=== PATIENT | male | born 1970 | race Caucasian/White ===

== ENCOUNTER 2018-12-07 13:50 | Inpatient (IN) | payer BC, OTHER ==
--- NOTE | 2018-12-07 14:24 | ED ---
General Adult HPI - General Chief complaint: Altered Mental Status Stated complaint: cirrhosis of liver Time Seen by Provider: 12/07/18 14:10 Source: patient, EMS Mode of arrival: EMS Limitations: altered mental status - History of Present Illness Initial comments: Dictation was produced using [employer] dictation software. please excuse any grammatical, word or spelling errors. Chief Complaint: 48-year-old male with past medical history of diabetes, liver cirrhosis presents via transfer from [facility] for hepatic encephalopathy. History of Present Illness: As a 48-year-old male past medical history of cirrhosis and hyperammonemia presents via EMS as a transfer from [facility] for hepatic encephalopathy. Patient is known history of liver cirrhosis. He does take lactulose at home. Patient was allegedly brought to [facility] by EMS for altered mental status. Patient was allegedly uncooperative and slightly combative at home. He does have established care with GI doctor Dr. Angulo. She was seen and evaluated there and found to have elevated ammonia level measuring 2-54. His also found to have elevated potassium measuring 6.7. Patient was treated with hyperkalemia medications. His potassium was rechecked and found to be 4.6. Patient has no complaints at this time. Patient states he's feeling a lot better since being transferred. Did have a computed tomography scan of the brain that was unremarkable. He also had CT abdomen and pelvis that showed no acute processes. According transferring doctor he was not sure why patient had hyperkalemia. The ROS documented in this emergency department record has been reviewed and confirmed by me. Those systems with pertinent positive or negative responses have been documented in the HPI. All other systems are other negative and/or noncontributory. PHYSICAL EXAM: General Impression: Alert and oriented x3, not in acute distress HEENT: Normocephalic atraumatic, extra-ocular movements intact, pupils equal and reactive to light bilaterally, mucous membranes moist. Cardiovascular: Heart regular rate and rhythm, S1&S2 audible, no murmurs, rubs or gallops Chest: Lungs clear to auscultation bilaterally, no rhonchi, no wheeze, no rales Abdomen: Bowel sounds present, abdomen soft, non-tender, non-distended, no organomegaly Musculoskeletal: Pulses present and equal in all extremities, no peripheral edema Motor: no focal deficits noted Neurological: CN II-XII grossly intact, no focal motor or sensory deficits noted Skin: Intact with no visualized rashes Psych: Normal affect and mood ED course: 48-year-old male transferred from [facility] for hepatic encephalopathy. Chart was reviewed. Vital signs upon arrival shows heart rate of 103, rest of vital signs within acceptable limits. Patient is alert and oriented 4. He is well-appearing at this time. Labs and imaging were reviewed. The reading repeat EKG, repeat basic metabolic panel and ammonia level. Discussed patient case with Dr. Contreras who is willing to accept patients care. Review of Systems ROS Statement: Those systems with pertinent positive or pertinent negative responses have been documented in the HPI. ROS Other: All systems not noted in ROS Statement are negative. General Exam Limitations: altered mental status Course Vital Signs 12/07/18 14:08 Temperature 97.7 F Pulse Rate 103 H Respiratory 20 Rate Blood Pressure 109/59 Disposition Clinical Impression: Encephalopathy Disposition: ADMITTED IP TO THIS HOSP Condition: Fair Referrals: Star Guzmán MD [Primary Care Provider] - 1-2 days Decision Time: 14:31
[2018-12-07] MEDS ORDERED: NALOXONE 0.4 MG/ML 1 ML VIAL IV PRN (14:28)
[2018-12-07] MEDS ORDERED: SODIUM CHLORIDE 0.9% 1,000 ML IV SCH (14:30)
[2018-12-07 15:54] LABS: African American GFR (CKD) >90 (>60 ml/min/1.73 sqM); Anion Gap 11 mmol/L; Blood Urea Nitrogen 27 mg/dL (9-20); Calcium 8.7 mg/dL (8.4-10.2); Carbon Dioxide 12 mmol/L (22-30); Chloride 113 mmol/L (98-107); Glucose 386 mg/dL (74-99); Potassium 5.5 mmol/L (3.5-5.1); Sodium 136 mmol/L (137-145)
[2018-12-07] MEDS: LACTULOSE 20 GM/30 ML CUP PO SCH ×3 (17:50→23:49)
[2018-12-07] MEDS ORDERED: INFLUENZA VACCINE (6 MOS+) 60 MCG/0.5 ML SYRINGE IM ONE (21:16)
[2018-12-07] MEDS ORDERED: IBUPROFEN 400 MG TAB PO PRN (21:16)
[2018-12-07] MEDS ORDERED: ALBUTEROL NEBULIZED 2.5 MG/3 ML INHALATION PRN (21:17)
[2018-12-07] MEDS ORDERED: NITROGLYCERIN SL TABS 0.4 MG TAB SUBLINGUAL PRN (21:17)
[2018-12-07] MEDS ORDERED: HYDROcodone/APAP 10-325MG 1 EACH TAB PO PRN (21:17)
[2018-12-07] MEDS ORDERED: MELATONIN 3 MG TABLET PO PRN (21:20)
[2018-12-07 21:28] LABS: Glucose,Whole Blood 496 mg/dL (75-99)
[2018-12-07] MEDS ORDERED: INSULIN DETEMIR (LEVEMIR) 100 UNIT/ML SYR SQ SCH (21:30)
[2018-12-07] MEDS ORDERED: ATORVASTATIN 20 MG TAB PO SCH (21:30)
[2018-12-07] MEDS: GABAPENTIN 300 MG CAP PO SCH (22:19)
[2018-12-07] MEDS: FUROSEMIDE 40 MG TAB PO SCH (22:19)
[2018-12-07] MEDS: METOPROLOL TARTRATE 25 MG TAB PO SCH (22:19)
[2018-12-07] MEDS: INSULIN ASPART (NovoLOG) 100 UNIT/ML VIAL SQ SCH (22:20)
[2018-12-08] MEDS ORDERED: INSULIN ASPART (NovoLOG) 100 UNIT/ML VIAL SQ ONE (02:14)
[2018-12-08 02:16] LABS: Glucose,Whole Blood 332 mg/dL (75-99)
[2018-12-08] MEDS: LACTULOSE 20 GM/30 ML CUP PO SCH ×4 (03:46→15:33)
[2018-12-08 05:10] VITALS: RESP 16
[2018-12-08 06:44] LABS: Glucose,Whole Blood 119 mg/dL (75-99)
[2018-12-08] MEDS: ALBUTEROL NEBULIZED 2.5 MG/3 ML INHALATION SCH ×3 (07:30→15:24)
[2018-12-08] MEDS ORDERED: metFORMIN 500 MG TAB PO SCH (07:30)
[2018-12-08] MEDS ORDERED: PANTOPRAZOLE 40 MG TABLET PO SCH (07:30)
[2018-12-08 07:32] LABS: ALT 57 U/L (21-72); AST 69 U/L (17-59); African American GFR (CKD) >90 (>60 ml/min/1.73 sqM); Albumin 2.9 g/dL (3.5-5.0); Alkaline Phosphatase 265 U/L (38-126); Anion Gap 8 mmol/L; Blood Urea Nitrogen 24 mg/dL (9-20); Calcium 9.2 mg/dL (8.4-10.2); Carbon Dioxide 18 mmol/L (22-30); Chloride 116 mmol/L (98-107); Glucose 124 mg/dL (74-99); Potassium 5.1 mmol/L (3.5-5.1); Sodium 142 mmol/L (137-145); Total Bilirubin 1.7 mg/dL (0.2-1.3); Total Protein 7.4 g/dL (6.3-8.2)
[2018-12-08] MEDS: INSULIN ASPART (NovoLOG) 100 UNIT/ML VIAL SQ SCH ×2 (07:36→12:58)
[2018-12-08 07:44] LABS: Basophils % (A) 0 %; Eosinophils # (A) 0.1 k/uL (0-0.7); Eosinophils % (A) 5 %; HCT 27.6 % (39.0-53.0); HGB 8.9 gm/dL (13.0-17.5); Hypochromasia Moderate; Lymphocytes # (A) 0.6 k/uL (1.0-4.8); Lymphocytes % (A) 31 %; MCH 30.8 pg (25.0-35.0); MCHC 32.3 g/dL (31.0-37.0); MCV 95.1 fL (80.0-100.0); Mean Platelet Volume 7.8; Monocytes # (A) 0.1 k/uL (0-1.0); Monocytes % (A) 6 %; Neutrophils # (A) 1.1 k/uL (1.3-7.7); Neutrophils % (A) 55 %; RBC 2.91 m/uL (4.30-5.90)
[2018-12-08 08:51] LABS: Platelet Count 54 k/uL (150-450); Poikilocytosis (M) Present
[2018-12-08] MEDS: FUROSEMIDE 40 MG TAB PO SCH (08:58)
[2018-12-08] MEDS: METOPROLOL TARTRATE 25 MG TAB PO SCH (08:58)
[2018-12-08] MEDS: GABAPENTIN 300 MG CAP PO SCH (08:59)
[2018-12-08] MEDS ORDERED: ASPIRIN 81 MG PO SCH (09:00)
[2018-12-08] MEDS ORDERED: LISINOPRIL 5 MG TAB PO SCH (09:00)
[2018-12-08] MEDS ORDERED: CITALOPRAM HYDROBROMIDE 20 MG TAB PO SCH (09:00)
[2018-12-08 10:51] LABS: Glucose,Whole Blood 186 mg/dL (75-99)
[2018-12-08 12:28] VITALS: BP 134/80; TEMP 98
[2018-12-08 13:20] VITALS: BMI 36.6
[2018-12-08 15:19] VITALS: PULSE 83
--- NOTE | 2018-12-10 22:59 | P.HPIM ---
History of Present Illness H&P Date: 12/08/18 Chief Complaint: Confused History of presenting complaint: This is a 48-year-old patient of Dr. Guzmán. Patient has a known history of cirrhosis that has progressed from fatty liver. Diagnosed 2 years ago. Follows with senior vice president Dr. Cuellar. Patient was transferred to the ER from [facility]. Patient normally takes his lactulose. But he became confused liver but combative at home. Was taken down to [facility] ER. Also found to have a potassium of 6.7. Lactulose given. Potassium was brought down to 4.6. Getting more lactulose. And transferred down here. Initial ammonia level was more than 250. He was orally feeling after he got admitted h ere. And was continued on lactulose. When I saw the patient he is already doing much better. Able to carry out a conversation. He is not sure what happened. Denies any focal symptoms. No headaches or double vision. No change in speech. Able to get up to the bathroom. Carry out a conversation. He has been taking his lactulose to titrate 2-3 bowel movements a day. No fever no chills. 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 Physical examination: VITAL SIGNS: 97.7, 103, 20, 109/59, 97% room air GENERAL: BMI 36.6, sitting at edge of bed, awake comfortable. EYES: Pupils equal. Conjunctiva normal. HEENT: External appearance of nose and ears normal, oral cavity grossly normal. NECK: JVD not raised; masses not palpable. HEART: First and second heart sounds are normal; no edema. LUNGS: Respiratory rate normal; clear to auscultation. ABDOMEN: Soft, slightly distended, nontender, liver spleen not palpable, no masses palpable. PSYCH: Alert and oriented x3; mood and affect normal. NEUROLOGICAL: Cranial nerves grossly intact; no facial asymmetry, power and sensation grossly intact. LYMPHATICS: No lymph nodes palpable in the axilla and neck INVESTIGATIONS, reviewed in the clinical context: White count 2 hemoglobin 8.9 platelets 54 potassium 5.1. 24 creatinine 0.87 Ammonia at [place] was 254 Here it is 14 Assessment: -Acute hepatic encephalopathy from hyperammonemia, and a cirrhotic patient -Hepatic cirrhosis that is progressed from fatty liver -Obesity BMI 36.6 -Pancytopenia from cirrhosis -Coronary artery disease with stent -Diabetes mellitus type 2 -GERD -Hyperlipidemia -Essential hypertension -Importance -Chronic insomnia Plan: Patient's home medications resumed. Lactulose was resumed. Patient is already responding rather well. Care was discussed with the patient. In remission well could be discharge home later today. Past Medical History Past Medical History: Coronary Artery Disease (CAD), Chest Pain / Angina, Heart Failure, Diabetes Mellitus, GERD/Reflux, GI Bleed, Hyperlipidemia, Hypertension, Liver Disease, Myocardial Infarction (CT), Pneumonia Additional Past Medical History / Comment(s): Last CT- 2012, Cirrhosis from fatty liver, impotence, allergic rhinitis, insomnia, chronic pain, edema, Last Myocardial Infarction Date:: 2012 History of Any Multi-Drug Resistant Organisms: None Reported Past Surgical History: Cholecystectomy, Heart Catheterization With Stent Additional Past Surgical History / Comment(s): EGD- 2013/2014, carpal tunnel on a hand that he does not remember, stress test in psring everything was okay. Past Anesthesia/Blood Transfusion Reactions: No Reported Reaction Additional Past Anesthesia/Blood Transfusion Reaction / Comment(s): No blood transfusions. Date of Last Stent Placement:: 2012 Past Psychological History: Depression Additional Psychological History / Comment(s): Lives in own home. Patient does have glucometer at home. Smoking Status: Former smoker Past Alcohol Use History: None Reported Additional Past Alcohol Use History / Comment(s): No alochol at all due to liver. Past Drug Use History: None Reported - Past Family History Mother History Unknown: Yes Family Medical History: Cancer Additional Family Medical History / Comment(s): Lung cancer, since passed. Medications and Allergies Home Medications Medication Instructions Recorded Confirmed Type Albuterol Nebulized [Ventolin 2.5 mg INHALATION RT-TID 12/07/18 12/07/18 History Nebulized] Albuterol Sulfate [Proair Hfa] 2 puff INHALATION RT-Q4H PRN 12/07/18 12/07/18 History Aspirin EC [Ecotrin Low Dose] 81 mg PO DAILY 12/07/18 12/07/18 History Citalopram Hydrobromide [CeleXA] 40 mg PO DAILY 12/07/18 12/07/18 History Furosemide [Lasix] 40 mg PO BID 12/07/18 12/07/18 History Gabapentin [Neurontin] 300 mg PO BID 12/07/18 12/07/18 History Hydrocodone/Acetaminophen [[place] 1 tab PO BID PRN 12/07/18 12/07/18 History 10-325] Insulin Aspart [NovoLOG Flexpen] See Protocol SQ TID PRN 12/07/18 12/07/18 History Insulin Glargine,Hum.rec.anlog See Protocol SQ HS 12/07/18 12/07/18 History [Lantus Solostar] Lisinopril [Zestril] 5 mg PO DAILY 12/07/18 12/07/18 History Metoprolol Tartrate 25 mg PO BID 12/07/18 12/07/18 History Nitroglycerin Sl Tabs [Nitrostat] 0.4 mg SUBLINGUAL Q5M PRN 12/07/18 12/07/18 History Omeprazole [PriLOSEC] 40 mg PO DAILY 12/07/18 12/07/18 History Simvastatin [Zocor] 40 mg PO HS 12/07/18 12/07/18 History metFORMIN HCL 1,000 mg PO BID-W/MEALS 12/07/18 12/07/18 History Lactulose 10 gm PO BID #600 ml 12/08/18 Rx Allergies Allergy/AdvReac Type Severity Reaction Status Date / Time cephalexin [From Keflex] AdvReac Rash/Hives Verified 12/07/18 20:30 Physical Exam Vitals: Vital Signs Temp Pulse Pulse Resp BP BP Pulse Ox 12/08/18 05:00 97.5 F L 75 16 117/71 100 12/07/18 19:39 98.6 F 103 H 18 133/72 97 12/07/18 18:29 93 16 120/68 12/07/18 14:08 97.7 F 103 H 20 109/59 Intake and Output 12/07/18 12/08/18 12/08/18 22:59 06:59 14:59 Intake Total 300 1200 Balance 300 1200 Intake: Oral 300 1200 Other: Voiding Method Toilet # Voids 3 # Bowel Movements 8 2 Results CBC & Chem 7: 12/08/18 07:08 12/08/18 07:08 Labs: Abnormal Lab Results - Last 24 Hours (Table) 12/07/18 12/07/18 12/07/18 Range/Units 15:24 15:24 21:26 WBC (3.8-10.6) k/uL RBC (4.30-5.90) m/uL Hgb (13.0-17.5) gm/dL Hct (39.0-53.0) % RDW (11.5-15.5) % Plt Count (150-450) k/uL Neutrophils # (1.3-7.7) k/uL Lymphocytes # (1.0-4.8) k/uL Sodium 136 L (137-145) mmol/L Potassium 5.5 H (3.5-5.1) mmol/L Chloride 113 H (98-107) mmol/L Carbon Dioxide 12 L (22-30) mmol/L BUN 27 H (9-20) mg/dL Glucose 386 H (74-99) mg/dL POC Glucose (mg/dL) 496 H (75-99) mg/dL Total Bilirubin (0.2-1.3) mg/dL AST (17-59) U/L Alkaline Phosphatase (38-126) U/L Ammonia 79 H (<30) umol/L Albumin (3.5-5.0) g/dL 12/07/18 12/08/18 12/08/18 Range/Units 21:35 01:42 06:43 WBC (3.8-10.6) k/uL RBC (4.30-5.90) m/uL Hgb (13.0-17.5) gm/dL Hct (39.0-53.0) % RDW (11.5-15.5) % Plt Count (150-450) k/uL Neutrophils # (1.3-7.7) k/uL Lymphocytes # (1.0-4.8) k/uL Sodium (137-145) mmol/L Potassium 5.3 H (3.5-5.1) mmol/L Chloride (98-107) mmol/L Carbon Dioxide (22-30) mmol/L BUN (9-20) mg/dL Glucose (74-99) mg/dL POC Glucose (mg/dL) 332 H 119 H (75-99) mg/dL Total Bilirubin (0.2-1.3) mg/dL AST (17-59) U/L Alkaline Phosphatase (38-126) U/L Ammonia (<30) umol/L Albumin (3.5-5.0) g/dL 12/08/18 12/08/18 Range/Units 07:08 07:08 WBC 2.0 L (3.8-10.6) k/uL RBC 2.91 L (4.30-5.90) m/uL Hgb 8.9 L (13.0-17.5) gm/dL Hct 27.6 L (39.0-53.0) % RDW 16.0 H (11.5-15.5) % Plt Count 54 L (150-450) k/uL Neutrophils # 1.1 L (1.3-7.7) k/uL Lymphocytes # 0.6 L (1.0-4.8) k/uL Sodium (137-145) mmol/L Potassium (3.5-5.1) mmol/L Chloride 116 H (98-107) mmol/L Carbon Dioxide 18 L (22-30) mmol/L BUN 24 H (9-20) mg/dL Glucose 124 H (74-99) mg/dL POC Glucose (mg/dL) (75-99) mg/dL Total Bilirubin 1.7 H (0.2-1.3) mg/dL AST 69 H (17-59) U/L Alkaline Phosphatase 265 H (38-126) U/L Ammonia (<30) umol/L Albumin 2.9 L (3.5-5.0) g/dL Thrombosis Risk Factor Assmnt - Choose All That Apply Each Factor Represents 1 point: Age 41-60 years, Obesity (BMI >25) Other Risk Factors: No Other congenital or acquired thrombophilia - If yes, enter type in comment: No Thrombosis Risk Factor Assessment Total Risk Factor Score: 2 Thrombosis Risk Factor Assessment Level: Low Risk
--- NOTE | 2018-12-10 23:01 | P.DS ---
Providers Date of admission: 12/07/18 14:28 Expected date of discharge: 12/08/18 Attending physician: Jamel Contreras Primary care physician: Star Ramirez [place] Hospital Course: Chief Complaint: Confused Hospital course: This is a 48-year-old patient of Dr. Guzmán. Patient has a known history of cirrhosis that has progressed from fatty liver. Diagnosed 2 years ago. Follows with lower school music teacher Dr. Cuellar. Patient was transferred to the ER from [facility]. Patient normally takes his lactulose. But he became confused liver but combative at home. Was taken down to [facility] ER. Also found to have a potassium of 6.7. Lactulose given. Potassium was brought down to 4.6. Getting more lactulose. And transferred down here. Initial ammonia level was more than 250. He was orally feeling after he got admitted here. And was continued on lactulose. When I saw the patient he is already doing much better. Able to carry out a conversation. He is not sure what happened. Denies any focal symptoms. No headaches or double vision. No change in speech. Able to get up to the bathroom. Carry out a conversation. He has been taking his lactulose to titrate 2-3 bowel movements a day. No fever no chills. Admitted with hepatic encephalopathy. Responded well to lactulose. Initial ammonia was 254. Did come down to 14. Care was discussed with the patient. He will follow-up with Dr. Cuellar. Physical examination: VITAL SIGNS: 97.5, 75, 16, 1170 71, 100% room air GENERAL: BMI 36.6, sitting at edge of bed, awake comfortable. EYES: Pupils equal. Conjunctiva normal. HEENT: External appearance of nose and ears normal, oral cavity grossly normal. NECK: JVD not raised; masses not palpable. HEART: First and second heart sounds are normal; no edema. LUNGS: Respiratory rate normal; clear to auscultation. ABDOMEN: Soft, slightly distended, nontender, liver spleen not palpable, no masses palpable. PSYCH: Alert and oriented x3; mood and affect normal. NEUROLOGICAL: Cranial nerves grossly intact; no facial asymmetry, power and sensation grossly intact. INVESTIGATIONS, reviewed in the clinical context: White count 2 hemoglobin 8.9 platelets 54 potassium 5.1. 24 creatinine 0.87 Ammonia at [place] was 254 Here it is 14 Discharge diagnosis: -Acute hepatic encephalopathy from hyperammonemia, in a cirrhotic patient -Hepatic cirrhosis that is progressed from fatty liver -Obesity BMI 36.6 -Pancytopenia from cirrhosis -Coronary artery disease with stent -Diabetes mellitus type 2 -GERD -Hyperlipidemia -Essential hypertension -Importance -Chronic insomnia Disposition: Home Patient Condition at Discharge: Stable Plan - Discharge Summary Discharge Rx Participant: No New Discharge Prescriptions: Continue Insulin Aspart [NovoLOG Flexpen] See Protocol SQ TID PRN PRN Reason: Blood Sugar - High metFORMIN HCL 1,000 mg PO BID-W/MEALS Hydrocodone/Acetaminophen [[place] 10-325] 1 tab PO BID PRN PRN Reason: Pain Simvastatin [Zocor] 40 mg PO HS Omeprazole [PriLOSEC] 40 mg PO DAILY Lisinopril [Zestril] 5 mg PO DAILY Furosemide [Lasix] 40 mg PO BID Citalopram Hydrobromide [CeleXA] 40 mg PO DAILY Nitroglycerin Sl Tabs [Nitrostat] 0.4 mg SUBLINGUAL Q5M PRN PRN Reason: Chest Pain Aspirin EC [Ecotrin Low Dose] 81 mg PO DAILY Albuterol Sulfate [Proair Hfa] 2 puff INHALATION RT-Q4H PRN PRN Reason: Shortness Of Breath Albuterol Nebulized [Ventolin Nebulized] 2.5 mg INHALATION RT-TID Metoprolol Tartrate 25 mg PO BID Gabapentin [Neurontin] 300 mg PO BID Changed Lactulose 10 gm PO BID #600 ml No Action Insulin Glargine,Hum.rec.anlog [Lantus Solostar] See Protocol SQ HS Discharge Medication List Albuterol Nebulized [Ventolin Nebulized] 2.5 mg INHALATION RT-TID 12/07/18 [History] Albuterol Sulfate [Proair Hfa] 2 puff INHALATION RT-Q4H PRN 12/07/18 [History] Aspirin EC [Ecotrin Low Dose] 81 mg PO DAILY 12/07/18 [History] Citalopram Hydrobromide [CeleXA] 40 mg PO DAILY 12/07/18 [History] Furosemide [Lasix] 40 mg PO BID 12/07/18 [History] Gabapentin [Neurontin] 300 mg PO BID 12/07/18 [History] Hydrocodone/Acetaminophen [[place] 10-325] 1 tab PO BID PRN 12/07/18 [History] Insulin Aspart [NovoLOG Flexpen] See Protocol SQ TID PRN 12/07/18 [History] Insulin Glargine,Hum.rec.anlog [Lantus Solostar] See Protocol SQ HS 12/07/18 [History] Lisinopril [Zestril] 5 mg PO DAILY 12/07/18 [History] Metoprolol Tartrate 25 mg PO BID 12/07/18 [History] Nitroglycerin Sl Tabs [Nitrostat] 0.4 mg SUBLINGUAL Q5M PRN 12/07/18 [History] Omeprazole [PriLOSEC] 40 mg PO DAILY 12/07/18 [History] Simvastatin [Zocor] 40 mg PO HS 12/07/18 [History] metFORMIN HCL 1,000 mg PO BID-W/MEALS 12/07/18 [History] Lactulose 10 gm PO BID #600 ml 12/08/18 [Rx] Follow up Appointment(s)/Referral(s): Star Guzmán MD [Primary Care Provider] - 12/13/18 9:45 am (In the [place] Office.) Tiffanie Angulo MD [STAFF PHYSICIAN] - 12/12/18 2:45 pm [facility], [NON-STAFF] - 1-2 Days (will call to set up schedual. If you have questions please call agency. ) Patient Instructions/Handouts: Lactulose (By mouth), Hepatic Encephalopathy (DC) Activity/Diet/Wound Care/Special Instructions: resume home dose of insulin titrate lactulose to 2-3 bowel movements per day Discharge Disposition: HOME WITH HOME HEALTH SERVICES
== END 2018-12-08 17:15 | disposition home health service (06) | DRG 442 ==
LOC: EC 13:50 → 3NMEDONC 14:28
PROVIDERS: ADMIT Hospitalist; ATTEND Hospitalist
DX: K72.00 Acute and subacute hepatic failure without coma (principal); D61.818 Other pancytopenia; K74.69 Other cirrhosis of liver; E11.9 Type 2 diabetes mellitus without complications; E66.9 Obesity, unspecified; E78.5 Hyperlipidemia, unspecified; E87.5 Hyperkalemia; F32.9 Major depressive disorder, single episode, unspecified; F51.04 Psychophysiologic insomnia; I11.0 Hypertensive heart disease with heart failure; I25.10 Atherosclerotic heart disease of native coronary artery without angina pectoris; I25.2 Old myocardial infarction; I50.9 Heart failure, unspecified; K21.9 Gastro-esophageal reflux disease without esophagitis; K76.0 Fatty (change of) liver, not elsewhere classified; Z68.36 Body mass index [BMI] 36.0-36.9, adult; Z79.82 Long term (current) use of aspirin; Z79.84 Long term (current) use of oral hypoglycemic drugs; Z79.899 Other long term (current) drug therapy; Z80.1 Family history of malignant neoplasm of trachea, bronchus and lung; Z87.891 Personal history of nicotine dependence; Z95.5 Presence of coronary angioplasty implant and graft
CPT/HCPCS: 80048; 80053; 82140; 84132; 85025; 90686; 93005; 99285

== ENCOUNTER 2018-12-20 14:10 | Inpatient (IN) | payer OTHER ==
[2018-12-20 15:10] LABS: ALT 67 U/L (21-72); AST 70 U/L (17-59); African American GFR (CKD) >90 (>60 ml/min/1.73 sqM); Albumin 3.3 g/dL (3.5-5.0); Alkaline Phosphatase 320 U/L (38-126); Anion Gap 7 mmol/L; Bilirubin, Delta 0.7 mg/dL (0.0-0.2); Bilirubin,Unconjugated 0.7 mg/dL (0.0-1.1); Blood Urea Nitrogen 26 mg/dL (9-20); Calcium 9.1 mg/dL (8.4-10.2); Carbon Dioxide 19 mmol/L (22-30); Chloride 115 mmol/L (98-107); Glucose 220 mg/dL (74-99); Potassium 4.9 mmol/L (3.5-5.1); Sodium 141 mmol/L (137-145); Total Bilirubin 1.4 mg/dL (0.2-1.3); Total Protein 7.8 g/dL (6.3-8.2)
[2018-12-20 15:11] LABS: Basophils % (A) 0 %; Eosinophils # (A) 0.1 k/uL (0-0.7); Eosinophils % (A) 4 %; HCT 29.3 % (39.0-53.0); HGB 9.5 gm/dL (13.0-17.5); Lymphocytes # (A) 0.7 k/uL (1.0-4.8); Lymphocytes % (A) 25 %; MCH 31.1 pg (25.0-35.0); MCHC 32.5 g/dL (31.0-37.0); MCV 95.7 fL (80.0-100.0); Mean Platelet Volume 7.2; Monocytes # (A) 0.2 k/uL (0-1.0); Monocytes % (A) 6 %; Neutrophils # (A) 1.7 k/uL (1.3-7.7); Neutrophils % (A) 62 %; RBC 3.06 m/uL (4.30-5.90); WBC 2.7 k/uL (3.8-10.6)
[2018-12-20 15:15] LABS: INR 1.2 (<1.2); Partial Thromboplastin Time 25.4 sec (22.0-30.0)
[2018-12-20 15:53] LABS: Platelet Count 61 k/uL (150-450)
--- NOTE | 2018-12-20 16:41 | CT ---
EXAMINATION TYPE: CT brain wo con DATE OF EXAM: 12/20/2018 COMPARISON: Head CT 12/07/2018 HISTORY: confusion CT DLP: 1100.4 mGycm Automated exposure control for dose reduction was used. Helical acquisition through the brain. FINDINGS: Cerebral vascular calcifications are present. There is no hemorrhage or hydrocephalus. Cortical atrop hy is mild. Calvarium is intact. Paranasal sinuses and mastoid air cells as visualized are normal. IMPRESSION: NO ACUTE ABNORMALITY.
--- NOTE | 2018-12-20 17:07 | ED ---
Altered Mental Status HPI - General Chief Complaint: Altered Mental Status Stated Complaint: high ammonia levels Time Seen by Provider: 12/20/18 14:15 Source: patient Mode of arrival: EMS Limitations: altered mental status - History of Present Illness Initial Comments: The patient is a 48-year-old male presents to the emergency room with reported confusion. He does have a history of end-stage liver disease and has recurrent episodes of hyperammonemia. took him into [facility] earlier today. Laboratory studies were performed which demonstrated that the patient had an ammonia level of 125. 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 He is on lactulose daily as well as Xifaxan. She reports that he has been taking as directed however he will still have episodes of increased ammonia. No report of any blunt head trauma. No unilateral symptoms. Denies any fevers or chills. No back or neck pain. Denies any chest pain or shortness breath. No abdominal pain. No other alleviating, precipitating or modifying factors - Related Data Home Medications Medication Instructions Recorded Confirmed Albuterol Nebulized [Ventolin 2.5 mg INHALATION RT-TID 12/07/18 12/20/18 Nebulized] Albuterol Sulfate [Proair Hfa] 2 puff INHALATION RT-Q4H PRN 12/07/18 12/20/18 Aspirin EC [Ecotrin Low Dose] 81 mg PO DAILY 12/07/18 12/20/18 Citalopram Hydrobromide [CeleXA] 40 mg PO DAILY 12/07/18 12/20/18 Furosemide [Lasix] 40 mg PO BID 12/07/18 12/20/18 Gabapentin [Neurontin] 300 mg PO BID 12/07/18 12/20/18 Insulin Aspart [NovoLOG Flexpen] See Protocol SQ BID 12/07/18 12/20/18 Insulin Glargine,Hum.rec.anlog See Protocol SQ HS 12/07/18 12/20/18 [Lantus Solostar] Lisinopril [Zestril] 5 mg PO DAILY 12/07/18 12/20/18 Metoprolol Tartrate 25 mg PO BID 12/07/18 12/20/18 Nitroglycerin Sl Tabs [Nitrostat] 0.4 mg SUBLINGUAL Q5M PRN 12/07/18 12/20/18 Omeprazole [PriLOSEC] 40 mg PO DAILY 12/07/18 12/20/18 Simvastatin [Zocor] 40 mg PO HS 12/07/18 12/20/18 Dicyclomine [Bentyl] 10 mg PO QID 12/20/18 12/20/18 Lactulose 10 gm PO TID 12/20/18 12/20/18 Rifaximin [Xifaxan] 550 mg PO BID 12/20/18 12/20/18 Allergies Allergy/AdvReac Type Severity Reaction Status Date / Time cephalexin [From Keflex] AdvReac Rash/Hives Verified 12/20/18 15:39 Review of Systems ROS Statement: Those systems with pertinent positive or pertinent negative responses have been documented in the HPI. ROS Other: All systems not noted in ROS Statement are negative. Past Medical History Past Medical History: Coronary Artery Disease (CAD), Chest Pain / Angina, Heart Failure, Diabetes Mellitus, GERD/Reflux, GI Bleed, Hyperlipidemia, Hypertension, Liver Disease, Myocardial Infarction ([place]), Pneumonia Additional Past Medical History / Comment(s): Last [place]- 2012, Cirrhosis from fatty liver, impotence, allergic rhinitis, insomnia, chronic pain, edema, high ammonia levels Last Myocardial Infarction Date:: 2012 History of Any Multi-Drug Resistant Organisms: None Reported Past Surgical History: Cholecystectomy, Heart Catheterization With Stent Additional Past Surgical History / Comment(s): EGD- 2013/2014, carpal tunnel on a hand that he does not remember, stress test in [place] everything was okay. Past Anesthesia/Blood Transfusion Reactions: No Reported Reaction Additional Past Anesthesia/Blood Transfusion Reaction / Comment(s): No blood transfusions. Date of Last Stent Placement:: 2012 Past Psychological History: Depression Smoking Status: Former smoker Past Alcohol Use History: None Reported Past Drug Use History: None Reported - Past Family History Mother History Unknown: Yes Family Medical History: Cancer Additional Family Medical History / Comment(s): Lung cancer, since passed. General Exam Limitations: altered mental status General appearance: alert, in no apparent distress Head exam: Present: atraumatic, normocephalic, normal inspection Eye exam: Present: normal appearance, PERRL, EOMI. Absent: scleral icterus, conjunctival injection, periorbital swelling ENT exam: Present: normal exam, mucous membranes moist Neck exam: Present: normal inspection. Absent: tenderness, meningismus, lymphadenopathy Respiratory exam: Present: normal lung sounds bilaterally. Absent: respiratory distress, wheezes, rales, rhonchi, stridor Cardiovascular Exam: Present: regular rate, normal rhythm, normal heart sounds. Absent: systolic murmur, diastolic murmur, rubs, gallop, clicks GI/Abdominal exam: Present: soft, normal bowel sounds. Absent: distended, tenderness, guarding, rebound, rigid Extremities exam: Present: normal inspection, full ROM, normal capillary refill. Absent: tenderness, pedal edema, joint swelling, calf tenderness Back exam: Present: normal inspection Neurological exam: Present: alert, oriented X3, CN II-XII intact Psychiatric exam: Present: normal affect, normal mood Skin exam: Present: warm, dry, intact, pallor. Absent: rash Course Vital Signs 12/20/18 12/20/18 12/20/18 14:12 16:33 18:04 Temperature 98.8 F Pulse Rate 78 80 80 Respiratory 18 18 18 Rate Blood Pressure 140/71 132/72 114/83 O2 Sat by Pulse 98 99 99 Oximetry 12/20/18 12/20/18 19:03 20:53 Temperature 97.7 F Pulse Rate 88 87 Respiratory 18 16 Rate Blood Pressure 100/49 125/69 O2 Sat by Pulse 99 99 Oximetry Medical Decision Making - Medical Decision Making Upon arrival the patient is placed in room 5. A thorough history and physical exam was obtained. The patient was given lactulose at [facility]. I did repeat laboratory studies. White blood cell count is stable at 2.7. Hemoglobin is 9.5. Platelets are stable at 61. Patient's ammonia at this time is 85. Alk phos is 320. I did discuss these results the patient. I did opt to CAT scan his head as I am concerned with low platelets and his reported confusion. Upon my physical exam, patient has confused regarding the events this morning however is aware of current surroundings and provides appropriate medical history. CT is negative. I did recommend hospital admission for continued lactulose and further recommendations regarding the patients home medications. I will increase his lactulose dose from 10 to 20 for now. I will consult Dr. Angulo. I called and discussed the case with Dr. Cason who accepted admission of the patient. The patient was then awaiting a bed on the floor - Lab Data Result diagrams: 10/16/19 07:29 12/21/18 07:29 Lab Results 12/20/18 12/20/18 12/20/18 Range/Units 15:01 15:01 15:01 WBC 2.7 L (3.8-10.6) k/uL RBC 3.06 L (4.30-5.90) m/uL Hgb 9.5 L (13.0-17.5) gm/dL Hct 29.3 L (39.0-53.0) % MCV 95.7 (80.0-100.0) fL MCH 31.1 (25.0-35.0) pg MCHC 32.5 (31.0-37.0) g/dL RDW 16.0 H (11.5-15.5) % Plt Count 61 L (150-450) k/uL Neutrophils % 62 % Lymphocytes % 25 % Monocytes % 6 % Eosinophils % 4 % Basophils % 0 % Neutrophils # 1.7 (1.3-7.7) k/uL Lymphocytes # 0.7 L (1.0-4.8) k/uL Monocytes # 0.2 (0-1.0) k/uL Eosinophils # 0.1 (0-0.7) k/uL Basophils # 0.0 (0-0.2) k/uL Manual Slide Review Performed Hypochromasia Anisocytosis Macrocytosis PT (9.0-12.0) sec INR (<1.2) APTT (22.0-30.0) sec Sodium 141 (137-145) mmol/L Potassium 4.9 (3.5-5.1) mmol/L Chloride 115 H (98-107) mmol/L Carbon Dioxide 19 L (22-30) mmol/L Anion Gap 7 mmol/L BUN 26 H (9-20) mg/dL Creatinine 0.75 (0.66-1.25) mg/dL Est GFR (CKD-EPI)AfAm >90 (>60 ml/min/1.73 sqM) Est GFR (CKD-EPI)NonAf >90 (>60 ml/min/1.73 sqM) Glucose 220 H (74-99) mg/dL POC Glucose (mg/dL) (75-99) mg/dL POC Glu Electroencephalographic Technician ID Estimated Ave Glu mg/dL Hemoglobin A1c (4.0-6.0) % Calcium 9.1 (8.4-10.2) mg/dL Total Bilirubin 1.4 H (0.2-1.3) mg/dL Conjugated Bilirubin 0.0 (0.0-0.3) mg/dL Unconjugated Bilirubin 0.7 (0.0-1.1) mg/dL Delta Bilirubin 0.7 H (0.0-0.2) mg/dL AST 70 H (17-59) U/L ALT 67 (21-72) U/L Alkaline Phosphatase 320 H (38-126) U/L Ammonia 85 H (<30) umol/L Total Protein 7.8 (6.3-8.2) g/dL Albumin 3.3 L (3.5-5.0) g/dL 12/20/18 12/20/18 12/21/18 Range/Units 15:01 21:23 07:03 WBC (3.8-10.6) k/uL RBC (4.30-5.90) m/uL Hgb (13.0-17.5) gm/dL Hct (39.0-53.0) % MCV (80.0-100.0) fL MCH (25.0-35.0) pg MCHC (31.0-37.0) g/dL RDW (11.5-15.5) % Plt Count (150-450) k/uL Neutrophils % % Lymphocytes % % Monocytes % % Eosinophils % % Basophils % % Neutrophils # (1.3-7.7) k/uL Lymphocytes # (1.0-4.8) k/uL Monocytes # (0-1.0) k/uL Eosinophils # (0-0.7) k/uL Basophils # (0-0.2) k/uL Manual Slide Review Hypochromasia Anisocytosis Macrocytosis PT 12.0 (9.0-12.0) sec INR 1.2 H (<1.2) APTT 25.4 (22.0-30.0) sec Sodium (137-145) mmol/L Potassium (3.5-5.1) mmol/L Chloride (98-107) mmol/L Carbon Dioxide (22-30) mmol/L Anion Gap mmol/L BUN (9-20) mg/dL Creatinine (0.66-1.25) mg/dL Est GFR (CKD-EPI)AfAm (>60 ml/min/1.73 sqM) Est GFR (CKD-EPI)NonAf (>60 ml/min/1.73 sqM) Glucose (74-99) mg/dL POC Glucose (mg/dL) 304 H 263 H (75-99) mg/dL POC Glu Electroencephalographic Technician ID Jyoti Ames, [place] [address] Glu mg/dL Hemoglobin A1c (4.0-6.0) % Calcium (8.4-10.2) mg/dL Total Bilirubin (0.2-1.3) mg/dL Conjugated Bilirubin (0.0-0.3) mg/dL Unconjugated Bilirubin (0.0-1.1) mg/dL Delta Bilirubin (0.0-0.2) mg/dL AST (17-59) U/L ALT (21-72) U/L Alkaline Phosphatase (38-126) U/L Ammonia (<30) umol/L Total Protein (6.3-8.2) g/dL Albumin (3.5-5.0) g/dL 12/21/18 12/21/18 12/21/18 Range/Units 07:29 07:29 07:29 WBC 2.6 L (3.8-10.6) k/uL RBC 3.01 L (4.30-5.90) m/uL Hgb 9.1 L (13.0-17.5) gm/dL Hct 30.1 L (39.0-53.0) % MCV 100.0 (80.0-100.0) fL MCH 30.4 (25.0-35.0) pg MCHC 30.4 L (31.0-37.0) g/dL RDW 16.2 H (11.5-15.5) % Plt Count 59 L (150-450) k/uL Neutrophils % 60 % Lymphocytes % 26 % Monocytes % 7 % Eosinophils % 4 % Basophils % 1 % Neutrophils # 1.5 (1.3-7.7) k/uL Lymphocytes # 0.7 L (1.0-4.8) k/uL Monocytes # 0.2 (0-1.0) k/uL Eosinophils # 0.1 (0-0.7) k/uL Basophils # 0.0 (0-0.2) k/uL Manual Slide Review Hypochromasia Moderate Anisocytosis Slight Macrocytosis Slight PT (9.0-12.0) sec INR (<1.2) APTT (22.0-30.0) sec Sodium 141 (137-145) mmol/L Potassium 5.0 (3.5-5.1) mmol/L Chloride 111 H (98-107) mmol/L Carbon Dioxide 22 (22-30) mmol/L Anion Gap 8 mmol/L BUN 24 H (9-20) mg/dL Creatinine 0.84 (0.66-1.25) mg/dL Est GFR (CKD-EPI)AfAm >90 (>60 ml/min/1.73 sqM) Est GFR (CKD-EPI)NonAf >90 (>60 ml/min/1.73 sqM) Glucose 253 H (74-99) mg/dL POC Glucose (mg/dL) (75-99) mg/dL POC Glu Electroencephalographic Technician ID Estimated Ave Glu mg/dL 203 Hemoglobin A1c 8.7 H (4.0-6.0) % Calcium 8.9 (8.4-10.2) mg/dL Total Bilirubin 1.5 H (0.2-1.3) mg/dL Conjugated Bilirubin (0.0-0.3) mg/dL Unconjugated Bilirubin (0.0-1.1) mg/dL Delta Bilirubin (0.0-0.2) mg/dL AST 91 H (17-59) U/L ALT 72 (21-72) U/L Alkaline Phosphatase 312 H (38-126) U/L Ammonia (<30) umol/L Total Protein 7.8 (6.3-8.2) g/dL Albumin 3.2 L (3.5-5.0) g/dL 12/21/18 12/21/18 Range/Units 11:29 11:34 WBC (3.8-10.6) k/uL RBC (4.30-5.90) m/uL Hgb (13.0-17.5) gm/dL Hct (39.0-53.0) % MCV (80.0-100.0) fL MCH (25.0-35.0) pg MCHC (31.0-37.0) g/dL RDW (11.5-15.5) % Plt Count (150-450) k/uL Neutrophils % % Lymphocytes % % Monocytes % % Eosinophils % % Basophils % % Neutrophils # (1.3-7.7) k/uL Lymphocytes # (1.0-4.8) k/uL Monocytes # (0-1.0) k/uL Eosinophils # (0-0.7) k/uL Basophils # (0-0.2) k/uL Manual Slide Review Hypochromasia Anisocytosis Macrocytosis PT (9.0-12.0) sec INR (<1.2) APTT (22.0-30.0) sec Sodium (137-145) mmol/L Potassium (3.5-5.1) mmol/L Chloride (98-107) mmol/L Carbon Dioxide (22-30) mmol/L Anion Gap mmol/L BUN (9-20) mg/dL Creatinine (0.66-1.25) mg/dL Est GFR (CKD-EPI)AfAm (>60 ml/min/1.73 sqM) Est GFR (CKD-EPI)NonAf (>60 ml/min/1.73 sqM) Glucose (74-99) mg/dL POC Glucose (mg/dL) 305 H (75-99) mg/dL POC Glu Electroencephalographic Technician Breana Johnson [address] Glu mg/dL Hemoglobin A1c (4.0-6.0) % Calcium (8.4-10.2) mg/dL Total Bilirubin (0.2-1.3) mg/dL Conjugated Bilirubin (0.0-0.3) mg/dL Unconjugated Bilirubin (0.0-1.1) mg/dL Delta Bilirubin (0.0-0.2) mg/dL AST (17-59) U/L ALT (21-72) U/L Alkaline Phosphatase (38-126) U/L Ammonia 24 (<30) umol/L Total Protein (6.3-8.2) g/dL Albumin (3.5-5.0) g/dL Disposition Clinical Impression: Encephalopathy, Hyperammonemia, Hepatic encephalopathy Disposition: ADMITTED IP TO THIS [facility] Condition: Stable Is patient prescribed a controlled substance at d/c from ED?: No Decision to Admit Reason: Admit from EC Decision Date: 12/20/18 Decision Time: 17:10
[2018-12-20] MEDS ORDERED: NALOXONE 0.4 MG/ML 1 ML VIAL IV PRN (17:10)
[2018-12-20] MEDS ORDERED: ATORVASTATIN 20 MG TAB PO SCH (21:00)
[2018-12-20 21:30] LABS: Glucose,Whole Blood 304 mg/dL (75-99)
[2018-12-20] MEDS: METOPROLOL TARTRATE 25 MG TAB PO SCH (22:17)
[2018-12-20] MEDS: FUROSEMIDE 40 MG TAB PO SCH (22:17)
[2018-12-20] MEDS: LACTULOSE 20 GM/30 ML CUP PO SCH (22:17)
[2018-12-20] MEDS: GABAPENTIN 300 MG CAP PO SCH (22:17)
[2018-12-20] MEDS: RIFAXIMIN 550 MG TABLET PO SCH (22:21)
[2018-12-20] MEDS: INSULIN ASPART (NovoLOG) 100 UNIT/ML VIAL SQ SCH (22:53)
[2018-12-20 23:01] VITALS: TEMP 97.8
[2018-12-21 07:19] LABS: Glucose,Whole Blood 263 mg/dL (75-99)
[2018-12-21] MEDS ORDERED: INSULIN ASPART (NovoLOG) 100 UNIT/ML VIAL SQ SCH (07:30)
[2018-12-21] MEDS: LACTULOSE 20 GM/30 ML CUP PO SCH (08:13)
[2018-12-21] MEDS: METOPROLOL TARTRATE 25 MG TAB PO SCH (08:14)
[2018-12-21] MEDS: GABAPENTIN 300 MG CAP PO SCH (08:14)
[2018-12-21] MEDS: FUROSEMIDE 40 MG TAB PO SCH (08:14)
[2018-12-21] MEDS: INSULIN ASPART (NovoLOG) 100 UNIT/ML VIAL SQ SCH ×2 (08:21→12:51)
[2018-12-21 08:25] LABS: Anisocytosis Slight; Basophils % (A) 1 %; Eosinophils # (A) 0.1 k/uL (0-0.7); Eosinophils % (A) 4 %; HCT 30.1 % (39.0-53.0); HGB 9.1 gm/dL (13.0-17.5); Hypochromasia Moderate; Lymphocytes # (A) 0.7 k/uL (1.0-4.8); Lymphocytes % (A) 26 %; MCH 30.4 pg (25.0-35.0); MCHC 30.4 g/dL (31.0-37.0); Macrocytosis Slight; Mean Platelet Volume 7.6; Monocytes # (A) 0.2 k/uL (0-1.0); Monocytes % (A) 7 %; Neutrophils # (A) 1.5 k/uL (1.3-7.7); Neutrophils % (A) 60 %; RBC 3.01 m/uL (4.30-5.90); RDW 16.2 % (11.5-15.5); WBC 2.6 k/uL (3.8-10.6)
[2018-12-21 08:31] LABS: Platelet Count 59 k/uL (150-450)
[2018-12-21 08:34] LABS: ALT 72 U/L (21-72); AST 91 U/L (17-59); African American GFR (CKD) >90 (>60 ml/min/1.73 sqM); Albumin 3.2 g/dL (3.5-5.0); Alkaline Phosphatase 312 U/L (38-126); Anion Gap 8 mmol/L; Blood Urea Nitrogen 24 mg/dL (9-20); Calcium 8.9 mg/dL (8.4-10.2); Carbon Dioxide 22 mmol/L (22-30); Chloride 111 mmol/L (98-107); Glucose 253 mg/dL (74-99); Sodium 141 mmol/L (137-145); Total Bilirubin 1.5 mg/dL (0.2-1.3); Total Protein 7.8 g/dL (6.3-8.2)
[2018-12-21] MEDS: RIFAXIMIN 550 MG TABLET PO SCH (08:55)
[2018-12-21] MEDS ORDERED: ASPIRIN 81 MG PO SCH (09:00)
[2018-12-21] MEDS ORDERED: LISINOPRIL 5 MG TAB PO SCH (09:00)
[2018-12-21] MEDS ORDERED: CITALOPRAM HYDROBROMIDE 20 MG TAB PO SCH (09:00)
[2018-12-21 11:44] LABS: Glucose,Whole Blood 305 mg/dL (75-99)
--- NOTE | 2018-12-21 14:59 | P.HPIM ---
History of Present Illness 48-year-old male came in because of altered mental status found to have hyperammonia anemia. 85 patient does have end-stage liver disease cirrhosis patient is on lactulose and and Xifaxan for that. Patient admits to missing. Dose of lactulose. Patient does have ascites but doesn't have any tenderness doesn't have any evidence S1 is Donovan for tonight is no leukocytosis or fever. Patient's potassium is 5 because of which I'm not using Aldactone patient is on Lasix 40 twice a day which will be continued patient is also on lisinopril. Patient is on metformin patient's blood sugars are elevated as she as he didn't receive his Lantus yesterday. Patient has fluctuating blood sugars because of which are not titrating his insulin here patient takes Lantus at 73 units at nighttime and the sliding scale insulin with each meal follows up with endocrinology as an outpatient will set up a close follow-up with endocrinology and patient will be discharged today his hyperlipoidemia has come down patient doesn't have any spontaneous bacterial peritonitis patient already has lactulose uses lactulose 2-3 times a day and titrates it for 2-3 bowel movements loose along with continuation of Xifaxan. Patient although does not appear to be competent with the low-salt diet for which I counseled him extensively. Metformin will be discontinued because of his liver dysfunction my concern is lactic acidosis. Patient will follow-up with endocrinology as an outpatient. Patient does have non-anion gap metabolic acidosis appears to be secondary to hyperchloremia rather lactic acidosis. Review of Systems REVIEW OF SYSTEMS: CONSTITUTIONAL: No fever, no malaise, no fatigue. HEENT: No recent visual problems or hearing problems. Denied any sore throat. CARDIOVASCULAR: No chest pain, orthopnea, PND, no palpitations, no syncope. PULMONARY: No shortness of breath, no cough, no hemoptysis. GASTROINTESTINAL: No diarrhea, no nausea, no vomiting, no abdominal pain. NEUROLOGICAL: No headaches, no weakness, no numbness. HEMATOLOGICAL: Denies any bleeding or petechiae. GENITOURINARY: Denies any burning micturition, frequency, or urgency. MUSCULOSKELETAL/RHEUMATOLOGICAL: Denies any joint pain, swelling, or any muscle pain. ENDOCRINE: Denies any polyuria or polydipsia. The rest of the 14-point review of systems is negative. Past Medical History Past Medical History: Coronary Artery Disease (CAD), Chest Pain / Angina, Heart Failure, Diabetes Mellitus, GERD/Reflux, GI Bleed, Hyperlipidemia, Hypertension, Liver Disease, Myocardial Infarction ([place]), Pneumonia Additional Past Medical History / Comment(s): Last [place]- 2012, Cirrhosis from fatty liver, impotence, allergic rhinitis, insomnia, chronic pain, edema, high ammonia levels Last Myocardial Infarction Date:: 2012 History of Any Multi-Drug Resistant Organisms: None Reported Past Surgical History: Cholecystectomy, Heart Catheterization With Stent Additional Past Surgical History / Comment(s): EGD- 2013/2014, carpal tunnel on a hand that he does not remember, stress test in [place] everything was okay. Past Anesthesia/Blood Transfusion Reactions: No Reported Reaction Additional Past Anesthesia/Blood Transfusion Reaction / Comment(s): No blood transfusions. Date of Last Stent Placement:: 2012 Past Psychological History: Depression Additional Psychological History / Comment(s): Lives in own home. Patient does have glucometer at home. Smoking Status: Former smoker Past Alcohol Use History: None Reported Additional Past Alcohol Use History / Comment(s): No alochol at all due to liver. Past Drug Use History: None Reported - Past Family History Mother History Unknown: Yes Family Medical History: Cancer Additional Family Medical History / Comment(s): Lung cancer, since passed. Medications and Allergies Home Medications Medication Instructions Recorded Confirmed Type Albuterol Nebulized [Ventolin 2.5 mg INHALATION RT-TID 12/07/18 12/20/18 History Nebulized] Albuterol Sulfate [Proair Hfa] 2 puff INHALATION RT-Q4H PRN 12/07/18 12/20/18 History Aspirin EC [Ecotrin Low Dose] 81 mg PO DAILY 12/07/18 12/20/18 History Citalopram Hydrobromide [CeleXA] 40 mg PO DAILY 12/07/18 12/20/18 History Furosemide [Lasix] 40 mg PO BID 12/07/18 12/20/18 History Gabapentin [Neurontin] 300 mg PO BID 12/07/18 12/20/18 History Insulin Aspart [NovoLOG Flexpen] See Protocol SQ BID 12/07/18 12/20/18 History Insulin Glargine,Hum.rec.anlog See Protocol SQ HS 12/07/18 12/20/18 History [Lantus Solostar] Lisinopril [Zestril] 5 mg PO DAILY 12/07/18 12/20/18 History Metoprolol Tartrate 25 mg PO BID 12/07/18 12/20/18 History Nitroglycerin Sl Tabs [Nitrostat] 0.4 mg SUBLINGUAL Q5M PRN 12/07/18 12/20/18 History Omeprazole [PriLOSEC] 40 mg PO DAILY 12/07/18 12/20/18 History Simvastatin [Zocor] 40 mg PO HS 12/07/18 12/20/18 History Dicyclomine [Bentyl] 10 mg PO QID 12/20/18 12/20/18 History Lactulose 10 gm PO TID 12/20/18 12/20/18 History Rifaximin [Xifaxan] 550 mg PO BID 12/20/18 12/20/18 History Allergies Allergy/AdvReac Type Severity Reaction Status Date / Time cephalexin [From Keflex] AdvReac Rash/Hives Verified 12/20/18 15:39 Physical Exam Vitals: Vital Signs Temp Pulse Pulse Resp BP BP Pulse Ox 12/21/18 08:00 20 12/20/18 21:20 97.8 F 80 20 118/76 12/20/18 20:53 97.7 F 87 16 125/69 99 12/20/18 19:03 88 18 100/49 99 12/20/18 18:04 80 18 114/83 99 12/20/18 16:33 80 18 132/72 99 Intake and Output 12/20/18 12/21/18 12/21/18 22:59 06:59 14:59 Intake Total 200 Balance 200 Intake: Oral 200 Other: Voiding Method Toilet PHYSICAL EXAMINATION: GENERAL: The patient is alert and oriented x3, not in any acute distress. Well developed, well nourished. HEENT: Pupils are round and equally reacting to light. EOMI. No scleral icterus. No conjunctival pallor. Normocephalic, atraumatic. No pharyngeal erythema. No thyromegaly. CARDIOVASCULAR: S1 and S2 present. No murmurs, rubs, or gallops. PULMONARY: Chest is clear to auscultation, no wheezing or crackles. ABDOMEN: Soft, nontender,, normoactive bowel sounds. No palpable organomegaly. Ascites with distended abdomen shifting dullness, erythema, no asterixis MUSCULOSKELETAL: No joint swelling or deformity. EXTREMITIES: No cyanosis, clubbing, or pedal edema. NEUROLOGICAL: Gross neurological examination did not reveal any focal deficits. SKIN: No rashes. Results CBC & Chem 7: 12/21/18 07:29 12/21/18 07:29 Labs: Abnormal Lab Results - Last 24 Hours (Table) 12/20/18 12/20/18 12/20/18 Range/Units 15:01 15:01 15:01 WBC 2.7 L (3.8-10.6) k/uL RBC 3.06 L (4.30-5.90) m/uL Hgb 9.5 L (13.0-17.5) gm/dL Hct 29.3 L (39.0-53.0) % MCHC (31.0-37.0) g/dL RDW 16.0 H (11.5-15.5) % Plt Count 61 L (150-450) k/uL Lymphocytes # 0.7 L (1.0-4.8) k/uL INR (<1.2) Chloride 115 H (98-107) mmol/L Carbon Dioxide 19 L (22-30) mmol/L BUN 26 H (9-20) mg/dL Glucose 220 H (74-99) mg/dL POC Glucose (mg/dL) (75-99) mg/dL Total Bilirubin 1.4 H (0.2-1.3) mg/dL Delta Bilirubin 0.7 H (0.0-0.2) mg/dL AST 70 H (17-59) U/L Alkaline Phosphatase 320 H (38-126) U/L Ammonia 85 H (<30) umol/L Albumin 3.3 L (3.5-5.0) g/dL 12/20/18 12/20/18 12/21/18 Range/Units 15:01 21:23 07:03 WBC (3.8-10.6) k/uL RBC (4.30-5.90) m/uL Hgb (13.0-17.5) gm/dL Hct (39.0-53.0) % MCHC (31.0-37.0) g/dL RDW (11.5-15.5) % Plt Count (150-450) k/uL Lymphocytes # (1.0-4.8) k/uL INR 1.2 H (<1.2) Chloride (98-107) mmol/L Carbon Dioxide (22-30) mmol/L BUN (9-20) mg/dL Glucose (74-99) mg/dL POC Glucose (mg/dL) 304 H 263 H (75-99) mg/dL Total Bilirubin (0.2-1.3) mg/dL Delta Bilirubin (0.0-0.2) mg/dL AST (17-59) U/L Alkaline Phosphatase (38-126) U/L Ammonia (<30) umol/L Albumin (3.5-5.0) g/dL 12/21/18 12/21/18 12/21/18 Range/Units 07:29 07:29 11:34 WBC 2.6 L (3.8-10.6) k/uL RBC 3.01 L (4.30-5.90) m/uL Hgb 9.1 L (13.0-17.5) gm/dL Hct 30.1 L (39.0-53.0) % MCHC 30.4 L (31.0-37.0) g/dL RDW 16.2 H (11.5-15.5) % Plt Count 59 L (150-450) k/uL Lymphocytes # 0.7 L (1.0-4.8) k/uL INR (<1.2) Chloride 111 H (98-107) mmol/L Carbon Dioxide (22-30) mmol/L BUN 24 H (9-20) mg/dL Glucose 253 H (74-99) mg/dL POC Glucose (mg/dL) 305 H (75-99) mg/dL Total Bilirubin 1.5 H (0.2-1.3) mg/dL Delta Bilirubin (0.0-0.2) mg/dL AST 91 H (17-59) U/L Alkaline Phosphatase 312 H (38-126) U/L Ammonia (<30) umol/L Albumin 3.2 L (3.5-5.0) g/dL Thrombosis Risk Factor Assmnt - Choose All That Apply Any of the Below Risk Factors Present?: Yes Each Factor Represents 1 point: Age 41-60 years, Obesity (BMI >25) Other Risk Factors: No Other congenital or acquired thrombophilia - If yes, enter type in comment: No Thrombosis Risk Factor Assessment Total Risk Factor Score: 2 Thrombosis Risk Factor Assessment Level: Low Risk Assessment and Plan Plan: -Altered mental status: Secondary to possible hepatic encephalopathy as well as toxic encephalopathy from [place] which will be discontinued. Ammonia level has come down and patient mental status is at his baseline patient will be discharged he already has enough lactulose and Xifaxan at home. Counseling regarding low-salt diet was provided. -cirrhosis: I do not know the etiology of cirrhosis patient denies using excessive alcohol in the past, continue with Lasix he cannot use Aldactone because his potassium today is 5.0 Type 2 diabetes mellitus: Management as mentioned in the history -Hypertension -Gastroesophageal reflux disease -Coronary artery disease Patient will be discharged today as mentioned above
--- NOTE | 2018-12-21 14:59 | P.DS ---
Providers Date of admission: 12/21/18 12:50 Attending physician: Stanislaw Cason Consults: 12/20/18 17:11 Consult Physician Urgent Consulting Provider: Tiffanie Angulo Consult Reason/Comments: acute hepatic encephalopathy Do you want consulting provider notified?: Yes Primary care physician: Star Guzmán [facility] Course: Please refer to my HPI Patient Condition at Discharge: Stable Plan - Discharge Summary Discharge Rx Participant: No New Discharge Prescriptions: Discontinued metFORMIN HCL 1,000 mg PO BID-W/MEALS Hydrocodone/Acetaminophen [[place] 10-325] 1 tab PO BID PRN PRN Reason: Pain No Action Insulin Glargine,Hum.rec.anlog [Lantus Solostar] See Protocol SQ HS Insulin Aspart [NovoLOG Flexpen] See Protocol SQ BID Simvastatin [Zocor] 40 mg PO HS Omeprazole [PriLOSEC] 40 mg PO DAILY Lisinopril [Zestril] 5 mg PO DAILY Furosemide [Lasix] 40 mg PO BID Citalopram Hydrobromide [CeleXA] 40 mg PO DAILY Nitroglycerin Sl Tabs [Nitrostat] 0.4 mg SUBLINGUAL Q5M PRN PRN Reason: Chest Pain Aspirin EC [Ecotrin Low Dose] 81 mg PO DAILY Albuterol Sulfate [Proair Hfa] 2 puff INHALATION RT-Q4H PRN PRN Reason: Shortness Of Breath Albuterol Nebulized [Ventolin Nebulized] 2.5 mg INHALATION RT-TID Metoprolol Tartrate 25 mg PO BID Gabapentin [Neurontin] 300 mg PO BID Rifaximin [Xifaxan] 550 mg PO BID Dicyclomine [Bentyl] 10 mg PO QID Lactulose 10 gm PO TID Discharge Medication List Albuterol Nebulized [Ventolin Nebulized] 2.5 mg INHALATION RT-TID 12/07/18 [History] Albuterol Sulfate [Proair Hfa] 2 puff INHALATION RT-Q4H PRN 12/07/18 [History] Aspirin EC [Ecotrin Low Dose] 81 mg PO DAILY 12/07/18 [History] Citalopram Hydrobromide [CeleXA] 40 mg PO DAILY 12/07/18 [History] Furosemide [Lasix] 40 mg PO BID 12/07/18 [History] Gabapentin [Neurontin] 300 mg PO BID 12/07/18 [History] Insulin Aspart [NovoLOG Flexpen] See Protocol SQ BID 12/07/18 [History] Insulin Glargine,Hum.rec.anlog [Lantus Solostar] See Protocol SQ HS 12/07/18 [History] Lisinopril [Zestril] 5 mg PO DAILY 12/07/18 [History] Metoprolol Tartrate 25 mg PO BID 12/07/18 [History] Nitroglycerin Sl Tabs [Nitrostat] 0.4 mg SUBLINGUAL Q5M PRN 12/07/18 [History] Omeprazole [PriLOSEC] 40 mg PO DAILY 12/07/18 [History] Simvastatin [Zocor] 40 mg PO HS 12/07/18 [History] Dicyclomine [Bentyl] 10 mg PO QID 12/20/18 [History] Lactulose 10 gm PO TID 12/20/18 [History] Rifaximin [Xifaxan] 550 mg PO BID 12/20/18 [History] Follow up Appointment(s)/Referral(s): Star Guzmán MD [Primary Care Provider] - 12/27/18 1:30 pm Tiffanie Angulo MD [STAFF PHYSICIAN] - 2 Weeks Chuyita Hernandez MD [STAFF PHYSICIAN] - 1 Week (Soonest appointment february 09. Tried to get appointment sooner, no answer. Dr Angulo states she will call today to see if she can get sooner.) Patient Instructions/Handouts: Encephalopathy (DC) Activity/Diet/Wound Care/Special Instructions: Cardiac, Diabetic diet. Activity as tolerated.
[2018-12-21 15:45] VITALS: BP 115/71; PULSE 82; RESP 16
[2018-12-21 17:42] LABS: Hemoglobin A1C 8.7 % (4.0-6.0)
--- NOTE | 2018-12-21 18:44 | CONS ---
CONSULTATION DATE OF SERVICE: December 21, 2018. REASON FOR CONSULTATION: Hepatic encephalopathy. HISTORY OF PRESENT ILLNESS: The patient is a 48-year-old pleasant white male with history of cirrhosis of the liver with secondary hepatic encephalopathy requiring hospitalization on a frequent basis. He was discharged from the hospital 2 weeks ago. He was admitted to the hospital because of altered mental status and his took him to [facility] and he was noted to have elevated ammonia level to 127. He was subsequently transferred to [facility] for further evaluation. Since being here, he received 5 doses of oral lactulose and had about several bowel movements. He continues to remain on Xifaxan 550 mg twice daily. This morning he is feeling better. Altered mental status has completely resolved. The patient feels that his blood sugars being quite high and even running between 300s and 400s prior to this episode. He denies any abdominal pain. Reports no nausea, vomiting. PAST MEDICAL HISTORY: Significant for hypertension, diabetes mellitus, that has been uncontrolled, hyperlipidemia, cirrhosis of the liver secondary to fatty liver disease, coronary artery disease status post MD in the past. PAST SURGICAL HISTORY: Cholecystectomy, cardiac cath with stent placement, carpal tunnel surgery. MEDICATIONS: At home include albuterol, Celexa, aspirin, ProAir, Lantus, Zestril, metoprolol, Nitrostat, Prilosec, Zocor, Bentyl, lactulose, Xifaxan, NovoLog 70 and Neurontin. ALLERGIES: KEFLEX. SOCIAL HISTORY: No smoking. No alcohol use. FAMILY HISTORY: Unremarkable. REVIEW OF SYSTEMS: Cardiopulmonary: No chest pain, shortness of breath. GENITOURINARY: No dysuria or hematuria. MUSCULOSKELETAL: Unremarkable. Skin unremarkable. Endocrine unremarkable. Psychiatric unremarkable. Neurology unremarkable. ENT/vision unremarkable. CONSTITUTIONAL: No recent weight loss. No fever, chills, night sweats. Endocrine uncontrolled blood sugars. PHYSICAL EXAMINATION: He appears comfortable. No apparent distress. Vital signs are stable. Blood pressure is 112/86, pulse rate 62, and temperature 97.8. HEENT examination unremarkable. Conjunctivae pink. Sclerae anicteric. Oral cavity no lesions. NECK: No JVD or lymph node enlargement. CHEST: Clear to auscultation. HEART: Regular rate and rhythm. ABDOMEN was soft. Bowel sounds are positive. No organomegaly. EXTREMITIES no pedal edema. Skin no rashes. NEUROLOGIC: Alert and oriented x3. No focal deficits. LABS: WBC 2.6, hemoglobin 9.1, platelets 59,000. Ammonia level was 85, it is down to 24 today. AST and ALT are 91 and 72 respectively. Alkaline phosphatase 312 and T- bilirubin was 1.5. BUN and creatinine are within normal limits. IMPRESSION: 1. Altered mental status secondary to hepatic encephalopathy. The patient was noted to have elevated ammonia level. He was given increased dose of oral lactulose and had several bowel movements this morning and ammonia level has completely normalized. Mentation has completely improved. Presently maintained on oral lactulose and Xifaxan 550 mg twice daily. 2. History of cirrhosis of the liver secondary to non-alcohol, fatty liver disease, which appears to be well compensated. 3. Uncontrolled blood sugars. He follows with Dr. Hernandez. 4. History of coronary artery disease status post myocardial infarction in the past. RECOMMENDATIONS: 1. Recent hepatic encephalopathy could be precipitated by uncontrolled blood sugars and hence I suggested that he follow up with Dr. Hernandez, [facility] [place], for aggressive blood sugar control. 2. Continue with oral Xifaxan 550 mg twice daily as well as lactulose 30 mL 3 times daily and titrate so that he has 3-4 soft bowel movements daily. 3. The patient can be discharged today with outpatient followup in 2 weeks. 4. Continue with low sodium diet. Thank you for this consultation. MMSMILEY / NICK: [id number] /
--- NOTE | 2018-12-26 13:47 | CDI ---
Documentation Clarification Form Date: 12/26/18 From: Mariella Maza Phone: If questions call [employer] @ [phone], Hours-8:30 am & 5 pm Lela Sanchez Admit Date: 12/21/2018 12:50:00 PM Patient Name: Octavio Duran Visit Number: [id number] Discharge Date: 12/21/2018 3:07:00 PM ATTENTION: The Clinical Documentation Specialists (CDI) and [facility] Coding Staff appreciate your assistance in clarifying documentation. Please respond to the clarification below the line at the bottom and electronically sign. The CDI & [facility] Coding staff will review the response and follow-up if needed. Please note: Queries are made part of the Legal Health Record. If you have any questions, please contact the author of this message via ITS. Dr. Stanislaw Cason The patient has diabetes, as indicated per ED note, H&P and consult. History/Risk Factors: acute hepatic encephalopathy, HTN w heart failure, cirrhosis, fatty liver, asites POC Glucose: 304, 263, 305 Glucose: 220, 253 A1c: 8.7 Treatment: hypoglycemia protocol, Insulin NovoLOG Sliding scale protocol Per [facility] 2016 - query the provider for clarification whether the patient has hyperglycemia or hypoglycemia so that the appropriate code may be reported - uncontrolled diabetes indicates that the patient's blood sugar is not at an acceptable level, because it is either too high or too low. In order to capture the severity of Illness and necessary documentation specificity, please clarify: DM Type 1 DM Type 2 Other, please specify Unable to Determine AND Hyperglycemia Other, please specify Unable to Determine DM Type 2 with Hyperglycemia MTDD
== END 2018-12-21 15:07 | disposition home or self-care (01) | DRG 442 ==
LOC: EC 14:10 → 4MS4W 17:10 → OBSVTOIN 12-21 12:50
PROVIDERS: ADMIT Internal Medicine; ATTEND Internal Medicine
DX: K72.00 Acute and subacute hepatic failure without coma (principal); D61.818 Other pancytopenia; R18.8 Other ascites; I11.0 Hypertensive heart disease with heart failure; I50.9 Heart failure, unspecified; E11.65 Type 2 diabetes mellitus with hyperglycemia; K74.60 Unspecified cirrhosis of liver; K76.0 Fatty (change of) liver, not elsewhere classified; E78.5 Hyperlipidemia, unspecified; I25.10 Atherosclerotic heart disease of native coronary artery without angina pectoris; F32.9 Major depressive disorder, single episode, unspecified; J30.9 Allergic rhinitis, unspecified; G89.29 Other chronic pain; G47.00 Insomnia, unspecified; K21.9 Gastro-esophageal reflux disease without esophagitis; I25.2 Old myocardial infarction; N52.9 Male erectile dysfunction, unspecified; Z79.82 Long term (current) use of aspirin; Z79.4 Long term (current) use of insulin; Z79.899 Other long term (current) drug therapy; Z87.01 Personal history of pneumonia (recurrent); Z90.49 Acquired absence of other specified parts of digestive tract; Z87.19 Personal history of other diseases of the digestive system; Z87.891 Personal history of nicotine dependence; Z95.5 Presence of coronary angioplasty implant and graft; Z80.1 Family history of malignant neoplasm of trachea, bronchus and lung
CPT/HCPCS: 36415; 70450; 80053; 82140; 82248; 83036; 85025; 85610; 85730; 99285

== ENCOUNTER 2019-02-06 12:28 | Inpatient (IN) | payer OTHER ==
--- NOTE | 2019-02-06 13:12 | ED ---
General Adult HPI - General Chief complaint: Shortness of Breath Stated complaint: fluid on lungs Time Seen by Provider: 02/06/19 12:40 Source: patient, EMS, RN notes reviewed, old records reviewed Mode of arrival: EMS Limitations: no limitations - History of Present Illness Initial comments: This is a 48-year-old male who presents emergency Department with a past medical history significant for cirrhosis. Patient states the day after Thanksgiving he started having difficulty breathing got progressively worse he went to [facility] where he was transferred from to . Patient was told he had a large amount of fluid in his right lung any need drained. Patient denied any chest pain or palpitations. Patient denies any fever chills or cough. Patient denies any lightheadedness or dizziness. Patient denies any abdominal pain patient den ies nausea vomiting. - Related Data Home Medications Medication Instructions Recorded Confirmed Albuterol Sulfate [Proair Hfa] 2 puff INHALATION RT-Q4H PRN 12/07/18 02/06/19 Aspirin EC [Ecotrin Low Dose] 81 mg PO DAILY 12/07/18 02/06/19 Citalopram Hydrobromide [CeleXA] 40 mg PO DAILY 12/07/18 02/06/19 Furosemide [Lasix] 40 mg PO BID 12/07/18 02/06/19 Gabapentin [Neurontin] 300 mg PO BID 12/07/18 02/06/19 Insulin Aspart [NovoLOG Flexpen] See Protocol SQ AC-TID 12/07/18 02/06/19 Insulin Glargine,Hum.rec.anlog 70 unit SQ HS 12/07/18 02/06/19 [Lantus Solostar] Lisinopril [Zestril] 5 mg PO HS 12/07/18 02/06/19 Metoprolol Tartrate 25 mg PO BID 12/07/18 02/06/19 Nitroglycerin Sl Tabs [Nitrostat] 0.4 mg SUBLINGUAL Q5M PRN 12/07/18 02/06/19 Omeprazole [PriLOSEC] 40 mg PO DAILY 12/07/18 02/06/19 Simvastatin [Zocor] 40 mg PO HS 12/07/18 02/06/19 Lactulose 20 gm PO TID 12/20/18 02/06/19 Rifaximin [Xifaxan] 550 mg PO BID 12/20/18 02/06/19 HYDROcodone/APAP 10-325MG [[place] 1 tab PO BID PRN 02/06/19 02/06/19 10-325] metFORMIN HCL 1,000 mg PO BID 02/06/19 02/06/19 Allergies Allergy/AdvReac Type Severity Reaction Status Date / Time cephalexin [From Keflex] AdvReac Rash/Hives Verified 02/06/19 14:09 Review of Systems ROS Statement: Those systems with pertinent positive or pertinent negative responses have been documented in the HPI. ROS Other: All systems not noted in ROS Statement are negative. Past Medical History Past Medical History: Coronary Artery Disease (CAD), Chest Pain / Angina, Heart Failure, Diabetes Mellitus, GERD/Reflux, GI Bleed, Hyperlipidemia, Hypertension, Liver Disease, Myocardial Infarction (SD), Pneumonia Additional Past Medical History / Comment(s): Last SD- 2012, Cirrhosis from fatty liver, impotence, allergic rhinitis, chronic pain, edema, high ammonia levels Last Myocardial Infarction Date:: 2012 History of Any Multi-Drug Resistant Organisms: None Reported Past Surgical History: Cholecystectomy, Heart Catheterization With Stent Additional Past Surgical History / Comment(s): EGD- 2013/2014, carpal tunnel on a hand that he does not remember, stress test in spring everything was okay. Past Anesthesia/Blood Transfusion Reactions: No Reported Reaction Additional Past Anesthesia/Blood Transfusion Reaction / Comment(s): No blood transfusions. Date of Last Stent Placement:: 2012 Past Psychological History: Depression Smoking Status: Former smoker Past Alcohol Use History: Occasional, Rare Past Drug Use History: None Reported - Past Family History Mother History Unknown: Yes Family Medical History: Cancer Additional Family Medical History / Comment(s): Lung cancer, since passed. General Exam - General Exam Comments Initial Comments: GENERAL: Patient is well-developed and well-nourished. Patient is nontoxic and well- hydrated and is in no acute distress. ENT: Neck is soft and supple. No significant lymphadenopathy is noted. Oropharynx is clear. Moist mucous membranes. Neck has full range of motion without eliciting any pain. EYES: The sclera were anicteric and conjunctiva were pink and moist. Extraocular movements were intact and pupils were equal round and reactive to light. Eyelids were unremarkable. PULMONARY: Patient has decreased breath sounds on the right side. CARDIOVASCULAR: There is a regular rate and rhythm without any murmurs gallops or rubs. ABDOMEN: Soft and nontender with normal bowel sounds. SKIN: Skin is clear with no lesions or rashes and otherwise unremarkable. NEUROLOGIC: Patient is alert and oriented x3. Cranial nerves II through XII are grossly intact. Motor and sensory are also intact. Normal speech, volume and content. Symmetrical smile. MUSCULOSKELETAL: Normal extremities with adequate strength and full range of motion. No lower extremity swelling or edema. No calf tenderness. LYMPHATICS: No significant lymphadenopathy is noted PSYCHIATRIC: Normal psychiatric evaluation. Limitations: no limitations Course Vital Signs 02/06/19 02/06/19 02/06/19 12:38 12:43 13:17 Temperature 97.8 F Pulse Rate 70 78 Respiratory 16 18 18 Rate Blood Pressure 128/74 125/77 O2 Sat by Pulse 96 97 Oximetry 02/06/19 13:53 Temperature Pulse Rate 71 Respiratory 18 Rate Blood Pressure 106/53 O2 Sat by Pulse 93 L Oximetry Medical Decision Making - Medical Decision Making I reviewed the patient's lab work and x-rays upon arrival he does have a large right-sided pleural effusion. I spoke with Dr. Contreras he agreed to admit the patient admitted the patient. I gave the patient For the Hyperkalemia. EKG shows normal sinus rhythm at 70 bpm HI interval 184 QRS is 80 QT interval 400 QTC is 432. Patient's EKG shows no ST segment elevation or depression. - Lab Data Result diagrams: 02/06/19 13:15 Lab Results 02/06/19 Range/Units 13:15 Sodium 139 (137-145) mmol/L Potassium 5.8 H (3.5-5.1) mmol/L Chloride 115 H (98-107) mmol/L Carbon Dioxide 19 L (22-30) mmol/L Anion Gap 5 mmol/L BUN 43 H (9-20) mg/dL Creatinine 1.16 (0.66-1.25) mg/dL Est GFR (CKD-EPI)AfAm 85 (>60 ml/min/1.73 sqM) Est GFR (CKD-EPI)NonAf 74 (>60 ml/min/1.73 sqM) Glucose 166 H (74-99) mg/dL Calcium 8.5 (8.4-10.2) mg/dL Total Bilirubin 1.3 (0.2-1.3) mg/dL AST 55 (17-59) U/L ALT 47 (21-72) U/L Alkaline Phosphatase 290 H (38-126) U/L Total Protein 6.8 (6.3-8.2) g/dL Albumin 2.9 L (3.5-5.0) g/dL Disposition Clinical Impression: Pleural effusion, Hyperkalemia Disposition: ADMITTED IP TO THIS [facility] Time of Disposition: 13:50
[2019-02-06 13:44] LABS: Albumin 2.9 g/dL (3.5-5.0); Calcium 8.5 mg/dL (8.4-10.2); Potassium 5.8 mmol/L (3.5-5.1); Total Bilirubin 1.3 mg/dL (0.2-1.3); Total Protein 6.8 g/dL (6.3-8.2)
[2019-02-06] MEDS ORDERED: SODIUM POLYSTYRENE SULFONATE 15 GM/60 ML BOTTLE PO STA (13:46)
--- NOTE | 2019-02-06 16:11 | US ---
EXAMINATION TYPE: US chest DATE OF EXAM: 02/06/2019 COMPARISON: Outside chest x-ray earlier today CLINICAL HISTORY: Markings for thoracentesis by pulmonary staff. Pleural effusion TECHNIQUE: Targeted ultrasound of the posterior lower Right EXAM MEASUREMENTS: Right Pleural Effusion pocket size: 10.9 cm Right skin surface to fluid distance: 4.2 cm Left Pleural Effusion pocket size: N/A cm Right side marked for possible thoracentesis outside the dept. Pulmonologists are able to review the images in the patient?s EMR. Moderate to large sized right pleural effusion on 4 images saved. No significant left-sided effusion. Findings correlate with outside x-ray. IMPRESSIONS: As above.
--- NOTE | 2019-02-06 16:22 | XR ---
EXAMINATION TYPE: XR chest 1V portable DATE OF EXAM: 02/06/2019 COMPARISON: 12/21/2012 HISTORY: Status post right-sided thoracentesis. TECHNIQUE: Single frontal view of the chest is obtained. FINDINGS: There is a small layering right pleural effusion with gradient effect and associated right basilar airspace disease. Cardiomediastinal silhouette is enlarged. Remainder the lungs are clear. O sseous structures are grossly intact. No postprocedural pneumothorax seen. IMPRESSION: Small right pleural effusion and associated right basilar airspace disease, likely atele ctasis. No postprocedural pneumothorax.
[2019-02-06] MEDS ORDERED: ALBUTEROL NEBULIZED 2.5 MG/3 ML INHALATION PRN (16:47)
[2019-02-06] MEDS ORDERED: NITROGLYCERIN SL TABS 0.4 MG TAB SUBLINGUAL PRN (16:47)
[2019-02-06] MEDS ORDERED: HYDROcodone/APAP 10-325MG 1 EACH TAB PO PRN (16:47)
--- NOTE | 2019-02-06 16:54 | P.CNPUL ---
History of Present Illness Consult date: 02/06/19 Reason for consult: pleural effusion Chief complaint: shortness of breath History of present illness: this is a 48-year-old white male, known history of liver cirrhosis, exact etiology of his liver cirrhosis is unknown. Patient normally follows up on a regular basis with Dr. Cuellar, and he was told at one point that he may be considered for referral for a liver transplant down the line at [facility]. Patient is also known to have history of multiple medical problems including coronary artery disease, type 2 diabetes, GERD, history of hepatic encephalopathy secondary to elevated ammonia level. Patient also had previous cardiac catheterization and stent placement. He presented to the ER at [facility] complaining of one-day history of increased shortness of breath. Chest x-ray showed evidence of a good sized right-sided pleural effusion. His labs also showed elevated potassium of 5.8,elevated BUN of 43 creatinine of 1.16, patient was transferred to [facility] ER, evaluated, ultrasound showed good sized right-sided pleural effusion, patient was given Kayexalate for his elevated potassium, admitted to the hospital and this consult was initiated. Shortly after I saw the patient, I went ahead and recommended thoracentesis, and I was able to drain 3150 mL of light yellow freely flowing pleural effusion, grossly looks transudate of in nature. Patient had a follow-up chest x-ray postoperatively showed almost near complete resolution of his pleural effusion, and no postoperative complications. The fluid was sent for different diagnostic studies. Upon presentation, the patient has mostly symptoms of shortness of breath, he had no fever, no chills, no hemoptysis, no chest pain, no nausea no vomiting no abdominal pain, no melena, no hematemesis. Review of Systems Constitutional: denies fever chills or weight loss. Denies major constitutional symptoms. Eyes: denies any blurred vision, denies any diplopia ENT: no sore throat, no earache, no nasal congestion. Respiratory: as noted in HPI.mostly shortness of breath.more so upon exertion. No chest pain, no hemoptysis, no cough, no wheezing. Cardiovascular: denies any chest pain palpitations or syncope. Gastrointestinal:denies nausea vomiting abdominal pain melena or hematemesis. Genitourinary: denies dysuria frequency urgency or hematuria. Musculoskeletal: Denies: back pain Skin: denies rashes or pruritus. Neurological: denies headache, denies any syncope. Denies any neurological symptoms. Past Medical History Past Medical History: Coronary Artery Disease (CAD), Chest Pain / Angina, Diabetes Mellitus, GERD/Reflux, GI Bleed, Hyperlipidemia, Hypertension, Liver Disease, Myocardial Infarction ([place]), Pneumonia Additional Past Medical History / Comment(s): IDDM type II, neuropathy bilateral hands fingers and feet, liver cirrhosis, ascities, elevated ammonia levels, pancytopenia, occasional bilaeral ankle edema, "thin schmidt in my esophagus". Last Myocardial Infarction Date:: 2012 History of Any Multi-Drug Resistant Organisms: None Reported Past Surgical History: Cholecystectomy, Heart Catheterization With Stent, Orthopedic Surgery Additional Past Surgical History / Comment(s): PCIs with stents, EGDs, colonoscopy, carpal tunnel release. Past Anesthesia/Blood Transfusion Reactions: No Reported Reaction Additional Past Anesthesia/Blood Transfusion Reaction / Comment(s): No blood transfusions. Date of Last Stent Placement:: 2012 Smoking Status: Former smoker - Past Family History Mother History Unknown: Yes Family Medical History: Cancer Additional Family Medical History / Comment(s): Lung cancer, since passed. Father Additional Family Medical History / Comment(s): ETOH abuse Medications and Allergies Home Medications Medication Instructions Recorded Confirmed Type Albuterol Sulfate [Proair Hfa] 2 puff INHALATION RT-Q4H PRN 12/07/18 02/06/19 History Aspirin EC [Ecotrin Low Dose] 81 mg PO DAILY 12/07/18 02/06/19 History Citalopram Hydrobromide [CeleXA] 40 mg PO DAILY 12/07/18 02/06/19 History Furosemide [Lasix] 40 mg PO BID 12/07/18 02/06/19 History Gabapentin [Neurontin] 300 mg PO BID 12/07/18 02/06/19 History Insulin Aspart [NovoLOG Flexpen] See Protocol SQ AC-TID 12/07/18 02/06/19 History Insulin Glargine,Hum.rec.anlog 70 unit SQ HS 12/07/18 02/06/19 History [Lantus Solostar] Lisinopril [Zestril] 5 mg PO HS 12/07/18 02/06/19 History Metoprolol Tartrate 25 mg PO BID 12/07/18 02/06/19 History Nitroglycerin Sl Tabs [Nitrostat] 0.4 mg SUBLINGUAL Q5M PRN 12/07/18 02/06/19 History Omeprazole [PriLOSEC] 40 mg PO DAILY 12/07/18 02/06/19 History Simvastatin [Zocor] 40 mg PO HS 12/07/18 02/06/19 History Lactulose 20 gm PO TID 12/20/18 02/06/19 History Rifaximin [Xifaxan] 550 mg PO BID 12/20/18 02/06/19 History HYDROcodone/APAP 10-325MG [[place] 1 tab PO BID PRN 02/06/19 02/06/19 History 10-325] metFORMIN HCL 1,000 mg PO BID 02/06/19 02/06/19 History Allergies Allergy/AdvReac Type Severity Reaction Status Date / Time cephalexin [From Keflex] AdvReac Rash/Hives Verified 02/06/19 14:09 Physical Exam Vitals: Vital Signs Temp Pulse Pulse Resp BP BP Pulse Ox 02/06/19 16:12 77 20 112/67 92 L 02/06/19 16:00 77 93/54 93 L 02/06/19 14:30 97.9 F 73 20 128/79 93 L 02/06/19 14:21 97.8 F 71 18 106/53 93 L 02/06/19 13:53 71 18 106/53 93 L 02/06/19 13:17 78 18 125/77 97 02/06/19 12:43 18 02/06/19 12:38 97.8 F 70 16 128/74 96 Intake and Output 02/06/19 02/06/19 02/06/19 06:59 14:59 22:59 Output Total 3150 Balance -3150 Output: Other 3150 Other: # Voids 0 Weight 108.862 kg 108.862 kg Physical Exam: Revealed 48-year-old white male in no distress. Head: Atraumatic, normocephalic. HEENT:[Neck is supple.] [No neck masses.] [No thyromegaly.] [No JVD.]PERRLA, EOMI, no icterus. Chest: diminished breath sounds and dullness at the right base, left side is clear.] Cardiac Exam: [Normal S1 and S2, no S3 gallop, no murmur.] Abdomen: [Soft, nontender, no megaly, no rebound, no guarding, normal bowel sounds.possible ascites.] Extremities: [No clubbing,1+ bipedal edema, no cyanosis.] Neurological Exam: [No focal neurologic deficit.]alert oriented 3 focal neurologic deficits. Psychiatric: Normal mood, affect and normal mental status examination. Skin: No rashes. Lymphatics: No lymphadenopathy. Results - Laboratory Findings CBC and BMP: 02/06/19 13:15 Abnormal lab findings: Abnormal Labs 02/06/19 13:15 Potassium 5.8 H Chloride 115 H Carbon Dioxide 19 L BUN 43 H Glucose 166 H Alkaline Phosphatase 290 H Albumin 2.9 L - Diagnostic Findings Additional studies: ultrasound of the chest was reviewed and it showed good sized right-sided pleural effusion. Assessment and Plan Assessment: impression: 1 acute right-sided pleural effusion, most likely secondary to his liver cirrhosis, possible ascites, and could also be possible to his cardiac condition.the fluid seems to be transudative in nature, however further diagnostic studies are pending. 2 status post right sided thoracentesis, 3150 mL of fluid were drained, and sent for different diagnostic studies. 3 history of liver cirrhosis, apparently patient had extensive workup by gastroenterology in the past, and he follows up with Dr. Cuellar on a regular basis. 4 history of coronary artery disease 5 benign essential hypertension 6 hyperkalemia secondary to lisinopril and acute kidney injury recommendation; Continue present treatment plan, continue to correct his hyperkalemia, patient received Kayexalate. Consider holding lisinopril. Check echocardiogram and check ultrasound of the abdomen and pelvis. And I believe the pleural effusion is either related to his liver cirrhosis with ascites or could be cardiac in nature. Strongly doubt exudative effusion based on the appearance of the fluid that I drained earlier today. We'll continue to follow. Continue diuretics. And continue his usual home meds for hyperammonemia related to his liver cirrhosis. Time with Patient: Greater than 30
[2019-02-06 17:06] LABS: Glucose,Whole Blood 199 mg/dL (75-99)
[2019-02-06 17:27] LABS: Appearance,BF Clear; Color,BF Yellow; Nucleated Cells, Body Fluid 85 /uL; RBC, Body Fluid 495 /uL
[2019-02-06 17:42] LABS: Mononuclear WBC,Body Fluid 57 %; Polynuclear WBC,Body Fluid 43 %; Total Cells Counted,Body Fluid 100
[2019-02-06] MEDS: INSULIN ASPART (NovoLOG) 100 UNIT/ML VIAL SQ SCH ×3 (18:33→22:32)
[2019-02-06 18:39] LABS: Glucose,Whole Blood 216 mg/dL (75-99)
[2019-02-06 20:32] LABS: Glucose,Whole Blood 188 mg/dL (75-99)
[2019-02-06] MEDS ORDERED: LISINOPRIL 5 MG TAB PO SCH (21:00)
[2019-02-06] MEDS: ATORVASTATIN 20 MG TAB PO SCH (22:30)
[2019-02-06] MEDS: CITALOPRAM HYDROBROMIDE 20 MG TAB PO SCH (22:31)
[2019-02-06] MEDS: METOPROLOL TARTRATE 25 MG TAB PO SCH (22:31)
[2019-02-06] MEDS: INSULIN DETEMIR (LEVEMIR) 100 UNIT/ML SYR SQ SCH (22:33)
[2019-02-06] MEDS: RIFAXIMIN 550 MG TABLET PO SCH (22:33)
[2019-02-06] MEDS: GABAPENTIN 300 MG CAP PO SCH (22:34)
[2019-02-06] MEDS: LACTULOSE 20 GM/30 ML CUP PO SCH (22:34)
--- NOTE | 2019-02-06 22:59 | PCN ---
PROCEDURE NOTE PROCEDURE PERFORMED: Right-sided thoracentesis. PREOPERATIVE DIAGNOSIS: Right-sided pleural effusion. POSTOPERATIVE DIAGNOSIS: Right sided pleural effusion. ANESTHESIA USED: 2 mL of 1% lidocaine. PROCEDURE IN DETAIL: The patient was placed in a sitting upright position, the area of the pleural effusion was earlier localized by ultrasound. The marking was placed at the level of the 8th intercostal space and tip of the scapula. The patient had his area below the scapula prepared in a sterile fashion and drapes were applied. At that same level, the area was locally anesthetized with lidocaine, and the needle was advanced all the way into the pleural space until the fluid was localized. Then a small tiny incision was made, and a standard thoracentesis catheter and needle were used, inserted at the same site, advanced into the pleural space until the fluid was localized again. Then, the catheter was advanced over the needle and the needle was pulled out of the pleural space. Freely flowing fluid was drained from the right pleural space. 3150 mL of slightly yellow colored fluid, freely flowing, was removed from the right pleural space. The fluid was sent for different diagnostic studies. Chest x-ray postoperatively showed no evidence of any complication. The procedure was well tolerated. MMODL / IJN: [id number] /
--- NOTE | 2019-02-06 23:25 | P.HPIM ---
History of Present Illness H&P Date: 02/06/19 Chief Complaint: Short of breath History of presenting complaint: This is a 48-year-old patient of Dr. Guzmán. Patient has a known history of cirrhosis that has progressed from fatty liver. Diagnosed 2 years ago. Follows with underwriting service representative Dr. Cuellar. Under stable medical conditions include obesity, pancytopenia, coronary artery disease with stent, diabetes mellitus t ype 2, GERD, hyperlipidemia, essential hypertension, chronic insomnia. Patient has been progressively getting short of breath. More so for last 1 being 1 week. Denies any cough nofever no sputum. No fever no chills. Patient is found to have a large right-sided pleural effusion. Patient also been putting on weight. Patient was last treated about 2 months ago when he had hepatic encephalopathy. Patient hasn't been taking his medications. Earlier today 315 0 mL of right pleural effusion was removed. By Dr. Castillo. Review of systems: GEN.: Tired EYES: None HEENT: None NECK: None RESPIRATORY: As above CARDIOVASCULAR: Edema GASTROINTESTINAL: Distended abdomen GENITOURINARY: None MUSCULOSKELETAL: None LYMPHATICS: None HEMATOLOGICAL: None PSYCHIATRY: None NEUROLOGICAL: [As above Social history: Does smoke in the past. . 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 Physical examination: VITAL SIGNS: 97.9, 73, 20, 128/79, 93% room air GENERAL: BMI 35.4, laying in bed tired EYES: Pupils equal. Conjunctiva normal. HEENT: External appearance of nose and ears normal, oral cavity grossly normal. NECK: JVD unable to assess; masses not palpable. HEART: First and second heart sounds are normal; a deep of present LUNGS: Respiratory rate increased, decreased breath sounds ABDOMEN: Soft, distended, dull distal phalanx, nontender, liver spleen not palpable, no masses palpable. PSYCH: Alert and oriented x3; mood and affect normal. NEUROLOGICAL: Cranial nerves grossly intact; no facial asymmetry, power and sensation grossly intact. LYMPHATICS: No lymph nodes palpable in the axilla and neck INVESTIGATIONS, reviewed in the clinical context: Potassium 5.8, bun 43, creatinine 1.16 bilirubin 1.3 proBNP 570 albumin 2.9 Chest x-ray film personally reviewed by me-both "panic 2-D echo, showing effusion of the right side EKG tracing personally reviewed by me-sinus rhythm Assessment: -Large pleural effusion secondary to cirrhosis of the liver through the diaphragm and associated hypoalbuminemia, followed by thoracentesis 315 0 mL removed -Hepatic cirrhosis that is progressed from fatty liver -Obesity BMI 36.6 -Pancytopenia from cirrhosis -Coronary artery disease with stent -Diabetes mellitus type 2 -GERD -Hyperlipidemia -Essential hypertension -Importance -Chronic insomnia -Hyperkalemia -Hypoalbuminemia due to cirrhosis -Fluid overload due to cirrhosis Plan: Home medications are to be continued. We'll change the Lasix to Demadex. Put the patient. Restriction 1800 mL a day. Low-salt diet. Order 2-D echocardiogram. Care was discussed with the patient. Dr. Castillo from pulmonary was consulted. 2-D echo thoracentesis. Past Medical History Past Medical History: Coronary Artery Disease (CAD), Chest Pain / Angina, Diab etes Mellitus, GERD/Reflux, GI Bleed, Hyperlipidemia, Hypertension, Liver Disease, Myocardial Infarction ([place]), Pneumonia Additional Past Medical History / Comment(s): IDDM type II, neuropathy bilateral hands fingers and feet, liver cirrhosis, ascities, elevated ammonia levels, pancytopenia, occasional bilaeral ankle edema, "thin schmidt in my esophagus". Last Myocardial Infarction Date:: 2012 History of Any Multi-Drug Resistant Organisms: None Reported Past Surgical History: Cholecystectomy, Heart Catheterization With Stent, Orthopedic Surgery Additional Past Surgical History / Comment(s): PCIs with stents, EGDs, colonoscopy, carpal tunnel release. Past Anesthesia/Blood Transfusion Reactions: No Reported Reaction Additional Past Anesthesia/Blood Transfusion Reaction / Comment(s): No blood transfusions. Date of Last Stent Placement:: 2012 Smoking Status: Former smoker - Past Family History Mother History Unknown: Yes Family Medical History: Cancer Additional Family Medical History / Comment(s): Lung cancer, since passed. Father Additional Family Medical History / Comment(s): ETOH abuse Medications and Allergies Home Medications Medication Instructions Recorded Confirmed Type Albuterol Sulfate [Proair Hfa] 2 puff INHALATION RT-Q4H PRN 12/07/18 02/06/19 History Aspirin EC [Ecotrin Low Dose] 81 mg PO DAILY 12/07/18 02/06/19 History Citalopram Hydrobromide [CeleXA] 40 mg PO DAILY 12/07/18 02/06/19 History Furosemide [Lasix] 40 mg PO BID 12/07/18 02/06/19 History Gabapentin [Neurontin] 300 mg PO BID 12/07/18 02/06/19 History Insulin Aspart [NovoLOG Flexpen] See Protocol SQ AC-TID 12/07/18 02/06/19 History Insulin Glargine,Hum.rec.anlog 70 unit SQ HS 12/07/18 02/06/19 History [Lantus Solostar] Lisinopril [Zestril] 5 mg PO HS 12/07/18 02/06/19 History Metoprolol Tartrate 25 mg PO BID 12/07/18 02/06/19 History Nitroglycerin Sl Tabs [Nitrostat] 0.4 mg SUBLINGUAL Q5M PRN 12/07/18 02/06/19 History Omeprazole [PriLOSEC] 40 mg PO DAILY 12/07/18 02/06/19 History Simvastatin [Zocor] 40 mg PO HS 12/07/18 02/06/19 History Lactulose 20 gm PO TID 12/20/18 02/06/19 History Rifaximin [Xifaxan] 550 mg PO BID 12/20/18 02/06/19 History HYDROcodone/APAP 10-325MG [[place] 1 tab PO BID PRN 02/06/19 02/06/19 History 10-325] metFORMIN HCL 1,000 mg PO BID 02/06/19 02/06/19 History Allergies Allergy/AdvReac Type Severity Reaction Status Date / Time cephalexin [From Keflex] AdvReac Rash/Hives Verified 02/06/19 14:09 Physical Exam Vitals: Vital Signs Temp Pulse Pulse Resp BP BP Pulse Ox 02/06/19 20:00 97.8 F 84 20 114/61 02/06/19 18:42 92 L 02/06/19 17:54 79 91 L 02/06/19 16:45 76 20 128/78 93 L 02/06/19 16:12 77 20 112/67 92 L 02/06/19 16:00 77 93/54 93 L 02/06/19 14:30 97.9 F 73 20 128/79 93 L 02/06/19 14:21 97.8 F 71 18 106/53 93 L 02/06/19 13:53 71 18 106/53 93 L 02/06/19 13:17 78 18 125/77 97 02/06/19 12:43 18 02/06/19 12:38 97.8 F 70 16 128/74 96 Intake and Output 02/06/19 02/06/19 02/07/19 14:59 22:59 06:59 Intake Total 240 Output Total 3150 Balance -2910 Intake: Oral 240 Output: Other 3150 Other: # Voids 0 Weight 108.862 kg 108.862 kg Results CBC & Chem 7: 02/06/19 13:15 Labs: Abnormal Lab Results - Last 24 Hours (Table) 02/06/19 02/06/19 02/06/19 Range/Units 13:15 17:05 18:30 Potassium 5.8 H (3.5-5.1) mmol/L Chloride 115 H (98-107) mmol/L Carbon Dioxide 19 L (22-30) mmol/L BUN 43 H (9-20) mg/dL Glucose 166 H (74-99) mg/dL POC Glucose (mg/dL) 199 H 216 H (75-99) mg/dL Alkaline Phosphatase 290 H (38-126) U/L Albumin 2.9 L (3.5-5.0) g/dL 02/06/19 Range/Units 20:28 Potassium (3.5-5.1) mmol/L Chloride (98-107) mmol/L Carbon Dioxide (22-30) mmol/L BUN (9-20) mg/dL Glucose (74-99) mg/dL POC Glucose (mg/dL) 188 H (75-99) mg/dL Alkaline Phosphatase (38-126) U/L Albumin (3.5-5.0) g/dL Microbiology - Last 24 Hours (Table) 02/06/19 16:00 Fungal Culture - Preliminary Pleural Fluid 02/06/19 16:00 Body Fluid Culture - Preliminary Pleural Fluid 02/06/19 16:00 Anaerobic Culture - Preliminary Pleural Fluid 02/06/19 16:00 Acid Fast Bacilli Culture - Preliminary Pleural Fluid Thrombosis Risk Factor Assmnt - Choose All That Apply Any of the Below Risk Factors Present?: Yes Each Factor Represents 1 point: Age 41-60 years, Obesity (BMI >25), Serious lung disease incl. pneumonia (< 1month) Other Risk Factors: No Other congenital or acquired thrombophilia - If yes, enter type in comment: No Thrombosis Risk Factor Assessment Total Risk Factor Score: 3 Thrombosis Risk Factor Assessment Level: Moderate Risk
[2019-02-07 02:23] LABS: Total Protein, Body Fluid 698 mg/dL
[2019-02-07 02:42] LABS: Glucose, BF Source Pleural Fluid; Glucose, Body Fluid 194 mg/dL; LDH, Body Fluid Source Pleural Fluid
[2019-02-07] MEDS ORDERED: FUROSEMIDE 10 MG/ML 4 ML VIAL IV STA (04:35)
--- NOTE | 2019-02-07 04:58 | XR ---
EXAMINATION TYPE: XR chest 1V portable DATE OF EXAM: 02/07/2019 COMPARISON: Yesterday HISTORY: Short of breath TECHNIQUE: Single frontal view of the chest is obtained. FINDINGS: There is extensive airspace infiltrate in the right lung. The left lung is fairly clear. T here is no heart failure. Heart size is normal. There are chest leads. IMPRESSION: Significant increased right side airspace pneumonia compared to yesterday.
[2019-02-07 06:07] LABS: Glucose,Whole Blood 156 mg/dL (75-99)
--- NOTE | 2019-02-07 07:05 | CT ---
EXAMINATION TYPE: CT angio chest DATE OF EXAM: 02/07/2019 COMPARISON: None HISTORY: Right-sided thoracentesis yesterday. CT DLP: mGycm Automated exposure control for dose reduction was used. CONTRAST: The contrast was Isovue 82 mL. There are 3-D post processed images. There is a moderate size right pleural effusion with almost 50% opacification right hemithorax. There is adjacent right lower lobe and also right upper lobe pulmonary infiltrate and atelectasis. There i s no pleural fluid on the left side. The left lung is clear of consolidation. There is no mediastinal adenopathy. Thoracic aorta is intact with no sign of aneurysm or dissection. I see no filling defects in the pulmonary arteries. Thoracic spine is intact. I see no bony destructive process. Upper abdominal soft tissues show signif icant splenomegaly. Spleen measures 22 cm. Liver is relatively small and consistent with cirrhosis. T here is some abdominal ascites fluid noted. IMPRESSION: No evidence of pulmonary embolism. Moderate size right pleural effusion with right side extensive airspace consolidation and atelectasis . Abdominal ascites. Severe splenomegaly. Changes of the liver consistent with cirrhosis. Pleural fluid and pulmonary infiltrate new compared to December 07, 2018. Abdominal ascites slightly improved.
[2019-02-07] MEDS: PANTOPRAZOLE 40 MG TABLET PO SCH (07:07)
[2019-02-07] MEDS: INSULIN ASPART (NovoLOG) 100 UNIT/ML VIAL SQ SCH ×7 (07:07→21:25)
[2019-02-07 07:32] LABS: African American GFR (CKD) >90 (>60 ml/min/1.73 sqM); Anion Gap 5 mmol/L; Blood Urea Nitrogen 37 mg/dL (9-20); Calcium 8.5 mg/dL (8.4-10.2); Carbon Dioxide 21 mmol/L (22-30); Chloride 115 mmol/L (98-107); Glucose 147 mg/dL (74-99); Non-African American GFR(CKD) 80 (>60 ml/min/1.73 sqM); Potassium 5.8 mmol/L (3.5-5.1); Sodium 141 mmol/L (137-145)
[2019-02-07] MEDS: METOPROLOL TARTRATE 25 MG TAB PO SCH ×2 (08:29→21:25)
[2019-02-07] MEDS: GABAPENTIN 300 MG CAP PO SCH ×2 (08:29→21:25)
[2019-02-07] MEDS: BUMETANIDE 1 MG TAB PO SCH ×2 (08:29→21:24)
[2019-02-07] MEDS: ASPIRIN 81 MG PO SCH (08:29)
[2019-02-07] MEDS: RIFAXIMIN 550 MG TABLET PO SCH ×2 (08:30→21:25)
[2019-02-07] MEDS: LACTULOSE 20 GM/30 ML CUP PO SCH ×3 (08:30→21:20)
[2019-02-07] MEDS ORDERED: FUROSEMIDE 40 MG TAB PO SCH (09:00)
[2019-02-07] MEDS ORDERED: SPIRONOLACTONE 25 MG TAB PO SCH (09:00)
--- NOTE | 2019-02-07 10:31 | ECHOF ---
Referral Reason:pleural effusion ,hx of chf MEASUREMENTS -------- HEIGHT: 175.3 cm WEIGHT: 114.3 kg BP: 111/63 RVIDd: 3.5 cm (< 3.3) IVSd: 1.4 cm (0.6 - 1.1) LVIDd: 4.8 cm (3.9 - 5.3) LVPWd: 1.2 cm (0.6 - 1.1) IVSs: 1.7 cm LVIDs: 3.8 cm LVPWs: 1.4 cm LA Diam: 3.9 cm (2.7 - 3.8) LAESV Index (A-L): 32.93 ml/m IVSd: 2.1 cm (0.6 - 1.1) Ao Diam: 3.6 cm (2.0 - 3.7) AV Cusp: 2.0 cm (1.5 - 2.6) MV EXCURSION: 15.857 mm (> 18.000) MV EF SLOPE: 92 mm/s (70 - 150) EPSS: 1.4 cm MV E Michael: 1.62 m/s MV DecT: 197 ms MV A Michael: 0.89 m/s MV E/A Ratio: 1.82 RAP: 5.00 mmHg RVSP: 44.69 mmHg TAPSE: 22.67 mm FINDINGS -------- Sinus rhythm. This was a technically good study. The left ventricular size is normal. There is moderate concentric left ventricular hypertrophy. O verall left ventricular systolic function is normal with, an EF between 60 - 65 %. The right ventricle is mildly enlarged. LA is midly dilated 29-33ml/m2. The right atrium is normal in size. Interatrial and interventricular septum intact. Aortic valve is trileaflet and is mildly thickened. The mitral valve leaflets are mildly thickened. Mild mitral annular calcification present. There is trace to mild mitral regurgitation. Mild tricuspid regurgitation present. There is mild pulmonary hypertension. The right ventricular systolic pressure, as measured by Doppler, is 44.69mmHg. Trace/mild (physiologic) pulmonic regurgitation. The aortic root size is normal. Normal inferior vena cava with normal inspiratory collapse consistent with estimated right atrial pre ssure of 5 mmHg. CONCLUSIONS -------- 1. Sinus rhythm. 2. This was a technically good study. 3. The left ventricular size is normal. 4. There is moderate concentric left ventricular hypertrophy. 5. Overall left ventricular systolic function is normal with, an EF between 60 - 65 %. 6. The right ventricle is mildly enlarged. 7. LA is midly dilated 29-33ml/m2. 8. The right atrium is normal in size. 9. Interatrial and interventricular septum intact. 10. Aortic valve is trileaflet and is mildly thickened. 11. The mitral valve leaflets are mildly thickened. 12. Mild mitral annular calcification present. 13. There is trace to mild mitral regurgitation. 14. Mild tricuspid regurgitation present. 15. There is mild pulmonary hypertension. 16. The right ventricular systolic pressure, as measured by Doppler, is 44.69mmHg. 17. Trace/mild (physiologic) pulmonic regurgitation. 18. The aortic root size is normal. 19. Normal inferior vena cava with normal inspiratory collapse consistent with estimated right atrial pressure of 5 mmHg. JOINT CUTTER MACHINE: Yana Escalera RDCS
[2019-02-07 12:07] LABS: Glucose,Whole Blood 80 mg/dL (75-99)
--- NOTE | 2019-02-07 12:31 | P.PN ---
Subjective Progress Note Date: 02/07/19 Principal diagnosis: Large right-sided pleural effusion status post thoracentesis this is a 48-year-old white male, known history of liver cirrhosis, exact etiology of his liver cirrhosis is unknown. Patient normally follows up on a regular basis with Dr. Cuellar, and he was told at one point that he may be considered for referral for a liver transplant down the line at [facility]. Patient is also known to have history of multiple medical problems including coronary artery disease, type 2 diabetes, GERD, history of hepatic encephalopathy secondary to elevated ammonia level. Patient also had previous cardiac catheterization and stent placement. He presented to the ER at [facility] complaining of one-day history of increased shortness of breath. Chest x-ray showed evidence of a good sized right-sided pleural effusion. His labs also showed elevated potassium of 5.8,elevated BUN of 43 creatinine of 1.16, patient was transferred to [facility] ER, evaluated, ultrasound showed good sized right-sided pleural effusion, patient was given Kayexalate for his elevated potassium, admitted to the hospital and this consult was initiated. Shortly after I saw the patient, I went ahead and recommended thoracentesis, and I was able to drain 3150 mL of light yellow freely flowing pleural effusion, grossly looks transudate of in nature. Patient had a follow-up chest x-ray postoperatively showed almost near complete resolution of his pleural effusion, and no postoperative complications. The fluid was sent for different diagnostic studies. Upon presentation, the patient has mostly symptoms of shortness of breath, he had no fever, no chills, no hemoptysis, no chest pain, no nausea no vomiting no abdominal pain, no melena, no hematemesis. On 02/07/2017 patient seen in follow-up on selective care unit, yesterday patient underwent right-sided thoracentesis would removal of 3.15 liters of dilute clear yellow pleural fluid, which was sent for analysis, patient tolerated procedure well, however in the evening patient developed worsening shortness of breath, increased wheezing. CTA chest was obtained showing moderate size right pleural effusion with right-sided extensive airspace consolidation and atelectasis, no evidence of pulmonary embolism. Patient was given a dose of diuretics with improvement of his respiratory status, this morni ng he is seen sitting up in his bed, in no acute distress, he is on oral Bumex, lung sounds reveal diffuse scattered crackles throughout his bilateral bases, the patient is in no acute distress, diminished breath sounds over right lower base. He is on supplemental oxygen 3 L a pulse ox of 95%, denied any chest pain, echocardiogram was completed showing EF of 60-65%, trace to mild mitral regurg, mild pulmonary hypertension with right-sided pressures of 44.6 mmHg. Pleural fluid analysis showed a transudative fluid, cultures and cytology pending. he was covered with empiric antibiotics in the form of Zosyn. Objective - Vital Signs Vital signs: Vital Signs Temp 98.5 F 02/07/19 08:00 Pulse 75 02/07/19 08:00 Resp 18 02/07/19 08:00 BP 130/76 02/07/19 08:00 Pulse Ox 95 02/07/19 08:00 Intake & Output 02/06/19 02/07/19 02/07/19 18:59 06:59 18:59 Intake Total 240 240 Output Total 3150 200 Balance -2910 -200 240 Weight 108.862 kg 114.6 kg Intake: Oral 240 240 Output: Urine 200 Other 3150 Other: # Voids 0 1 - Exam GENERAL EXAM: Alert, very pleasant, obese 48-year-old white male comfortable in no apparent distress. HEAD: Normocephalic/atraumatic. EYES: Normal reaction of pupils, equal size. Conjunctiva pink, sclera white. NOSE: Clear with pink turbinates. THROAT: No erythema or exudates. NECK: No masses, no JVD, no thyroid enlargement, no adenopathy. CHEST: No chest wall deformity. Symmetrical expansion. LUNGS: Equal air entry with scattered crackles at bilateral bases, diminished breath sounds over right lower lobe CVS: Regular rate and rhythm, normal S1 and S2, no gallops, no murmurs, no rubs ABDOMEN: Soft, nontender, obese. No hepatosplenomegaly, normal bowel sounds, no guarding or rigidity. EXTREMITIES: No clubbing, 1+ lower extremity edema, no cyanosis, 2+ pulses and upper and lower extremities. MUSCULOSKELETAL: Muscle strength and tone normal. SPINE: No scoliosis or deformity SKIN: No rashes CENTRAL NERVOUS SYSTEM: Alert and oriented -3. No focal deficits, tone is normal in all 4 extremities. PSYCHIATRIC: Alert and oriented -3. Appropriate affect. Intact judgment and insight. - Labs CBC & Chem 7: 02/07/19 06:26 Labs: Abnormal Lab Results - Last 24 Hours (Table) 02/06/19 02/06/19 02/06/19 Range/Units 13:15 17:05 18:30 Potassium 5.8 H (3.5-5.1) mmol/L Chloride 115 H (98-107) mmol/L Carbon Dioxide 19 L (22-30) mmol/L BUN 43 H (9-20) mg/dL Glucose 166 H (74-99) mg/dL POC Glucose (mg/dL) 199 H 216 H (75-99) mg/dL Alkaline Phosphatase 290 H (38-126) U/L Albumin 2.9 L (3.5-5.0) g/dL 02/06/19 02/07/19 02/07/19 Range/Units 20:28 06:06 06:26 Potassium 5.8 H (3.5-5.1) mmol/L Chloride 115 H (98-107) mmol/L Carbon Dioxide 21 L (22-30) mmol/L BUN 37 H (9-20) mg/dL Glucose 147 H (74-99) mg/dL POC Glucose (mg/dL) 188 H 156 H (75-99) mg/dL Alkaline Phosphatase (38-126) U/L Albumin (3.5-5.0) g/dL Microbiology - Last 24 Hours (Table) 02/06/19 16:00 Gram Stain - Preliminary Pleural Fluid Body Fluid Culture - Preliminary 02/06/19 16:00 Fungal Culture - Preliminary Pleural Fluid 02/06/19 16:00 Anaerobic Culture - Preliminary Pleural Fluid 02/06/19 16:00 Acid Fast Bacilli Culture - Preliminary Pleural Fluid Assessment and Plan Plan: Assessment: 1 acute right-sided pleural effusion, most likely secondary to his liver cirrhosis, possible ascites, and could also be possible to his cardiac condition. Fluid was transudative in nature 2 status post right sided thoracentesis, 3150 mL of fluid were drained, and sent for different diagnostic studies. 3 acute unilateral pulmonary edema following large-volume thoracentesis 4 history of liver cirrhosis, apparently patient had extensive workup by gastroenterology in the past, and he follows up with Dr. Cuellar on a regular basis. 5 history of coronary artery disease 7 benign essential hypertension 8 hyperkalemia secondary to lisinopril and acute kidney injury Plan: Patient seems to have developed unilateral pulmonary edema following a large one thoracentesis yesterday, he is doing better today, no worsening shortness of b reath, still has some diffuse crackles, agree with diuretics, especially in view of patient's ascites, and anasarca related to his underlying liver disease, echocardiogram results have been reviewed patient has preserved left ventricular systolic function. Pleural fluid analysis revealed transudative fluid, likely related to his underlying liver disease. Cytology and cultures are pending. I performed a history & physical examination of the patient and discussed their management with my nurse practitioner, Jayda Mcbride. I reviewed the nurse practitioner's note and agree with the documented findings and plan of care. Lung sounds are positive for diffuse crackles bilateral bases. The findings and the impression was discussed with the patient. I attest to the documentation by the nurse practitioner. Time with Patient: Less than 30
[2019-02-07 12:33] LABS: Hemoglobin A1C 7.3 % (4.0-6.0)
[2019-02-07] MEDS: PIPERACILLIN-TAZOBACTAM 3.375 GM in SODIUM CHLORIDE 0.9% 100 ML IVPB SCH ×2 (15:15→23:06)
[2019-02-07 17:38] LABS: Glucose,Whole Blood 249 mg/dL (75-99)
[2019-02-07 21:23] LABS: Glucose,Whole Blood 118 mg/dL (75-99)
[2019-02-07] MEDS: ATORVASTATIN 20 MG TAB PO SCH (21:24)
[2019-02-07] MEDS: CITALOPRAM HYDROBROMIDE 20 MG TAB PO SCH (21:25)
[2019-02-07] MEDS: INSULIN DETEMIR (LEVEMIR) 100 UNIT/ML SYR SQ SCH (21:25)
[2019-02-08] MEDS ORDERED: SODIUM POLYSTYRENE SULFONATE 15 GM/60 ML BOTTLE PO STA (00:02)
--- NOTE | 2019-02-08 00:04 | P.PN ---
Progress Note - Text Progress Note Date: 02/07/19 Chief Complaint: Short of breath History of presenting complaint: This is a 48-year-old patient of Dr. Gumzán. Patient has a known history of cirrhosis that has progressed from fatty liver. Diagnosed 2 years ago. Follows with business solutions consultant Dr. Cuellar. Under stable medical conditions include obesity, pancytopenia, coronary artery disease with stent, diabetes mellitus type 2, GERD, hyperlipidemia, essential hypertension, chronic insomnia. Patient has been progressively getting short of breath. More so for last 1 being 1 week. Denies any cough nofever no sputum. No fever no chills. Patient is found to have a large right-sided pleural effusion. Patient also been putting on weight. Patient was last treated about 2 months ago when he had hepatic encephalopathy. Patient hasn't been taking his medications. Earlier today 315 0 mL of right pleural effusion was removed. By Dr. Castillo. Today-yesterday evening patient underwent postthoracentesis pulmonary edema. Lasix given. Improved. Feeling better today. present. Review of systems: Was done for constitutional, cardiovascular, GI, pulmonary. relevant finding as above Active Medications Hydrocodone Bitart/Acetaminophen ([place] 10) 1 each PO BID PRN PRN Reason: Pain Last Admin: 02/07/19 21:28 Dose: 1 each Documented by: Albuterol Sulfate (Ventolin Nebulized) 2.5 mg INHALATION RT-Q4H PRN PRN Reason: Shortness Of Breath Aspirin (Aspirin) 81 mg PO DAILY [facility] Last Admin: 02/07/19 08:29 Dose: 81 mg Documented by: Atorvastatin Calcium (Lipitor) 20 mg PO [facility] Last Admin: 02/07/19 21:24 Dose: 20 mg Documented by: Bumetanide (Bumex) 2 mg PO BID [facility] Last Admin: 02/07/19 21:24 Dose: 2 mg Documented by: Citalopram Hydrobromide (Celexa) 40 mg PO [facility] Last Admin: 02/07/19 21:25 Dose: 40 mg Documented by: Gabapentin (Neurontin) 300 mg PO BID [facility] Last Admin: 02/07/19 21:25 Dose: 300 mg Documented by: Piperacillin Sod/Tazobactam (Sod 3.375 gm/ Sodium Chloride) 100 mls @ 25 mls/hr IVPB Q8HR [facility] Last Admin: 02/07/19 23:06 Dose: 25 mls/hr Documented by: Insulin Aspart (Novolog) 15 unit SQ AC-TID [facility] Last Admin: 02/07/19 17:45 Dose: 15 unit Documented by: Insulin Aspart (Novolog) 0 unit SQ ACHS [facility]; Protocol Last Admin: 02/07/19 21:25 Dose: Not Given Documented by: Insulin Detemir (Levemir) 70 unit SQ HS [facility] Last Admin: 02/07/19 21:25 Dose: 70 unit Documented by: Lactulose (Cephulac) 20 gm PO TID [facility] Last Admin: 02/07/19 21:20 Dose: Not Given Documented by: Metoprolol Tartrate (Lopressor) 25 mg PO BID [facility] Last Admin: 02/07/19 21:25 Dose: 25 mg Documented by: Nitroglycerin (Nitrostat) 0.4 mg SUBLINGUAL Q5M PRN PRN Reason: Chest Pain Pantoprazole Sodium (Protonix) 40 mg PO AC-BRKFST [facility] Last Admin: 02/07/19 07:07 Dose: 40 mg Documented by: Rifaximin (Xifaxan) 550 mg PO BID [facility] Stop: 03/08/19 21:01 Last Admin: 02/07/19 21:25 Dose: 550 mg Documented by: Physical examination: VITAL SIGNS: 97.7, 74, 18, 131/86, 97% on 2 L GENERAL: Laying in bed more comfortable EYES: Pupils equal. Conjunctiva normal. HEENT: External appearance of nose and ears normal, oral cavity grossly normal. NECK: JVD unable to assess; masses not palpable. HEART: First and second heart sounds are normal; decreased edema LUNGS: Respiratory rate increased, decreased breath sounds ABDOMEN: Soft, distended, dull distal phalanx, nontender, liver spleen not palpable, no masses palpable. PSYCH: Alert and oriented x3; mood and affect normal. INVESTIGATIONS, reviewed in the clinical context: Potassium 5.8, bun 43, creatinine 1.16 bilirubin 1.3 proBNP 570 albumin 2.9 Chest x-ray film personally reviewed by me-both "panic 2-D echo, showing effusion of the right side EKG tracing personally reviewed by me-sinus rhythm Assessment: -Large pleural effusion secondary to cirrhosis of the liver through the diaphragm and associated hypoalbuminemia, followed by thoracentesis 315 0 mL removed -Post large volume thoracentesis, acute pulmonary edema -Hepatic cirrhosis that is progressed from fatty liver -Obesity BMI 36.6 -Pancytopenia from cirrhosis -Coronary artery disease with stent -Diabetes mellitus type 2 -GERD -Hyperlipidemia -Essential hypertension -Importance -Chronic insomnia -Hyperkalemia -Hypoalbuminemia due to cirrhosis -Fluid overload due to cirrhosis Plan: Give Kayexalate 30 g. Repeat potassium in the evening. Repeat in the morning. Patient GEOVANI inhibitor has been held off. Discussed with patient and .
[2019-02-08 00:34] LABS: Calcium 8.2 mg/dL (8.4-10.2); Potassium 4.6 mmol/L (3.5-5.1)
[2019-02-08 06:10] LABS: Calcium 8.5 mg/dL (8.4-10.2); Potassium 4.7 mmol/L (3.5-5.1)
[2019-02-08 06:13] LABS: Glucose,Whole Blood 98 mg/dL (75-99)
[2019-02-08] MEDS: INSULIN ASPART (NovoLOG) 100 UNIT/ML VIAL SQ SCH ×4 (06:13→12:45)
[2019-02-08 06:58] LABS: Glucose,Whole Blood 87 mg/dL (75-99)
[2019-02-08] MEDS: PANTOPRAZOLE 40 MG TABLET PO SCH (07:02)
[2019-02-08 08:27] VITALS: RESP 20
[2019-02-08] MEDS: BUMETANIDE 1 MG TAB PO SCH (08:31)
[2019-02-08] MEDS: RIFAXIMIN 550 MG TABLET PO SCH (08:31)
[2019-02-08] MEDS: METOPROLOL TARTRATE 25 MG TAB PO SCH (08:32)
[2019-02-08] MEDS: LACTULOSE 20 GM/30 ML CUP PO SCH (08:32)
[2019-02-08] MEDS: GABAPENTIN 300 MG CAP PO SCH (08:32)
[2019-02-08] MEDS: PIPERACILLIN-TAZOBACTAM 3.375 GM in SODIUM CHLORIDE 0.9% 100 ML IVPB SCH (08:32)
[2019-02-08] MEDS: ASPIRIN 81 MG PO SCH (08:32)
--- NOTE | 2019-02-08 10:22 | XR ---
EXAMINATION TYPE: XR chest 2V DATE OF EXAM: 02/08/2019 COMPARISON: EXAMINATION TYPE: XR chest 2V DATE OF EXAM: 02/08/2019 COMPARISON: 02/07/2019 TECHNIQUE: PA and lateral views submitted. HISTORY: Shortness of breath FINDINGS: There is improving aeration in the right upper lobe. Persistent consolidation and pleural effusion no kelly. Suggestion of coronary artery stent. Heart size normal. Left lung clear. No pneumothorax. IMPRESSION: 1. Mild interval improvement in the pleural-parenchymal changes involving the right lung which could represent pneumonia versus asymmetric pulmonary edema.
--- NOTE | 2019-02-08 10:57 | P.PN ---
Subjective Progress Note Date: 02/08/19 Principal diagnosis: Large right-sided pleural effusion status post thoracentesis this is a 48-year-old white male, known history of liver cirrhosis, exact etiology of his liver cirrhosis is unknown. Patient normally follows up on a regular basis with Dr. Cuellar, and he was told at one point that he may be considered for referral for a liver transplant down the line at [facility]. Patient is also known to have history of multiple medical problems including coronary artery disease, type 2 diabetes, GERD, history of hepatic encephalopathy secondary to elevated ammonia level. Patient also had previous cardiac catheterization and stent placement. He presented to the ER at [facility] complaining of one-day history of increased shortness of breath. Chest x-ray showed evidence of a good sized right-sided pleural effusion. His labs also showed elevated potassium of 5.8,elevated BUN of 43 creatinine of 1.16, patient was transferred to [facility] ER, evaluated, ultrasound showed good sized right-sided pleural effusion, patient was given Kayexalate for his elevated potassium, admitted to the hospital and this consult was initiated. Shortly after I saw the patient, I went ahead and recommended thoracentesis, and I was able to drain 3150 mL of light yellow freely flowing pleural effusion, grossly looks transudate of in nature. Patient had a follow-up chest x-ray postoperatively showed almost near complete resolution of his pleural effusion, and no postoperative complications. The fluid was sent for different diagnostic studies. Upon presentation, the patient has mostly symptoms of shortness of breath, he had no fever, no chills, no hemoptysis, no chest pain, no nausea no vomiting no abdominal pain, no melena, no hematemesis. On 02/07/2017 patient seen in follow-up on selective care unit, yesterday patient underwent right-sided thoracentesis would removal of 3.15 liters of dilute clear yellow pleural fluid, which was sent for analysis, patient tolerated procedure well, however in the evening patient developed worsening shortness of breath, increased wheezing. CTA chest was obtained showing moderate size right pleural effusion with right-sided extensive airspace consolidation and atelectasis, no evidence of pulmonary embolism. Patient was given a dose of diuretics with improvement of his respiratory status, this morni ng he is seen sitting up in his bed, in no acute distress, he is on oral Bumex, lung sounds reveal diffuse scattered crackles throughout his bilateral bases, the patient is in no acute distress, diminished breath sounds over right lower base. He is on supplemental oxygen 3 L a pulse ox of 95%, denied any chest pain, echocardiogram was completed showing EF of 60-65%, trace to mild mitral regurg, mild pulmonary hypertension with right-sided pressures of 44.6 mmHg. Pleural fluid analysis showed a transudative fluid, cultures and cytology pending. he was covered with empiric antibiotics in the form of Zosyn. On 02/08/2019 patient seen in follow-up on selective care unit, he is resting comfortably in bed, he denies shortness of breath, on room air pulse ox is 91%, hemodynamically stable, no cognitive chest pain, he is afebrile, he remains on oral diuretics, and his weight is down by 2.2 kg in the last 24 hours, lower extremity edema is improving, he is maintaining negative fluid balance. Lung sounds reveal diminished breath sounds over right lower lobe, today's chest x- ray was reviewed showing mild interval improvement in the pleural parenchymal changes involving the right lung. Hemodynamically stable, pleural fluid cultures are negative thus far, cytology is pending Objective - Vital Signs Vital signs: Vital Signs Temp 98.1 F 02/08/19 08:26 Pulse 76 02/08/19 08:26 Resp 20 02/08/19 08:26 BP 117/69 02/08/19 08:26 Pulse Ox 91 L 02/08/19 08:26 Intake & Output 02/07/19 02/08/19 02/08/19 18:59 06:59 18:59 Intake Total 600 580 240 Output Total 1250 1000 450 Balance -650 -420 -210 Weight 112.4 kg Intake: Intake, IV Titration 100 Amount Piperacillin-Tazobactam 3 100 .375 gm In Sodium Chloride 0.9% 100 ml @ 25 mls/hr IVPB Q8HR [facility] Rx# :[id number] Oral 600 480 240 Output: Urine 1250 1000 450 Other: Voiding Method Toilet # Voids 1 - Exam GENERAL EXAM: Alert, very pleasant, obese 48-year-old white male on room air with a pulse ox of 91-93% comfortable in no apparent distress. HEAD: Normocephalic/atraumatic. EYES: Normal reaction of pupils, equal size. Conjunctiva pink, sclera white. NOSE: Clear with pink turbinates. THROAT: No erythema or exudates. NECK: No masses, no JVD, no thyroid enlargement, no adenopathy. CHEST: No chest wall deformity. Symmetrical expansion. LUNGS: Equal air entry with scattered crackles at bilateral bases, diminished breath sounds over right lower lobe CVS: Regular rate and rhythm, normal S1 and S2, no gallops, no murmurs, no rubs ABDOMEN: Soft, nontender, obese. No hepatosplenomegaly, normal bowel sounds, no guarding or rigidity. EXTREMITIES: No clubbing, 1+ lower extremity edema, no cyanosis, 2+ pulses and upper and lower extremities. MUSCULOSKELETAL: Muscle strength and tone normal. SPINE: No scoliosis or deformity SKIN: No rashes CENTRAL NERVOUS SYSTEM: Alert and oriented -3. No focal deficits, tone is normal in all 4 extremities. PSYCHIATRIC: Alert and oriented -3. Appropriate affect. Intact judgment and insight. - Labs CBC & Chem 7: 02/08/19 05:40 Labs: Abnormal Lab Results - Last 24 Hours (Table) 02/07/19 02/07/19 02/07/19 Range/Units 06:26 17:12 21:04 Chloride (98-107) mmol/L BUN (9-20) mg/dL Glucose (74-99) mg/dL POC Glucose (mg/dL) 249 H 118 H (75-99) mg/dL Hemoglobin A1c 7.3 H (4.0-6.0) % Calcium (8.4-10.2) mg/dL 02/08/19 02/08/19 Range/Units 00:08 05:40 Chloride 113 H 113 H (98-107) mmol/L BUN 32 H 32 H (9-20) mg/dL Glucose 128 H (74-99) mg/dL POC Glucose (mg/dL) (75-99) mg/dL Hemoglobin A1c (4.0-6.0) % Calcium 8.2 L (8.4-10.2) mg/dL Microbiology - Last 24 Hours (Table) 02/06/19 16:00 Acid Fast Bacilli Smear - Final Pleural Fluid Acid Fast Bacilli Culture - Preliminary Assessment and Plan Plan: Assessment: 1 acute right-sided pleural effusion, most likely secondary to his liver cirrhosis, possible ascites, and could also be possible to his cardiac condition. Fluid was transudative in nature 2 status post right sided thoracentesis, 3150 mL of fluid were drained, it was transudative in nature, pleural fluid cultures are negative, cytology is pending 3 acute unilateral pulmonary edema following large-volume thoracentesis 4 history of liver cirrhosis, apparently patient had extensive workup by gastroenterology in the past, and he follows up with Dr. Cuellar on a regular basis. 5 history of coronary artery disease 7 benign essential hypertension 8 hyperkalemia secondary to lisinopril and acute kidney injury Plan: Clinically stable, on room air, he states his breathing is improving, no acute events overnight, today's chest x-ray has been reviewed showing improving a ration of the right upper lobe, patient still has a persistent consolidation and right-sided pleural effusion. He remains on oral diuretics, he is maintaining negative fluid balance. His weight is improving, lower extremity edema is impr oving. Increase activity as tolerated, vital signs have been stable, and patient is hoping to go home today. He probably could be considered for discharge home on oral diuretics, with outpatient follow-up in the office I performed a history & physical examination of the patient and discussed their management with my nurse practitioner, Jayda Mcbride. I reviewed the nurse practitioner's note and agree with the documented findings and plan of care. Lung sounds are positive for diffuse crackles bilateral bases. The findings and the impression was discussed with the patient. I attest to the documentation by the nurse practitioner. Time with Patient: Less than 30
[2019-02-08 11:38] VITALS: BP 116/73; PULSE 73; TEMP 98.5
[2019-02-08 12:56] LABS: Glucose,Whole Blood 164 mg/dL (75-99)
--- NOTE | 2019-02-10 13:14 | P.DS ---
Providers Date of admission: 02/06/19 13:52 Expected date of discharge: 02/08/19 Attending physician: Jamel Contreras Consults: 02/06/19 13:50 Consult Physician Urgent Consulting Provider: David Jackson Consult Reason/Comments: Pleural effusion Do you want consulting provider notified?: Yes Primary care physician: [facility] Course: Chief Complaint: Short of breath Hospital course: This is a 48-year-old patient of Dr. Guzmán. Patient has a known history of cirrhosis that has progressed from fatty liver. Diagnosed 2 years ago. Follows with library clerk talking books Dr. Angulo. Chronic stable medical conditions include obesity, pancytopenia, coronary artery disease with stent, diabetes mellitus type 2, GERD, hyperlipidemia, essential hypertension, chronic insomnia. Patient has been progressively getting short of breath. More so for last 1 week. Denies any cough no fever no sputum, no chills. Patient is found to have a large right-sided pleural effusion. Patient also been putting on weight. Patient was last admitted about 2 months ago when he had hepatic encephalopathy. Patient has been taking his medications. 315 0 mL of right pleural effusion was removed. By Dr. Castillo. Had postthoracentesis pulmonary edema. Improved Today-patient diuresing well. Diuretic was changed. Lost weight. Care was discussed in detail with the patient and the . Explained about sodium restriction and fluid restriction. We'll follow with Dr. Jennie Angulo as an outpatient.. Discussion and discharge planning more than 35 minutes Consultation: Dr. Jackson from pulmonary Physical examination: VITAL SIGNS: 98.5, 73, 20, 106/73, 93% room air GENERAL: Sitting at the edge of bed, comfortable EYES: Pupils equal. Conjunctiva normal. HEENT: External appearance of nose and ears normal, oral cavity grossly normal. NECK: JVD unable to assess; masses not palpable. HEART: First and second heart sounds are normal; decreased edema LUNGS: Respiratory rate normal, improved air entry ABDOMEN: Soft, less distended,, nontender, liver spleen not palpable, no masses palpable. PSYCH: Alert and oriented x3; mood and affect normal. INVESTIGATIONS, reviewed in the clinical context: Potassium 4.7 creatinine 1.22 Previous testing Potassium 5.8, bun 43, creatinine 1.16 bilirubin 1.3 proBNP 570 albumin 2.9 Chest x-ray film personally reviewed by me-both "panic 2-D echo, showing effusion of the right side EKG tracing personally reviewed by me-sinus rhythm Assessment: -Large pleural effusion secondary to cirrhosis of the liver through the di aphragm and associated hypoalbuminemia, symptomatic, followed by thoracentesis 315 0 mL removed -Post large volume thoracentesis, acute pulmonary edema -Hepatic cirrhosis that is progressed from fatty liver -Obesity BMI 36.6 -Pancytopenia from cirrhosis -Coronary artery disease with stent -Diabetes mellitus type 2 -GERD -Hyperlipidemia -Essential hypertension -Chronic insomnia -Hyperkalemia -Hypoalbuminemia due to cirrhosis -Fluid overload due to cirrhosis Disposition: Home Patient Condition at Discharge: Stable Plan - Discharge Summary Discharge Rx Participant: No New Discharge Prescriptions: New Spironolactone [Aldactone] 25 mg PO DAILY #30 tablet Bumetanide [Bumex] 1 mg PO BID #60 tablet Continue Insulin Aspart [NovoLOG Flexpen] See Protocol SQ AC-TID Simvastatin [Zocor] 40 mg PO HS Omeprazole [PriLOSEC] 40 mg PO DAILY Citalopram Hydrobromide [CeleXA] 40 mg PO DAILY Nitroglycerin Sl Tabs [Nitrostat] 0.4 mg SUBLINGUAL Q5M PRN PRN Reason: Chest Pain Aspirin EC [Ecotrin Low Dose] 81 mg PO DAILY Albuterol Sulfate [Proair Hfa] 2 puff INHALATION RT-Q4H PRN PRN Reason: Shortness Of Breath Metoprolol Tartrate 25 mg PO BID Gabapentin [Neurontin] 300 mg PO BID Rifaximin [Xifaxan] 550 mg PO BID Lactulose 20 gm PO TID metFORMIN HCL 1,000 mg PO BID HYDROcodone/APAP 10-325MG [[place] 10-325] 1 tab PO BID PRN PRN Reason: Pain Changed Insulin Glargine,Hum.rec.anlog [Lantus Solostar] 60 unit SQ HS #0 Discontinued Lisinopril [Zestril] 5 mg PO HS Furosemide [Lasix] 40 mg PO BID Discharge Medication List Albuterol Sulfate [Proair Hfa] 2 puff INHALATION RT-Q4H PRN 12/07/18 [History] Aspirin EC [Ecotrin Low Dose] 81 mg PO DAILY 12/07/18 [History] Citalopram Hydrobromide [CeleXA] 40 mg PO DAILY 12/07/18 [History] Gabapentin [Neurontin] 300 mg PO BID 12/07/18 [History] Insulin Aspart [NovoLOG Flexpen] See Protocol SQ AC-TID 12/07/18 [History] Metoprolol Tartrate 25 mg PO BID 12/07/18 [History] Nitroglycerin Sl Tabs [Nitrostat] 0.4 mg SUBLINGUAL Q5M PRN 12/07/18 [History] Omeprazole [PriLOSEC] 40 mg PO DAILY 12/07/18 [History] Simvastatin [Zocor] 40 mg PO HS 12/07/18 [History] Lactulose 20 gm PO TID 12/20/18 [History] Rifaximin [Xifaxan] 550 mg PO BID 12/20/18 [History] HYDROcodone/APAP 10-325MG [[place] 10-325] 1 tab PO BID PRN 02/06/19 [History] metFORMIN HCL 1,000 mg PO BID 02/06/19 [History] Bumetanide [Bumex] 1 mg PO BID #60 tablet 02/08/19 [Rx] Insulin Glargine,Hum.rec.anlog [Lantus Solostar] 60 unit SQ HS #0 02/08/19 [Rx] Spironolactone [Aldactone] 25 mg PO DAILY #30 tablet 02/08/19 [Rx] Follow up Appointment(s)/Referral(s): David Jackson MD [STAFF PHYSICIAN] - 03/03/19 3:00 pm (With Marcia Hawkins NP.) Star Guzmán MD [Primary Care Provider] - 02/09/19 8:30 am Tiffanie Angulo MD [STAFF PHYSICIAN] - 04/05/19 1:00 pm Patient Instructions/Handouts: Heart Failure (DC), Pleural Effusion (DC), Low- Sodium Diet (DC), Thoracentesis (DC) Activity/Diet/Wound Care/Special Instructions: CHF 1. Weigh yourself every morning after you urinate. If you gain 2-3 pounds overnight or 5 pounds in one week, call your primary physician for guidance on your medications. Keep a log of your weights. 2. Avoid salt, or foods with hidden salt. Extra salt makes your heart work harder and traps the fluid in your body for longer. 3. Take all of your medications as directed, especially your water pills. NEVER skip a dose. 4. Elevate your legs when you are not up moving around to help with circulation and prevent swelling. 5. Call your physician if you notice any extra swelling in your legs, ankles, feet or abdomen, if you have a new dry cough, if your shortness of breath worsens with activity or at rest, or if you feel more fatigued. Fluid restriction-2000 mL a day Daily weights bmp - 5 days Discharge Disposition: HOME SELF-CARE
== END 2019-02-08 13:50 | disposition home or self-care (01) | DRG 432 ==
LOC: EC 12:28 → 3SCARD 13:52
PROVIDERS: ADMIT Hospitalist; ATTEND Hospitalist
PROC: 0W993ZZ Drainage of Right Pleural Cavity, Percutaneous Approach (ICD-10-PCS; principal; 2019-02-06)
DX: K74.60 Unspecified cirrhosis of liver (principal); J81.0 Acute pulmonary edema; D61.818 Other pancytopenia; J90 Pleural effusion, not elsewhere classified; J98.11 Atelectasis; N17.9 Acute kidney failure, unspecified; R18.8 Other ascites; E11.9 Type 2 diabetes mellitus without complications; E66.9 Obesity, unspecified; Z68.36 Body mass index [BMI] 36.0-36.9, adult; E78.5 Hyperlipidemia, unspecified; E87.5 Hyperkalemia; F51.04 Psychophysiologic insomnia; I11.0 Hypertensive heart disease with heart failure; I25.10 Atherosclerotic heart disease of native coronary artery without angina pectoris; I25.2 Old myocardial infarction; I50.9 Heart failure, unspecified; K21.9 Gastro-esophageal reflux disease without esophagitis; K76.0 Fatty (change of) liver, not elsewhere classified; T46.4X5A Adverse effect of angiotensin-converting-enzyme inhibitors, initial encounter; Z79.4 Long term (current) use of insulin; Z79.82 Long term (current) use of aspirin; Z79.899 Other long term (current) drug therapy; Z80.1 Family history of malignant neoplasm of trachea, bronchus and lung; Z87.891 Personal history of nicotine dependence; Z95.5 Presence of coronary angioplasty implant and graft; Z88.1 Allergy status to other antibiotic agents
CPT/HCPCS: 36415; 71045; 71046; 71275; 76604; 80048; 80053; 82945; 83036; 83615; 83880; 84157; 87070; 87075; 87102; 87116; 87205; 87206; 87252; 87496; 87498; 87502; 87529; 87634; 87798; 88305; 89050; 93005; 93306; 99285

== ENCOUNTER → 2019-04-21 | Outpatient (CLI) | payer OTHER ==
--- NOTE | 2019-04-21 11:51 | US ---
EXAMINATION TYPE: US chest DATE OF EXAM: 04/21/2019 COMPARISON: CXR CLINICAL HISTORY: J90 Pleural effusion. Right pleural effusion TECHNIQUE: Targeted ultrasound of the posterior lower right hemithorax EXAM MEASUREMENTS: Right Pleural Effusion pocket size: 11.2 cm Right skin surface to fluid distance: 4.2 cm Right side marked for possible thoracentesis outside the dept. Pulmonologists are able to review the images in the patient?s EMR. IMPRESSIONS: Moderate right pleural effusion measuring 11.2 cm.
== END | disposition home or self-care (01) ==
LOC: RADUSWWP 11:22
PROVIDERS: ATTEND Internal Medicine
DX: J90 Pleural effusion, not elsewhere classified (principal)
CPT/HCPCS: 76604

== ENCOUNTER → 2019-04-21 | Day surgery (SDC) | payer OTHER ==
[2019-04-21 12:00] VITALS: TEMP 98.2
[2019-04-21 12:42] VITALS: RESP 16
--- NOTE | 2019-04-21 12:52 | PCN ---
PROCEDURE NOTE PROCEDURE: Right-sided thoracentesis. PREOPERATIVE DIAGNOSIS: Large right pleural effusion. POSTOPERATIVE DIAGNOSIS: Large right pleural effusion. ANESTHESIA USED: 2 mL of 1% lidocaine. PROCEDURE DESCRIPTION: The patient was placed in a sitting upright position, the area below the right scapula was prepared in a sterile fashion and drapes were applied. The area of the fluid was earlier localized by ultrasound guidance and it correlated to the 8th intercostal space and tip of the scapula. Again, the area was anesthetized using lidocaine. Then, a 26- gauge needle was inserted at the same site, advanced into the pleural space. The fluid was localized with the needle. Then a small tiny incision was made at the same site, and a standard thoracentesis catheter and needle were used. The needle was inserted at the same site, advanced into the pleural space and the fluid was localized again with the needle. As soon as the fluid was localized with the needle, then the catheter was advanced over the needle into the pleural space, and the needle was pulled out of the pleural space. Freely flowing fluid was drained from the right pleural space. Roughly 3850 mL of funmi colored fluid was removed from the right pleural space. The fluid was sent for different diagnostic studies. Procedure was well tolerated, no evidence of any immediate complications. Chest x-ray was ordered postoperatively. MMODL / IJN: [id number] /
[2019-04-21 12:59] VITALS: BP 113/62; PULSE 75
--- NOTE | 2019-04-21 13:09 | XR ---
EXAMINATION TYPE: XR chest 1V portable DATE OF EXAM: 04/21/2019 COMPARISON: 02/08/2019 INDICATION: Right pleural effusion TECHNIQUE: Single frontal view of the chest is obtained. FINDINGS: The heart size is normal. The pulmonary vasculature is normal. The lungs are clear. No significant blunting the right costophrenic angle is present. Posterior pleural effusion is not ex cluded. Pleural effusion is identified on the ultrasound. No pneumothorax is evident. IMPRESSION: 1. Right pleural effusion is not as well-visualized on chest x-ray.
[2019-04-21 15:52] LABS: Appearance,BF Clear; Nucleated Cells, Body Fluid 5 /uL; RBC, Body Fluid 363 /uL
[2019-04-21 19:08] LABS: Glucose, BF Source Pleural Fluid; Glucose, Body Fluid 290 mg/dL; LDH, Body Fluid Source Pleural Fluid; Total Protein, Body Fluid 1102 mg/dL
== END ==
LOC: PROCWHC3 11:43
PROVIDERS: ATTEND Internal Medicine
DX: J90 Pleural effusion, not elsewhere classified (principal); I10 Essential (primary) hypertension; E78.5 Hyperlipidemia, unspecified; K21.9 Gastro-esophageal reflux disease without esophagitis; E11.9 Type 2 diabetes mellitus without complications; I25.10 Atherosclerotic heart disease of native coronary artery without angina pectoris; K74.60 Unspecified cirrhosis of liver; I25.2 Old myocardial infarction; Z79.82 Long term (current) use of aspirin; Z79.899 Other long term (current) drug therapy; Z79.4 Long term (current) use of insulin; Z79.891 Long term (current) use of opiate analgesic; Z79.2 Long term (current) use of antibiotics; Z86.2 Personal history of diseases of the blood and blood-forming organs and certain disorders involving the immune mechanism; Z87.891 Personal history of nicotine dependence; Z95.5 Presence of coronary angioplasty implant and graft; Z90.49 Acquired absence of other specified parts of digestive tract; Z80.1 Family history of malignant neoplasm of trachea, bronchus and lung
CPT/HCPCS: 32554; 71045; 82945; 83615; 84157; 87070; 87075; 87205; 88108; 88305; 89050

== ENCOUNTER → 2019-04-27 | Outpatient (CLI) | payer OTHER ==
--- NOTE | 2019-04-27 13:08 | US ---
EXAMINATION TYPE: US chest DATE OF EXAM: 04/27/2019 COMPARISON: NONE CLINICAL HISTORY: J90 Pleural effusion,. TECHNIQUE: Targeted ultrasound of the posterior lower right chest and left chest EXAM MEASUREMENTS: Right Pleural Effusion pocket size: 8.9 cm Right skin surface to fluid distance: 3.4 cm Right side marked for possible thoracentesis outside the dept. Pulmonologists are able to review the images in the patient?s EMR. No evident pleural effusion on the left IMPRESSIONS: Right pleural effusion
--- NOTE | 2019-04-27 15:01 | US ---
EXAMINATION TYPE: US liver DATE OF EXAM: 04/27/2019 COMPARISON: NONE CLINICAL HISTORY: 49-year-old male J90 Pleural effusion, 74.60 CIRRHOSIS OF LIVER. TECHNIQUE: Multiple sonographic images of the right upper quadrant are obtained. FINDINGS: EXAM MEASUREMENTS: Liver Length: 14.5 cm Gallbladder: Surgically absent CBD: .3 cm Right Kidney: 10.5 x 6.1 x 4.6 cm Pancreas: Obscured by bowel gas Liver: Heterogeneous and nodular configuration of the liver. The degree of heterogeneity makes asses sment for focal lesions difficult. Dilated portal vein at 1.7 cm Gallbladder: Surgically absent Evidence for sonographic Baig's sign: No CBD: wnl Right Kidney: No hydronephrosis or masses seen IMPRESSION: 1. Cirrhotic morphology of the liver. The degree of parenchymal heterogeneity makes assessment for fo ching lesions difficult. 2. Dilated main portal vein at 1.7 cm suggesting underlying portal venous hypertension.
== END | disposition home or self-care (01) ==
LOC: RADUSWWP 11:21
PROVIDERS: ATTEND Internal Medicine
DX: J90 Pleural effusion, not elsewhere classified (principal); K74.60 Unspecified cirrhosis of liver; K76.89 Other specified diseases of liver
CPT/HCPCS: 76604; 76705

== ENCOUNTER 2019-05-16 08:02 | Day surgery (SDC) | payer OTHER ==
[2019-05-16 08:14] VITALS: RESP 16; TEMP 97.8
[2019-05-16] MEDS ORDERED: ALPRAZolam 0.5 MG TAB PO STA (08:27)
[2019-05-16 09:02] LABS: INR 1.3 (<1.2); Prothrombin Time 12.7 sec (9.0-12.0)
[2019-05-16 09:07] LABS: Mean Platelet Volume 8.4
[2019-05-16 09:12] LABS: Platelet Count 56 k/uL (150-450)
[2019-05-16 10:10] VITALS: BP 127/68; PULSE 80
--- NOTE | 2019-05-16 10:11 | XR ---
EXAMINATION TYPE: XR chest 1V portable DATE OF EXAM: 05/16/2019 COMPARISON: Chest x-ray May 08, 2019. HISTORY: Status post right-sided thoracentesis. TECHNIQUE: Single frontal view of the chest is obtained. FINDINGS: There is persistent low lung volumes and small to moderate-sized right pleural effusion im proved after thoracentesis. Left lung remains clear. No pneumothorax noted. The cardiac silhouette s ize remains within normal limits with coronary stent in the left circumflex distribution redemonstrat ed. The osseous structures are intact. IMPRESSION: Persistent small to moderate-sized right pleural effusion after thoracentesis without pn eumothorax. Associated right basilar compressive atelectasis.
--- NOTE | 2019-05-16 13:22 | US ---
EXAMINATION TYPE: US thoracentesis DATE OF EXAM: 05/16/2019 COMPARISON: NONE HISTORY: Pleural effusion. FINDINGS: Maximal barrier technique was utilized. The skin overlying a suitable pocket of fluid was localized and the overlying skin prepped and draped. Lidocaine was used for local anesthesia. Ultras ound was used with sterile technique. A 8 [place] catheter over guide needle was advanced into the pl eural fluid collection using ultrasound guidance and the catheter advanced, needle removed. Approxim ately 2.1 liter(s) of serous fluid was removed. Catheter was withdrawn and hemostasis achieved. The re is no immediate complication. The patient discharged in stable condition without complication. IMPRESSION: STATUS POST ULTRASOUND GUIDED THORACENTESIS, POST PROCEDURE CHEST X-RAY PENDING. THIS [place] OCEDURE WAS PERFORMED BY THE UNDERSIGNED.
== END 2019-05-16 10:20 | disposition home or self-care (01) ==
LOC: RADPROMAIN 08:02
PROVIDERS: ATTEND Internal Medicine
DX: J90 Pleural effusion, not elsewhere classified (principal); J98.11 Atelectasis; Z95.5 Presence of coronary angioplasty implant and graft
CPT/HCPCS: 32555; 36415; 71045; 82947; 85049; 85610

== ENCOUNTER 2019-05-29 10:29 | Observation (INO) | payer OTHER ==
--- NOTE | 2019-05-29 11:28 | XR ---
EXAMINATION TYPE: XR chest 2V DATE OF EXAM: 05/29/2019 COMPARISON: 05/16/2019 HISTORY: Difficulty breathing. Pleural effusion. TECHNIQUE: Frontal and lateral views of the chest are obtained. FINDINGS: Slightly increasing moderate pleural effusion is seen with associated right-sided airspace disease. Remainder the lungs are well aerated. Cardiomediastinal silhouette is similar in its visual ized portions however the right mediastinal lower border is obscured by the pleural effusion. No acut e osseous process. No sizable pneumothorax. IMPRESSION: Slightly increasing moderate right pleural effusion and associated right-sided airspace disease, likely compressive atelectasis.
[2019-05-29 11:29] LABS: Albumin 2.5 g/dL (3.5-5.0); Calcium 8.1 mg/dL (8.4-10.2); Potassium 5.1 mmol/L (3.5-5.1); Total Bilirubin 2.3 mg/dL (0.2-1.3); Total Protein 7.2 g/dL (6.3-8.2)
[2019-05-29 11:40] LABS: INR 1.2 (<1.2); Partial Thromboplastin Time 24.1 sec (22.0-30.0); Prothrombin Time 12.2 sec (9.0-12.0)
[2019-05-29 11:49] LABS: Anisocytosis Slight; HCT 28.5 % (39.0-53.0); Hypochromasia Marked; MCH 29.6 pg (25.0-35.0); MCHC 31.5 g/dL (31.0-37.0); MCV 93.9 fL (80.0-100.0); Mean Platelet Volume 8.9; RBC 3.03 m/uL (4.30-5.90); RDW 16.4 % (11.5-15.5); WBC 2.9 k/uL (3.8-10.6)
[2019-05-29 11:51] LABS: Platelet Count 62 k/uL (150-450)
[2019-05-29 12:00] LABS: Eosinophils # (M) 0.15 k/uL (0-0.7); Lymphocytes # (M) 0.58 k/uL (1.0-4.8); Monocytes # (M) 0.17 k/uL (0-1.0); Neutrophils % (M) 69 %; Nucleated Red Blood Cells 0 /100 WBC (0-0); Total Cells Counted 100
[2019-05-29] MEDS ORDERED: NALOXONE 0.4 MG/ML 1 ML VIAL IV PRN (12:12)
--- NOTE | 2019-05-29 12:12 | ED ---
General Adult HPI - General Chief complaint: Shortness of Breath Stated complaint: RHIANNA Time Seen by Provider: 05/29/19 10:38 Source: patient, RN notes reviewed, old records reviewed Mode of arrival: ambulatory Limitations: no limitations - History of Present Illness Initial comments: 49-year-old male history of cirrhosis and recurrent right-sided pleural effusion presenting with dyspnea, patient stating dyspnea is consistent with his normal fluid overload requiring drainage. He denies fever. He reports only a mild cough. No URI symptoms. Patient states his abdominal distention is at baseline. No abdominal pain. Mild nausea and no vomiting. No central chest pain. - Related Data Home Medications Medication Instructions Recorded Confirmed Albuterol Sulfate [Proair Hfa] 2 puff INHALATION RT-Q4H PRN 12/07/18 05/29/19 Aspirin EC [Ecotrin Low Dose] 81 mg PO DAILY 12/07/18 05/29/19 Citalopram Hydrobromide [CeleXA] 40 mg PO DAILY 12/07/18 05/29/19 Insulin Aspart [NovoLOG Flexpen] See Protocol SQ AC-TID 12/07/18 05/29/19 Metoprolol Tartrate 25 mg PO BID 12/07/18 05/29/19 Nitroglycerin Sl Tabs [Nitrostat] 0.4 mg SUBLINGUAL Q5M PRN 12/07/18 05/29/19 Omeprazole [PriLOSEC] 40 mg PO DAILY 12/07/18 05/29/19 Simvastatin [Zocor] 40 mg PO HS 12/07/18 05/29/19 Lactulose 20 gm PO BID 12/20/18 05/29/19 Rifaximin [Xifaxan] 550 mg PO BID 12/20/18 05/29/19 HYDROcodone/APAP 10-325MG [[place] 1 tab PO BID PRN 02/06/19 05/29/19 10-325] metFORMIN HCL 1,000 mg PO BID 02/06/19 05/29/19 Gabapentin [Neurontin] 400 mg PO BID 05/29/19 05/29/19 Insulin Glargine,Hum.rec.anlog 60 - 70 unit SQ HS 05/29/19 05/29/19 [Lantus Solostar] Previous Rx's Medication Instructions Recorded Bumetanide [Bumex] 1 mg PO BID #60 tablet 02/08/19 Spironolactone [Aldactone] 25 mg PO DAILY #30 tablet 02/08/19 Allergies Allergy/AdvReac Type Severity Reaction Status Date / Time cephalexin [From Keflex] AdvReac Rash/Hives Verified 05/29/19 11:15 Review of Systems ROS Statement: Those systems with pertinent positive or pertinent negative responses have been documented in the HPI. ROS Other: All systems not noted in ROS Statement are negative. Past Medical History Past Medical History: Myocardial Infarction (SD) Additional Past Medical History / Comment(s): IDDM type II, neuropathy bilateral hands fingers and feet, liver cirrhosis, ascities, elevated ammonia levels, pancytopenia, occasional bilateral ankle edema, "thin schmidt in my esophagus". Last Myocardial Infarction Date:: 2012 History of Any Multi-Drug Resistant Organisms: None Reported Past Surgical History: Cholecystectomy, Heart Catheterization With Stent, O rthopedic Surgery Additional Past Surgical History / Comment(s): PCIs with stents, EGDs, colonoscopy, carpal tunnel release. Past Anesthesia/Blood Transfusion Reactions: No Reported Reaction Additional Past Anesthesia/Blood Transfusion Reaction / Comment(s): No blood transfusions. Date of Last Stent Placement:: 2012 Past Psychological History: No Psychological Hx Reported, Depression Smoking Status: Former smoker Past Alcohol Use History: None Reported Past Drug Use History: None Reported - Past Family History Mother History Unknown: Yes Family Medical History: Cancer Additional Family Medical History / Comment(s): Lung cancer, since passed. Father Additional Family Medical History / Comment(s): ETOH abuse General Exam Limitations: no limitations General appearance: alert, in no apparent distress Head exam: Present: atraumatic, normocephalic Eye exam: Present: normal appearance, PERRL Neck exam: Present: normal inspection. Absent: tenderness, meningismus Respiratory exam: Present: rales, decreased breath sounds (Decreased breath sounds on the right base). Absent: respiratory distress Cardiovascular Exam: Present: regular rate, normal rhythm GI/Abdominal exam: Present: soft, distended. Absent: tenderness, guarding, rebound Extremities exam: Present: pedal edema Neurological exam: Present: alert, oriented X3, CN II-XII intact. Absent: motor sensory deficit Psychiatric exam: Present: normal affect, normal mood Skin exam: Present: warm, dry, intact. Absent: cyanosis, diaphoretic Course Vital Signs 05/29/19 05/29/19 10:32 11:41 Temperature 97.9 F Pulse Rate 86 84 Respiratory 18 18 Rate Blood Pressure 119/77 137/77 O2 Sat by Pulse 98 97 Oximetry Medical Decision Making - Medical Decision Making 49-year-old male with recurrent pleural effusion on the right. X-ray confirming large right-sided pleural effusion and associated atelectasis. Patient has pancytopenia with white blood cell count 2.9, hemoglobin is 9, platelets are 62. This is essentially unchanged from baseline. Case is discussed with Dr. Lozano, interventional radiologist. Will attempt thoracentesis either today or tomorrow. Patient will be admitted to Dr. Contreras - Lab Data Result diagrams: 05/29/19 11:05 05/29/19 11:05 Lab Results 05/29/19 05/29/19 05/29/19 Range/Units 11:05 11:05 11:05 WBC 2.9 L (3.8-10.6) k/uL RBC 3.03 L (4.30-5.90) m/uL Hgb 9.0 L (13.0-17.5) gm/dL Hct 28.5 L (39.0-53.0) % MCV 93.9 (80.0-100.0) fL MCH 29.6 (25.0-35.0) pg MCHC 31.5 (31.0-37.0) g/dL RDW 16.4 H (11.5-15.5) % Plt Count 62 L (150-450) k/uL Neutrophils % (Manual) 69 % Lymphocytes % (Manual) 20 % Monocytes % (Manual) 6 % Eosinophils % (Manual) 5 % Neutrophils # (Manual) 2.00 (1.3-7.7) k/uL Lymphocytes # (Manual) 0.58 L (1.0-4.8) k/uL Monocytes # (Manual) 0.17 (0-1.0) k/uL Eosinophils # (Manual) 0.15 (0-0.7) k/uL Nucleated RBCs 0 (0-0) /100 WBC Manual Slide Review Performed Hypochromasia Marked Anisocytosis Slight PT 12.2 H (9.0-12.0) sec INR 1.2 H (<1.2) APTT 24.1 (22.0-30.0) sec Sodium 135 L (137-145) mmol/L Potassium 5.1 (3.5-5.1) mmol/L Chloride 109 H (98-107) mmol/L Carbon Dioxide 20 L (22-30) mmol/L Anion Gap 6 mmol/L BUN 29 H (9-20) mg/dL Creatinine 1.19 (0.66-1.25) mg/dL Est GFR (CKD-EPI)AfAm 81 (>60 ml/min/1.73 sqM) Est GFR (CKD-EPI)NonAf 70 (>60 ml/min/1.73 sqM) Glucose 311 H (74-99) mg/dL Calcium 8.1 L (8.4-10.2) mg/dL Total Bilirubin 2.3 H (0.2-1.3) mg/dL AST 57 (17-59) U/L ALT 39 (4-49) U/L Alkaline Phosphatase 370 H (38-126) U/L Total Protein 7.2 (6.3-8.2) g/dL Albumin 2.5 L (3.5-5.0) g/dL Disposition Clinical Impression: Pleural effusion Disposition: [facility] Condition: Stable Is patient prescribed a controlled substance at d/c from ED?: No Referrals: Star Guzmán MD [Primary Care Provider] - 1-2 days Decision to Admit Reason: Admit from EC Decision Date: 05/29/19 Decision Time: 12:12
[2019-05-29] MEDS ORDERED: HYDROcodone/APAP 10-325MG 1 EACH TAB PO PRN (12:14)
[2019-05-29] MEDS ORDERED: ALBUTEROL NEBULIZED 2.5 MG/3 ML INHALATION PRN (12:14)
[2019-05-29] MEDS: BUMETANIDE 1 MG TAB PO SCH (15:24)
[2019-05-29] MEDS: RIFAXIMIN 550 MG TABLET PO SCH (20:27)
[2019-05-29] MEDS: GABAPENTIN 400 MG CAP PO SCH (20:27)
[2019-05-29] MEDS: METOPROLOL TARTRATE 25 MG TAB PO SCH (20:27)
[2019-05-29] MEDS: metFORMIN 500 MG TAB PO SCH (20:28)
[2019-05-29] MEDS: LACTULOSE 20 GM/30 ML CUP PO SCH (20:29)
--- NOTE | 2019-05-29 22:12 | P.HPIM ---
History of Present Illness H&P Date: 05/29/19 Chief Complaint: Abdominal distention, edema History of presenting complaint: This is a 49-year-old patient of Dr. Guzmán. Patient has a known history of cirrhosis that has progressed from fatty liver. Diagnosed over 2 years ago. Follows with restaurant line cook Dr. Cuellar. stable medical conditions include obesity, pancytopenia, coronary artery disease with stent, diabetes mellitus type 2, GERD, hyperlipidemia, essential hypertension, chronic insomnia. Patient gets therapeutic status and uses every 2 weeks. Patient now presents with progressive distention of the abdomen. Slight short of breath. Significant edema. Does like to drink his fluids. Has been taking lactulose. With bowel movements. Has had about 3 or 4 bowel movements today. Admitted from the ER. Found to have significant pleural effusion. Intervention radiology consulted. No fever no chills. No cough. Review of systems: GEN.: Tired EYES: None HEENT: None NECK: None RESPIRATORY: As above CARDIOVASCULAR: Edema GASTROINTESTINAL: Distended abdomen GENITOURINARY: None MUSCULOSKELETAL: None LYMPHATICS: None HEMATOLOGICAL: None PSYCHIATRY: None NEUROLOGICAL: [As above Social history: Ex-smoker. . 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 Physical examination: VITAL SIGNS: 97.5, 90, 17, 130/82, 95% on room air GENERAL: BMI 35.4, laying in bed tired EYES: Pupils equal. Conjunctiva normal. HEENT: External appearance of nose and ears normal, oral cavity grossly normal. NECK: JVD unable to assess; masses not palpable. HEART: First and second heart sounds are normal; edema present LUNGS: Respiratory rate increased, decreased breath sounds ABDOMEN: Soft, distended, dull distal phalanx, nontender, liver spleen not palpable, no masses palpable. PSYCH: Alert and oriented x3; mood and affect normal. NEUROLOGICAL: Cranial nerves grossly intact; no facial asymmetry, power and sensation grossly intact. LYMPHATICS: No lymph nodes palpable in the axilla and neck INVESTIGATIONS, reviewed in the clinical context: White count 2.9 hemoglobin 9 platelets 262 pro time 12.2 potassium 5.1 bun 29 creatinine 1.19 bilirubin 2.3 albumin 2.5 Chest x-ray film personally reviewed by me-large right pleural effusion Assessment: -Large pleural effusion secondary to cirrhosis of the liver through the diaphragm and associated hypoalbuminemia, and current with acute accumulation -Hepatic cirrhosis that is progressed from fatty liver -Obesity BMI 35.4 -Pancytopenia from cirrhosis -Coronary artery disease with stent -Diabetes mellitus type 2 -GERD -Hyperlipidemia -Essential hypertension -Importance -Chronic insomnia -Hypoalbuminemia due to cirrhosis -Fluid overload due to cirrhosis Plan: Discussed with patient. Patient is scheduled for thoracentesis for tomorrow. Home medications are to continue. Did discuss with the patient about fluid restriction eventually. Questions were answered. Hopefully she'll be probably be discharged after thoracentesis tomorrow. Past Medical History Past Medical History: Coronary Artery Disease (CAD), GERD/Reflux, Hyperlipidemia, Hypertension, Myocardial Infarction ([place]) Additional Past Medical History / Comment(s): IDDM type II, neuropathy bilateral hands, fingers and feet, R pleural effusions with thoracentesis x 3, liver cirrhosis, hepatic encephalopathy, ascities, elevated ammonia/K+ levels, pancytopenia, frequent bilateral ankle edema, "thin schmidt in my esophagus", chronic insomnia.. Last Myocardial Infarction Date:: 2012 History of Any Multi-Drug Resistant Organisms: None Reported Past Surgical History: Cholecystectomy, Heart Catheterization With Stent, Orthopedic Surgery Additional Past Surgical History / Comment(s): PCIs with stents, EGDs, colonoscopy, carpal tunnel release-laterallity unknown. Past Anesthesia/Blood Transfusion Reactions: No Reported Reaction Additional Past Anesthesia/Blood Transfusion Reaction / Comment(s): No blood transfusions. Date of Last Stent Placement:: 2012 Smoking Status: Former smoker - Past Family History Mother History Unknown: Yes Family Medical History: Cancer Additional Family Medical History / Comment(s): Lung cancer, since passed. Father Additional Family Medical History / Comment(s): ETOH abuse Medications and Allergies Home Medications Medication Instructions Recorded Confirmed Type Albuterol Sulfate [Proair Hfa] 2 puff INHALATION RT-Q4H PRN 12/07/18 05/29/19 History Aspirin EC [Ecotrin Low Dose] 81 mg PO DAILY 12/07/18 05/29/19 History Citalopram Hydrobromide [CeleXA] 40 mg PO DAILY 12/07/18 05/29/19 History Insulin Aspart [NovoLOG Flexpen] See Protocol SQ AC-TID 12/07/18 05/29/19 History Metoprolol Tartrate 25 mg PO BID 12/07/18 05/29/19 History Nitroglycerin Sl Tabs [Nitrostat] 0.4 mg SUBLINGUAL Q5M PRN 12/07/18 05/29/19 History Omeprazole [PriLOSEC] 40 mg PO DAILY 12/07/18 05/29/19 History Simvastatin [Zocor] 40 mg PO HS 12/07/18 05/29/19 History Lactulose 20 gm PO BID 12/20/18 05/29/19 History Rifaximin [Xifaxan] 550 mg PO BID 12/20/18 05/29/19 History HYDROcodone/APAP 10-325MG [[place] 1 tab PO BID PRN 02/06/19 05/29/19 History 10-325] metFORMIN HCL 1,000 mg PO BID 02/06/19 05/29/19 History Bumetanide [Bumex] 1 mg PO BID #60 tablet 02/08/19 05/29/19 Rx Spironolactone [Aldactone] 25 mg PO DAILY #30 tablet 02/08/19 05/29/19 Rx Gabapentin [Neurontin] 400 mg PO BID 05/29/19 05/29/19 History Insulin Glargine,Hum.rec.anlog 60 - 70 unit SQ HS 05/29/19 05/29/19 History [Lantus Solostar] Allergies Allergy/AdvReac Type Severity Reaction Status Date / Time cephalexin [From Keflex] AdvReac Rash/Hives Verified 05/29/19 11:15 Physical Exam Vitals: Vital Signs Temp Pulse Pulse Resp BP BP Pulse Ox 05/29/19 15:00 97.5 F L 90 17 130/82 95 05/29/19 14:33 18 05/29/19 12:39 98.2 F 91 18 133/73 96 05/29/19 11:41 84 18 137/77 97 05/29/19 10:32 97.9 F 86 18 119/77 98 Intake and Output 05/29/19 05/29/19 05/29/19 06:59 14:59 22:59 Other: Weight 108.862 kg Results CBC & Chem 7: 05/29/19 11:05 05/29/19 11:05 Labs: Abnormal Lab Results - Last 24 Hours (Table) 05/29/19 05/29/19 05/29/19 Range/Units 11:05 11:05 11:05 WBC 2.9 L (3.8-10.6) k/uL RBC 3.03 L (4.30-5.90) m/uL Hgb 9.0 L (13.0-17.5) gm/dL Hct 28.5 L (39.0-53.0) % RDW 16.4 H (11.5-15.5) % Plt Count 62 L (150-450) k/uL Lymphocytes # (Manual) 0.58 L (1.0-4.8) k/uL PT 12.2 H (9.0-12.0) sec INR 1.2 H (<1.2) Sodium 135 L (137-145) mmol/L Chloride 109 H (98-107) mmol/L Carbon Dioxide 20 L (22-30) mmol/L BUN 29 H (9-20) mg/dL Glucose 311 H (74-99) mg/dL Calcium 8.1 L (8.4-10.2) mg/dL Total Bilirubin 2.3 H (0.2-1.3) mg/dL Alkaline Phosphatase 370 H (38-126) U/L Albumin 2.5 L (3.5-5.0) g/dL Thrombosis Risk Factor Assmnt - Choose All That Apply Any of the Below Risk Factors Present?: Yes Each Factor Represents 1 point: Age 41-60 years, Obesity (BMI >25), Serious lung disease incl. pneumonia (< 1month), Swollen legs (current) Other Risk Factors: No Other congenital or acquired thrombophilia - If yes, enter type in comment: No Thrombosis Risk Factor Assessment Total Risk Factor Score: 4 Thrombosis Risk Factor Assessment Level: Moderate Risk
[2019-05-30] MEDS ORDERED: PANTOPRAZOLE 40 MG TABLET PO SCH (07:30)
[2019-05-30] MEDS: METOPROLOL TARTRATE 25 MG TAB PO SCH (08:14)
[2019-05-30] MEDS ORDERED: SPIRONOLACTONE 25 MG TAB PO SCH (09:00)
[2019-05-30] MEDS ORDERED: CITALOPRAM HYDROBROMIDE 20 MG TAB PO SCH (09:00)
--- NOTE | 2019-05-30 10:46 | XR ---
EXAMINATION TYPE: XR chest 1V DATE OF EXAM: 05/30/2019 COMPARISON: Prior chest x-ray 05/29/2019 HISTORY: Status post right thoracentesis TECHNIQUE: Single frontal view of the chest is obtained. FINDINGS: There is some improvement in aeration towards the right lung base, persistent blunting the right costophrenic angle is noted. No evident pneumothorax. Coronary artery calcification, probable stent present. No other significant interval change. IMPRESSION: No evident complication status post right thoracentesis.
[2019-05-30 10:49] VITALS: PULSE 80
[2019-05-30 11:39] VITALS: BP 115/96; RESP 18; TEMP 97.6
[2019-05-30] MEDS: LACTULOSE 20 GM/30 ML CUP PO SCH (12:43)
[2019-05-30] MEDS: metFORMIN 500 MG TAB PO SCH (12:44)
[2019-05-30] MEDS: GABAPENTIN 400 MG CAP PO SCH (12:44)
[2019-05-30] MEDS: BUMETANIDE 1 MG TAB PO SCH (12:47)
[2019-05-30] MEDS: RIFAXIMIN 550 MG TABLET PO SCH (12:47)
--- NOTE | 2019-05-30 13:15 | US ---
EXAMINATION TYPE: US thoracentesis DATE OF EXAM: 05/30/2019 COMPARISON: NONE HISTORY: Pleural effusion. FINDINGS: Maximal barrier technique was utilized. The skin overlying a suitable pocket of fluid was localized and the overlying skin prepped and draped. Lidocaine was used for local anesthesia. Ultras ound was used with sterile technique. A 5 Sinhala catheter over guide needle was advanced into the pl eural fluid collection using ultrasound guidance and the catheter advanced, needle removed. Approxim ately 2.1 liter(s) of serous fluid was removed. Catheter was withdrawn and hemostasis achieved. The re is no immediate complication. The patient discharged in stable condition without complication. IMPRESSION: STATUS POST ULTRASOUND GUIDED THORACENTESIS, POST PROCEDURE CHEST X-RAY PENDING. THIS WI OCEDURE WAS PERFORMED BY THE UNDERSIGNED.
--- NOTE | 2019-05-30 20:26 | P.DS ---
Providers Date of admission: 05/29/19 12:12 Expected date of discharge: 05/30/19 Attending physician: Jamel Contreras Primary care physician: [facility] Course: Chief Complaint: Abdominal distention, edema History of presenting complaint: This is a 49-year-old patient of Dr. Guzmán. Patient has a known history of cirrhosis that has progressed from fatty liver. Diagnosed over 2 years ago. Follows with design release engineer Dr. Cuellar. stable medical conditions include obesity, pancytopenia, coronary artery disease with stent, diabetes mellitus type 2, GERD, hyperlipidemia, essential hypertension, chronic insomnia. Patient gets therapeutic status and uses every 2 weeks. Patient now presents with progressive distention of the abdomen. Slight short of breath. Significant edema. Does like to drink his fluids. Has been taking lactulose. With bowel movements. Has had about 3 or 4 bowel movements today. Admitted from the ER. Found to have significant pleural effusion. Intervention radiology consulted. No fever no chills. No cough. Admitted with fluid overload secondary to cirrhosis and a large pleural effusion. Today-2.1 L of thoracentesis was done. Patient was educated about fluid res triction. Dose of Aldactone increased. Questions were answered. Patient feeling much improved. Patient will follow with GI Discussion and discharge planning more than 35 minutes Physical examination: VITAL SIGNS: 97.6, 80, 18, 115/96, he 4% on room air GENERAL: Sitting up, comfortable EYES: Pupils equal. Conjunctiva normal. HEENT: External appearance of nose and ears normal, oral cavity grossly normal. NECK: JVD unable to assess; masses not palpable. HEART: First and second heart sounds are normal; edema present LUNGS: Respiratory rate increased, decreased breath sounds ABDOMEN: Soft, less distended , nontender, liver spleen not palpable, no masses palpable. PSYCH: Alert and oriented x3; mood and affect normal. INVESTIGATIONS, reviewed in the clinical context: White count 2.9 hemoglobin 9 platelets 262 pro time 12.2 potassium 5.1 bun 29 creatinine 1.19 bilirubin 2.3 albumin 2.5 Chest x-ray film personally reviewed by me-large right pleural effusion Assessment: -Large right pleural effusion secondary to cirrhosis of the liver through the diaphragm and associated hypoalbuminemia, and current with acute accumulation- status post thoracentesis 2.4 L -Hepatic cirrhosis that is progressed from fatty liver -Obesity BMI 35.4 -Pancytopenia from cirrhosis -Coronary artery disease with stent -Diabetes mellitus type 2 -GERD -Hyperlipidemia -Essential hypertension -Importance -Chronic insomnia -Hypoalbuminemia due to cirrhosis -Fluid overload due to cirrhosis Disposition: Home Patient Condition at Discharge: Stable Plan - Discharge Summary Discharge Rx Participant: No New Discharge Prescriptions: New Spironolactone [Aldactone] 100 mg PO DAILY #30 tab Continue Insulin Aspart [NovoLOG Flexpen] See Protocol SQ AC-TID Simvastatin [Zocor] 40 mg PO HS Omeprazole [PriLOSEC] 40 mg PO DAILY Citalopram Hydrobromide [CeleXA] 40 mg PO DAILY Nitroglycerin Sl Tabs [Nitrostat] 0.4 mg SUBLINGUAL Q5M PRN PRN Reason: Chest Pain Aspirin EC [Ecotrin Low Dose] 81 mg PO DAILY Albuterol Sulfate [Proair Hfa] 2 puff INHALATION RT-Q4H PRN PRN Reason: Shortness Of Breath Metoprolol Tartrate 25 mg PO BID Rifaximin [Xifaxan] 550 mg PO BID Lactulose 20 gm PO BID metFORMIN HCL 1,000 mg PO BID HYDROcodone/APAP 10-325MG [[place] 10-325] 1 tab PO BID PRN PRN Reason: Pain Bumetanide [BUMEX] 1 mg PO BID #60 tablet Insulin Glargine,Hum.rec.anlog [Lantus Solostar] 60 - 70 unit SQ HS Gabapentin [Neurontin] 400 mg PO BID Discontinued Spironolactone [Aldactone] 25 mg PO DAILY #30 tablet Discharge Medication List Albuterol Sulfate [Proair Hfa] 2 puff INHALATION RT-Q4H PRN 12/07/18 [History] Aspirin EC [Ecotrin Low Dose] 81 mg PO DAILY 12/07/18 [History] Citalopram Hydrobromide [CeleXA] 40 mg PO DAILY 12/07/18 [History] Insulin Aspart [NovoLOG Flexpen] See Protocol SQ AC-TID 12/07/18 [History] Metoprolol Tartrate 25 mg PO BID 12/07/18 [History] Nitroglycerin Sl Tabs [Nitrostat] 0.4 mg SUBLINGUAL Q5M PRN 12/07/18 [History] Omeprazole [PriLOSEC] 40 mg PO DAILY 12/07/18 [History] Simvastatin [Zocor] 40 mg PO HS 12/07/18 [History] Lactulose 20 gm PO BID 12/20/18 [History] Rifaximin [Xifaxan] 550 mg PO BID 12/20/18 [History] HYDROcodone/APAP 10-325MG [[place] 10-325] 1 tab PO BID PRN 02/06/19 [History] metFORMIN HCL 1,000 mg PO BID 02/06/19 [History] Bumetanide [BUMEX] 1 mg PO BID #60 tablet 02/08/19 [Rx] Gabapentin [Neurontin] 400 mg PO BID 05/29/19 [History] Insulin Glargine,Hum.rec.anlog [Lantus Solostar] 60 - 70 unit SQ HS 05/29/19 [History] Spironolactone [Aldactone] 100 mg PO DAILY #30 tab 05/30/19 [Rx] Follow up Appointment(s)/Referral(s): Satr Guzmán MD [Primary Care Provider] - 06/01/19 10:00 am (You will go to your normal office in [place] right after your appointment you will see your orthopedic Dr. Dailey.) Tiffanie Angulo MD [STAFF PHYSICIAN] - 06/09/19 10:00 am (You will be seen in the [place] office.) Patient Instructions/Handouts: Spironolactone (By mouth), Pleural Effusion (DC), Thoracentesis (DC) Activity/Diet/Wound Care/Special Instructions: Fluid restriction-2000 mL a day Thoracentesis set-up with Interventional Radiology outpatient on June 14, 2019 at 8am Discharge Disposition: HOME SELF-CARE
== END 2019-05-30 13:21 | disposition home or self-care (01) ==
LOC: EC 10:29 → 5NMEDONC 12:12
PROVIDERS: ADMIT Hospitalist; ATTEND Hospitalist
DX: K74.60 Unspecified cirrhosis of liver (principal); J90 Pleural effusion, not elsewhere classified; K76.0 Fatty (change of) liver, not elsewhere classified; D61.818 Other pancytopenia; R18.8 Other ascites; E66.9 Obesity, unspecified; Z68.35 Body mass index [BMI] 35.0-35.9, adult; I25.10 Atherosclerotic heart disease of native coronary artery without angina pectoris; I25.2 Old myocardial infarction; E11.40 Type 2 diabetes mellitus with diabetic neuropathy, unspecified; J98.11 Atelectasis; E87.70 Fluid overload, unspecified; E88.09 Other disorders of plasma-protein metabolism, not elsewhere classified; K21.9 Gastro-esophageal reflux disease without esophagitis; I10 Essential (primary) hypertension; F51.04 Psychophysiologic insomnia; E78.5 Hyperlipidemia, unspecified; R14.0 Abdominal distension (gaseous); M79.89 Other specified soft tissue disorders; N52.9 Male erectile dysfunction, unspecified; Z79.82 Long term (current) use of aspirin; Z79.899 Other long term (current) drug therapy; Z79.4 Long term (current) use of insulin; Z79.891 Long term (current) use of opiate analgesic; Z79.2 Long term (current) use of antibiotics; Z88.1 Allergy status to other antibiotic agents; Z90.49 Acquired absence of other specified parts of digestive tract; Z95.5 Presence of coronary angioplasty implant and graft; Z87.01 Personal history of pneumonia (recurrent); Z87.891 Personal history of nicotine dependence; Z80.1 Family history of malignant neoplasm of trachea, bronchus and lung; Z81.1 Family history of alcohol abuse and dependence
CPT/HCPCS: 99285; 36415; 80053; 85025; 85610; 85730; 71045; 71046; 32555; G0378 ×2

== ENCOUNTER 2019-06-12 09:08 | Observation (INO) | payer OTHER ==
[2019-06-12 10:00] LABS: INR 1.2 (<1.2); Partial Thromboplastin Time 23.8 sec (22.0-30.0); Prothrombin Time 11.9 sec (9.0-12.0)
[2019-06-12 10:04] LABS: Albumin 2.7 g/dL (3.5-5.0); Calcium 8.3 mg/dL (8.4-10.2); Total Protein 7.5 g/dL (6.3-8.2)
--- NOTE | 2019-06-12 10:07 | XR ---
EXAMINATION TYPE: XR chest 2V DATE OF EXAM: 06/12/2019 COMPARISON: 05/30/2019 HISTORY: Altered mental status TECHNIQUE: Frontal and lateral views of the chest are obtained. FINDINGS: There is an increasing [id number] right pleural effusion and associated right basil ar airspace disease. Remainder the lungs are well aerated. Cardia mediastinal silhouette is partially obscured. Coronary artery stent is incidentally seen. Overall low lung volumes. IMPRESSION: Low lung volumes and increasing [id number] right pleural effusion with associated right-sided airspace disease.
[2019-06-12 10:12] LABS: Anisocytosis Slight; HCT 31.8 % (39.0-53.0); HGB 9.7 gm/dL (13.0-17.5); Hypochromasia Marked; MCH 29.3 pg (25.0-35.0); MCHC 30.4 g/dL (31.0-37.0); MCV 96.5 fL (80.0-100.0); Macrocytosis Slight; Mean Platelet Volume 8.6; Platelet Count 67 k/uL (150-450); RBC 3.29 m/uL (4.30-5.90); RDW 17.1 % (11.5-15.5); WBC 4.2 k/uL (3.8-10.6)
--- NOTE | 2019-06-12 10:15 | CT ---
EXAMINATION TYPE: CT brain wo con DATE OF EXAM: 06/12/2019 COMPARISON: 12/20/2018 HISTORY: altered mental status CT DLP: 1056.4 mGycm. Automated Exposure Control for Dose Reduction was Utilized. TECHNIQUE: CT scan of the head is performed without contrast. FINDINGS: There is no acute intracranial hemorrhage, mass effect, or midline shift identified. The ventricles and sulci are symmetrically prominent compatible with age-related volume loss. The globe s are intact. Mild mucosal thickening is seen of the sphenoid sinus on the right. Frontal sinuses are hypoplastic. Remaining paranasal sinuses and mastoid air cells are well aerated. IMPRESSION: No acute intracranial hemorrhage, mass effect, or midline shift is seen.
[2019-06-12] MEDS ORDERED: INSULIN REGULAR 100 UNIT/ML VIAL IV ONE (10:18)
--- NOTE | 2019-06-12 10:31 | ED ---
Altered Mental Status HPI - General Source: patient Mode of arrival: wheelchair Limitations: physical limitation <Molly Mitchell - Last Filed: 06/12/19 13:00> <MastergorgeJennifer Fortunato - Last Filed: 06/17/19 12:18> - General Chief Complaint: Altered Mental Status Stated Complaint: appt for lung drain/SOB Time Seen by Provider: 06/12/19 09:15 - History of Present Illness Initial Comments: 49-year-old male with history of cirrhosis of liver needing multiple paracentesis in the past presenting today for chief complaint of altered mental status, abdominal distention, SOB. Patient states she has felt confused for the past month. Family agrees they state that he is due today for his paracentesis, however was so confused she was concerned that he needed evaluation in the ER. Patient denies facial droop, headache, dizzines, he states his memory seems foggy, Denies slurred speech, visual changes. Patient denies weakness of the UE and LE. Patient denies chest pressure or pain with deep inspiration. Patient states he has had mild cough, diarrhea. Denies vomiting. Denies leg swelling, admits to abdominal distention. Patient has difficulty with day of the week and month. He is keenly responsive to where he is at, himself, he also remembered the tech whom was his previous medic. Patient denies fevers, sore throat. Denies any other complaints. Upon arrival patient appears well there is no signs of acute distress. (Molly Mitchell) - Related Data Home Medications Medication Instructions Recorded Confirmed Albuterol Sulfate [Proair Hfa] 2 puff INHALATION RT-Q4H PRN 12/07/18 06/16/19 Aspirin EC [Ecotrin Low Dose] 81 mg PO DAILY 12/07/18 06/16/19 Citalopram Hydrobromide [CeleXA] 40 mg PO DAILY 12/07/18 06/16/19 Insulin Aspart [NovoLOG Flexpen] See Protocol SQ AC-TID 12/07/18 06/16/19 Nitroglycerin Sl Tabs [Nitrostat] 0.4 mg SUBLINGUAL Q5M PRN 12/07/18 06/16/19 Omeprazole [PriLOSEC] 40 mg PO DAILY 12/07/18 06/16/19 Simvastatin [Zocor] 40 mg PO HS 10/02/19 04/10/20 Lactulose 20 gm PO BID 12/20/18 06/16/19 Rifaximin [Xifaxan] 550 mg PO BID 12/20/18 06/16/19 HYDROcodone/APAP 10-325MG [[place] 1 tab PO BID PRN 02/06/19 06/16/19 10-325] metFORMIN HCL 1,000 mg PO BID 02/06/19 06/16/19 Gabapentin [Neurontin] 400 mg PO BID 05/29/19 06/16/19 Insulin Glargine,Hum.rec.anlog 30 - 45 unit SQ HS 05/29/19 06/16/19 [Lantus Solostar] Previous Rx's Medication Instructions Recorded Bumetanide [BUMEX] 1 mg PO BID #60 tablet 02/08/19 Spironolactone [Aldactone] 100 mg PO DAILY #30 tab 05/30/19 Metoprolol Tartrate 12.5 mg PO TID #0 06/14/19 Allergies Allergy/AdvReac Type Severity Reaction Status Date / Time cephalexin [From Keflex] AdvReac Rash/Hives Verified 06/12/19 11:56 Review of Systems ROS Other: All systems not noted in ROS Statement are negative. <Molly Mitchell - Last Filed: 06/12/19 13:00> ROS Other: All systems not noted in ROS Statement are negative. <Jennifer Asif - Last Filed: 06/17/19 12:18> ROS Statement: Those systems with pertinent positive or pertinent negative responses have been documented in the HPI. Past Medical History Past Medical History: Coronary Artery Disease (CAD), GERD/Reflux, Hyperlipidemia, Hypertension, Myocardial Infarction (NH) Additional Past Medical History / Comment(s): IDDM type II, neuropathy bilateral hands, fingers and feet, R pleural effusions with thoracentesis x 3, liver cirrhosis, hepatic encephalopathy, ascities, elevated ammonia/K+ levels, pancytopenia, frequent bilateral ankle edema, "thin schmidt in my esophagus", chronic insomnia.. Last Myocardial Infarction Date:: 2012 History of Any Multi-Drug Resistant Organisms: None Reported Past Surgical History: Cholecystectomy, Heart Catheterization With Stent, Orthopedic Surgery Additional Past Surgical History / Comment(s): PCIs with stents, EGDs, c olonoscopy, carpal tunnel release-laterallity unknown. Past Anesthesia/Blood Transfusion Reactions: No Reported Reaction Additional Past Anesthesia/Blood Transfusion Reaction / Comment(s): No blood transfusions. Date of Last Stent Placement:: 2012 Past Psychological History: Anxiety, Depression Smoking Status: Former smoker Past Alcohol Use History: None Reported Past Drug Use History: None Reported - Past Family History Mother History Unknown: Yes Family Medical History: Cancer Additional Family Medical History / Comment(s): Lung cancer, since passed. Father Additional Family Medical History / Comment(s): ETOH abuse <Molly Mitchell - Last Filed: 06/12/19 13:00> General Exam Limitations: physical limitation <Molly Mitchell - Last Filed: 06/12/19 13:00> - General Exam Comments Initial Comments: General: The patient is awake but seems out of it, he is readily responsive to questions and alert Eye: +3 mm pupils are equal, round and reactive to light, extra-ocular movements are intact. No nystagmus. There is normal conjunctiva bilaterally. No signs of icterus. Ears, nose, mouth and throat: There are moist mucous membranes and no oral lesions. Neck: The neck is supple, there is no tenderness or JVD. Cardiovascular: There is a regular rate and rhythm. No murmur, rub or gallop is appreciated. Respiratory: Respirations are non-labored, diminished right sided lung sounds. No wheezes, stridor, or rhonchi. Gastrointestinal: Soft, distended abdomen, non-tender abdomen without masses. Liver enlargement appreciated. There is no rebound or guarding present. Musculoskeletal: Normal ROM, no tenderness. Strength 5/5. Sensation intact. Radial pulses equal bilaterally 2+. Neurological: A&O x 2. CN II-XII intact, There are no obvious motor or sensory deficits. Tremor noted, specifically flapping tremor Skin: Skin is warm and dry and no rashes or lesions are noted. No pitting LE edema. Psychiatric: Cooperative, appropriate mood & affect, normal judgment. 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 Rate [ Home Security Professional ] Respiratory 20 18 20 Rate Blood Pressure 139/82 100/59 130/72 Blood Pressure [Right Arm] O2 Sat by Pulse 98 96 97 Oximetry 06/12/19 06/12/19 06/12/19 12:00 12:20 12:30 Temperature Pulse Rate Pulse Rate [ 82 82 81 Home Security Professional ] Respiratory 20 18 18 Rate Blood Pressure Blood Pressure 135/75 110/57 111/63 [Right Arm] O2 Sat by Pulse 96 98 97 Oximetry 06/12/19 06/12/19 12:39 13:23 Temperature Pulse Rate 85 Pulse Rate [ 85 85 Home Security Professional ] Respiratory 18 16 Rate Blood Pressure 116/70 Blood Pressure 105/60 116/70 [Right Arm] O2 Sat by Pulse 98 99 Oximetry Medical Decision Making - Lab Data Result diagrams: 06/12/19 09:30 06/12/19 09:30 <Molly Mitchell - Last Filed: 06/12/19 13:00> - Lab Data Result diagrams: 06/12/19 09:30 06/14/19 05:55 <Jennifer Asif - Last Filed: 06/17/19 12:18> - Medical Decision Making 49-year-old male presenting today for chief complaint of shortness of breath he was scheduled for thoracentesis. For right-sided pleural effusion. Patient was confused so brought him to emergency Department patient has cirrhosis. Somewhat confused on exam taking, he does not know dates well but is aware of p lace and identifying others/self. States he is forgetful. CT (-). Flapping tremor noted on exam. Ammonia elevated. Given lactulose, Rifaxim. glucose elvated, gap normal. No ketones in urine, acetone (-). Patient K+ elevated, no EKG changes, given IV insulin for sugar and K+. Patient on telemetry. Patient case discussed [facility] attending she is agreeable to care plan and admission, she spoke with Dr. Contreras who requested an insulin drip. Drop protocols in place. Patient is agreeable to admission. (Molly Mitchell) I was available for consultation in the emergency department. The history and physical exam were done by the midlevel provider. I was consulted for this [facility] care. I reviewed the case with the midlevel provider and based on their presentation of the patient, I agree with the assessment, medical decision making and plan of care as documented. Chart was dictated using [email or web address] dictation software. Attempts were made to correct any dictation errors however some typographical errors may persist. (Jennifer Asif) - Lab Data Lab Results 06/12/19 06/12/19 06/12/19 Range/Units 09:30 09:30 09:30 WBC 4.2 (3.8-10.6) k/uL RBC 3.29 L (4.30-5.90) m/uL Hgb 9.7 L (13.0-17.5) gm/dL Hct 31.8 L (39.0-53.0) % MCV 96.5 (80.0-100.0) fL MCH 29.3 (25.0-35.0) pg MCHC 30.4 L (31.0-37.0) g/dL RDW 17.1 H (11.5-15.5) % Plt Count 67 L (150-450) k/uL Neutrophils % (Manual) 82 % Lymphocytes % (Manual) 7 % Monocytes % (Manual) 8 % Eosinophils % (Manual) 3 % Neutrophils # (Manual) 3.44 (1.3-7.7) k/uL Lymphocytes # (Manual) 0.29 L (1.0-4.8) k/uL Monocytes # (Manual) 0.34 (0-1.0) k/uL Eosinophils # (Manual) 0.13 (0-0.7) k/uL Nucleated RBCs 0 (0-0) /100 WBC Manual Slide Review Performed Hypochromasia Marked Anisocytosis Slight Macrocytosis Slight PT 11.9 (9.0-12.0) sec INR 1.2 H (<1.2) APTT 23.8 (22.0-30.0) sec Sodium 132 L (137-145) mmol/L Potassium 6.0 H (3.5-5.1) mmol/L Chloride 107 (98-107) mmol/L Carbon Dioxide 17 L (22-30) mmol/L Anion Gap 8 mmol/L BUN 26 H (9-20) mg/dL Creatinine 1.40 H (0.66-1.25) mg/dL Est GFR (CKD-EPI)AfAm 67 (>60 ml/min/1.73 sqM) Est GFR (CKD-EPI)NonAf 58 (>60 ml/min/1.73 sqM) Glucose 513 H* (74-99) mg/dL POC Glucose (mg/dL) (75-99) mg/dL POC Glu Scientific Linguist ID Calcium 8.3 L (8.4-10.2) mg/dL Phosphorus (2.5-4.5) mg/dL Magnesium (1.6-2.3) mg/dL Total Bilirubin 2.0 H (0.2-1.3) mg/dL AST 51 (17-59) U/L ALT 45 (4-49) U/L Alkaline Phosphatase 443 H (38-126) U/L Ammonia (<30) umol/L Troponin I (0.000-0.034) ng/mL Total Protein 7.5 (6.3-8.2) g/dL Albumin 2.7 L (3.5-5.0) g/dL Urine Color Urine Appearance (Clear) Urine pH (5.0-8.0) Ur Specific [place] (1.001-1.035) Urine Protein (Negative) Urine Glucose (UA) (Negative) Urine Ketones (Negative) Urine Blood (Negative) Urine Nitrite (Negative) Urine Bilirubin (Negative) Urine Urobilinogen (<2.0) mg/dL Ur Leukocyte Esterase (Negative) Urine Opiates Screen (NotDetected) Ur Oxycodone Screen (NotDetected) Urine Methadone Screen (NotDetected) Ur Propoxyphene Screen (NotDetected) Ur Barbiturates Screen (NotDetected) U Tricyclic Antidepress (NotDetected) Ur Phencyclidine Scrn (NotDetected) Ur Amphetamines Screen (NotDetected) U Methamphetamines Scrn (NotDetected) U Benzodiazepines Scrn (NotDetected) Urine Cocaine Screen (NotDetected) U Marijuana (THC) Screen (NotDetected) Acetone, Qual (Negative) 06/12/19 06/12/19 06/12/19 Range/Units 09:30 09:30 09:30 WBC (3.8-10.6) k/uL RBC (4.30-5.90) m/uL Hgb (13.0-17.5) gm/dL Hct (39.0-53.0) % MCV (80.0-100.0) fL MCH (25.0-35.0) pg MCHC (31.0-37.0) g/dL RDW (11.5-15.5) % Plt Count (150-450) k/uL Neutrophils % (Manual) % Lymphocytes % (Manual) % Monocytes % (Manual) % Eosinophils % (Manual) % Neutrophils # (Manual) (1.3-7.7) k/uL Lymphocytes # (Manual) (1.0-4.8) k/uL Monocytes # (Manual) (0-1.0) k/uL Eosinophils # (Manual) (0-0.7) k/uL Nucleated RBCs (0-0) /100 WBC Manual Slide Review Hypochromasia Anisocytosis Macrocytosis PT (9.0-12.0) sec INR (<1.2) APTT (22.0-30.0) sec Sodium (137-145) mmol/L Potassium (3.5-5.1) mmol/L Chloride (98-107) mmol/L Carbon Dioxide (22-30) mmol/L Anion Gap mmol/L BUN (9-20) mg/dL Creatinine (0.66-1.25) mg/dL Est GFR (CKD-EPI)AfAm (>60 ml/min/1.73 sqM) Est GFR (CKD-EPI)NonAf (>60 ml/min/1.73 sqM) Glucose (74-99) mg/dL POC Glucose (mg/dL) (75-99) mg/dL POC Glu Scientific Linguist ID Calcium (8.4-10.2) mg/dL Phosphorus 3.3 (2.5-4.5) mg/dL Magnesium 2.1 (1.6-2.3) mg/dL Total Bilirubin (0.2-1.3) mg/dL AST (17-59) U/L ALT (4-49) U/L Alkaline Phosphatase (38-126) U/L Ammonia 216 H (<30) umol/L Troponin I <0.012 (0.000-0.034) ng/mL Total Protein (6.3-8.2) g/dL Albumin (3.5-5.0) g/dL Urine Color Urine Appearance (Clear) Urine pH (5.0-8.0) Ur Specific [place] (1.001-1.035) Urine Protein (Negative) Urine Glucose (UA) (Negative) Urine Ketones (Negative) Urine Blood (Negative) Urine Nitrite (Negative) Urine Bilirubin (Negative) Urine Urobilinogen (<2.0) mg/dL Ur Leukocyte Esterase (Negative) Urine Opiates Screen (NotDetected) Ur Oxycodone Screen (NotDetected) Urine Methadone Screen (NotDetected) Ur Propoxyphene Screen (NotDetected) Ur Barbiturates Screen (NotDetected) U Tricyclic Antidepress (NotDetected) Ur Phencyclidine Scrn (NotDetected) Ur Amphetamines Screen (NotDetected) U Methamphetamines Scrn (NotDetected) U Benzodiazepines Scrn (NotDetected) Urine Cocaine Screen (NotDetected) U Marijuana (THC) Screen (NotDetected) Acetone, Qual Negative (Negative) 06/12/19 06/12/19 06/12/19 Range/Units 10:48 11:00 11:40 WBC (3.8-10.6) k/uL RBC (4.30-5.90) m/uL Hgb (13.0-17.5) gm/dL Hct (39.0-53.0) % MCV (80.0-100.0) fL MCH (25.0-35.0) pg MCHC (31.0-37.0) g/dL RDW (11.5-15.5) % Plt Count (150-450) k/uL Neutrophils % (Manual) % Lymphocytes % (Manual) % Monocytes % (Manual) % Eosinophils % (Manual) % Neutrophils # (Manual) (1.3-7.7) k/uL Lymphocytes # (Manual) (1.0-4.8) k/uL Monocytes # (Manual) (0-1.0) k/uL Eosinophils # (Manual) (0-0.7) k/uL Nucleated RBCs (0-0) /100 WBC Manual Slide Review Hypochromasia Anisocytosis Macrocytosis PT (9.0-12.0) sec INR (<1.2) APTT (22.0-30.0) sec Sodium (137-145) mmol/L Potassium (3.5-5.1) mmol/L Chloride (98-107) mmol/L Carbon Dioxide (22-30) mmol/L Anion Gap mmol/L BUN (9-20) mg/dL Creatinine (0.66-1.25) mg/dL Est GFR (CKD-EPI)AfAm (>60 ml/min/1.73 sqM) Est GFR (CKD-EPI)NonAf (>60 ml/min/1.73 sqM) Glucose (74-99) mg/dL POC Glucose (mg/dL) 503 H 479 H (75-99) mg/dL POC Glu Scientific Linguist CORNEL Madsenon LorenaLorena Rocha Calcium (8.4-10.2) mg/dL Phosphorus (2.5-4.5) mg/dL Magnesium (1.6-2.3) mg/dL Total Bilirubin (0.2-1.3) mg/dL AST (17-59) U/L ALT (4-49) U/L Alkaline Phosphatase (38-126) U/L Ammonia (<30) umol/L Troponin I (0.000-0.034) ng/mL Total Protein (6.3-8.2) g/dL Albumin (3.5-5.0) g/dL Urine Color Yellow Urine Appearance Clear (Clear) Urine pH 5.5 (5.0-8.0) Ur Specific [place] 1.022 (1.001-1.035) Urine Protein Negative (Negative) Urine Glucose (UA) 4+ H (Negative) Urine Ketones Negative (Negative) Urine Blood Negative (Negative) Urine Nitrite Negative (Negative) Urine Bilirubin Negative (Negative) Urine Urobilinogen <2.0 (<2.0) mg/dL Ur Leukocyte Esterase Negative (Negative) Urine Opiates Screen Not Detected (NotDetected) Ur Oxycodone Screen Not Detected (NotDetected) Urine Methadone Screen Not Detected (NotDetected) Ur Propoxyphene Screen Not Detected (NotDetected) Ur Barbiturates Screen Not Detected (NotDetected) U Tricyclic Antidepress Not Detected (NotDetected) Ur Phencyclidine Scrn Not Detected (NotDetected) Ur Amphetamines Screen Not Detected (NotDetected) U Methamphetamines Scrn Not Detected (NotDetected) U Benzodiazepines Scrn Not Detected (NotDetected) Urine Cocaine Screen Not Detected (NotDetected) U Marijuana (THC) Screen Not Detected (NotDetected) Acetone, Qual (Negative) Critical Care Time Critical Care Time: Yes <Jennifer Asif - Last Filed: 06/17/19 12:18> Critical Care Time: 35 minutes (Jennifer Asif) Disposition Is patient prescribed a controlled substance at d/c from ED?: No Time of Disposition: 10:53 Decision to Admit Reason: Admit from EC Decision Date: 06/12/19 Decision Time: 10:53 <Molly Mitchell - Last Filed: 06/12/19 13:00> <Jennifer Asif - Last Filed: 06/17/19 12:18> Clinical Impression: SOB (shortness of breath), Ascites, Pleural effusion, Cirrhosis, Increased ammonia level, Elevated glucose, KRISTI (acute kidney injury), Serum potassium elevated Disposition: ADMITTED IP TO THIS [facility] Condition: Stable
[2019-06-12 10:37] LABS: Eosinophils # (M) 0.13 k/uL (0-0.7); Lymphocytes # (M) 0.29 k/uL (1.0-4.8); Monocytes # (M) 0.34 k/uL (0-1.0); Neutrophils # (M) 3.44 k/uL (1.3-7.7); Neutrophils % (M) 82 %; Nucleated Red Blood Cells 0 /100 WBC (0-0); Total Cells Counted 100
[2019-06-12] MEDS ORDERED: LACTULOSE 20 GM/30 ML CUP PO ONE (10:47)
[2019-06-12] MEDS ORDERED: SODIUM CHLORIDE 0.9% 500 ML 500 ML IV ONE (10:48)
[2019-06-12 10:49] LABS: Glucose,Whole Blood 503 mg/dL (75-99)
[2019-06-12] MEDS ORDERED: NALOXONE 0.4 MG/ML 1 ML VIAL IV PRN (10:49)
[2019-06-12 10:51] LABS: Magnesium 2.1 mg/dL (1.6-2.3); Phosphorus 3.3 mg/dL (2.5-4.5)
[2019-06-12 11:09] LABS: Appearance,Urine Clear (Clear); Bilirubin,Urine Negative (Negative); Blood,Urine Negative (Negative); Color,Urine Yellow; Glucose,Urine (UA) 4+ (Negative); Ketones,Urine Negative (Negative); Leukocyte Esterase,Urine Negative (Negative); Nitrite,Urine Negative (Negative); PH, Urine 5.5 (5.0-8.0); Protein,Urine Negative (Negative); Specific Gravity,Urine 1.022 (1.001-1.035); Urobilinogen,Urine <2.0 mg/dL (<2.0)
[2019-06-12] MEDS: RIFAXIMIN 550 MG TABLET PO SCH ×3 (11:20→20:11)
[2019-06-12 11:28] LABS: Amphetamine Screen,Urine Not Detected (NotDetected); Barbiturate Screen,Urine Not Detected (NotDetected); Benzodiazepines Screen,Urine Not Detected (NotDetected); Cocaine Screen,Urine Not Detected (NotDetected); Methadone Screen, Urine Not Detected (NotDetected); Opiate Screen,Urine Not Detected (NotDetected); Oxycodone Screen, Urine Not Detected (NotDetected); Phencyclidine Screen,Urine Not Detected (NotDetected); Tricyclic Antidepressant,Urine Not Detected (NotDetected); Urn Cannabinoid Scrn Not Detected (NotDetected)
[2019-06-12 12:09] LABS: Glucose,Whole Blood 479 mg/dL (75-99)
[2019-06-12] MEDS: SODIUM CHLORIDE 0.9% 1,000 ML IV SCH ×2 (12:46→21:09)
[2019-06-12] MEDS ORDERED: D5-0.45% NACL WITH KCL 20MEQ/L 1,000 ML IV SCH (13:00)
[2019-06-12] MEDS ORDERED: INSULIN REGULAR 100 UNIT in SODIUM CHLORIDE 0.9% 100 ML IV SCH ×2 (13:00→15:30)
[2019-06-12] MEDS ORDERED: SODIUM CHLORIDE 0.9% 1,000 ML IV SCH (13:00)
[2019-06-12 13:19] LABS: Glucose,Whole Blood 507 mg/dL (75-99)
--- NOTE | 2019-06-12 13:20 | US ---
Ultrasound-guided therapeutic thoracentesis DATE OF EXAM: 06/12/2019 CLINICAL HISTORY: Right pleural effusion The procedure was discussed with the patient. The risks, complications, benefits, and alternatives we re discussed and any questions were answered. Informed consent was obtained. The patient was placed supine on the ultrasound table and prepped and draped in the usual sterile fas hion. All elements of maximal barrier and sterile technique were utilized. Under ultrasound guidance, access into the pleural space was obtained, via the thoracentesis catheter system and direct ultrasound guidance. Ap proximately 1.9 liters of straw-colored fluid was removed. The patient was stable throughout the procedure and remained stable upon discharge from Department of Radiology. IMPRESSION: 1. Successful thoracentesis under ultrasound guidance.
--- NOTE | 2019-06-12 13:22 | XR ---
EXAMINATION TYPE: XR chest 1V portable DATE OF EXAM: 06/12/2019 COMPARISON: 06/12/2019 HISTORY: Postthoracentesis TECHNIQUE: Single frontal view of the chest is obtained. FINDINGS: No sizable pneumothorax. There is interval marked reduction in amount of pleural fluid. He art size is stable. Left lung clear. No interstitial edema. Coronary artery stenting or calcification noted. IMPRESSION: Interval reduction in amount pleural fluid with no sizable pneumothorax.
[2019-06-12] MEDS ORDERED: NITROGLYCERIN SL TABS 0.4 MG TAB SUBLINGUAL PRN (14:01)
[2019-06-12] MEDS ORDERED: HYDROcodone/APAP 10-325MG 1 EACH TAB PO PRN (14:01)
[2019-06-12] MEDS ORDERED: ALBUTEROL NEBULIZED 2.5 MG/3 ML INHALATION PRN (14:01)
[2019-06-12 14:38] LABS: Glucose,Whole Blood 452 mg/dL (75-99)
[2019-06-12 15:04] VITALS: BMI 36.9
[2019-06-12] MEDS ORDERED: INSULIN REGULAR BOLUS (FROM DRIP BAG) IV ONE (15:17)
[2019-06-12] MEDS: LACTULOSE 20 GM/30 ML CUP PO SCH ×2 (15:25→22:46)
[2019-06-12 15:29] LABS: Glucose,Whole Blood 329 mg/dL (75-99)
[2019-06-12] MEDS ORDERED: LACTULOSE 20 GM/30 ML CUP PO SCH ×2 (16:00→21:00)
[2019-06-12 16:08] LABS: Glucose,Whole Blood 294 mg/dL (75-99)
[2019-06-12 16:40] LABS: Glucose,Whole Blood 243 mg/dL (75-99)
[2019-06-12] MEDS: INSULIN REGULAR 100 UNIT in SODIUM CHLORIDE 0.9% 100 ML IV SCH (17:04)
--- NOTE | 2019-06-12 17:23 | P.HPIM ---
History of Present Illness H&P Date: 06/12/19 Chief Complaint: A bit confused Chief Complaint: Abdominal distention, edema History of presenting complaint: This is a 49-year-old patient of Dr. Guzmán. Patient has a known history of cirrhosis that has progressed from fatty liver. Diagnosed over 2 years ago. Follows with pantograph setter Dr. Cuellar. stable medical conditions include obesity, pancytopenia, coronary artery disease with stent, diabetes mellitus type 2, GERD, hyperlipidemia, essential hypertension, chronic insomnia. Patient gets therapeutic status and uses every 2 weeks. Patient was here on May 28 for a significant pleural effusion and 2.1 L of thoracentesis was done. Patient now presents with increasing confusion more abdominal distention, edema and shortness of breath. Found to have significant pleural effusion. 1.9 L of straw-colored fluid was removed. Ammonia came back at 216. No fever no chills. No cough. Review of systems: GEN.: Tired EYES: None HEENT: None NECK: None RESPIRATORY: As above CARDIOVASCULAR: Edema GASTROINTESTINAL: Distended abdomen GENITOURINARY: None MUSCULOSKELETAL: None LYMPHATICS: None HEMATOLOGICAL: None PSYCHIATRY: A bit confused NEUROLOGICAL: [As above Social history: Ex-smoker. . 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 Physical examination: VITAL SIGNS: 97.9, 78, 20, 139/82, 98% room air-upon presentation GENERAL: BMI 36.9, sitting up, tired awake EYES: Pupils equal. Conjunctiva normal. HEENT: External appearance of nose and ears normal, oral cavity grossly normal. NECK: JVD unable to assess; masses not palpable. HEART: First and second heart sounds are normal; edema present LUNGS: Respiratory rate increased, decreased breath sounds ABDOMEN: Soft, distended, , nontender, liver spleen not palpable, no masses palpable. PSYCH: Able to answer questions though bit slowly. NEUROLOGICAL: Cranial nerves grossly intact; no facial asymmetry, power and sensation grossly intact. LYMPHATICS: No lymph nodes palpable in the axilla and neck INVESTIGATIONS, reviewed in the clinical context: White count 4.2 hemoglobin 9.7 platelets 67 potassium 6 bun 26 creatinine 1.43 blood glucose 513 total bilirubin 2 ammonia 216 albumin 2.7 EKG tracing personally reviewed by me-sinus rhythm Chest x-ray film personally reviewed by me-large right pleural effusion Previous testing: Bun 29 creatinine 1.19 on May 28 Assessment: -Recurrent Large pleural effusion secondary to cirrhosis of the liver -Hyperkalemia due to renal failure, patient is also on Aldactone -Acute metabolic acidosis due to acute renal failure -Acute hepatic encephalopathy -Acute kidney injury, possibly ATN due to hepatorenal syndrome, previous creatinine was 1.19 -Hepatic cirrhosis that is progressed from fatty liver -Obesity BMI 36.9 -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 -Coronary artery disease with stent -Diabetes mellitus type 2, uncontrolled with hypoglycemia, nonketotic -GERD -Hyperlipidemia -Essential hypertension -Chronic insomnia -Hypoalbuminemia due to cirrhosis -Fluid overload due to cirrhosis Plan: Patient does of lactulose was increased to 30 mg every 3. Patient is status post large volume thoracentesis on the right side. Neuro checks will be done. Both GI and nephrology been consulted. Other home medications resumed. Care was discussed with the patient. Patient also put on insulin drip that should correct the hyperkalemia itself. Past Medical History Past Medical History: Coronary Artery Disease (CAD), Diabetes Mellitus, GERD/Reflux, Hyperlipidemia, Hypertension, Liver Disease, Myocardial Infarction ([place]) Additional Past Medical History / Comment(s): Pt recently admitted to [facility] on 05/29/19 with large R pleural effusion 2ndary to cirrhoisis of the liver, hypoalbuminemia, fluid overload. 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 Last Myocardial Infarction Date:: 2012 History of Any Multi-Drug Resistant Organisms: None Reported Past Surgical History: Cholecystectomy, Heart Catheterization With Stent, Orthopedic Surgery Additional Past Surgical History / Comment(s): PCIs with stents, EGDs, colonoscopy, carpal tunnel release-laterallity unknown. Past Anesthesia/Blood Transfusion Reactions: No Reported Reaction Additional Past Anesthesia/Blood Transfusion Reaction / Comment(s): No blood transfusions. Date of Last Stent Placement:: 2012 Smoking Status: Former smoker - Past Family History Mother History Unknown: Yes Family Medical History: Cancer Additional Family Medical History / Comment(s): Lung cancer, since passed. Father Additional Family Medical History / Comment(s): ETOH abuse Medications and Allergies Home Medications Medication Instructions Recorded Confirmed Type Albuterol Sulfate [Proair Hfa] 2 puff INHALATION RT-Q4H PRN 12/07/18 06/12/19 History Aspirin EC [Ecotrin Low Dose] 81 mg PO DAILY 12/07/18 06/12/19 History Citalopram Hydrobromide [CeleXA] 40 mg PO DAILY 12/07/18 06/12/19 History Insulin Aspart [NovoLOG Flexpen] See Protocol SQ AC-TID 12/07/18 06/12/19 Histor y Metoprolol Tartrate 25 mg PO BID 12/07/18 06/12/19 History Nitroglycerin Sl Tabs [Nitrostat] 0.4 mg SUBLINGUAL Q5M PRN 12/07/18 06/12/19 History Omeprazole [PriLOSEC] 40 mg PO DAILY 12/07/18 06/12/19 History Simvastatin [Zocor] 40 mg PO HS 12/07/18 06/12/19 History Lactulose 20 gm PO BID 12/20/18 06/12/19 History Rifaximin [Xifaxan] 550 mg PO BID 12/20/18 06/12/19 History HYDROcodone/APAP 10-325MG [[place] 1 tab PO BID PRN 02/06/19 06/12/19 History 10-325] metFORMIN HCL 1,000 mg PO BID 02/06/19 06/12/19 History Bumetanide [BUMEX] 1 mg PO BID #60 tablet 02/08/19 06/12/19 Rx Gabapentin [Neurontin] 400 mg PO BID 05/29/19 06/12/19 History Insulin Glargine,Hum.rec.anlog 30 - 45 unit SQ HS 05/29/19 06/12/19 History [Lantus Solostar] Spironolactone [Aldactone] 100 mg PO DAILY #30 tab 05/30/19 06/12/19 Rx Allergies Allergy/AdvReac Type Severity Reaction Status Date / Time cephalexin [From Keflex] AdvReac Rash/Hives Verified 06/12/19 11:56 Physical Exam Vitals: Vital Signs Temp Pulse Pulse Resp BP BP Pulse Ox 06/12/19 16:00 90 18 06/12/19 15:30 90 16 120/70 99 06/12/19 13:23 85 85 16 116/70 116/70 99 06/12/19 12:39 85 18 105/60 98 06/12/19 12:30 81 18 111/63 97 06/12/19 12:20 82 18 110/57 98 06/12/19 12:00 82 20 135/75 96 06/12/19 11:01 98.2 F 77 20 130/72 97 06/12/19 09:12 79 18 100/59 96 06/12/19 09:10 97.9 F 78 20 139/82 98 Intake and Output 06/12/19 06/12/19 06/12/19 06:59 14:59 22:59 Intake Total 12.598 Balance 12.598 Intake: Intake, IV Titration 12.598 Amount Insulin Regular 100 unit 12.598 In Sodium Chloride 0.9% 100 ml @ 0.1 UNITS/KG/HR 11.453 mls/hr IV .Q8H50M [facility] Rx#:[id number] Other: Voiding Method Toilet Urinal Diaper Weight 113.398 kg Results CBC & Chem 7: 06/12/19 09:30 06/12/19 09:30 Labs: Abnormal Lab Results - Last 24 Hours (Table) 06/12/19 06/12/19 06/12/19 Range/Units 09:30 09:30 09:30 RBC 3.29 L (4.30-5.90) m/uL Hgb 9.7 L (13.0-17.5) gm/dL Hct 31.8 L (39.0-53.0) % MCHC 30.4 L (31.0-37.0) g/dL RDW 17.1 H (11.5-15.5) % Plt Count 67 L (150-450) k/uL Lymphocytes # (Manual) 0.29 L (1.0-4.8) k/uL INR 1.2 H (<1.2) Sodium 132 L (137-145) mmol/L Potassium 6.0 H (3.5-5.1) mmol/L Carbon Dioxide 17 L (22-30) mmol/L BUN 26 H (9-20) mg/dL Creatinine 1.40 H (0.66-1.25) mg/dL Glucose 513 H* (74-99) mg/dL POC Glucose (mg/dL) (75-99) mg/dL Calcium 8.3 L (8.4-10.2) mg/dL Total Bilirubin 2.0 H (0.2-1.3) mg/dL Alkaline Phosphatase 443 H (38-126) U/L Ammonia (<30) umol/L Albumin 2.7 L (3.5-5.0) g/dL Urine Glucose (UA) (Negative) 06/12/19 06/12/19 06/12/19 Range/Units 09:30 10:48 11:00 RBC (4.30-5.90) m/uL Hgb (13.0-17.5) gm/dL Hct (39.0-53.0) % MCHC (31.0-37.0) g/dL RDW (11.5-15.5) % Plt Count (150-450) k/uL Lymphocytes # (Manual) (1.0-4.8) k/uL INR (<1.2) Sodium (137-145) mmol/L Potassium (3.5-5.1) mmol/L Carbon Dioxide (22-30) mmol/L BUN (9-20) mg/dL Creatinine (0.66-1.25) mg/dL Glucose (74-99) mg/dL POC Glucose (mg/dL) 503 H (75-99) mg/dL Calcium (8.4-10.2) mg/dL Total Bilirubin (0.2-1.3) mg/dL Alkaline Phosphatase (38-126) U/L Ammonia 216 H (<30) umol/L Albumin (3.5-5.0) g/dL Urine Glucose (UA) 4+ H (Negative) 06/12/19 06/12/19 06/12/19 Range/Units 11:40 13:16 14:31 RBC (4.30-5.90) m/uL Hgb (13.0-17.5) gm/dL Hct (39.0-53.0) % MCHC (31.0-37.0) g/dL RDW (11.5-15.5) % Plt Count (150-450) k/uL Lymphocytes # (Manual) (1.0-4.8) k/uL INR (<1.2) Sodium (137-145) mmol/L Potassium (3.5-5.1) mmol/L Carbon Dioxide (22-30) mmol/L BUN (9-20) mg/dL Creatinine (0.66-1.25) mg/dL Glucose (74-99) mg/dL POC Glucose (mg/dL) 479 H 507 H 452 H (75-99) mg/dL Calcium (8.4-10.2) mg/dL Total Bilirubin (0.2-1.3) mg/dL Alkaline Phosphatase (38-126) U/L Ammonia (<30) umol/L Albumin (3.5-5.0) g/dL Urine Glucose (UA) (Negative) 06/12/19 06/12/19 06/12/19 Range/Units 15:27 16:06 16:39 RBC (4.30-5.90) m/uL Hgb (13.0-17.5) gm/dL Hct (39.0-53.0) % MCHC (31.0-37.0) g/dL RDW (11.5-15.5) % Plt Count (150-450) k/uL Lymphocytes # (Manual) (1.0-4.8) k/uL INR (<1.2) Sodium (137-145) mmol/L Potassium (3.5-5.1) mmol/L Carbon Dioxide (22-30) mmol/L BUN (9-20) mg/dL Creatinine (0.66-1.25) mg/dL Glucose (74-99) mg/dL POC Glucose (mg/dL) 329 H 294 H 243 H (75-99) mg/dL Calcium (8.4-10.2) mg/dL Total Bilirubin (0.2-1.3) mg/dL Alkaline Phosphatase (38-126) U/L Ammonia (<30) umol/L Albumin (3.5-5.0) g/dL Urine Glucose (UA) (Negative) Thrombosis Risk Factor Assmnt - Choose All That Apply Any of the Below Risk Factors Present?: Yes Each Factor Represents 1 point: Age 41-60 years, Obesity (BMI >25), Serious lung disease incl. pneumonia (< 1month) Other Risk Factors: No Other congenital or acquired thrombophilia - If yes, enter type in comment: No Thrombosis Risk Factor Assessment Total Risk Factor Score: 3 Thrombosis Risk Factor Assessment Level: Moderate Risk
[2019-06-12 18:40] LABS: Glucose,Whole Blood 160 mg/dL (75-99)
[2019-06-12] MEDS: METOPROLOL TARTRATE 25 MG TAB PO SCH (20:06)
[2019-06-12] MEDS: ATORVASTATIN 20 MG TAB PO SCH (20:06)
[2019-06-12] MEDS: BUMETANIDE 1 MG TAB PO SCH (20:06)
[2019-06-12] MEDS: GABAPENTIN 400 MG CAP PO SCH (20:06)
[2019-06-12 20:43] LABS: Glucose,Whole Blood 212 mg/dL (75-99)
[2019-06-12 22:41] LABS: Glucose,Whole Blood 256 mg/dL (75-99)
[2019-06-12 23:30] LABS: ALT 43 U/L (4-49); AST 52 U/L (17-59); African American GFR (CKD) >90 (>60 ml/min/1.73 sqM); Albumin 2.7 g/dL (3.5-5.0); Alkaline Phosphatase 377 U/L (38-126); Anion Gap 8 mmol/L; Blood Urea Nitrogen 24 mg/dL (9-20); Calcium 8.6 mg/dL (8.4-10.2); Carbon Dioxide 18 mmol/L (22-30); Chloride 110 mmol/L (98-107); Glucose 262 mg/dL (74-99); Non-African American GFR(CKD) 81 (>60 ml/min/1.73 sqM); Potassium 4.5 mmol/L (3.5-5.1); Sodium 136 mmol/L (137-145); Total Bilirubin 2.4 mg/dL (0.2-1.3); Total Protein 7.4 g/dL (6.3-8.2)
[2019-06-13 00:50] LABS: Glucose,Whole Blood 199 mg/dL (75-99)
[2019-06-13 02:36] LABS: Glucose,Whole Blood 175 mg/dL (75-99)
[2019-06-13 04:34] LABS: Glucose,Whole Blood 166 mg/dL (75-99)
[2019-06-13 06:05] LABS: Albumin 2.6 g/dL (3.5-5.0); Calcium 8.4 mg/dL (8.4-10.2); Potassium 4.8 mmol/L (3.5-5.1); Total Bilirubin 2.5 mg/dL (0.2-1.3); Total Protein 7.4 g/dL (6.3-8.2)
[2019-06-13 06:26] LABS: Glucose,Whole Blood 179 mg/dL (75-99)
[2019-06-13] MEDS: INSULIN REGULAR 100 UNIT in SODIUM CHLORIDE 0.9% 100 ML IV SCH ×2 (06:47→15:03)
[2019-06-13] MEDS: RIFAXIMIN 550 MG TABLET PO SCH ×4 (07:29→20:58)
[2019-06-13] MEDS: SODIUM CHLORIDE 0.9% 1,000 ML IV SCH (07:32)
[2019-06-13] MEDS ORDERED: ALBUTEROL HFA INHALER INHALATION PRN (08:11)
[2019-06-13 08:21] LABS: Glucose,Whole Blood 256 mg/dL (75-99)
[2019-06-13] MEDS: CITALOPRAM HYDROBROMIDE 20 MG TAB PO SCH (08:23)
[2019-06-13] MEDS: BUMETANIDE 1 MG TAB PO SCH ×2 (08:23→20:49)
[2019-06-13] MEDS: ASPIRIN 81 MG PO SCH (08:23)
[2019-06-13] MEDS: LACTULOSE 20 GM/30 ML CUP PO SCH ×4 (08:24→20:53)
[2019-06-13] MEDS: GABAPENTIN 400 MG CAP PO SCH ×2 (08:24→20:49)
[2019-06-13] MEDS: PANTOPRAZOLE 40 MG TABLET PO SCH (08:24)
[2019-06-13] MEDS: METOPROLOL TARTRATE 25 MG TAB PO SCH ×2 (08:24→20:49)
[2019-06-13] MEDS: SPIRONOLACTONE 25 MG TAB PO SCH (10:03)
[2019-06-13 10:29] LABS: Glucose,Whole Blood 249 mg/dL (75-99)
[2019-06-13 12:30] LABS: Glucose,Whole Blood 171 mg/dL (75-99)
--- NOTE | 2019-06-13 12:33 | P.CONS ---
History of Present Illness - Reason for Consult Consult date: 06/12/19 Fever Requesting physician: Molly Mitchell - Chief Complaint Confusion 2 days - History of Present Illness Patient is a 49 year male with a past medical history significant for cirrhosis of the liver patient had did have significant abdominal ascites requiring multiple paracentesis and recently did develop pleural effusion requiring thoracocentesis, patient presenting to the ER at [facility] this morning with a chief complaints of mental status changes abdominal distention and shortness of breath the patient still have been getting worse over the last few weeks patient denies having any headache or URI symptoms no chest pain no cough shortness of breath on minimal exertion even at rest also have significant abdominal distention no vomiting and no diarrhea patient denies having any fever, patient undoubtedly has been afebrile his white count has been normal, patient did have a CT of the brain was negative for any bleed chest x- ray shows low lung volumes and increasing small to moderate right proliferation with associated airspace disease, patient subsequently has been followed by interventional radiology and did have a ultrasound guided thoracocentesis with removal of 1.9 L of straw-colored fluid which was not sent for any analysis ID was consulted with concern for possible fever and infection and need for antibiotic therapy the patient denies having any fever and chills to me and is currently not on any antibiotic therapy Review of Systems Positive point has been mentioned in the HPI rest of the systems are negative Past Medical History Past Medical History: Coronary Artery Disease (CAD), Diabetes Mellitus, GERD/Reflux, Hyperlipidemia, Hypertension, Liver Disease, Myocardial Infarction ([place]) Additional Past Medical History / Comment(s): Pt recently admitted to [facility] on 05/29/19 with large R pleural effusion 2ndary to cirrhoisis of the liver, hypoalbuminemia, fluid overload. 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 Last Myocardial Infarction Date:: 2012 History of Any Multi-Drug Resistant Organisms: None Reported Past Surgical History: Cholecystectomy, Heart Catheterization With Stent, Orthopedic Surgery Additional Past Surgical History / Comment(s): PCIs with stents, EGDs, colonoscopy, carpal tunnel release-laterallity unknown. Past Anesthesia/Blood Transfusion Reactions: No Reported Reaction Additional Past Anesthesia/Blood Transfusion Reaction / Comm: No blood transfusions. Date of Last Stent Placement:: 2012 Smoking Status: Former smoker - Past Family History Mother History Unknown: Yes Family Medical History: Cancer Additional Family Medical History / Comment(s): Lung cancer, since passed. Father Additional Family Medical History / Comment(s): ETOH abuse Medications and Allergies Home Medications Medication Instructions Recorded Confirmed Type Albuterol Sulfate [Proair Hfa] 2 puff INHALATION RT-Q4H PRN 12/07/18 06/12/19 History Aspirin EC [Ecotrin Low Dose] 81 mg PO DAILY 12/07/18 06/12/19 History Citalopram Hydrobromide [CeleXA] 40 mg PO DAILY 12/07/18 06/12/19 History Insulin Aspart [NovoLOG Flexpen] See Protocol SQ AC-TID 12/07/18 06/12/19 History Metoprolol Tartrate 25 mg PO BID 12/07/18 06/12/19 History Nitroglycerin Sl Tabs [Nitrostat] 0.4 mg SUBLINGUAL Q5M PRN 12/07/18 06/12/19 History Omeprazole [PriLOSEC] 40 mg PO DAILY 12/07/18 06/12/19 History Simvastatin [Zocor] 40 mg PO HS 12/07/18 06/12/19 History Lactulose 20 gm PO BID 12/20/18 06/12/19 History Rifaximin [Xifaxan] 550 mg PO BID 12/20/18 06/12/19 History HYDROcodone/APAP 10-325MG [[place] 1 tab PO BID PRN 02/06/19 06/12/19 History 10-325] metFORMIN HCL 1,000 mg PO BID 02/06/19 06/12/19 History Bumetanide [BUMEX] 1 mg PO BID #60 tablet 02/08/19 06/12/19 Rx Gabapentin [Neurontin] 400 mg PO BID 05/29/19 06/12/19 History Insulin Glargine,Hum.rec.anlog 30 - 45 unit SQ HS 05/29/19 06/12/19 History [Lantus Solostar] Spironolactone [Aldactone] 100 mg PO DAILY #30 tab 05/30/19 06/12/19 Rx Allergies Allergy/AdvReac Type Severity Reaction Status Date / Time cephalexin [From Keflex] AdvReac Rash/Hives Verified 06/12/19 11:56 Physical Exam Vitals: Vital Signs Temp Pulse Pulse Resp BP BP Pulse Ox 06/12/19 20:00 96 18 127/70 99 06/12/19 16:00 90 18 06/12/19 15:30 90 16 120/70 99 06/12/19 13:23 85 85 16 116/70 116/70 99 06/12/19 12:39 85 18 105/60 98 06/12/19 12:30 81 18 111/63 97 06/12/19 12:20 82 18 110/57 98 06/12/19 12:00 82 20 135/75 96 06/12/19 11:01 98.2 F 77 20 130/72 97 06/12/19 09:12 79 18 100/59 96 06/12/19 09:10 97.9 F 78 20 139/82 98 Intake and Output 06/12/19 06/12/19 06/12/19 06:59 14:59 22:59 Intake Total 12.598 31.848 Balance 12.598 31.848 Intake: Intake, IV Titration 12.598 31.848 Amount Insulin Regular 100 unit 12.598 In Sodium Chloride 0.9% 100 ml @ 0.1 UNITS/KG/HR 11.453 mls/hr IV .Q8H50M [facility] Rx#:[id number] Insulin Regular 100 unit 31.848 In Sodium Chloride 0.9% 100 ml @ Titrate IV .Q0M [facility] Rx#:[id number] Other: Voiding Method Toilet Urinal Diaper # Voids 1 Weight 113.398 kg GENERAL DESCRIPTION: Middle-aged male lying in bed, no distress. No tachypnea or accessory muscle of respiration use. HEENT: Shows Pallor , no scleral icterus. Oral mucous membrane is dry. No pharyngeal erythema or thrush NECK: Trachea central, no thyromegaly. LUNGS: Unlabored breathing. Decreased breath sound the bases. No wheeze or crackle. HEART: S1, S2, regular rate and rhythm. No loud murmur ABDOMEN: Soft, no tenderness , guarding or rigidity, no organomegaly EXTREMITIES: No edema of feet. SKIN: No rash, no masses palpable. NEUROLOGICAL: The patient is awake, alert, oriented x3, mood and affect normal. Results CBC & Chem 7: 06/12/19 09:30 06/13/19 05:28 Labs: Abnormal Lab Results - Last 24 Hours (Table) 06/12/19 06/12/19 06/12/19 Range/Units 09:30 09:30 09:30 RBC 3.29 L (4.30-5.90) m/uL Hgb 9.7 L (13.0-17.5) gm/dL Hct 31.8 L (39.0-53.0) % MCHC 30.4 L (31.0-37.0) g/dL RDW 17.1 H (11.5-15.5) % Plt Count 67 L (150-450) k/uL Lymphocytes # (Manual) 0.29 L (1.0-4.8) k/uL INR 1.2 H (<1.2) Sodium 132 L (137-145) mmol/L Potassium 6.0 H (3.5-5.1) mmol/L Carbon Dioxide 17 L (22-30) mmol/L BUN 26 H (9-20) mg/dL Creatinine 1.40 H (0.66-1.25) mg/dL Glucose 513 H* (74-99) mg/dL POC Glucose (mg/dL) (75-99) mg/dL Calcium 8.3 L (8.4-10.2) mg/dL Total Bilirubin 2.0 H (0.2-1.3) mg/dL Alkaline Phosphatase 443 H (38-126) U/L Ammonia (<30) umol/L Albumin 2.7 L (3.5-5.0) g/dL Urine Glucose (UA) (Negative) 06/12/19 06/12/19 06/12/19 Range/Units 09:30 10:48 11:00 RBC (4.30-5.90) m/uL Hgb (13.0-17.5) gm/dL Hct (39.0-53.0) % MCHC (31.0-37.0) g/dL RDW (11.5-15.5) % Plt Count (150-450) k/uL Lymphocytes # (Manual) (1.0-4.8) k/uL INR (<1.2) Sodium (137-145) mmol/L Potassium (3.5-5.1) mmol/L Carbon Dioxide (22-30) mmol/L BUN (9-20) mg/dL Creatinine (0.66-1.25) mg/dL Glucose (74-99) mg/dL POC Glucose (mg/dL) 503 H (75-99) mg/dL Calcium (8.4-10.2) mg/dL Total Bilirubin (0.2-1.3) mg/dL Alkaline Phosphatase (38-126) U/L Ammonia 216 H (<30) umol/L Albumin (3.5-5.0) g/dL Urine Glucose (UA) 4+ H (Negative) 06/12/19 06/12/19 06/12/19 Range/Units 11:40 13:16 14:31 RBC (4.30-5.90) m/uL Hgb (13.0-17.5) gm/dL Hct (39.0-53.0) % MCHC (31.0-37.0) g/dL RDW (11.5-15.5) % Plt Count (150-450) k/uL Lymphocytes # (Manual) (1.0-4.8) k/uL INR (<1.2) Sodium (137-145) mmol/L Potassium (3.5-5.1) mmol/L Carbon Dioxide (22-30) mmol/L BUN (9-20) mg/dL Creatinine (0.66-1.25) mg/dL Glucose (74-99) mg/dL POC Glucose (mg/dL) 479 H 507 H 452 H (75-99) mg/dL Calcium (8.4-10.2) mg/dL Total Bilirubin (0.2-1.3) mg/dL Alkaline Phosphatase (38-126) U/L Ammonia (<30) umol/L Albumin (3.5-5.0) g/dL Urine Glucose (UA) (Negative) 06/12/19 06/12/19 06/12/19 Range/Units 15:27 16:06 16:39 RBC (4.30-5.90) m/uL Hgb (13.0-17.5) gm/dL Hct (39.0-53.0) % MCHC (31.0-37.0) g/dL RDW (11.5-15.5) % Plt Count (150-450) k/uL Lymphocytes # (Manual) (1.0-4.8) k/uL INR (<1.2) Sodium (137-145) mmol/L Potassium (3.5-5.1) mmol/L Carbon Dioxide (22-30) mmol/L BUN (9-20) mg/dL Creatinine (0.66-1.25) mg/dL Glucose (74-99) mg/dL POC Glucose (mg/dL) 329 H 294 H 243 H (75-99) mg/dL Calcium (8.4-10.2) mg/dL Total Bilirubin (0.2-1.3) mg/dL Alkaline Phosphatase (38-126) U/L Ammonia (<30) umol/L Albumin (3.5-5.0) g/dL Urine Glucose (UA) (Negative) 06/12/19 06/12/19 06/12/19 Range/Units 18:38 20:31 22:31 RBC (4.30-5.90) m/uL Hgb (13.0-17.5) gm/dL Hct (39.0-53.0) % MCHC (31.0-37.0) g/dL RDW (11.5-15.5) % Plt Count (150-450) k/uL Lymphocytes # (Manual) (1.0-4.8) k/uL INR (<1.2) Sodium (137-145) mmol/L Potassium (3.5-5.1) mmol/L Carbon Dioxide (22-30) mmol/L BUN (9-20) mg/dL Creatinine (0.66-1.25) mg/dL Glucose (74-99) mg/dL POC Glucose (mg/dL) 160 H 212 H 256 H (75-99) mg/dL Calcium (8.4-10.2) mg/dL Total Bilirubin (0.2-1.3) mg/dL Alkaline Phosphatase (38-126) U/L Ammonia (<30) umol/L Albumin (3.5-5.0) g/dL Urine Glucose (UA) (Negative) Assessment and Plan Assessment: 1-patient with abnormal x-ray showing large right-sided pleural effusion with right base airspace disease more likely representing atelectasis patient is clinically not behaving as pneumonia in this patient who do not have any fever and elevated white count no cough or sputum production, patient did have evidence of abdominal ascites from his underlying cirrhosis but no significant abdominal pain or tenderness to be suspicious for SBP (1) Abnormal chest xray Current Visit: Yes Status: Acute Code(s): R93.89 - ABNORMAL FINDINGS ON DX IMAGING OF OTH BODY STRUCTURES SNOMED Code(s): 032008875 Plan: 1-no need for systemic antibiotic therapy 2-if the patient's spike any fever or changes in overall clinical condition, appropriate cultures to be done before starting him on any antibiotics Thank you for this consultation Time with Patient: Greater than 30
[2019-06-13 14:27] LABS: Glucose,Whole Blood 187 mg/dL (75-99)
[2019-06-13 14:57] LABS: Hemoglobin A1C 11.5 % (4.0-6.0)
[2019-06-13 16:32] LABS: Glucose,Whole Blood 242 mg/dL (75-99)
--- NOTE | 2019-06-13 18:21 | CONS ---
CONSULTATION REASON FOR CONSULT: Renal failure. HISTORY OF PRESENT ILLNESS: Patient is a 49-year-old male who has a history of liver cirrhosis, coronary artery disease, type 2 diabetes, hypertension, maintained on thoracenteses, which patient has been receiving frequently. Yesterday patient was admitted to the hospital, as his noticed he was confused and was not his normal self. He did not have any fever or chills. No significant shortness of breath. Patient's serum creatinine was 1.4 on admission. It is down to 1.12 mg/dL. Patient has good urine output. Blood pressure has been slightly on the lower side with systolic around 100 mmHg. Patient did admit to use of nonsteroidal anti-inflammatory agents occasionally. He does follow up for CKD as outpatient at our office. Patient's baseline creatinine has been at about 1.2 mg/dL. PAST MEDICAL HISTORY: CKD, stage II to III, secondary to nephrosclerosis, cardiorenal syndrome, coronary artery disease, type 2 diabetes, gastroesophageal reflux disease, chronic liver disease with diagnosis of fatty liver and cirrhosis of the liver, pancytopenia. PAST SURGICAL HISTORY: Cholecystectomy, cardiac catheterization, coronary stent placement, EGDs, colonoscopy. MEDICATIONS: Medications prior to admission included aspirin, Celexa, metoprolol, Prilosec, Zocor, lactulose, Bumex, Neurontin, metformin, insulin, Aldactone. ALLERGIES: ALLERGIES include KEFLEX. PHYSICAL EXAMINATION: Patient is comfortable, awake, alert, oriented x3, not in any acute distress. Blood pressure was 121/66, heart rate 73 per minute. Patient is afebrile. EXAMINATION OF THE HEART: S1 and S2. EXAMINATION OF LUNGS: Bilateral breath sounds are heard. ABDOMEN: Soft, non-tender. Obese. Examination of lower extremities shows edema 2+ bilaterally. [employer] exam is grossly intact. LABS: Sodium 137, potassium 4.8, chloride 110, CO2 is 21, BUN 24, creatinine 1.12. Ammonia is 21, albumin 2.6. UA is completely clear. ASSESSMENT: 1. Acute kidney injury, mostly associated with some degree of hypoperfusion, currently improved. Creatinine is down to 1.1 from 1.4. Continue with the Bumex and the Aldactone for now. 2. Liver cirrhosis with history of fatty liver, being followed by Gastroenterology. 3. Bilateral pleural effusions, currently with right large pleural effusion. 4. Coronary artery disease with history of coronary artery stent placement. PLAN: Continue with Bumex and Aldactone for now. Control blood sugars. Repeat labs in a.m. Avoid IV fluids. MMODL / IJN: [id number] /
--- NOTE | 2019-06-13 18:29 | P.CONS ---
History of Present Illness - Reason for Consult Consult date: 06/13/19 Decompensated cirrhosis Requesting physician: Jamel Contreras - Chief Complaint Altered mental status - History of Present Illness 49-year-old male with multiple medical comorbidities including decompensated cirrhosis secondary to nonalcoholic steatohepatitis, diabetes mellitus, GERD, hyperlipidemia, hypertension, coronary artery disease, obesity and pancytopenia who presented to the hospital due to increasing confusion. The patient was scheduled for outpatient thoracentesis however was brought to the hospital for further evaluation due to increasing confusion. The patient does have a known history of hepatic encephalopathy and was supposed to be on lactulose twice daily as well as Xifaxan and Aldactone however per the patient he had been noncompliant with his lactulose therapy. Previously he has required thoracentesis and had 1.9 L drained on current admission. He denies any prior episodes of ascites requiring paracentesis. On presentation to the hospital WBC 4.2, hemoglobin 9.7, platelet count 67,000 with an ammonia level originally 216 on presentation this is improved today at 21. INR found to be 1.2, total bilirubin 2.5, alkaline phosphatase 366, AST 60 and ALP 48. Review of Systems REVIEW OF SYSTEMS: CONSTITUTIONAL: Denies any fevers, chills, weight change or fatigue. CARDIOVASCULAR: Denies any chest pain, palpitations high or low blood pressures RESPIRATORY: Denies any shortness of breath, hemoptysis or cough, however was short of breath on presentation which is improved after thoracentesis. GENITOURINARY: No dysuria or hematuria. MUSCULOSKELETAL: No weakness reported. SKIN: Denies any new rashes or lesions, jaundice or pallor. PSYCHIATRIC: Denies any depression or anxiety. NEUROLOGY: Denies headache, denies any new focal deficits, the patient had been suffering from confusion on presentation which is currently improved. EARS/NOSE/THROAT: No recent hearing change, congestion, nasal discharge or sore throat. EYES: No pain in eyes, discharge or change in vision. GASTROINTESTINAL: As per HPI. Past Medical History Past Medical History: Coronary Artery Disease (CAD), Diabetes Mellitus, GERD/Reflux, Hyperlipidemia, Hypertension, Liver Disease, Myocardial Infarction ([place]) Additional Past Medical History / Comment(s): [facility] with large R pleural effusion 2ndary to cirrhoisis of the liver, hypoalbuminemia, fluid overload. Other Hx: IDDM type II, neuropathy b ilateral hands, fingers and feet, R pleural effusions with multiple thoracentesis, liver cirrhosis, hepatic encephalopathy, ascities, elevated ammonia/K+ levels, pancytopenia, frequent bilateral ankle edema, "thin schmidt in my esophagus", chronic insomnia.. Last Myocardial Infarction Date:: 2012 History of Any Multi-Drug Resistant Organisms: None Reported Past Surgical History: Cholecystectomy, Heart Catheterization With Stent, Orthopedic Surgery Additional Past Surgical History / Comment(s): PCIs with stents, EGDs, colonoscopy, carpal tunnel release-laterallity unknown. Past Anesthesia/Blood Transfusion Reactions: No Reported Reaction Additional Past Anesthesia/Blood Transfusion Reaction / Comm: No blood transfusions. Date of Last Stent Placement:: 2012 Smoking Status: Former smoker - Past Family History Mother History Unknown: Yes Family Medical History: Cancer Additional Family Medical History / Comment(s): Lung cancer, since passed. Father Additional Family Medical History / Comment(s): ETOH abuse Medications and Allergies Home Medications Medication Instructions Recorded Confirmed Type Albuterol Sulfate [Proair Hfa] 2 puff INHALATION RT-Q4H PRN 12/07/18 06/12/19 History Aspirin EC [Ecotrin Low Dose] 81 mg PO DAILY 12/07/18 06/12/19 History Citalopram Hydrobromide [CeleXA] 40 mg PO DAILY 12/07/18 06/12/19 History Insulin Aspart [NovoLOG Flexpen] See Protocol SQ AC-TID 12/07/18 06/12/19 History Metoprolol Tartrate 25 mg PO BID 12/07/18 06/12/19 History Nitroglycerin Sl Tabs [Nitrostat] 0.4 mg SUBLINGUAL Q5M PRN 12/07/18 06/12/19 History Omeprazole [PriLOSEC] 40 mg PO DAILY 12/07/18 06/12/19 History Simvastatin [Zocor] 40 mg PO HS 12/07/18 06/12/19 History Lactulose 20 gm PO BID 12/20/18 06/12/19 History Rifaximin [Xifaxan] 550 mg PO BID 12/20/18 06/12/19 History HYDROcodone/APAP 10-325MG [[place] 1 tab PO BID PRN 02/06/19 06/12/19 History 10-325] metFORMIN HCL 1,000 mg PO BID 02/06/19 06/12/19 History Bumetanide [BUMEX] 1 mg PO BID #60 tablet 02/08/19 06/12/19 Rx Gabapentin [Neurontin] 400 mg PO BID 05/29/19 06/12/19 History Insulin Glargine,Hum.rec.anlog 30 - 45 unit SQ HS 05/29/19 06/12/19 History [Lantus Solostar] Spironolactone [Aldactone] 100 mg PO DAILY #30 tab 05/30/19 06/12/19 Rx Allergies Allergy/AdvReac Type Severity Reaction Status Date / Time cephalexin [From Keflex] AdvReac Rash/Hives Verified 06/12/19 11:56 Physical Exam Vitals: Vital Signs Temp Pulse Pulse Resp BP BP Pulse Ox 06/13/19 08:06 96 06/13/19 08:00 97.8 F 85 16 107/67 100 06/13/19 04:00 97.9 F 80 18 104/59 96 06/13/19 00:00 97.8 F 82 18 104/66 98 06/12/19 20:00 97.6 F 96 18 127/70 99 06/12/19 16:00 90 18 06/12/19 15:30 90 16 120/70 99 06/12/19 13:23 85 85 16 116/70 116/70 99 06/12/19 12:39 85 18 105/60 98 06/12/19 12:30 81 18 111/63 97 06/12/19 12:20 82 18 110/57 98 06/12/19 12:00 82 20 135/75 96 06/12/19 11:01 98.2 F 77 20 130/72 97 Intake and Output 06/12/19 06/13/19 06/13/19 22:59 06:59 14:59 Intake Total 31.848 59.356 248.501 Output Total 500 Balance 31.848 -440.644 248.501 Intake: IV 10 Invasive Line 2 10 Intake, IV Titration 31.848 49.356 8.501 Amount Insulin Regular 100 unit 31.848 49.356 8.501 In Sodium Chloride 0.9% 100 ml @ Titrate IV .Q0M [facility] Rx#:[id number] Oral 240 Output: Urine 500 Other: Voiding Method Toilet Toilet Urinal Urinal Diaper Diaper # Voids 1 2 Weight 101.5 kg On physical examination, patient appears comfortable in no apparent distress. HEAD: Normocephalic, atraumatic. EYES: No scleral icterus. No conjunctival injection. MOUTH: No lesions, tongue midline. NECK: Trachea midline, no gross abnormalities. CHEST: Decreased air entry in all lung herbert. HEART: Regular rate and rhythm. ABDOMEN: Soft, obese, mildly distended. Bowel sounds are positive. No organomegaly. No guarding or rigidity. EXTREMITIES: No pedal edema. SKIN: No rashes, no jaundice. NEUROLOGIC: Alert and oriented x3, with no asterixis noted. No focal deficits. Results CBC & Chem 7: 06/12/19 09:30 06/13/19 05:28 Labs: Abnormal Lab Results - Last 24 Hours (Table) 06/12/19 06/12/19 06/12/19 Range/Units 09:30 09:30 09:30 RBC 3.29 L (4.30-5.90) m/uL Hgb 9.7 L (13.0-17.5) gm/dL Hct 31.8 L (39.0-53.0) % MCHC 30.4 L (31.0-37.0) g/dL RDW 17.1 H (11.5-15.5) % Plt Count 67 L (150-450) k/uL Lymphocytes # (Manual) 0.29 L (1.0-4.8) k/uL INR 1.2 H (<1.2) Sodium 132 L (137-145) mmol/L Potassium 6.0 H (3.5-5.1) mmol/L Chloride (98-107) mmol/L Carbon Dioxide 17 L (22-30) mmol/L BUN 26 H (9-20) mg/dL Creatinine 1.40 H (0.66-1.25) mg/dL Glucose 513 H* (74-99) mg/dL POC Glucose (mg/dL) (75-99) mg/dL Calcium 8.3 L (8.4-10.2) mg/dL Total Bilirubin 2.0 H (0.2-1.3) mg/dL AST (17-59) U/L Alkaline Phosphatase 443 H (38-126) U/L Ammonia (<30) umol/L Albumin 2.7 L (3.5-5.0) g/dL Urine Glucose (UA) (Negative) 06/12/19 06/12/19 06/12/19 Range/Units 09:30 10:48 11:00 RBC (4.30-5.90) m/uL Hgb (13.0-17.5) gm/dL Hct (39.0-53.0) % MCHC (31.0-37.0) g/dL RDW (11.5-15.5) % Plt Count (150-450) k/uL Lymphocytes # (Manual) (1.0-4.8) k/uL INR (<1.2) Sodium (137-145) mmol/L Potassium (3.5-5.1) mmol/L Chloride (98-107) mmol/L Carbon Dioxide (22-30) mmol/L BUN (9-20) mg/dL Creatinine (0.66-1.25) mg/dL Glucose (74-99) mg/dL POC Glucose (mg/dL) 503 H (75-99) mg/dL Calcium (8.4-10.2) mg/dL Total Bilirubin (0.2-1.3) mg/dL AST (17-59) U/L Alkaline Phosphatase (38-126) U/L Ammonia 216 H (<30) umol/L Albumin (3.5-5.0) g/dL Urine Glucose (UA) 4+ H (Negative) 06/12/19 06/12/19 06/12/19 Range/Units 11:40 13:16 14:31 RBC (4.30-5.90) m/uL Hgb (13.0-17.5) gm/dL Hct (39.0-53.0) % MCHC (31.0-37.0) g/dL RDW (11.5-15.5) % Plt Count (150-450) k/uL Lymphocytes # (Manual) (1.0-4.8) k/uL INR (<1.2) Sodium (137-145) mmol/L Potassium (3.5-5.1) mmol/L Chloride (98-107) mmol/L Carbon Dioxide (22-30) mmol/L BUN (9-20) mg/dL Creatinine (0.66-1.25) mg/dL Glucose (74-99) mg/dL POC Glucose (mg/dL) 479 H 507 H 452 H (75-99) mg/dL Calcium (8.4-10.2) mg/dL Total Bilirubin (0.2-1.3) mg/dL AST (17-59) U/L Alkaline Phosphatase (38-126) U/L Ammonia (<30) umol/L Albumin (3.5-5.0) g/dL Urine Glucose (UA) (Negative) 06/12/19 06/12/19 06/12/19 Range/Units 15:27 16:06 16:39 RBC (4.30-5.90) m/uL Hgb (13.0-17.5) gm/dL Hct (39.0-53.0) % MCHC (31.0-37.0) g/dL RDW (11.5-15.5) % Plt Count (150-450) k/uL Lymphocytes # (Manual) (1.0-4.8) k/uL INR (<1.2) Sodium (137-145) mmol/L Potassium (3.5-5.1) mmol/L Chloride (98-107) mmol/L Carbon Dioxide (22-30) mmol/L BUN (9-20) mg/dL Creatinine (0.66-1.25) mg/dL Glucose (74-99) mg/dL POC Glucose (mg/dL) 329 H 294 H 243 H (75-99) mg/dL Calcium (8.4-10.2) mg/dL Total Bilirubin (0.2-1.3) mg/dL AST (17-59) U/L Alkaline Phosphatase (38-126) U/L Ammonia (<30) umol/L Albumin (3.5-5.0) g/dL Urine Glucose (UA) (Negative) 06/12/19 06/12/19 06/12/19 Range/Units 18:38 20:31 22:31 RBC (4.30-5.90) m/uL Hgb (13.0-17.5) gm/dL Hct (39.0-53.0) % MCHC (31.0-37.0) g/dL RDW (11.5-15.5) % Plt Count (150-450) k/uL Lymphocytes # (Manual) (1.0-4.8) k/uL INR (<1.2) Sodium (137-145) mmol/L Potassium (3.5-5.1) mmol/L Chloride (98-107) mmol/L Carbon Dioxide (22-30) mmol/L BUN (9-20) mg/dL Creatinine (0.66-1.25) mg/dL Glucose (74-99) mg/dL POC Glucose (mg/dL) 160 H 212 H 256 H (75-99) mg/dL Calcium (8.4-10.2) mg/dL Total Bilirubin (0.2-1.3) mg/dL AST (17-59) U/L Alkaline Phosphatase (38-126) U/L Ammonia (<30) umol/L Albumin (3.5-5.0) g/dL Urine Glucose (UA) (Negative) 06/12/19 06/13/19 06/13/19 Range/Units 22:49 00:39 02:32 RBC (4.30-5.90) m/uL Hgb (13.0-17.5) gm/dL Hct (39.0-53.0) % MCHC (31.0-37.0) g/dL RDW (11.5-15.5) % Plt Count (150-450) k/uL Lymphocytes # (Manual) (1.0-4.8) k/uL INR (<1.2) Sodium 136 L (137-145) mmol/L Potassium (3.5-5.1) mmol/L Chloride 110 H (98-107) mmol/L Carbon Dioxide 18 L (22-30) mmol/L BUN 24 H (9-20) mg/dL Creatinine (0.66-1.25) mg/dL Glucose 262 H (74-99) mg/dL POC Glucose (mg/dL) 199 H 175 H (75-99) mg/dL Calcium (8.4-10.2) mg/dL Total Bilirubin 2.4 H (0.2-1.3) mg/dL AST (17-59) U/L Alkaline Phosphatase 377 H (38-126) U/L Ammonia (<30) umol/L Albumin 2.7 L (3.5-5.0) g/dL Urine Glucose (UA) (Negative) 06/13/19 06/13/19 06/13/19 Range/Units 04:31 05:28 06:25 RBC (4.30-5.90) m/uL Hgb (13.0-17.5) gm/dL Hct (39.0-53.0) % MCHC (31.0-37.0) g/dL RDW (11.5-15.5) % Plt Count (150-450) k/uL Lymphocytes # (Manual) (1.0-4.8) k/uL INR (<1.2) Sodium (137-145) mmol/L Potassium (3.5-5.1) mmol/L Chloride 110 H (98-107) mmol/L Carbon Dioxide 21 L (22-30) mmol/L BUN 24 H (9-20) mg/dL Creatinine (0.66-1.25) mg/dL Glucose 163 H (74-99) mg/dL POC Glucose (mg/dL) 166 H 179 H (75-99) mg/dL Calcium (8.4-10.2) mg/dL Total Bilirubin 2.5 H (0.2-1.3) mg/dL AST 60 H (17-59) U/L Alkaline Phosphatase 366 H (38-126) U/L Ammonia (<30) umol/L Albumin 2.6 L (3.5-5.0) g/dL Urine Glucose (UA) (Negative) 06/13/19 Range/Units 08:20 RBC (4.30-5.90) m/uL Hgb (13.0-17.5) gm/dL Hct (39.0-53.0) % MCHC (31.0-37.0) g/dL RDW (11.5-15.5) % Plt Count (150-450) k/uL Lymphocytes # (Manual) (1.0-4.8) k/uL INR (<1.2) Sodium (137-145) mmol/L Potassium (3.5-5.1) mmol/L Chloride (98-107) mmol/L Carbon Dioxide (22-30) mmol/L BUN (9-20) mg/dL Creatinine (0.66-1.25) mg/dL Glucose (74-99) mg/dL POC Glucose (mg/dL) 256 H (75-99) mg/dL Calcium (8.4-10.2) mg/dL Total Bilirubin (0.2-1.3) mg/dL AST (17-59) U/L Alkaline Phosphatase (38-126) U/L Ammonia (<30) umol/L Albumin (3.5-5.0) g/dL Urine Glucose (UA) (Negative) Chest x-ray: report reviewed (Chest x-ray showing interval decrease in pleural fluid after thoracentesis.) Assessment and Plan (1) Cirrhosis Narrative/Plan: 49-year-old male with a history of decompensated cirrhosis of the liver presenting with altered mental status and found to have elevated ammonia at 216 currently improved at 21 today. The patient had been noncompliant with his lactulose therapy in the outpatient setting. The patient was prescribed lactulose twice daily and Xifaxan and twice daily but had been taking the lactulose as needed. Currently mentation is improved Current Visit: Yes Status: Acute Code(s): K74.60 - UNSPECIFIED CIRRHOSIS OF LIVER SNOMED Code(s): 18798469 (2) Increased ammonia level Current Visit: Yes Status: Acute Code(s): R79.89 - OTHER SPECIFIED ABNORMAL FINDINGS OF BLOOD CHEMISTRY SNOMED Code(s): 042201358 (3) Hepatic encephalopathy Current Visit: No Status: Acute Code(s): K72.90 - HEPATIC FAILURE, UNSPECIFIED WITHOUT COMA SNOMED Code(s): 12418047 Plan: Supportive care Okay for sodium restricted diet Continue lactulose 3 times a day and Xifaxan twice a day Results of thoracentesis noted Continue follow-up with the gastroenterology service after discharge Patient encouraged to comply with medications in the outpatient setting given cu rrent presentation secondary to noncompliance of medications No plans for endoscopic evaluation at this time Thank you for allowing us to participate in the care of the patient
[2019-06-13 18:31] LABS: Glucose,Whole Blood 253 mg/dL (75-99)
--- NOTE | 2019-06-13 19:27 | P.PN ---
Progress Note - Text Progress Note Date: 06/13/19 Chief Complaint: Abdominal distention, edema History of presenting complaint: This is a 49-year-old patient of Dr. Guzmán. Patient has a known history of cirrhosis that has progressed from fatty liver. Diagnosed over 2 years ago. Follows with behavioral intervention specialist Dr. Cuellar. stable medical conditions include obesity, pancytopenia, coronary artery disease with stent, diabetes mellitus type 2, GERD, hyperlipidemia, essential hypertension, chronic insomnia. Patient gets therapeutic status and uses every 2 weeks. Patient was here on May 28 for a significant pleural effusion and 2.1 L of thoracentesis was done. Patient now presents with increasing confusion more abdominal distention, edema and shortness of breath. Found to have significant pleural effusion. 1.9 L of straw-colored fluid was removed. Ammonia came back at 216. No fever no chills. No cough. Admitted with-hepatic encephalopathy, fluid overload, right pleural effusion, acute renal failure, hyperkalemia.-2.6 L of right-sided thoracentesis was done. Dose of lactulose was increased. Sugars and 500 started insulin drip Today-. It better. Still some fluid overload. Eating better. Remains on insulin drip. Confusion much improved Review of systems: Was done for constitutional, cardiovascular, GI, pulmonary. relevant finding as above Active Medications Hydrocodone Bitart/Acetaminophen ([place] 10) 1 each PO BID PRN PRN Reason: Pain Albuterol Sulfate (Ventolin Hfa Inhaler) 2 puff INHALATION RT-Q4H PRN PRN Reason: Shortness Of Breath Aspirin (Aspirin) 81 mg PO DAILY [facility] Last Admin: 06/13/19 08:23 Dose: 81 mg Documented by: Atorvastatin Calcium (Lipitor) 20 mg PO [facility] Last Admin: 06/12/19 20:06 Dose: 20 mg Documented by: Bumetanide (Bumex) 1 mg PO BID [facility] Last Admin: 06/13/19 08:23 Dose: 1 mg Documented by: Citalopram Hydrobromide (Celexa) 40 mg PO DAILY [facility] Last Admin: 06/13/19 08:23 Dose: 40 mg Documented by: Gabapentin (Neurontin) 400 mg PO BID [facility] Last Admin: 06/13/19 08:24 Dose: 400 mg Documented by: Insulin Human Regular 100 unit (/ Sodium Chloride) 101 mls @ 0 mls/hr IV .Q0M [facility]; Protocol Stop: 06/13/19 21:00 Last Titration: 06/13/19 18:50 Dose: 10 units/hr, 10.1 mls/hr Documented by: Insulin Detemir (Levemir) 36 unit SQ [facility] Lactulose (Cephulac) 30 gm PO TID [facility] Last Admin: 06/13/19 14:04 Dose: Not Given Documented by: Metoprolol Tartrate (Lopressor) 25 mg PO BID [facility] Last Admin: 06/13/19 08:24 Dose: 25 mg Documented by: Naloxone HCl (Narcan) 0.2 mg IV Q2M PRN PRN Reason: Opioid Reversal Nitroglycerin (Nitrostat) 0.4 mg SUBLINGUAL Q5M PRN PRN Reason: Chest Pain Pantoprazole Sodium (Protonix) 40 mg PO DAILY [facility] Last Admin: 06/13/19 08:24 Dose: 40 mg Documented by: Rifaximin (Xifaxan) 550 mg PO BID [facility] Stop: 07/12/19 11:01 Last Admin: 06/13/19 08:24 Dose: 550 mg Documented by: Rifaximin (Xifaxan) 550 mg PO BID [facility] Stop: 07/12/19 21:01 Last Admin: 06/13/19 07:29 Dose: Not Given Documented by: Spironolactone (Aldactone) 100 mg PO DAILY [facility] Last Admin: 06/13/19 10:03 Dose: 100 mg Documented by: Physical examination: VITAL SIGNS: 97.5, 73, 18, 121/66, 100% on room air GENERAL: Laying in bed, looking better EYES: Pupils equal. Conjunctiva normal. HEENT: External appearance of nose and ears normal, oral cavity grossly normal. NECK: JVD unable to assess; masses not palpable. HEART: First and second heart sounds are normal; edema present LUNGS: Respiratory rate increased, decreased breath sounds ABDOMEN: Soft, distended, , nontender, liver spleen not palpable, no masses palpable. PSYCH: Answering questions appropriately. INVESTIGATIONS, reviewed in the clinical context: Potassium 4.8 creatinine 1.12 Previous testing White count 4.2 hemoglobin 9.7 platelets 67 potassium 6 bun 26 creatinine 1.43 blood glucose 513 total bilirubin 2 ammonia 216 albumin 2.7 EKG tracing personally reviewed by mt-sinus rhythm Chest x-ray film personally reviewed by me-large right pleural effusion Previous testing: Bun 29 creatinine 1.19 on May 28 Assessment: -Recurrent Large pleural effusion secondary to cirrhosis of the liver-status post thoracentesis 2.1 L removed -Hyperkalemia due to renal failure, patient is also on Aldactone-corrected -Acute metabolic acidosis due to acute renal failure -Acute hepatic encephalopathy-improving -Acute kidney injury, possibly ATN due to hepatorenal syndrome, previous creatinine was 1.19-improved -Hepatic cirrhosis that is progressed from fatty liver -Obesity BMI 36.9 -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 -Coronary artery disease with stent -Diabetes mellitus type 2, uncontrolled with hyperglycemia, nonketotic-on insulin drip -GERD -Hyperlipidemia -Essential hypertension -Chronic insomnia -Hypoalbuminemia due to cirrhosis -Fluid overload due to cirrhosis Plan: Patient overall doing better. We'll switch from the insulin drip to Lantus 36 units in the evening. Continue with current dose of lactulose. Other medications to continue. Aldactone added today. Repeat labs in the morning. If continues to improve possibly home tomorrow
[2019-06-13 20:00] LABS: Glucose,Whole Blood 226 mg/dL (75-99)
[2019-06-13] MEDS: ATORVASTATIN 20 MG TAB PO SCH (20:49)
[2019-06-13] MEDS ORDERED: INSULIN DETEMIR (LEVEMIR) 100 UNIT/ML SYR SQ SCH (21:00)
[2019-06-14 02:02] LABS: Glucose,Whole Blood 265 mg/dL (75-99)
[2019-06-14 06:58] LABS: Glucose,Whole Blood 243 mg/dL (75-99)
[2019-06-14 07:42] LABS: Calcium 7.8 mg/dL (8.4-10.2); Potassium 5.1 mmol/L (3.5-5.1)
[2019-06-14] MEDS: LACTULOSE 20 GM/30 ML CUP PO SCH ×3 (08:29→17:08)
[2019-06-14] MEDS: GABAPENTIN 400 MG CAP PO SCH (08:31)
[2019-06-14] MEDS: METOPROLOL TARTRATE 25 MG TAB PO SCH (08:31)
[2019-06-14] MEDS: PANTOPRAZOLE 40 MG TABLET PO SCH (08:31)
[2019-06-14] MEDS: ASPIRIN 81 MG PO SCH (08:31)
[2019-06-14] MEDS: CITALOPRAM HYDROBROMIDE 20 MG TAB PO SCH (08:31)
[2019-06-14] MEDS: SPIRONOLACTONE 25 MG TAB PO SCH (08:31)
[2019-06-14] MEDS: RIFAXIMIN 550 MG TABLET PO SCH ×2 (08:32)
[2019-06-14] MEDS: BUMETANIDE 1 MG TAB PO SCH (10:22)
[2019-06-14 11:18] LABS: Glucose,Whole Blood 469 mg/dL (75-99)
[2019-06-14 11:44] VITALS: BP 92/60; PULSE 74; RESP 17; TEMP 98.2
[2019-06-14] MEDS ORDERED: INSULIN ASPART (NovoLOG) 100 UNIT/ML VIAL SQ ONE (11:54)
[2019-06-14] MEDS: INSULIN ASPART (NovoLOG) 100 UNIT/ML VIAL SQ SCH ×2 (12:15→17:06)
[2019-06-14 14:11] LABS: Glucose,Whole Blood 402 mg/dL (75-99)
[2019-06-14] MEDS ORDERED: INSULIN DETEMIR (LEVEMIR) 100 UNIT/ML SYR SQ STA (14:21)
[2019-06-14] MEDS ORDERED: INSULIN DETEMIR (LEVEMIR) 100 UNIT/ML SYR SQ ONE (15:00)
[2019-06-14 15:58] LABS: Glucose,Whole Blood 319 mg/dL (75-99)
--- NOTE | 2019-06-14 16:06 | PN ---
PROGRESS NOTE Patient is seen for followup for acute kidney injury on top of chronic kidney disease. Renal function is currently stable. Creatinine is 1.25 from today, down from 1.4 on initial admission. Patient denies any significant complaints. He is probably being discharged today. On examination, blood pressure was 94/69, heart rate 78 per minute, he is afebrile. Examination of the heart S1, S2. Examination of the lungs, bilateral breath sounds are heard. Decreased breath sounds at bases. Abdomen is soft, nontender, obese. Examination of the lower extremities shows trace edema bilaterally. GUIDE CHANGER exam grossly intact. LABS: Show sodium 134, potassium 5.1, chloride 108, CO2 is 19, BUN 30, creatinine 1.25. ASSESSMENT: 1. Acute kidney injury prerenal, currently improved. 2. Chronic kidney disease stage III secondary to nephrosclerosis and possible underlying cardiorenal syndrome. 3. Liver cirrhosis with previous history of fatty liver, being followed by GI. 4. Coronary artery disease with history of coronary artery stent placements. 5. Volume overload, maintained on Bumex which we can continue for now. PLAN: Continue with Bumex. Follow up as outpatient for CKD. Okay for discharge from nephrology standpoint. Patient is advised regarding salt and fluid restriction and avoiding use of NSAIDs. MMODL / IJN: [id number] /
[2019-06-14 16:59] LABS: Glucose,Whole Blood 324 mg/dL (75-99)
[2019-06-14 17:24] LABS: Glucose,Whole Blood 338 mg/dL (75-99)
[2019-06-14] MEDS ORDERED: INSULIN ASPART (NovoLOG) 100 UNIT/ML VIAL SQ SCH (17:30)
--- NOTE | 2019-06-14 17:40 | P.PN ---
Subjective Progress Note Date: 06/14/19 Principal diagnosis: Decompensated cirrhosis of the liver, recurrent pleural effusion, hepatic encephalopathy Patient is doing well, tolerating his diet, with no abdominal pain reported. No confusion reported. Objective - Vital Signs Vital signs: Vital Signs Temp 98.2 F 06/14/19 11:44 Pulse 74 06/14/19 11:44 Resp 17 06/14/19 11:44 BP 92/60 06/14/19 11:44 Pulse Ox 99 06/14/19 11:44 Intake & Output 06/13/19 06/14/19 06/14/19 18:59 06:59 18:59 Intake Total 780.994 0040.17 Balance 801.954 3493.17 Intake: IV 30 10 Invasive Line 2 30 10 Intake, IV Titration 87.067 17.17 Amount Insulin Regular 100 unit 87.067 17.17 In Sodium Chloride 0.9% 100 ml @ Titrate IV .Q0M [facility] Rx#:[id number] Oral 240 1130 Other: Voiding Method Toilet Toilet Toilet Urinal Urinal Urinal # Voids 1 3 # Bowel Movements 2 4 - Exam On physical examination, patient appears comfortable in no apparent distress. HEAD: Normocephalic, atraumatic. EYES: No scleral icterus. No conjunctival injection. MOUTH: No lesions, tongue midline. NECK: Trachea midline, no gross abnormalities. CHEST: Clear to auscultation with no wheezing or rhonchi appreciated. ABDOMEN: Soft, obese. Bowel sounds are positive. No organomegaly. No guarding or rigidity. EXTREMITIES: No pedal edema. SKIN: No rashes, no jaundice. NEUROLOGIC: Alert and oriented x3, no asterixis noted. No focal deficits. - Labs CBC & Chem 7: 06/12/19 09:30 06/14/19 05:55 Labs: Abnormal Lab Results - Last 24 Hours (Table) 06/13/19 06/13/19 06/14/19 Range/Units 18:29 19:59 01:59 Sodium (137-145) mmol/L Chloride (98-107) mmol/L Carbon Dioxide (22-30) mmol/L BUN (9-20) mg/dL Glucose (74-99) mg/dL POC Glucose (mg/dL) 253 H 226 H 265 H (75-99) mg/dL Calcium (8.4-10.2) mg/dL Ammonia (<30) umol/L 06/14/19 06/14/19 06/14/19 Range/Units 05:55 05:55 06:51 Sodium 134 L (137-145) mmol/L Chloride 108 H (98-107) mmol/L Carbon Dioxide 19 L (22-30) mmol/L BUN 30 H (9-20) mg/dL Glucose 244 H (74-99) mg/dL POC Glucose (mg/dL) 243 H (75-99) mg/dL Calcium 7.8 L (8.4-10.2) mg/dL Ammonia 83 H (<30) umol/L 06/14/19 06/14/19 06/14/19 Range/Units 11:17 14:10 15:56 Sodium (137-145) mmol/L Chloride (98-107) mmol/L Carbon Dioxide (22-30) mmol/L BUN (9-20) mg/dL Glucose (74-99) mg/dL POC Glucose (mg/dL) 469 H 402 H 319 H (75-99) mg/dL Calcium (8.4-10.2) mg/dL Ammonia (<30) umol/L 06/14/19 06/14/19 Range/Units 16:57 17:23 Sodium (137-145) mmol/L Chloride (98-107) mmol/L Carbon Dioxide (22-30) mmol/L BUN (9-20) mg/dL Glucose (74-99) mg/dL POC Glucose (mg/dL) 324 H 338 H (75-99) mg/dL Calcium (8.4-10.2) mg/dL Ammonia (<30) umol/L Assessment and Plan (1) Cirrhosis Narrative/Plan: 49-year-old male with a history of decompensated cirrhosis of the liver presenting with altered mental status and found to have elevated ammonia at 216 currently improved at 21 today. The patient had been noncompliant with his lactulose therapy in the outpatient setting. The patient was prescribed lactulose twice daily and Xifaxan and twice daily but had been taking the lactulose as needed. Currently mentation is improved Current Visit: Yes Status: Acute Code(s): K74.60 - UNSPECIFIED CIRRHOSIS OF LIVER SNOMED Code(s): 30816402 (2) Increased ammonia level Current Visit: Yes Status: Acute Code(s): R79.89 - OTHER SPECIFIED ABNORMAL FINDINGS OF BLOOD CHEMISTRY SNOMED Code(s): 789603352 (3) Hepatic encephalopathy Current Visit: No Status: Acute Code(s): K72.90 - HEPATIC FAILURE, UNSPECIFIED WITHOUT COMA SNOMED Code(s): 80783119 Plan: Supportive care Okay for sodium restricted diet Continue lactulose 3 times a day and Xifaxan twice a day Results of thoracentesis noted Continue follow-up with the gastroenterology service after discharge Patient encouraged to comply with medications in the outpatient setting given current presentation secondary to noncompliance of medications No plans for endoscopic evaluation at this time Thank you for allowing us to participate in the care of the patient
[2019-06-14 17:48] LABS: Glucose,Whole Blood 346 mg/dL (75-99)
[2019-06-14 19:32] LABS: Glucose,Whole Blood 204 mg/dL (75-99)
--- NOTE | 2019-06-14 22:29 | P.DS ---
Providers Date of admission: 06/12/19 13:06 Expected date of discharge: 06/14/19 Attending physician: Jamel Contreras Consults: 06/12/19 10:50 Consult Physician Routine Consulting Provider: Tiffanie Angulo Consult Reason/Comments: cirrhosis, elevated ammonia levels, AMS Do you want consulting provider notified?: Yes, Notify in am 06/12/19 10:55 Consult Physician Routine Consulting Provider: Dennis Roach Consult Reason/Comments: pleural effusion,SOB, sent for thoracentesis Do you want consulting provider notified?: Yes 06/12/19 12:58 Consult Physician Routine Consulting Provider: Zahra Brooks Consult Reason/Comments: elevated trop, elevated bili, fever, viral syndrome presentation Do you want consulting provider notified?: Yes, Notify in am Consult Physician Routine Consulting Provider: Claudia Lugo Consult Reason/Comments: KRISTI Do you want consulting provider notified?: Yes, Notify in am Primary care physician: [facility] Course: Chief Complaint: Abdominal distention, edema History of presenting complaint: This is a 49-year-old patient of Dr. Guzmán. Patient has a known history of cirrhosis that has progressed from fatty liver. Diagnosed over 2 years ago. Follows with cargo checker Dr. Cuellar. stable medical conditions include obesity, pancytopenia, coronary artery disease with stent, diabetes mellitus type 2, GERD, hyperlipidemia, essential hypertension, chronic insomnia. Patient gets therapeutic status and uses every 2 weeks. Patient was here on May 28 for a significant pleural effusion and 2.1 L of thoracentesis was done. Patient now presents with increasing confusion more abdominal distention, edema and shortness of breath. Found to have significant pleural effusion. 1.9 L of straw-colored fluid was removed. Ammonia came back at 216. No fever no chills. No cough. Admitted with-hepatic encephalopathy, fluid overload, right pleural effusion, acute renal failure, hyperkalemia.-2.6 L of right-sided thoracentesis was done. Dose of lactulose was increased. Sugars and 500 started insulin drip Today-. patient's Accu-Cheks are running up and down. Initial dose of Levemir was given today. And also started on scheduled NovoLog. Patient at home takes anywhere from 15-20 NovoLog with meals. Patient to be more compliant with his medications. Discussed with the nurse. Discussion and discharge planning more than 35 minutes Consultation: Dr. Vu from GI Physical examination: VITAL SIGNS: 98.2, 74, 17, 92/60 GENERAL: Laying in bed, looking better EYES: Pupils equal. Conjunctiva normal. HEENT: External appearance of nose and ears normal, oral cavity grossly normal. NECK: JVD unable to assess; masses not palpable. HEART: First and second heart sounds are normal; edema LUNGS: Respiratory rate increased, decreased breath sounds ABDOMEN: Soft, lessdistended, , nontender, liver spleen not palpable, no masses palpable. PSYCH: Answering questions appropriately. INVESTIGATIONS, reviewed in the clinical context: Accu-Cheks before discharge 204 Previous testing White count 4.2 hemoglobin 9.7 platelets 67 potassium 6 bun 26 creatinine 1.43 blood glucose 513 total bilirubin 2 ammonia 216 albumin 2.7 EKG tracing personally reviewed by me-sinus rhythm Chest x-ray film personally reviewed by me-large right pleural effusion Previous testing: Bun 29 creatinine 1.19 on May 28 Assessment: -Recurrent Large pleural effusion secondary to cirrhosis of the liver-status post thoracentesis 2.1 L removed -Hyperkalemia due to renal failure, patient is also on Aldactone-corrected -Acute metabolic acidosis due to acute renal failure -Acute hepatic encephalopathy-improving -Acute kidney injury, possibly ATN due to hepatorenal syndrome, previous creatinine was 1.19-improved -Hepatic cirrhosis that is progressed from fatty liver -Obesity BMI 36.9 -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 -Coronary artery disease with stent -Diabetes mellitus type 2, uncontrolled with hyperglycemia, nonketotic-on insulin drip -GERD -Hyperlipidemia -Essential hypertension -Chronic insomnia -Hypoalbuminemia due to cirrhosis -Fluid overload due to cirrhosis disposition: Home Patient Condition at Discharge: Stable Plan - Discharge Summary Discharge Rx Participant: No New Discharge Prescriptions: Continue Insulin Aspart [NovoLOG Flexpen] See Protocol SQ AC-TID Simvastatin [Zocor] 40 mg PO HS Omeprazole [PriLOSEC] 40 mg PO DAILY Citalopram Hydrobromide [CeleXA] 40 mg PO DAILY Nitroglycerin Sl Tabs [Nitrostat] 0.4 mg SUBLINGUAL Q5M PRN PRN Reason: Chest Pain Aspirin EC [Ecotrin Low Dose] 81 mg PO DAILY Albuterol Sulfate [Proair Hfa] 2 puff INHALATION RT-Q4H PRN PRN Reason: Shortness Of Breath Rifaximin [Xifaxan] 550 mg PO BID Lactulose 20 gm PO BID metFORMIN HCL 1,000 mg PO BID HYDROcodone/APAP 10-325MG [[place] 10-325] 1 tab PO BID PRN PRN Reason: Pain Bumetanide [BUMEX] 1 mg PO BID #60 tablet Insulin Glargine,Hum.rec.anlog [Lantus Solostar] 30 - 45 unit SQ HS Gabapentin [Neurontin] 400 mg PO BID Spironolactone [Aldactone] 100 mg PO DAILY #30 tab Changed Metoprolol Tartrate 12.5 mg PO TID #0 Discharge Medication List Albuterol Sulfate [Proair Hfa] 2 puff INHALATION RT-Q4H PRN 12/07/18 [History] Aspirin EC [Ecotrin Low Dose] 81 mg PO DAILY 12/07/18 [History] Citalopram Hydrobromide [CeleXA] 40 mg PO DAILY 12/07/18 [History] Insulin Aspart [NovoLOG Flexpen] See Protocol SQ AC-TID 12/07/18 [History] Nitroglycerin Sl Tabs [Nitrostat] 0.4 mg SUBLINGUAL Q5M PRN 12/07/18 [History] Omeprazole [PriLOSEC] 40 mg PO DAILY 12/07/18 [History] Simvastatin [Zocor] 40 mg PO HS 12/07/18 [History] Lactulose 20 gm PO BID 12/20/18 [History] Rifaximin [Xifaxan] 550 mg PO BID 12/20/18 [History] HYDROcodone/APAP 10-325MG [[place] 10-325] 1 tab PO BID PRN 02/06/19 [History] metFORMIN HCL 1,000 mg PO BID 02/06/19 [History] Bumetanide [BUMEX] 1 mg PO BID #60 tablet 02/08/19 [Rx] Gabapentin [Neurontin] 400 mg PO BID 05/29/19 [History] Insulin Glargine,Hum.rec.anlog [Lantus Solostar] 30 - 45 unit SQ HS 05/29/19 [History] Spironolactone [Aldactone] 100 mg PO DAILY #30 tab 05/30/19 [Rx] Metoprolol Tartrate 12.5 mg PO TID #0 06/14/19 [Rx] Follow up Appointment(s)/Referral(s): Star Guzmán MD [Primary Care Provider] - 06/20/19 10:45 am (Appointment set at [place] Office Address: [address] [place] [address] ) Tiffanie Angulo MD [STAFF PHYSICIAN] - 06/29/19 11:00 am (Appointment set for [place] office Address: [address] [place] [id number] ) Patient Instructions/Handouts: Lactulose (By mouth), Acute Liver Failure (DC), Diabetic Hyperglycemia (DC), Type 2 Diabetes Management for Adults (DC) Activity/Diet/Wound Care/Special Instructions: Activity as tolerated
== END 2019-06-14 20:20 ==
LOC: EC 09:08 → INTOOBSV 13:06 → 3SCARD 13:06 → 5NMEDONC 06-13 21:30
PROVIDERS: ADMIT Hospitalist; ATTEND Hospitalist
DX: J90 Pleural effusion, not elsewhere classified (principal); K74.60 Unspecified cirrhosis of liver; E87.5 Hyperkalemia; E87.2 Acidosis; E66.9 Obesity, unspecified; Z68.36 Body mass index [BMI] 36.0-36.9, adult; I13.10 Hypertensive heart and chronic kidney disease without heart failure, with stage 1 through stage 4 chronic kidney disease, or unspecified chronic kidney disease; E11.22 Type 2 diabetes mellitus with diabetic chronic kidney disease; N17.9 Acute kidney failure, unspecified; K72.00 Acute and subacute hepatic failure without coma; E11.649 Type 2 diabetes mellitus with hypoglycemia without coma; N18.3 Chronic kidney disease, stage 3 (moderate); K75.81 Nonalcoholic steatohepatitis (NASH); R91.8 Other nonspecific abnormal finding of lung field; E88.09 Other disorders of plasma-protein metabolism, not elsewhere classified; I25.10 Atherosclerotic heart disease of native coronary artery without angina pectoris; E11.65 Type 2 diabetes mellitus with hyperglycemia; K21.9 Gastro-esophageal reflux disease without esophagitis; E78.5 Hyperlipidemia, unspecified; I10 Essential (primary) hypertension; F51.04 Psychophysiologic insomnia; D61.818 Other pancytopenia; E87.70 Fluid overload, unspecified; R18.8 Other ascites; R14.0 Abdominal distension (gaseous); R19.7 Diarrhea, unspecified; F41.9 Anxiety disorder, unspecified; F32.9 Major depressive disorder, single episode, unspecified; Z90.49 Acquired absence of other specified parts of digestive tract; I25.2 Old myocardial infarction; E11.40 Type 2 diabetes mellitus with diabetic neuropathy, unspecified; K72.90 Hepatic failure, unspecified without coma; Z91.19 Patient's noncompliance with other medical treatment and regimen; Z95.5 Presence of coronary angioplasty implant and graft; Z87.891 Personal history of nicotine dependence; Z87.01 Personal history of pneumonia (recurrent); Z79.899 Other long term (current) drug therapy; Z79.82 Long term (current) use of aspirin; Z79.4 Long term (current) use of insulin; Z79.891 Long term (current) use of opiate analgesic; Z88.1 Allergy status to other antibiotic agents; Z81.1 Family history of alcohol abuse and dependence; Z80.1 Family history of malignant neoplasm of trachea, bronchus and lung
CPT/HCPCS: 96360; 96361; 99285; 36415; 94760; 93005; 80053 ×2; 80048; 82140 ×3; 82009; 83735; 84100; 84484; 85025; 85610; 85730; 81003; 80306; 83036; 71045; 71046; 32555; 70450; G0378 ×4

== ENCOUNTER 2019-06-25 14:02 | Inpatient (IN) | payer OTHER ==
--- NOTE | 2019-06-25 14:40 | ED ---
General Adult HPI - General Chief complaint: Recheck/Abnormal Lab/Rx Stated complaint: Hyperglycemia Time Seen by Provider: 06/25/19 14:02 Source: EMS, RN notes reviewed, old records reviewed Mode of arrival: EMS Limitations: no limitations - History of Present Illness Initial comments: This is a 49-year-old male with a history of multiple medical problems including cirrhosis type 2 diabetes heart disease hypertension GERD CAD who presents to [facility] today with altered mental status and was found have a serum ammonia level of 165. He also was found have a markedly elevated blood glucose level however was in DKA. I did discuss case with Dr. Kohler who did transfer the patient from [facility]. - Related Data Home Medications Medication Instructions Recorded Confirmed Albuterol Sulfate [Proair Hfa] 2 puff INHALATION RT-Q4H PRN 12/07/18 06/25/19 Aspirin EC [Ecotrin Low Dose] 81 mg PO DAILY 12/07/18 06/25/19 Citalopram Hydrobromide [CeleXA] 40 mg PO DAILY 12/07/18 06/25/19 Insulin Aspart [NovoLOG Flexpen] See Protocol SQ AC-TID 12/07/18 06/25/19 Nitroglycerin Sl Tabs [Nitrostat] 0.4 mg SUBLINGUAL Q5M PRN 12/07/18 06/25/19 Omeprazole [PriLOSEC] 40 mg PO DAILY 12/07/18 06/25/19 Simvastatin [Zocor] 40 mg PO HS 12/07/18 06/25/19 Lactulose 20 gm PO BID 12/20/18 06/25/19 Rifaximin [Xifaxan] 550 mg PO BID 12/20/18 06/25/19 HYDROcodone/APAP 10-325MG [[place] 1 tab PO BID PRN 02/06/19 06/25/19 10-325] metFORMIN HCL 1,000 mg PO BID 02/06/19 06/25/19 Gabapentin [Neurontin] 400 mg PO BID 05/29/19 06/25/19 Insulin Glargine,Hum.rec.anlog 30 - 45 unit SQ HS 05/29/19 06/25/19 [Lantus Solostar] Previous Rx's Medication Instructions Recorded Bumetanide [BUMEX] 1 mg PO BID #60 tablet 02/08/19 Spironolactone [Aldactone] 100 mg PO DAILY #30 tab 05/30/19 Metoprolol Tartrate 12.5 mg PO TID #0 06/14/19 Allergies Allergy/AdvReac Type Severity Reaction Status Date / Time cephalexin [From Keflex] AdvReac Rash/Hives Verified 06/25/19 14:15 Review of Systems ROS Statement: Those systems with pertinent positive or pertinent negative responses have been documented in the HPI. ROS Other: All systems not noted in ROS Statement are negative. Past Medical History Past Medical History: Coronary Artery Disease (CAD), Diabetes Mellitus, GERD/Reflux, Hyperlipidemia, Hypertension, Liver Disease, Myocardial Infarction ([place]) Additional Past Medical History / Comment(s): Pt recently admitted to [facility] on 05/29/19 with large R pleural effusion 2ndary to cirrhoisis of the liver, hypoalbuminemia, fluid overload. Other Hx: IDDM type II, neuropathy bilateral hands, fingers and feet, R pleural effusions with multiple thoracentesis, liver cirrhosis, hepatic encephalopathy, ascities, elevated ammonia/K+ levels, pancytopenia, frequent bilateral ankle edema, "thin schmidt in my esophagus", chronic insomnia. high [place] level in past Last Myocardial Infarction Date:: 2012 History of Any Multi-Drug Resistant Organisms: None Reported Past Surgical History: Cholecystectomy, Heart Catheterization With Stent, Orthopedic Surgery Additional Past Surgical History / Comment(s): PCIs with stents, EGDs, colonoscopy, carpal tunnel release-laterallity unknown. Past Anesthesia/Blood Transfusion Reactions: No Reported Reaction Additional Past Anesthesia/Blood Transfusion Reaction / Comment(s): No blood transfusions. Date of Last Stent Placement:: 2012 Past Psychological History: Anxiety, Depression Smoking Status: Former smoker Past Alcohol Use History: None Reported Past Drug Use History: None Reported - Past Family History Mother History Unknown: Yes Family Medical History: Cancer Additional Family Medical History / Comment(s): Lung cancer, since passed. Father Additional Family Medical History / Comment(s): ETOH abuse General Exam - General Exam Comments Initial Comments: This is a well-developed well-nourished awake but lethargic male Limitations: no limitations General appearance: alert, in no apparent distress Head exam: Present: atraumatic, normocephalic, normal inspection Eye exam: Present: normal appearance, PERRL, EOMI. Absent: scleral icterus, conjunctival injection, periorbital swelling ENT exam: Present: mucous membranes dry Neck exam: Present: normal inspection. Absent: tenderness, meningismus, lymphadenopathy Respiratory exam: Present: normal lung sounds bilaterally. Absent: respiratory distress, wheezes, rales, rhonchi, stridor Cardiovascular Exam: Present: regular rate, normal rhythm, normal heart sounds. Absent: systolic murmur, diastolic murmur, rubs, gallop, clicks GI/Abdominal exam: Present: soft, normal bowel sounds. Absent: distended, tenderness, guarding, rebound, rigid Extremities exam: Present: normal inspection, full ROM, normal capillary refill. Absent: tenderness, pedal edema, joint swelling, calf tenderness Back exam: Present: normal inspection Neurological exam: Present: alert, altered, CN II-XII intact Psychiatric exam: Present: normal affect, normal mood Skin exam: Present: warm, dry, intact, normal color. Absent: rash Course Vital Signs 06/25/19 14:06 Temperature 98.2 F Pulse Rate 92 Respiratory 16 Rate Blood Pressure 119/51 O2 Sat by Pulse 97 Oximetry Medical Decision Making - Medical Decision Making I did review the materials presented with paramedics from [facility] also I did discuss case with Dr. Contreras who did come the emergency department see the patient. Patient will be admitted he'll be started on sliding scale insulin as well as lactulose. IV hydration. Disposition Clinical Impression: Hepatic encephalopathy, Hyperammonemia, Elevated glucose, Dehydration Disposition: ADMITTED IP TO THIS HOSP Condition: Fair Referrals: Star Guzmán MD [Primary Care Provider] - 1-2 days
[2019-06-25] MEDS ORDERED: NALOXONE 0.4 MG/ML 1 ML VIAL IV PRN (14:41)
[2019-06-25] MEDS ORDERED: ALBUTEROL NEBULIZED 2.5 MG/3 ML INHALATION PRN (14:44)
[2019-06-25] MEDS ORDERED: NITROGLYCERIN SL TABS 0.4 MG TAB SUBLINGUAL PRN (14:44)
[2019-06-25] MEDS: SODIUM CHLORIDE 0.9% 1,000 ML IV SCH (17:46)
[2019-06-25 18:22] LABS: Glucose,Whole Blood 373 mg/dL (75-99)
[2019-06-25] MEDS: METOPROLOL TARTRATE 12.5 MG TAB PO SCH ×2 (18:24→21:06)
[2019-06-25] MEDS: LACTULOSE 20 GM/30 ML CUP PO SCH ×2 (18:24→21:07)
[2019-06-25] MEDS: INSULIN ASPART (NovoLOG) 100 UNIT/ML VIAL SQ SCH ×2 (18:24→20:30)
[2019-06-25 20:02] LABS: Glucose,Whole Blood 335 mg/dL (75-99)
[2019-06-25] MEDS ORDERED: LACTULOSE 200 GM/300 ML (FROM 1/2 GAL JUG) PO SCH (21:00)
[2019-06-25] MEDS: metFORMIN 500 MG TAB PO SCH (21:06)
[2019-06-25] MEDS: ATORVASTATIN 20 MG TAB PO SCH (21:06)
[2019-06-25] MEDS: GABAPENTIN 400 MG CAP PO SCH (21:06)
[2019-06-25] MEDS: RIFAXIMIN 550 MG TABLET PO SCH (21:07)
[2019-06-25] MEDS: BUMETANIDE 1 MG TAB PO SCH (21:07)
[2019-06-26] MEDS: SODIUM CHLORIDE 0.9% 1,000 ML IV SCH ×2 (07:08→12:40)
[2019-06-26 07:16] LABS: Glucose,Whole Blood 255 mg/dL (75-99)
[2019-06-26] MEDS: INSULIN ASPART (NovoLOG) 100 UNIT/ML VIAL SQ SCH ×4 (07:57→21:05)
[2019-06-26] MEDS: CITALOPRAM HYDROBROMIDE 20 MG TAB PO SCH (07:58)
[2019-06-26] MEDS: GABAPENTIN 400 MG CAP PO SCH ×2 (07:59→21:05)
[2019-06-26] MEDS: metFORMIN 500 MG TAB PO SCH ×2 (07:59→21:06)
[2019-06-26] MEDS: SPIRONOLACTONE 25 MG TAB PO SCH (07:59)
[2019-06-26] MEDS: METOPROLOL TARTRATE 12.5 MG TAB PO SCH ×3 (07:59→21:06)
[2019-06-26] MEDS: LACTULOSE 20 GM/30 ML CUP PO SCH ×4 (07:59→21:05)
[2019-06-26] MEDS: ASPIRIN 81 MG PO SCH (07:59)
[2019-06-26] MEDS: BUMETANIDE 1 MG TAB PO SCH ×2 (07:59→21:06)
[2019-06-26] MEDS: PANTOPRAZOLE 40 MG TABLET PO SCH (08:00)
[2019-06-26] MEDS: RIFAXIMIN 550 MG TABLET PO SCH ×2 (08:00→21:06)
[2019-06-26 12:04] LABS: Glucose,Whole Blood 311 mg/dL (75-99)
[2019-06-26 17:15] LABS: Glucose,Whole Blood 252 mg/dL (75-99)
--- NOTE | 2019-06-26 18:28 | P.HPIM ---
History of Present Illness H&P Date: 06/25/19 Chief Complaint: Increasing lethargy History of presenting complaint: This is a 49-year-old patient of Dr. Guzmán. Patient has a known history of cirrhosis that has progressed from fatty liver. Diagnosed over 2 years ago. Follows with investor relations associate Dr. Cuellar. stable medical conditions include obesity, pancytopenia, coronary artery disease with stent, diabetes mellitus type 2, GERD, hyperlipidemia, essential hypertension, chronic insomnia. Patient gets therapeutic paracentesis and uses every 2 weeks. Patient is also had thoracentesis before. Patient initially presented to [facility]. When he was found to be lethargic. Serum ammonia level was 165. Also blood glucose levels very high up to 500s. Transferred down here. I saw the patient in the ER. A bit lethargic. He still things he is in [place]. He was able to recognize me. No fever no chills. Some edema and swelling of the abdomen. No fever or chills. No cough. No shortness of breath. No fever. Denies any pain Review of systems: GEN.: Tired, lethargic EYES: None HEENT: None NECK: None RESPIRATORY: As above CARDIOVASCULAR: Edema GASTROINTESTINAL: Distended abdomen GENITOURINARY: None MUSCULOSKELETAL: None LYMPHATICS: None HEMATOLOGICAL: None PSYCHIATRY: A bit confused NEUROLOGICAL: [As above Past medical history to include: cirrhosis that has progressed from fatty liver. Diagnosed over 2 years ago. Follows with investor relations associate Dr. Cuellar. stable medical conditions include obesity, pancytopenia, coronary artery disease with stent, diabetes mellitus type 2, GERD, hyperlipidemia, essential hypertension, chronic insomnia. Repeated thoracentesis and paracentesis Social history: Ex-smoker. . 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 Physical examination: VITAL SIGNS: 98.2, 92, 16, 119/51, 97% on room air GENERAL: BMI 32.6, sitting up in bed tired EYES: Pupils equal. Conjunctiva normal. HEENT: External appearance of nose and ears normal, oral cavity grossly normal. NECK: JVD unable to assess; masses not palpable. HEART: First and second heart sounds are normal; edema present LUNGS: Respiratory rate increased, decreased breath sounds ABDOMEN: Soft, distended, , nontender, liver spleen not palpable, no masses palpable. PSYCH: A bit lethargic but able to answer questions. He thinks he is in [place]. Does recognize me as his doctor from the previous visit NEUROLOGICAL: Cranial nerves grossly intact; no facial asymmetry, power and sensation grossly intact. Asterixis present LYMPHATICS: No lymph nodes palpable in the axilla and neck INVESTIGATIONS, reviewed in the clinical context: Accu-Cheks 373 Ammonia level [facility] at [facility] Assessment: -Acute hepatic encephalopathy from underlying cirrhosis. 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 Increase dose and frequency of lactulose. Close eye. Fall precautions. Follow electrolytes. Follow Accu-Cheks. Prognosis guarded. Patient has been known to be noncompliant up to last admission. Past Medical History Past Medical History: Coronary Artery Disease (CAD), Diabetes Mellitus, GERD/Reflux, Hyperlipidemia, Hypertension, Liver Disease, Myocardial Infarction ([place]) Additional Past Medical History / Comment(s): Pt recently admitted to [facility] on 05/29/19 with large R pleural effusion 2ndary to cirrhoisis of the liver, hypoalbuminemia, fluid overload. Other Hx: IDDM type II, neuropathy bilateral hands, fingers and feet, R pleural effusions with multiple thoracentesis, liver cirrhosis, hepatic encephalopathy, ascities, elevated ammonia/K+ levels, pancytopenia, frequent bilateral ankle edema, "thin schmidt in my esophagus", chronic insomnia. high [place] level in past Last Myocardial Infarction Date:: 2012 History of Any Multi-Drug Resistant Organisms: None Reported Past Surgical History: Cholecystectomy, Heart Catheterization With Stent, Orthopedic Surgery Additional Past Surgical History / Comment(s): PCIs with stents, EGDs, colonoscopy, carpal tunnel release-laterallity unknown. Past Anesthesia/Blood Transfusion Reactions: No Reported Reaction Additional Past Anesthesia/Blood Transfusion Reaction / Comment(s): No blood transfusions. Date of Last Stent Placement:: 2012 Past Psychological History: Anxiety, Depression Additional Psychological History / Comment(s): Pt resides with his spouse. He has a cane. He has a glucometer. He no longer drives much, his spouse can take him to appts or family will. Smoking Status: Former smoker Past Alcohol Use History: None Reported Additional Past Alcohol Use History / Comment(s): Pt started smoking as a teen and quit in 2008. Past Drug Use History: None Reported - Past Family History Mother History Unknown: Yes Family Medical History: Cancer Additional Family Medical History / Comment(s): Lung cancer, since passed. Father Additional Family Medical History / Comment(s): ETOH abuse Medications and Allergies Home Medications Medication Instructions Recorded Confirmed Type Albuterol Sulfate [Proair Hfa] 2 puff INHALATION RT-Q4H PRN 12/07/18 06/25/19 History Aspirin EC [Ecotrin Low Dose] 81 mg PO DAILY 12/07/18 06/25/19 History Citalopram Hydrobromide [CeleXA] 40 mg PO DAILY 12/07/18 06/25/19 History Insulin Aspart [NovoLOG Flexpen] See Protocol SQ AC-TID 12/07/18 06/25/19 History Nitroglycerin Sl Tabs [Nitrostat] 0.4 mg SUBLINGUAL Q5M PRN 12/07/18 06/25/19 History Omeprazole [PriLOSEC] 40 mg PO DAILY 12/07/18 06/25/19 History Simvastatin [Zocor] 40 mg PO HS 12/07/18 06/25/19 History Lactulose 20 gm PO BID 12/20/18 06/25/19 History Rifaximin [Xifaxan] 550 mg PO BID 12/20/18 06/25/19 History HYDROcodone/APAP 10-325MG [[place] 1 tab PO BID PRN 02/06/19 06/25/19 History 10-325] metFORMIN HCL 1,000 mg PO BID 02/06/19 06/25/19 History Bumetanide [BUMEX] 1 mg PO BID #60 tablet 02/08/19 06/25/19 Rx Gabapentin [Neurontin] 400 mg PO BID 05/29/19 06/25/19 History Insulin Glargine,Hum.rec.anlog 30 - 45 unit SQ HS 05/29/19 06/25/19 History [Lantus Solostar] Spironolactone [Aldactone] 100 mg PO DAILY #30 tab 03/24/20 04/19/20 Rx Metoprolol Tartrate 12.5 mg PO TID #0 06/14/19 06/25/19 Rx Allergies Allergy/AdvReac Type Severity Reaction Status Date / Time cephalexin [From Keflex] AdvReac Rash/Hives Verified 06/25/19 14:15 Physical Exam Vitals: Vital Signs Temp Pulse Resp BP Pulse Ox 06/26/19 12:22 97.4 F L 70 16 104/67 99 06/25/19 23:00 97.5 F L 75 16 101/66 96 06/25/19 21:40 98.2 F 79 16 117/73 96 Intake and Output 06/26/19 06/26/19 06/26/19 06:59 14:59 22:59 Intake Total 590 800 Balance 590 800 Intake: Intake, IV Titration 800 Amount Sodium Chloride 0.9% 1, 800 000 ml @ 100 mls/hr IV . Q10H GALO Rx#:[id number] Oral 590 Other: # Voids 3 3 # Bowel Movements 3 3 Results Labs: Abnormal Lab Results - Last 24 Hours (Table) 06/25/19 06/25/19 06/26/19 Range/Units 18:20 20:01 07:15 POC Glucose (mg/dL) 373 H 335 H 255 H (75-99) mg/dL 06/26/19 06/26/19 Range/Units 12:02 17:14 POC Glucose (mg/dL) 311 H 252 H (75-99) mg/dL Thrombosis Risk Factor Assmnt - Choose All That Apply Each Factor Represents 1 point: Acute [place], Serious lung disease incl. pneumonia (< 1month), Swollen legs (current) Thrombosis Risk Factor Assessment Total Risk Factor Score: 3 Thrombosis Risk Factor Assessment Level: Moderate Risk
[2019-06-26 19:10] LABS: Anisocytosis Slight; Basophils % (A) 1 %; Eosinophils # (A) 0.3 k/uL (0-0.7); Eosinophils % (A) 7 %; HCT 34.3 % (39.0-53.0); HGB 10.2 gm/dL (13.0-17.5); Hypochromasia Marked; Lymphocytes # (A) 0.8 k/uL (1.0-4.8); Lymphocytes % (A) 16 %; MCH 29.6 pg (25.0-35.0); MCHC 29.7 g/dL (31.0-37.0); MCV 99.5 fL (80.0-100.0); Macrocytosis Slight; Mean Platelet Volume 8.7; Monocytes # (A) 0.3 k/uL (0-1.0); Monocytes % (A) 5 %; Neutrophils # (A) 3.2 k/uL (1.3-7.7); Neutrophils % (A) 68 %; RBC 3.45 m/uL (4.30-5.90); RDW 17.6 % (11.5-15.5); WBC 4.8 k/uL (3.8-10.6)
[2019-06-26 19:26] LABS: Calcium 8.4 mg/dL (8.4-10.2); Potassium 4.1 mmol/L (3.5-5.1); Total Bilirubin 3.5 mg/dL (0.2-1.3); Total Protein 7.9 g/dL (6.3-8.2)
[2019-06-26 19:37] LABS: Platelet Count 87 k/uL (150-450)
[2019-06-26 21:03] LABS: Glucose,Whole Blood 169 mg/dL (75-99)
[2019-06-26] MEDS: ATORVASTATIN 20 MG TAB PO SCH (21:06)
--- NOTE | 2019-06-26 21:23 | P.PN ---
Progress Note - Text Progress Note Date: 06/26/19 Chief Complaint: Increasing lethargy History of presenting complaint: This is a 49-year-old patient of Dr. Guzmán. Patient has a known history of cirrhosis that has progressed from fatty liver. Diagnosed over 2 years ago. Follows with link cutter Dr. Cuellar. stable medical conditions include obesity, pancytopenia, coronary artery disease with stent, diabetes mellitus type 2, GERD, hyperlipidemia, essential hypertension, chronic insomnia. Patient gets therapeutic paracentesis and uses every 2 weeks. Patient is also had thoracentesis before. Patient initially presented to [facility]. When he was found to be lethargic. Serum ammonia level was 165. Also blood glucose levels very high up to 500s. Transferred down here. I saw the patient in the ER. A bit lethargic. He still things he is in [place]. He was able to recognize me. No fever no chills. Some edema and swelling of the abdomen. No fever or chills. No cough. No shortness of breath. No fever. Denies any pain Admitted with-hepatic encephalopathy and some fluid overload. Today-having bowel movements. More awake. Did tolerate some diet. Sitting up in a chair. Feels better. Review of systems: Was done for constitutional, cardiovascular, GI, pulmonary. relevant finding as above Active Medications Hydrocodone Bitart/Acetaminophen ([place] 10) 1 each PO BID PRN PRN Reason: Pain Albuterol Sulfate (Ventolin Nebulized) 2.5 mg INHALATION RT-Q4H PRN PRN Reason: Shortness Of Breath Aspirin (Aspirin) 81 mg PO DAILY [facility] Last Admin: 06/26/19 07:59 Dose: 81 mg Documented by: Atorvastatin Calcium (Lipitor) 20 mg PO [facility] Last Admin: 06/25/19 21:06 Dose: 20 mg Documented by: Bumetanide (Bumex) 1 mg PO BID [facility] Last Admin: 06/26/19 07:59 Dose: 1 mg Documented by: Citalopram Hydrobromide (Celexa) 40 mg PO DAILY [facility] Last Admin: 06/26/19 07:58 Dose: 40 mg Documented by: Gabapentin (Neurontin) 400 mg PO BID [facility] Last Admin: 06/26/19 07:59 Dose: 400 mg Documented by: Insulin Aspart (Novolog) 0 unit SQ [facility]; Protocol Last Admin: 06/26/19 17:28 Dose: 6 unit Documented by: Lactulose (Cephulac) 30 gm PO QID [facility] Last Admin: 06/26/19 17:26 Dose: 30 gm Documented by: Metformin HCl (Glucophage) 1,000 mg PO BID [facility] Last Admin: 06/26/19 07:59 Dose: 1,000 mg Documented by: Metoprolol Tartrate (Lopressor) 12.5 mg PO TID [facility] Last Admin: 06/26/19 17:28 Dose: 12.5 mg Documented by: Naloxone HCl (Narcan) 0.2 mg IV Q2M PRN PRN Reason: Opioid Reversal Nitroglycerin (Nitrostat) 0.4 mg SUBLINGUAL Q5M PRN PRN Reason: Chest Pain Pantoprazole Sodium (Protonix) 40 mg PO DAILY@0730 [facility] Last Admin: 06/26/19 08:00 Dose: 40 mg Documented by: Rifaximin (Xifaxan) 550 mg PO BID [facility] Stop: 07/25/19 21:01 Last Admin: 06/26/19 08:00 Dose: 550 mg Documented by: Spironolactone (Aldactone) 100 mg PO DAILY [facility] Last Admin: 06/26/19 07:59 Dose: 100 mg Documented by: Physical examination: VITAL SIGNS: 97.4, 70, 16, 104/67 99% on room air GENERAL: Sitting up in a chair, more communicative today EYES: Pupils equal. Conjunctiva normal. HEENT: External appearance of nose and ears normal, oral cavity grossly normal. NECK: JVD unable to assess; masses not palpable. HEART: First and second heart sounds are normal; edema present LUNGS: Respiratory rate increased, decreased breath sounds ABDOMEN: Soft, distended, , nontender, liver spleen not palpable, no masses palpable. PSYCH: More oriented today. INVESTIGATIONS, reviewed in the clinical context: White count 4.8 hemoglobin 10.2 platelets 87 potassium 4.1 creatinine 1.14 Ammonia level 165 at [facility] Assessment: -Acute hepatic encephalopathy from underlying cirrhosis. 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 Diuretics. Fluid restriction. Discussed the patient. GI consulted.
[2019-06-27] MEDS: HYDROcodone/APAP 10-325MG 1 EACH TAB PO PRN ×2 (01:35→15:27)
[2019-06-27 02:26] LABS: Glucose,Whole Blood 212 mg/dL (75-99)
[2019-06-27 05:19] VITALS: PULSE 73
[2019-06-27 07:00] LABS: Glucose,Whole Blood 221 mg/dL (75-99)
[2019-06-27] MEDS: metFORMIN 500 MG TAB PO SCH (07:50)
[2019-06-27] MEDS: SPIRONOLACTONE 25 MG TAB PO SCH (07:50)
[2019-06-27] MEDS: RIFAXIMIN 550 MG TABLET PO SCH (07:50)
[2019-06-27] MEDS: METOPROLOL TARTRATE 12.5 MG TAB PO SCH ×2 (07:50→15:27)
[2019-06-27] MEDS: INSULIN ASPART (NovoLOG) 100 UNIT/ML VIAL SQ SCH ×2 (07:51→12:58)
[2019-06-27] MEDS: GABAPENTIN 400 MG CAP PO SCH (07:51)
[2019-06-27] MEDS: CITALOPRAM HYDROBROMIDE 20 MG TAB PO SCH (07:51)
[2019-06-27] MEDS: PANTOPRAZOLE 40 MG TABLET PO SCH (07:51)
[2019-06-27] MEDS: BUMETANIDE 1 MG TAB PO SCH (07:51)
[2019-06-27] MEDS: ASPIRIN 81 MG PO SCH (07:51)
[2019-06-27] MEDS: LACTULOSE 20 GM/30 ML CUP PO SCH ×2 (07:52→12:59)
[2019-06-27 11:07] LABS: Glucose,Whole Blood 288 mg/dL (75-99)
[2019-06-27 11:31] VITALS: BP 113/74; RESP 17; TEMP 97.5
[2019-06-27 14:34] LABS: Calcium 8.5 mg/dL (8.4-10.2); Magnesium 1.8 mg/dL (1.6-2.3); Potassium 4.8 mmol/L (3.5-5.1)
--- NOTE | 2019-06-27 19:42 | P.DS ---
Providers Date of admission: 06/25/19 14:41 Expected date of discharge: 06/27/19 Attending physician: Jamel Contreras Consults: 06/26/19 18:28 Consult Physician Routine Consulting Provider: Giovani Hallman Consult Reason/Comments: Hepatic encephalopathy Do you want consulting provider notified?: Yes Primary care physician: [facility] Course: Chief Complaint: Increasing lethargy History of presenting complaint: This is a 49-year-old patient of Dr. Guzmán. Patient has a known history of cirrhosis that has progressed from fatty liver. Diagnosed over 2 years ago. Follows with crossbow maker Dr. Cuellar. stable medical conditions include obesity, pancytopenia, coronary artery disease with stent, diabetes mellitus type 2, GERD, hyperlipidemia, essential hypertension, chronic insomnia. Patient gets therapeutic paracentesis and uses every 2 weeks. Patient is also had thoracentesis before. Patient initially presented to [facility]. When he was found to be lethargic. Serum ammonia level was 165. Also blood glucose levels very high up to 500s. Transferred down here. I saw the patient in the ER. A bit lethargic. He still things he is in [place]. He was able to recognize me. No fever no chills. Some edema and swelling of the abdomen. No fever or chills. No cough. No shortness of breath. No fever. Denies any pain Admitted with-hepatic encephalopathy and some fluid overload. Dose of lactulose increased. Today-doing much better. AO 3. Very eager to go home. Physical examination: VITAL SIGNS: 97.5, 73, 17, 130/74, 98% on room air GENERAL: Sitting up in bed, comfortable EYES: Pupils equal. Conjunctiva normal. HEENT: External appearance of nose and ears normal, oral cavity grossly normal. NECK: JVD unable to assess; masses not palpable. HEART: First and second heart sounds are normal; edema present LUNGS: Respiratory rate increased, decreased breath sounds ABDOMEN: Soft, distended, , nontender, liver spleen not palpable, no masses palpable. PSYCH: AAO 3 INVESTIGATIONS, reviewed in the clinical context: Impression 4.8 bun 36 creatinine 1.31 glucose 265 Previous testing White count 4.8 hemoglobin 10.2 platelets 87 potassium 4.1 creatinine 1.14 Ammonia level 165 at [facility] Assessment: -Acute hepatic encephalopathy from underlying cirrhosis. 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 Patient Condition at Discharge: Stable Plan - Discharge Summary New Discharge Prescriptions: Continue Insulin Aspart [NovoLOG Flexpen] See Protocol SQ AC-TID Simvastatin [Zocor] 40 mg PO HS Omeprazole [PriLOSEC] 40 mg PO DAILY Citalopram Hydrobromide [CeleXA] 40 mg PO DAILY Nitroglycerin Sl Tabs [Nitrostat] 0.4 mg SUBLINGUAL Q5M PRN PRN Reason: Chest Pain Aspirin EC [Ecotrin Low Dose] 81 mg PO DAILY Albuterol Sulfate [Proair Hfa] 2 puff INHALATION RT-Q4H PRN PRN Reason: Shortness Of Breath Rifaximin [Xifaxan] 550 mg PO BID metFORMIN HCL 1,000 mg PO BID HYDROcodone/APAP 10-325MG [[place] 10-325] 1 tab PO BID PRN PRN Reason: Pain Bumetanide [BUMEX] 1 mg PO BID #60 tablet Insulin Glargine,Hum.rec.anlog [Lantus Solostar] 30 - 45 unit SQ HS Gabapentin [Neurontin] 400 mg PO BID Spironolactone [Aldactone] 100 mg PO DAILY #30 tab Metoprolol Tartrate 12.5 mg PO TID #0 Changed Lactulose 30 gm PO BID #0 Discharge Medication List Albuterol Sulfate [Proair Hfa] 2 puff INHALATION RT-Q4H PRN 12/07/18 [History] Aspirin EC [Ecotrin Low Dose] 81 mg PO DAILY 12/07/18 [History] Citalopram Hydrobromide [CeleXA] 40 mg PO DAILY 12/07/18 [History] Insulin Aspart [NovoLOG Flexpen] See Protocol SQ AC-TID 12/07/18 [History] Nitroglycerin Sl Tabs [Nitrostat] 0.4 mg SUBLINGUAL Q5M PRN 12/07/18 [History] Omeprazole [PriLOSEC] 40 mg PO DAILY 12/07/18 [History] Simvastatin [Zocor] 40 mg PO HS 12/07/18 [History] Rifaximin [Xifaxan] 550 mg PO BID 12/20/18 [History] HYDROcodone/APAP 10-325MG [[place] 10-325] 1 tab PO BID PRN 02/06/19 [History] metFORMIN HCL 1,000 mg PO BID 02/06/19 [History] Bumetanide [BUMEX] 1 mg PO BID #60 tablet 02/08/19 [Rx] Gabapentin [Neurontin] 400 mg PO BID 05/29/19 [History] Insulin Glargine,Hum.rec.anlog [Lantus Solostar] 30 - 45 unit SQ HS 05/29/19 [History] Spironolactone [Aldactone] 100 mg PO DAILY #30 tab 05/30/19 [Rx] Metoprolol Tartrate 12.5 mg PO TID #0 06/14/19 [Rx] Lactulose 30 gm PO BID #0 06/27/19 [Rx] Follow up Appointment(s)/Referral(s): Star Guzmán MD [Primary Care Provider] - 06/29/19 9:00 am (The office will call you to see if you want to do visit over phone or in office.) Tiffanie Angulo MD [STAFF PHYSICIAN] - 2 Weeks (please call office to make appointment, unable to make appointment at this time, no answer from office) [facility], [NON-STAFF] - As Needed Patient Instructions/Handouts: Dehydration (DC), Diabetic Hyperglycemia (DC), Encephalopathy (DC) Activity/Diet/Wound Care/Special Instructions: DC if okay with GI. Discharge Disposition: HOME SELF-CARE
== END 2019-06-27 17:10 | disposition home health service (06) | DRG 432 ==
LOC: EC 14:02 → 5NMEDONC 14:41
PROVIDERS: ADMIT Hospitalist; ATTEND Hospitalist
DX: K74.60 Unspecified cirrhosis of liver (principal); K72.00 Acute and subacute hepatic failure without coma; N17.9 Acute kidney failure, unspecified; D61.818 Other pancytopenia; E78.5 Hyperlipidemia, unspecified; E86.0 Dehydration; E87.70 Fluid overload, unspecified; F32.9 Major depressive disorder, single episode, unspecified; F41.9 Anxiety disorder, unspecified; F51.04 Psychophysiologic insomnia; I10 Essential (primary) hypertension; E66.9 Obesity, unspecified; E11.65 Type 2 diabetes mellitus with hyperglycemia; K21.9 Gastro-esophageal reflux disease without esophagitis; I25.10 Atherosclerotic heart disease of native coronary artery without angina pectoris; I25.2 Old myocardial infarction; Z68.36 Body mass index [BMI] 36.0-36.9, adult; Z79.4 Long term (current) use of insulin; Z79.82 Long term (current) use of aspirin; Z79.899 Other long term (current) drug therapy; Z80.1 Family history of malignant neoplasm of trachea, bronchus and lung; Z87.891 Personal history of nicotine dependence; Z91.19 Patient's noncompliance with other medical treatment and regimen; Z95.5 Presence of coronary angioplasty implant and graft
CPT/HCPCS: 80048; 80053; 83735; 85025; 99284

== ENCOUNTER → 2019-07-17 | Outpatient (CLI) | payer OTHER | END | disposition home or self-care (01) | LOC: LABWHC1 08:23 | PROVIDERS: ATTEND Internal Medicine | DX: Z11.59 Encounter for screening for other viral diseases (principal) | CPT/HCPCS: 87635 ==

== ENCOUNTER 2019-07-19 07:52 | Day surgery (SDC) | payer OTHER ==
[2019-07-19 08:32] VITALS: RESP 18; TEMP 97.9
[2019-07-19 08:38] LABS: Mean Platelet Volume 8.8
[2019-07-19 08:45] LABS: Platelet Count 67 k/uL (150-450)
[2019-07-19 08:47] LABS: INR 1.2 (<1.2); Prothrombin Time 12.3 sec (9.0-12.0)
--- NOTE | 2019-07-19 09:59 | US ---
EXAMINATION TYPE: US thoracentesis DATE OF EXAM: 07/19/2019 COMPARISON: NONE HISTORY: Pleural effusion. FINDINGS: Maximal barrier technique was utilized. The skin overlying a suitable pocket of fluid was localized and the overlying skin prepped and draped. Lidocaine was used for local anesthesia. Ultras ound was used with sterile technique. A 5 Italian catheter over guide needle was advanced into the pl eural fluid collection using ultrasound guidance the catheter advanced, needle removed. Approximatel y 2.5 liter(s) of serous fluid was removed. Catheter was withdrawn and hemostasis achieved. There i s no immediate complication. The patient discharged in stable condition without complication. IMPRESSION: STATUS POST ULTRASOUND GUIDED THORACENTESIS, POST PROCEDURE CHEST X-RAY PENDING. THIS MT OCEDURE WAS PERFORMED BY THE UNDERSIGNED.
[2019-07-19 10:05] VITALS: BP 104/55; PULSE 83
--- NOTE | 2019-07-19 10:08 | XR ---
EXAMINATION TYPE: XR chest 2V DATE OF EXAM: 07/19/2019 COMPARISON: Prior chest x-ray 06/12/2019, 06/25/2019 HISTORY: Status post right thoracentesis TECHNIQUE: Frontal and lateral views of the chest are obtained. FINDINGS: There is some basilar density with obscured right hemidiaphragm. No evident pneumothorax. Blunting the right costophrenic angle is again noted. Coronary artery stent is present. IMPRESSION: Small right pleural effusion and associated atelectasis, no evident complication status post right thoracentesis.
== END 2019-07-19 10:20 | disposition home or self-care (01) ==
LOC: RADPROMAIN 07:52
PROVIDERS: ATTEND Internal Medicine
DX: J90 Pleural effusion, not elsewhere classified (principal)
CPT/HCPCS: 32555; 36415; 71046; 82947; 85049; 85610

== ENCOUNTER 2019-08-12 18:03 | Inpatient (IN) | payer OTHER ==
--- NOTE | 2019-08-12 18:18 | ED ---
Recheck HPI - General Chief Complaint: Recheck/Abnormal Lab/Rx Stated Complaint: Liver Disease Time Seen by Provider: 08/12/19 18:10 Source: patient, EMS, RN notes reviewed, old records reviewed Mode of arrival: EMS Limitations: altered mental status - History of Present Illness Initial Comments: This is a 49-year-old male presents DF for evaluation today. Patient complex and complicated medical history, patient is comes and is accepted in transfer for hepatic encephalopathy pneumonia greater than 180 only altered to himself. Only oriented to himself. Patient is arousable by name no other, unable to give history history obtained from EMS and patient's chart MD Complaint: abnormal lab (Multiple abnormal lab values including hyperammonemia) -: unknown Returns Today for: Called Because of Abnormal Lab/Test (Patient sent to our emergency room for evaluation and treatment) Symptoms Since Prior Visit: no new symptoms Context: called for abnormal lab result Associated Symptoms: none, abdominal pain (None), other (Altered mental status) Treatments Prior to Arrival: other - Related Data Home Medications Medication Instructions Recorded Confirmed Albuterol Sulfate [Proair Hfa] 2 puff INHALATION RT-Q4H PRN 12/07/18 08/11/19 Aspirin EC [Ecotrin Low Dose] 81 mg PO DAILY 12/07/18 08/11/19 Citalopram Hydrobromide [CeleXA] 40 mg PO DAILY 12/07/18 08/11/19 Insulin Aspart [NovoLOG Flexpen] See Protocol SQ AC-TID 12/07/18 08/11/19 Nitroglycerin Sl Tabs [Nitrostat] 0.4 mg SUBLINGUAL Q5M PRN 12/07/18 08/11/19 Omeprazole [PriLOSEC] 40 mg PO DAILY 12/07/18 08/11/19 Simvastatin [Zocor] 40 mg PO HS 12/07/18 08/11/19 Rifaximin [Xifaxan] 550 mg PO BID 12/20/18 08/11/19 HYDROcodone/APAP 10-325MG [[place] 1 tab PO BID PRN 02/06/19 08/11/19 10-325] metFORMIN HCL 1,000 mg PO BID 02/06/19 08/11/19 Gabapentin [Neurontin] 400 mg PO BID 05/29/19 08/11/19 Insulin Glargine,Hum.rec.anlog 70 unit SQ HS 05/29/19 08/11/19 [Lantus Solostar] Metoprolol Tartrate 12.5 mg PO BID 08/11/19 08/11/19 Previous Rx's Medication Instructions Recorded Bumetanide [BUMEX] 1 mg PO BID #60 tablet 02/08/19 Spironolactone [Aldactone] 100 mg PO DAILY #30 tab 05/30/19 Lactulose 30 gm PO BID #0 06/27/19 Allergies Allergy/AdvReac Type Severity Reaction Status Date / Time cephalexin [From Keflex] AdvReac Rash/Hives Verified 08/11/19 16:22 Review of Systems ROS Statement: Those systems with pertinent positive or pertinent negative responses have been documented in the HPI. ROS Other: All systems not noted in ROS Statement are negative. Past Medical History Past Medical History: Coronary Artery Disease (CAD), Diabetes Mellitus, GERD/Reflux, Hyperlipidemia, Hypertension, Liver Disease, Myocardial Infarction (MD) Additional Past Medical History / Comment(s): recurrant large R pleural effusion secondary to cirrhoisis of the liver, hypoalbuminemia, fluid overload. Other Hx: IDDM type II, neuropathy bilateral hands, fingers and feet, R pleural effusions with multiple thoracentesis, liver cirrhosis, hepatic encephalopathy, ascities, elevated ammonia/K+ levels, pancytopenia, frequent bilateral ankle edema, "thin schmidt in my esophagus", chronic insomnia. high [place] level in past, been in a coma in the past Last Myocardial Infarction Date:: 2012 History of Any Multi-Drug Resistant Organisms: None Reported Past Surgical History: Cholecystectomy, Heart Catheterization With Stent, Orthopedic Surgery Additional Past Surgical History / Comment(s): PCIs with stents, EGDs, colonoscopy, carpal tunnel release-laterallity unknown. Past Anesthesia/Blood Transfusion Reactions: No Reported Reaction Additional Past Anesthesia/Blood Transfusion Reaction / Comment(s): No blood transfusions. Date of Last Stent Placement:: 2012 Past Psychological History: Anxiety, Depression Smoking Status: Former smoker Past Alcohol Use History: None Reported Past Drug Use History: None Reported - Past Family History Mother History Unknown: Yes Family Medical History: Cancer Additional Family Medical History / Comment(s): Lung cancer, since passed. Father Additional Family Medical History / Comment(s): ETOH abuse General Exam Limitations: altered mental status General appearance: alert, in no apparent distress Head exam: Present: atraumatic, normocephalic, normal inspection Eye exam: Present: normal appearance, PERRL, EOMI. Absent: scleral icterus, conjunctival injection, periorbital swelling ENT exam: Present: normal exam, mucous membranes moist Neck exam: Present: normal inspection. Absent: tenderness, meningismus, lymphadenopathy Respiratory exam: Present: normal lung sounds bilaterally. Absent: respiratory distress, wheezes, rales, rhonchi, stridor Cardiovascular Exam: Present: regular rate, normal rhythm, normal heart sounds. Absent: systolic murmur, diastolic murmur, rubs, gallop, clicks GI/Abdominal exam: Present: soft, normal bowel sounds. Absent: distended, tenderness, guarding, rebound, rigid Extremities exam: Present: normal inspection, full ROM, normal capillary refill. Absent: tenderness, pedal edema, joint swelling, calf tenderness Back exam: Present: normal inspection Neurological exam: Present: alert, oriented X3, CN II-XII intact Psychiatric exam: Present: normal affect, normal mood Skin exam: Present: warm, dry, intact, normal color. Absent: rash Course Vital Signs 08/12/19 18:08 Temperature 72 F L Pulse Rate 72 Respiratory 14 Rate Blood Pressure 104/92 - Reevaluation(s) Reevaluation #1: 08/12/19 18:56 Medical record transferring paperwork are reviewed Patient did have CT abdomen and pelvis performed which is negative for acute disease Ammonia level greater than 180 with multiple other issue - Consultations Consultation #1: Spoke with who is agreeable for admission Medical Decision Making - Medical Decision Making 49 male DF for evaluation patient presents today for evaluation regards to multiple complaints but hepatic encephalopathy patient will be put on lactulose treatment for GI evaluation - EKG Data -: EKG Interpreted by Me (EKG is sinus rhythm of 72, RI 1, QRS 76, QTC 446) Disposition Clinical Impression: KRISTI (acute kidney injury), Hepatic encephalopathy, Hyperammonemia, Increased ammonia level, Encephalopathy, Pleural effusion Disposition: ADMITTED IP TO THIS [facility] Condition: Fair Is patient prescribed a controlled substance at d/c from ED?: No Referrals: Star Guzmán MD [Primary Care Provider] - 1-2 days
[2019-08-12] MEDS ORDERED: LACTULOSE 20 GM/30 ML CUP PO ONE (18:34)
[2019-08-12] MEDS ORDERED: SODIUM CHLORIDE 0.9% 1,000 ML IV ONE (19:29)
[2019-08-12 22:32] LABS: Glucose,Whole Blood 386 mg/dL (75-99)
[2019-08-12] MEDS ORDERED: NITROGLYCERIN SL TABS 0.4 MG TAB SUBLINGUAL PRN (23:26)
[2019-08-12] MEDS ORDERED: ALBUTEROL NEBULIZED 2.5 MG/3 ML INHALATION PRN (23:26)
[2019-08-12] MEDS ORDERED: INSULIN ASPART (NovoLOG) 100 UNIT/ML VIAL SQ ONE (23:29)
[2019-08-12] MEDS ORDERED: ACETAMINOPHEN TAB 325 MG TAB PO PRN (23:32)
[2019-08-13] MEDS: LACTULOSE 20 GM/30 ML CUP PO SCH ×3 (00:01→20:18)
[2019-08-13] MEDS: INSULIN DETEMIR (LEVEMIR) 100 UNIT/ML SYR SQ SCH ×2 (00:02→20:17)
[2019-08-13] MEDS: INSULIN ASPART (NovoLOG) 100 UNIT/ML VIAL SQ SCH ×5 (00:03→20:18)
[2019-08-13] MEDS: SODIUM CHLORIDE 0.9% 1,000 ML IV SCH ×3 (00:04→18:58)
[2019-08-13 02:11] LABS: Glucose,Whole Blood 379 mg/dL (75-99)
[2019-08-13 06:34] LABS: Anisocytosis Slight; HCT 33.3 % (39.0-53.0); HGB 10.2 gm/dL (13.0-17.5); Hypochromasia Marked; MCH 32.9 pg (25.0-35.0); MCHC 30.7 g/dL (31.0-37.0); Macrocytosis Marked; Mean Platelet Volume 9.8; Platelet Count 46 k/uL (150-450); RDW 16.1 % (11.5-15.5); WBC 2.7 k/uL (3.8-10.6)
[2019-08-13 06:43] LABS: MCV 107.5 fL (80.0-100.0)
[2019-08-13 06:51] LABS: Calcium 8.8 mg/dL (8.4-10.2); Potassium 4.8 mmol/L (3.5-5.1)
[2019-08-13 07:10] LABS: Glucose,Whole Blood 255 mg/dL (75-99)
[2019-08-13 07:10] LABS: Eosinophils # (M) 0.05 k/uL (0-0.7); Lymphocytes # (M) 0.54 k/uL (1.0-4.8); Monocytes # (M) 0.14 k/uL (0-1.0); Neutrophils # (M) 1.97 k/uL (1.3-7.7); Neutrophils % (M) 73 %; Nucleated Red Blood Cells 0 /100 WBC (0-0); Total Cells Counted 100
[2019-08-13] MEDS: METOPROLOL TARTRATE 25 MG TAB PO SCH ×2 (08:41→20:18)
[2019-08-13] MEDS: CITALOPRAM HYDROBROMIDE 20 MG TAB PO SCH (08:41)
[2019-08-13] MEDS: BUMETANIDE 1 MG TAB PO SCH ×2 (08:41→20:19)
[2019-08-13] MEDS: RIFAXIMIN 550 MG TABLET PO SCH ×2 (08:41→20:19)
[2019-08-13] MEDS: ASPIRIN 81 MG PO SCH (08:41)
[2019-08-13] MEDS: SPIRONOLACTONE 25 MG TAB PO SCH (08:41)
[2019-08-13] MEDS: metFORMIN 500 MG TAB PO SCH ×2 (08:42→20:19)
[2019-08-13] MEDS: GABAPENTIN 400 MG CAP PO SCH ×2 (08:43→20:19)
[2019-08-13] MEDS: PANTOPRAZOLE 40 MG TABLET PO SCH (08:44)
[2019-08-13 11:48] LABS: Glucose,Whole Blood 319 mg/dL (75-99)
--- NOTE | 2019-08-13 14:34 | P.NPCON ---
History of Present Illness - Reason for Consult Consult date: 08/13/19 acute renal failure - Chief Complaint Hepatic encephalopathy - History of Present Illness This is a 49-year-old male known with cirrhosis and admitted with worsening confusion and hepatic encephalopathy with elevated ammonia level. Is being seen in consultation because of acute kidney injury. His also notes chronic kidney disease This significantly improved and he is awake and alert and oriented 3 at this time. He denies taking any new medications or changes in medications. No fever chi lls. No nausea vomiting diarrhea. Abdominal pain. His cirrhosis supposedly from an SMITH diagnosed about 2 years ago and has had multiple taps of his off his abdomen. He says his last Pap was about a month ago. He has been at [facility] at the time Patient is known with diabetes hyperlipidemia and hypertension coronary artery disease with history of shunted the past Additionally he had a Lortab done on 06/12/2019 cytology is negative for any malignancy Past Medical History Past Medical History: Coronary Artery Disease (CAD), Diabetes Mellitus, GERD/Reflux, Hyperlipidemia, Hypertension, Liver Disease, Myocardial Infarction ([place]) Additional Past Medical History / Comment(s): Recurrant large R pleural effusion secondary to cirrhoisis of the liver, hypoalbuminemia, fluid overload. 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 Coma in past. Last Myocardial Infarction Date:: 2012 History of Any Multi-Drug Resistant Organisms: None Reported Past Surgical History: Cholecystectomy, Heart Catheterization With Stent, Orthopedic Surgery Additional Past Surgical History / Comment(s): PCIs with stents, EGDs, colonoscopy, carpal tunnel release-laterallity unknown. Past Anesthesia/Blood Transfusion Reactions: No Reported Reaction Additional Past Anesthesia/Blood Transfusion Reaction / Comment(s): No blood transfusions. Date of Last Stent Placement:: 2012 Past Psychological History: Anxiety, Depression Additional Psychological History / Comment(s): Pt resides with his spouse. He has a cane. He has a glucometer. He no longer drive, his spouse can take him to appts or family will. Smoking Status: Former smoker Past Alcohol Use History: None Reported Additional Past Alcohol Use History / Comment(s): Pt started smoking as a teen and quit in 2008.Patient states used to drink very little. Past Drug Use History: None Reported - Past Family History Mother History Unknown: Yes Family Medical History: Cancer Additional Family Medical History / Comment(s): Lung cancer. Father Additional Family Medical History / Comment(s): ETOH abuse Medications and Allergies Home Medications Medication Instructions Recorded Confirmed Type Albuterol Sulfate [Proair Hfa] 2 puff INHALATION RT-Q4H PRN 12/07/18 08/12/19 History Aspirin EC [Ecotrin Low Dose] 81 mg PO DAILY 12/07/18 08/12/19 History Citalopram Hydrobromide [CeleXA] 40 mg PO DAILY 12/07/18 08/12/19 History Insulin Aspart [NovoLOG Flexpen] 50 - 80 units SQ BID 12/07/18 08/12/19 History Nitroglycerin Sl Tabs [Nitrostat] 0.4 mg SUBLINGUAL Q5M PRN 12/07/18 08/12/19 History Omeprazole [PriLOSEC] 40 mg PO DAILY 12/07/18 08/12/19 History Simvastatin [Zocor] 40 mg PO HS 12/07/18 08/12/19 History Rifaximin [Xifaxan] 550 mg PO BID 12/20/18 08/12/19 History metFORMIN HCL 1,000 mg PO BID 02/06/19 08/12/19 History Bumetanide [BUMEX] 1 mg PO BID #60 tablet 02/08/19 08/12/19 Rx Gabapentin [Neurontin] 400 mg PO BID 05/29/19 08/12/19 History Insulin Glargine,Hum.rec.anlog 30 - 45 unit SQ Q8H 05/29/19 08/12/19 History [Lantus Solostar] Spironolactone [Aldactone] 100 mg PO DAILY #30 tab 05/30/19 08/12/19 Rx Metoprolol Tartrate 25 mg PO BID 08/11/19 08/12/19 History Lactulose 20 gm PO TID PRN 08/12/19 08/12/19 History Allergies Allergy/AdvReac Type Severity Reaction Status Date / Time cephalexin [From Keflex] AdvReac Rash/Hives Verified 08/12/19 21:24 Physical Exam Vitals: Vital Signs Temp Pulse Pulse Resp BP BP Pulse Ox 08/13/19 11:31 97.4 F L 69 16 114/73 97 08/13/19 07:14 76 08/13/19 07:04 76 08/13/19 05:38 97.5 F L 71 126/85 98 08/12/19 22:00 97.5 F L 71 16 127/74 98 08/12/19 20:00 97.5 F L 74 18 112/71 96 08/12/19 18:08 72 F L 72 14 104/92 Intake and Output 08/12/19 08/13/19 08/13/19 22:59 06:59 14:59 Intake Total 1000 1390 800 Output Total 2 1 Balance 998 1390 799 Intake: Intake, IV Titration 200 800 800 Amount Sodium Chloride 0.9% 1, 200 800 800 000 ml @ 100 mls/hr IV . Q10H [facility] Rx#:[id number] Oral 800 590 Output: Stool 1 Urine/Stool Mix 2 Other: Voiding Method Diaper Diaper Incontinent Incontinent # Voids 2 2 # Bowel Movements 2 Weight 99.79 kg On examination is awake alert oriented 3 no asterixis HEENT exam no JVP neck is supple no facial asymmetry Lungs are clear to auscultation good air entry bilaterally Heart sounds unremarkable for any murmur rub gallop Abdomen is slightly distended mild ascites at the most no organomegaly excision exam was minimal to trace edema Neurologically awake alert oriented no asterixis Results - Lab Results Most recent lab results Calcium 8.8 mg/dL (8.4-10.2) 08/13/19 06:16 08/13/19 06:16 08/13/19 06:16 Assessment and Plan Assessment: Impression 1. Acute kidney injury secondary to intravascular volume depletion from cirrhosis. Creatinine is 1.55 with a GFR of 51 mL per minute. 2. Mild degree of non-gap acidosis bicarb is 21 and gap is 5 secondary to acute kidney injury, and if he has large amount of loose stools from any lactose water had that could also explain it but his medication list does not include with 3. Hepatic encephalopathy with cirrhosis from fatty liver. 4. Chronic kidney disease stage I, creatinine in the past has been in the 1.07 on 06/12/2019, GFR is 81 mL per minute Recommendation 1. Continue the metformin but watch his creatinine closely 2. Watch the bicarb may need oral bicarbonate at the moment will avoid it as his bicarb is 21. 3. His IV fluid has been discontinued and currently is on spironolactone 100 mg daily and an Bumex 1 twice a day. This may have to be readjusted but we will watch it for right Thank you for this will continue to follow
[2019-08-13 16:36] VITALS: BMI 32.5
[2019-08-13 17:14] LABS: Glucose,Whole Blood 306 mg/dL (75-99)
[2019-08-13 20:03] LABS: Glucose,Whole Blood 375 mg/dL (75-99)
[2019-08-13] MEDS: ATORVASTATIN 20 MG TAB PO SCH (20:19)
--- NOTE | 2019-08-13 21:17 | P.HPIM ---
History of Present Illness H&P Date: 08/13/19 Chief Complaint: Lethargic History of presenting complaint: This is a 49-year-old patient of Dr. Guzmán. Patient has a known history of cirrhosis that has progressed from fatty liver. Diagnosed over 2 years ago. 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 Cuellar. stable medical conditions include obesity, pancytopenia, coronary artery disease with stent, diabetes mellitus type 2, GERD, hyperlipidemia, essential hypertension, chronic insomnia. Patient gets therapeutic paracentesis and uses every 2 weeks. Patient is also had thoracentesis before. Patient was sent in for elevated abnormal blood work and also increasing rheumatology. Found to hepatic encephalopathy. Admitted for the same. Patient denies any chest pain or shortness of breath. Feeling a bit better this morning when I saw him. Answer simple questions. Had a bowel movement. No fever no chills. Patient does state is being taking his lactulose possibly only once a day. Review of systems: GEN.: Tired, lethargic EYES: None HEENT: None NECK: None RESPIRATORY: As above CARDIOVASCULAR: Edema GASTROINTESTINAL: Having BMs GENITOURINARY: None MUSCULOSKELETAL: None LYMPHATICS: None HEMATOLOGICAL: None PSYCHIATRY: A bit confused NEUROLOGICAL: [As above Past medical history to include: cirrhosis that has progressed from fatty liver. Diagnosed over 2 years ago. 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 Cuellar. stable medical conditions include obesity, pancytopenia, coronary artery disease with stent, diabetes mellitus type 2, GERD, hyperlipidemia, essential hypertension, chronic insomnia. Repeated thoracentesis and paracentesis Social history: Ex-smoker. . 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 Physical examination: VITAL SIGNS: 97.4, 69, 16, 140and 3, 97% room air GENERAL: BMI 30 2. 5, sitting at the edge of bed, a bit tired EYES: Pupils equal. Conjunctiva normal. HEENT: External appearance of nose and ears normal, oral cavity grossly normal. NECK: JVD unable to assess; masses not palpable. HEART: First and second heart sounds are normal; edema present LUNGS: Respiratory rate increased, decreased breath sounds ABDOMEN: Soft, some distention, nontender, liver spleen not palpable, no masses palpable. PSYCH: Able to answer simple questions. NEUROLOGICAL: Cranial nerves grossly intact; no facial asymmetry, power and sensation grossly intact. LYMPHATICS: No lymph nodes palpable in the axilla and neck INVESTIGATIONS, reviewed in the clinical context: White count 2.7 hemoglobin 10.2 platelets 46 potassium 4.8 bun 48 creatinine 1.55 bicarb 21 Previous testing: Patient is bun 36 creatinine 1.31 on June 26 Assessment: -Acute hepatic encephalopathy from underlying cirrhosis., POA -Acute metabolic acidosis due to acute renal failure -Hepatic cirrhosis that is progressed from fatty liver -Obesity BMI 36.9 -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 -Coronary artery disease with stent -Diabetes mellitus type 2, uncontrolled with hyperglycaemia, nonketotic -GERD -Hyperlipidemia -Essential hypertension -Chronic insomnia -Hypoalbuminemia due to cirrhosis -Fluid overload due to cirrhosis Chronic kidney disease stage II 1 -Acute kidney injury ATN likely due to volume depletion from cirrhosis Plan: -Patient is put back on lactulose. Good response. Patient started to improve this morning. Nephrology and GI were consulted. Home medications resumed. Patient will need at least 2 nights in the hospital. Patient initially was given IV fluid therapy come back. Past Medical History Past Medical History: Coronary Artery Disease (CAD), Diabetes Mellitus, GERD/Reflux, Hyperlipidemia, Hypertension, Liver Disease, Myocardial Infarction ([place]) Additional Past Medical History / Comment(s): Recurrant large R pleural effusion secondary to cirrhoisis of the liver, hypoalbuminemia, fluid overload. 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 Coma in past. Last Myocardial Infarction Date:: 2012 History of Any Multi-Drug Resistant Organisms: None Reported Past Surgical History: Cholecystectomy, Heart Catheterization With Stent, Orthopedic Surgery Additional Past Surgical History / Comment(s): PCIs with stents, EGDs, colonoscopy, carpal tunnel release-laterallity unknown. Past Anesthesia/Blood Transfusion Reactions: No Reported Reaction Additional Past Anesthesia/Blood Transfusion Reaction / Comment(s): No blood transfusions. Date of Last Stent Placement:: 2012 Past Psychological History: Anxiety, Depression Additional Psychological History / Comment(s): Pt resides with his spouse. He has a cane. He has a glucometer. He no longer drive, his spouse can take him to appts or family will. Smoking Status: Former smoker Past Alcohol Use History: None Reported Additional Past Alcohol Use History / Comment(s): Pt started smoking as a teen and quit in 2008.Patient states used to drink very little. Past Drug Use History: None Reported - Past Family History Mother History Unknown: Yes Family Medical History: Cancer Additional Family Medical History / Comment(s): Lung cancer. Father Additional Family Medical History / Comment(s): ETOH abuse Medications and Allergies Home Medications Medication Instructions Recorded Confirmed Type Albuterol Sulfate [Proair Hfa] 2 puff INHALATION RT-Q4H PRN 12/07/18 08/12/19 History Aspirin EC [Ecotrin Low Dose] 81 mg PO DAILY 12/07/18 08/12/19 History Citalopram Hydrobromide [CeleXA] 40 mg PO DAILY 12/07/18 08/12/19 History Insulin Aspart [NovoLOG Flexpen] 50 - 80 units SQ BID 12/07/18 08/12/19 History Nitroglycerin Sl Tabs [Nitrostat] 0.4 mg SUBLINGUAL Q5M PRN 12/07/18 08/12/19 History Omeprazole [PriLOSEC] 40 mg PO DAILY 12/07/18 08/12/19 History Simvastatin [Zocor] 40 mg PO HS 12/07/18 08/12/19 History Rifaximin [Xifaxan] 550 mg PO BID 12/20/18 08/12/19 History metFORMIN HCL 1,000 mg PO BID 02/06/19 08/12/19 History Bumetanide [BUMEX] 1 mg PO BID #60 tablet 02/08/19 08/12/19 Rx Gabapentin [Neurontin] 400 mg PO BID 05/29/19 08/12/19 History Insulin Glargine,Hum.rec.anlog 30 - 45 unit SQ Q8H 05/29/19 08/12/19 History [Lantus Solostar] Spironolactone [Aldactone] 100 mg PO DAILY #30 tab 05/30/19 08/12/19 Rx Metoprolol Tartrate 25 mg PO BID 08/11/19 08/12/19 History Lactulose 20 gm PO TID PRN 08/12/19 08/12/19 History Allergies Allergy/AdvReac Type Severity Reaction Status Date / Time cephalexin [From Keflex] AdvReac Rash/Hives Verified 08/12/19 21:24 Physical Exam Vitals: Vital Signs Temp Pulse Pulse Resp BP BP Pulse Ox 08/13/19 07:14 76 08/13/19 07:04 76 08/13/19 05:38 97.5 F L 71 126/85 98 08/12/19 22:00 97.5 F L 71 16 127/74 98 08/12/19 20:00 97.5 F L 74 18 112/71 96 08/12/19 18:08 72 F L 72 14 104/92 Intake and Output 08/12/19 08/13/19 08/13/19 22:59 06:59 14:59 Intake Total 1000 1390 Output Total 2 Balance 998 1390 Intake: Intake, IV Titration 200 800 Amount Sodium Chloride 0.9% 1, 200 800 000 ml @ 100 mls/hr IV . Q10H [facility] Rx#:[id number] Oral 800 590 Output: Urine/Stool Mix 2 Other: Voiding Method Diaper Diaper Incontinent Incontinent # Voids 2 # Bowel Movements 2 Weight 99.79 kg Results CBC & Chem 7: 08/13/19 06:16 08/13/19 06:16 Labs: Abnormal Lab Results - Last 24 Hours (Table) 08/12/19 08/13/19 08/13/19 Range/Units 22:29 02:03 06:16 WBC 2.7 L (3.8-10.6) k/uL RBC 3.10 L (4.30-5.90) m/uL Hgb 10.2 L (13.0-17.5) gm/dL Hct 33.3 L (39.0-53.0) % MCV 107.5 H D (80.0-100.0) fL MCHC 30.7 L (31.0-37.0) g/dL RDW 16.1 H (11.5-15.5) % Plt Count 46 L (150-450) k/uL Lymphocytes # (Manual) 0.54 L (1.0-4.8) k/uL Macrocytosis Marked A Chloride (98-107) mmol/L Carbon Dioxide (22-30) mmol/L BUN (9-20) mg/dL Creatinine (0.66-1.25) mg/dL Glucose (74-99) mg/dL POC Glucose (mg/dL) 386 H 379 H (75-99) mg/dL Ammonia (<30) umol/L 08/13/19 08/13/19 08/13/19 Range/Units 06:16 06:16 07:08 WBC (3.8-10.6) k/uL RBC (4.30-5.90) m/uL Hgb (13.0-17.5) gm/dL Hct (39.0-53.0) % MCV (80.0-100.0) fL MCHC (31.0-37.0) g/dL RDW (11.5-15.5) % Plt Count (150-450) k/uL Lymphocytes # (Manual) (1.0-4.8) k/uL Macrocytosis Chloride 115 H (98-107) mmol/L Carbon Dioxide 21 L (22-30) mmol/L BUN 48 H (9-20) mg/dL Creatinine 1.55 H (0.66-1.25) mg/dL Glucose 269 H (74-99) mg/dL POC Glucose (mg/dL) 255 H (75-99) mg/dL Ammonia 75 H (<30) umol/L Thrombosis Risk Factor Assmnt - Choose All That Apply Each Factor Represents 1 point: Age 41-60 years, Obesity (BMI >25), Swollen legs (current) Other Risk Factors: No Other congenital or acquired thrombophilia - If yes, enter type in comment: No Thrombosis Risk Factor Assessment Total Risk Factor Score: 3 Thrombosis Risk Factor Assessment Level: Moderate Risk
--- NOTE | 2019-08-14 02:17 | CONS ---
CONSULTATION DATE OF DICTATION: 08/13/2019 REASON FOR CONSULTATION: Hepatic encephalopathy. HISTORY OF PRESENT ILLNESS: The patient is a 49-year-old pleasant white male with history of cirrhosis of the liver with a recurring hepatic encephalopathy requiring multiple hospitalizations. The last one about 3 weeks ago in [place]. According to him, he was very confused and his took him to the emergency room at [facility] and he was transferred because of elevated ammonia level of 180. This morning, he is doing well. He is awake and alert. He does not recall most of the events that happened yesterday. The patient has been maintained on oral Xifaxan at home 550 mg twice daily as well as lactulose and he thinks he he may have missed a couple of doses of lactulose. Since being in the hospital, he has been on lactulose 20 grams 3 times daily and he had about two bowel movements this morning. He reports no abdominal pain. No nausea, no vomiting. PAST MEDICAL HISTORY: Significant for cirrhosis of the liver diagnosed 2 years ago, recurrent hepatic encephalopathy, hypertension, hyperlipidemia, diabetes mellitus, gastroesophageal reflux disease. MEDICATIONS: Medications at home include metformin, Zocor, Xifaxan, Prilosec, ProAir, Nitrostat, NovoLog, Neurontin, metoprolol, insulin, lactulose, Aldactone, Celexa, Bumex and aspirin. SOCIAL HISTORY: No smoking. No alcohol use. FAMILY HISTORY: Unremarkable. REVIEW OF SYSTEMS: CARDIOPULMONARY: No chest pain or shortness of breath. GENITOURINARY: No dysuria or hematuria. MUSCULOSKELETAL: Unremarkable. SKIN: Unremarkable. ENDOCRINE: Unremarkable. PSYCHIATRIC: Unremarkable. NEUROLOGY: Unremarkable. ENT: Unremarkable. CONSTITUTIONAL: Progressive weakness, generalized weakness, but no fever, chills, or night sweats. No recent weight loss. PHYSICAL EXAMINATION: On physical examination, he appears comfortable. No apparent distress. Vital signs are stable. Blood pressure is 114/73, pulse rate 69, temperature 97.4. HEENT EXAMINATION: Unremarkable. Conjunctivae pink. Sclerae anicteric. Oral cavity no lesions. NECK: No JVD or lymph node enlargement. Chest: Clear to auscultation. HEART: Regular rate and rhythm. ABDOMEN: Soft, it was slightly distended, but there was no free fluid noted. EXTREMITIES: No pedal edema. SKIN: No rashes. NEURO: He is alert and oriented x3. No focal deficits. LABS: WBC 2.7, hemoglobin 10.2, platelets are 46,000. Basic metabolic panel showed a BUN of 48, creatinine 1.55, sodium 141, potassium 4.8, chloride 115, CO2 of 21. Ammonia level today 75. Blood sugar 256. IMPRESSION: 1. Recurrent hepatic encephalopathy requiring multiple hospitalizations over the last one year. He is presently on Xifaxan 550 mg twice daily and oral lactulose and his ammonia level decreased from 180 to 75 today and clinically he has significantly improved. 2. Nonalcoholic cirrhosis of the liver with portal hypertension and ascites. 3. Pancytopenia secondary to underlying chronic liver disease. 4. Macrocytic anemia. RECOMMENDATION: 1. Continue oral lactulose and Xifaxan. 2. Advance diet as tolerated. 3. Repeat LFTs in the morning. 4. Low-salt diet. 5. Continue current dose of diuretics. 6. We will follow with you closely. Thank you for this consultation. MMPRANEETHL / LEXISN: [id number] /
[2019-08-14] MEDS: SODIUM CHLORIDE 0.9% 1,000 ML IV SCH (03:55)
[2019-08-14 06:51] LABS: Potassium 4.6 mmol/L (3.5-5.1)
[2019-08-14 06:52] LABS: Calcium 8.2 mg/dL (8.4-10.2)
[2019-08-14 07:21] LABS: Glucose,Whole Blood 165 mg/dL (75-99)
[2019-08-14] MEDS: INSULIN ASPART (NovoLOG) 100 UNIT/ML VIAL SQ SCH ×4 (08:03→20:33)
[2019-08-14] MEDS: PANTOPRAZOLE 40 MG TABLET PO SCH ×2 (08:06→08:19)
[2019-08-14] MEDS: CITALOPRAM HYDROBROMIDE 20 MG TAB PO SCH ×2 (08:06→08:19)
[2019-08-14] MEDS: GABAPENTIN 400 MG CAP PO SCH ×2 (08:06→20:33)
[2019-08-14] MEDS: metFORMIN 500 MG TAB PO SCH ×2 (08:06→20:32)
[2019-08-14] MEDS: ASPIRIN 81 MG PO SCH ×3 (08:07→08:22)
[2019-08-14] MEDS: METOPROLOL TARTRATE 25 MG TAB PO SCH ×2 (08:08→20:32)
[2019-08-14] MEDS: SPIRONOLACTONE 25 MG TAB PO SCH (08:18)
[2019-08-14] MEDS: BUMETANIDE 1 MG TAB PO SCH ×2 (08:20→20:32)
[2019-08-14] MEDS: RIFAXIMIN 550 MG TABLET PO SCH ×2 (08:20→20:32)
[2019-08-14] MEDS: LACTULOSE 20 GM/30 ML CUP PO SCH ×2 (08:20→20:33)
--- NOTE | 2019-08-14 08:46 | P.PN ---
Subjective Principal diagnosis: Patient is seen in follow-up for acute kidney injury. Renal function is better today. Oral intake is fair. Having loose bowel movements from the lactulose. No vomiting. No chest pain or shortness of breath. Denies paracentesis but states he has gotten thoracentesis done previously. States she scheduled for one tomorrow. Vital signs are stable. General: The patient appeared well nourished and normally developed. HEENT: Head exam is unremarkable. Neck is without jugular venous distension. LUNGS: Lungs are clear to auscultation and percussion. Breath sounds decreased. HEART: Rate and Rhythm are regular. ABDOMEN: Soft, nontender. EXTREMITITES: No clubbing, cyanosis, or edema. Objective - Vital Signs Vital signs: Vital Signs Temp 97.8 F 08/14/19 05:00 Pulse 76 08/14/19 05:00 Resp 18 08/14/19 05:00 BP 118/69 08/14/19 05:00 Pulse Ox 97 08/14/19 05:00 Intake & Output 08/13/19 08/14/19 08/14/19 18:59 06:59 18:59 Intake Total 800 2270 Output Total 1 Balance 799 2270 Weight 99.79 kg Intake: Intake, IV Titration 800 1200 Amount Sodium Chloride 0.9% 1, 800 1200 000 ml @ 100 mls/hr IV . Q10H [facility] Rx#:[id number] Oral 1070 Output: Stool 1 Other: Voiding Method Diaper Diaper Incontinent Incontinent # Voids 2 2 - Labs CBC & Chem 7: 08/13/19 06:16 08/14/19 06:13 Labs: Abnormal Lab Results - Last 24 Hours (Table) 08/13/19 08/13/19 08/13/19 Range/Units 11:36 17:12 20:02 Chloride (98-107) mmol/L Carbon Dioxide (22-30) mmol/L BUN (9-20) mg/dL Creatinine (0.66-1.25) mg/dL Glucose (74-99) mg/dL POC Glucose (mg/dL) 319 H 306 H 375 H (75-99) mg/dL Calcium (8.4-10.2) mg/dL Ammonia (<30) umol/L 06/08/20 06/08/20 06/08/20 Range/Units 06:13 06:13 07:17 Chloride 117 H (98-107) mmol/L Carbon Dioxide 17 L (22-30) mmol/L BUN 43 H (9-20) mg/dL Creatinine 1.38 H (0.66-1.25) mg/dL Glucose 178 H (74-99) mg/dL POC Glucose (mg/dL) 165 H (75-99) mg/dL Calcium 8.2 L (8.4-10.2) mg/dL Ammonia 47 H (<30) umol/L Assessment and Plan Plan: Assessment: 1. Acute kidney injury mostly prerenal improved slightly with IV fluids. However he is also on diuretics. Hepatorenal cannot be completely ruled out. Creatinine 1.38 today. 2. Liver cirrhosis. 3. Chronic kidney disease stage II with baseline creatinine in the range of 1.1-1.2. 4. Metabolic acidosis secondary to acute kidney injury, IV fluids. Also likely component of compensation for underlying respiratory alkalosis from cirrhosis. 5. Hepatic encephalopathy. Improved. 6. Insulin-dependent diabetes mellitus. Plan: Hep-Lock IV fluids. Check chest x-ray to assess pleural effusion. Patient states he is scheduled for a thoracentesis tomorrow. Maintain Bumex and Aldactone. Avoid metformin if GFR less than 30. Add oral sodium bicarbonate. Check urinalysis. Repeat electrolytes in the morning.
[2019-08-14 11:05] LABS: Glucose,Whole Blood 201 mg/dL (75-99)
[2019-08-14 11:22] LABS: Appearance,Urine Clear (Clear); Bacteria,Urine Rare /hpf; Bilirubin,Urine Negative (Negative); Blood,Urine Negative (Negative); Color,Urine Yellow; Glucose,Urine (UA) Negative (Negative); Hyaline Casts,Urine 11 /lpf (0-2); Ketones,Urine Negative (Negative); Leukocyte Esterase,Urine Trace (Negative); Mucus,Urine Rare /hpf; Nitrite,Urine Negative (Negative); Protein,Urine Negative (Negative); Specific Gravity,Urine 1.008 (1.001-1.035); Urobilinogen,Urine <2.0 mg/dL (<2.0); WBC,Urine 4 /hpf (0-5)
--- NOTE | 2019-08-14 13:13 | XR ---
EXAMINATION TYPE: XR chest 2V DATE OF EXAM: 08/14/2019 COMPARISON: 07/19/2019 TECHNIQUE: PA and lateral views submitted. HISTORY: Shortness of breath FINDINGS: There is right-sided consolidation and pleural effusion. No sizable pneumothorax. Heart size normal. No overt failure. Degenerative change of the spine. IMPRESSION: 1. Right lower lobe infiltrate and small effusion.
[2019-08-14] MEDS: SODIUM BICARBONATE TAB 650 MG TAB PO SCH ×2 (13:21→20:33)
[2019-08-14 14:03] LABS: Anisocytosis Slight; Basophils % (A) 0 %; Eosinophils # (A) 0.3 k/uL (0-0.7); Eosinophils % (A) 6 %; HCT 37.6 % (39.0-53.0); HGB 11.5 gm/dL (13.0-17.5); Hypochromasia Marked; Lymphocytes # (A) 1.2 k/uL (1.0-4.8); Lymphocytes % (A) 26 %; MCH 32.8 pg (25.0-35.0); MCHC 30.5 g/dL (31.0-37.0); MCV 107.6 fL (80.0-100.0); Macrocytosis Marked; Mean Platelet Volume 8.9; Monocytes # (A) 0.3 k/uL (0-1.0); Monocytes % (A) 6 %; Neutrophils # (A) 2.8 k/uL (1.3-7.7); Neutrophils % (A) 60 %; RBC 3.49 m/uL (4.30-5.90); RDW 16.2 % (11.5-15.5); WBC 4.6 k/uL (3.8-10.6)
[2019-08-14 14:05] LABS: Platelet Count 65 k/uL (150-450)
[2019-08-14 14:17] LABS: Poikilocytosis (M) Present
[2019-08-14 14:22] LABS: Calcium 8.8 mg/dL (8.4-10.2); Total Bilirubin 5.1 mg/dL (0.2-1.3); Total Protein 8.2 g/dL (6.3-8.2)
[2019-08-14 17:00] LABS: INR 1.2 (<1.2); Prothrombin Time 12.4 sec (9.0-12.0)
[2019-08-14 17:08] LABS: Glucose,Whole Blood 322 mg/dL (75-99)
--- NOTE | 2019-08-14 19:25 | PN ---
PROGRESS NOTE DATE OF DICTATION: August 14, 2019 Patient is a 49-year-old pleasant white male admitted to the hospital with hepatic encephalopathy, history of nonalcoholic cirrhosis of the liver, presently being evaluated for liver transplant at [facility]. He is doing well. He denies any complaints. He had about 3 loose bowel movements today. He is very awake and alert. No abdominal pain. No new symptoms. PHYSICAL EXAMINATION: Blood pressure 99/60, pulse is 73, temperature 97.5. HEENT examination unremarkable. Conjunctivae pink. Sclerae anicteric. Oral cavity no lesions. NECK no JVD. No lymph node enlargement. CHEST: Clear to auscultation. HEART: Regular rate and rhythm. ABDOMEN: Soft. Bowel sounds are positive. No organomegaly. EXTREMITIES: No pedal edema. NEURO: He is alert and oriented x3. No focal deficits. X-RAY: Chest x-ray done today showed right lower lobe infiltrate with small effusion. LABS: From today: WBC 4.6, hemoglobin 11.5, platelets 65,000, bilirubin of 5.1. AST and ALT are 72 and 64 respectively, alkaline phosphatase 364. IMPRESSION: 1. Nonalcoholic cirrhosis of the liver with portal hypertension and gradual decompensation over the last 6 months. Elevated bilirubin and LFTs as mentioned above. 2. Hepatic encephalopathy presently on Xifaxan as well as lactulose and much better. 3. Pneumonia/pleural effusion on antibiotics. 4. Anemia and thrombocytopenia secondary to underlying liver disease. RECOMMENDATIONS: 1. Continue with lactulose as well as Xifaxan. 2. Continue Protonix 40 mg daily. 3. Monitor LFTs closely. 4. Patient was advised to follow up in the office in a week following discharge from the hospital. Thank you for this consultation. MMODL / IJN: [id number] /
[2019-08-14 20:26] LABS: Glucose,Whole Blood 261 mg/dL (75-99)
[2019-08-14] MEDS: ATORVASTATIN 20 MG TAB PO SCH (20:32)
[2019-08-14 20:51] VITALS: RESP 18
[2019-08-14] MEDS ORDERED: INSULIN DETEMIR (LEVEMIR) 100 UNIT/ML SYR SQ SCH (21:00)
[2019-08-15 02:03] LABS: Glucose,Whole Blood 180 mg/dL (75-99)
[2019-08-15 05:51] VITALS: BP 90/51; PULSE 78; TEMP 98.1
[2019-08-15 06:58] LABS: Glucose,Whole Blood 139 mg/dL (75-99)
[2019-08-15] MEDS: INSULIN ASPART (NovoLOG) 100 UNIT/ML VIAL SQ SCH (07:48)
[2019-08-15] MEDS: LACTULOSE 20 GM/30 ML CUP PO SCH (07:52)
[2019-08-15] MEDS: ASPIRIN 81 MG PO SCH (07:52)
[2019-08-15 07:55] LABS: Albumin 2.7 g/dL (3.5-5.0); Calcium 8.6 mg/dL (8.4-10.2); Magnesium 1.5 mg/dL (1.6-2.3); Potassium 5.2 mmol/L (3.5-5.1); Total Bilirubin 4.7 mg/dL (0.2-1.3); Total Protein 7.4 g/dL (6.3-8.2)
[2019-08-15] MEDS: metFORMIN 500 MG TAB PO SCH (07:59)
[2019-08-15] MEDS: METOPROLOL TARTRATE 25 MG TAB PO SCH (07:59)
[2019-08-15] MEDS: SODIUM BICARBONATE TAB 650 MG TAB PO SCH (07:59)
[2019-08-15] MEDS: GABAPENTIN 400 MG CAP PO SCH (08:00)
[2019-08-15] MEDS: PANTOPRAZOLE 40 MG TABLET PO SCH (08:00)
[2019-08-15] MEDS: SPIRONOLACTONE 25 MG TAB PO SCH (08:01)
[2019-08-15] MEDS: CITALOPRAM HYDROBROMIDE 20 MG TAB PO SCH (08:01)
[2019-08-15] MEDS: BUMETANIDE 1 MG TAB PO SCH (08:02)
[2019-08-15] MEDS: RIFAXIMIN 550 MG TABLET PO SCH (08:03)
--- NOTE | 2019-08-15 22:41 | P.DS ---
Providers Date of admission: 08/12/19 19:30 Expected date of discharge: 08/15/19 (Date of service August 13) Attending physician: Jamel Contreras Consults: 08/12/19 19:29 Consult Physician Routine Consulting Provider: Giovani Hallman Consult Reason/Comments: encephalopathy Do you want consulting provider notified?: Yes Consult Physician Routine Consulting Provider: Claudia Lugo Consult Reason/Comments: arf Do you want consulting provider notified?: Yes Primary care physician: [facility] Course: Chief Complaint: Lethargic History of presenting complaint: This is a 49-year-old patient of Dr. Guzmán. Patient has a known history of cirrhosis that has progressed from fatty liver. Diagnosed over 2 years ago. Follows with firer retort Dr. Cuellar. stable medical conditions include obesity, pancytopenia, coronary artery disease with stent, diabetes mellitus type 2, GERD, hyperlipidemia, essential hypertension, chronic insomnia. Patient gets therapeutic paracentesis and uses every 2 weeks. Patient is also had thoracentesis before. Patient was sent in for elevated abnormal blood work and also increasing rheumatology. Found to hepatic encephalopathy. Admitted for the same. Patient denies any chest pain or shortness of breath. Feeling a bit better this morning when I saw him. Answer simple questions. Had a bowel movement. No fever no chills. Patient does state is being taking his lactulose possibly only once a day. Admitted with acute hepatic encephalopathy and metabolic acidosis. Lactulose was increased. Patient did well. Bicarbonate supplemented. Patient is scheduled for thoracentesis as an outpatient on August 14. Care was discussed with the patient. Consultation: Dr. Jennie Angulo from GI Dr. Gomez from nephrology Physical examination: VITAL SIGNS: 98, 73, 18, 160 5,95%onroomair GENERAL: Sitting up, comfortable EYES: Pupils equal. Conjunctiva normal. HEENT: External appearance of nose and ears normal, oral cavity grossly normal. NECK: JVD unable to assess; masses not palpable. HEART: First and second heart sounds are normal; edema present LUNGS: Respiratory rate increased, decreased breath sounds ABDOMEN: Soft, some distention, nontender, liver spleen not palpable, no masses palpable. PSYCH: Able to answer simple questions. 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 Patient due to get thoracentesis on August 14 then go home. Patient Condition at Discharge: Stable Plan - Discharge Summary Discharge Rx Participant: No New Discharge Prescriptions: New Sodium Bicarbonate Tab 650 mg PO BID #30 tab Continue Simvastatin [Zocor] 40 mg PO HS Omeprazole [PriLOSEC] 40 mg PO DAILY Citalopram Hydrobromide [CeleXA] 40 mg PO DAILY Nitroglycerin Sl Tabs [Nitrostat] 0.4 mg SUBLINGUAL Q5M PRN PRN Reason: Chest Pain Albuterol Sulfate [Proair Hfa] 2 puff INHALATION RT-Q4H PRN PRN Reason: Shortness Of Breath Rifaximin [Xifaxan] 550 mg PO BID metFORMIN HCL 1,000 mg PO BID Bumetanide [BUMEX] 1 mg PO BID #60 tablet Gabapentin [Neurontin] 400 mg PO BID Spironolactone [Aldactone] 100 mg PO DAILY #30 tab Metoprolol Tartrate 25 mg PO BID Lactulose 20 gm PO TID PRN PRN Reason: Constipation Changed Insulin Glargine,Hum.rec.anlog [Lantus Solostar] 36 unit SQ HS #0 Insulin Aspart [NovoLOG Flexpen] 10 units SQ AC-TID #0 No Action Aspirin EC [Ecotrin Low Dose] 81 mg PO DAILY Discharge Medication List Albuterol Sulfate [Proair Hfa] 2 puff INHALATION RT-Q4H PRN 12/07/18 [History] Aspirin EC [Ecotrin Low Dose] 81 mg PO DAILY 12/07/18 [History] Citalopram Hydrobromide [CeleXA] 40 mg PO DAILY 12/07/18 [History] Nitroglycerin Sl Tabs [Nitrostat] 0.4 mg SUBLINGUAL Q5M PRN 12/07/18 [History] Omeprazole [PriLOSEC] 40 mg PO DAILY 12/07/18 [History] Simvastatin [Zocor] 40 mg PO HS 12/07/18 [History] Rifaximin [Xifaxan] 550 mg PO BID 12/20/18 [History] metFORMIN HCL 1,000 mg PO BID 02/06/19 [History] Bumetanide [BUMEX] 1 mg PO BID #60 tablet 02/08/19 [Rx] Gabapentin [Neurontin] 400 mg PO BID 05/29/19 [History] Spironolactone [Aldactone] 100 mg PO DAILY #30 tab 05/30/19 [Rx] Metoprolol Tartrate 25 mg PO BID 08/11/19 [History] Lactulose 20 gm PO TID PRN 08/12/19 [History] Insulin Aspart [NovoLOG Flexpen] 10 units SQ AC-TID #0 08/14/19 [Rx] Insulin Glargine,Hum.rec.anlog [Lantus Solostar] 36 unit SQ HS #0 08/14/19 [Rx] Sodium Bicarbonate Tab 650 mg PO BID #30 tab 08/14/19 [Rx] Follow up Appointment(s)/Referral(s): David Jackson MD [STAFF PHYSICIAN] - 1 Week Star Guzmán MD [Primary Care Provider] - 1-2 days Tiffanie Angulo MD [STAFF PHYSICIAN] - 1 Week Patient Instructions/Handouts: Acute Kidney Injury (DC) Activity/Diet/Wound Care/Special Instructions: Hold aspirin Discharge patient at 7 AM in the morning if remains stable overnight. All paperwork is done. Patient to go for his thoracentesis in the morning as scheduled. Discharge Disposition: HOME SELF-CARE Care Plan Goals (MU): Follow up with Dr. Gomez office in 2 to 3 weeks BMP in 2 to [address] in one week
== END 2019-08-15 08:27 | disposition home or self-care (01) | DRG 441 ==
LOC: EC 18:03 → 5NMEDONC 19:30
PROVIDERS: ADMIT Hospitalist; ATTEND Hospitalist
DX: K72.00 Acute and subacute hepatic failure without coma (principal); N17.0 Acute kidney failure with tubular necrosis; D61.818 Other pancytopenia; E87.4 Mixed disorder of acid-base balance; J90 Pleural effusion, not elsewhere classified; K76.6 Portal hypertension; R18.8 Other ascites; E88.09 Other disorders of plasma-protein metabolism, not elsewhere classified; K74.69 Other cirrhosis of liver; D53.9 Nutritional anemia, unspecified; D69.59 Other secondary thrombocytopenia; E11.22 Type 2 diabetes mellitus with diabetic chronic kidney disease; N18.3 Chronic kidney disease, stage 3 (moderate); E11.42 Type 2 diabetes mellitus with diabetic polyneuropathy; E11.65 Type 2 diabetes mellitus with hyperglycemia; E66.9 Obesity, unspecified; E78.5 Hyperlipidemia, unspecified; E86.9 Volume depletion, unspecified; F32.9 Major depressive disorder, single episode, unspecified; F41.9 Anxiety disorder, unspecified; Z11.59 Encounter for screening for other viral diseases; F51.04 Psychophysiologic insomnia; I12.9 Hypertensive chronic kidney disease with stage 1 through stage 4 chronic kidney disease, or unspecified chronic kidney disease; I25.10 Atherosclerotic heart disease of native coronary artery without angina pectoris; I25.2 Old myocardial infarction; K21.9 Gastro-esophageal reflux disease without esophagitis; R32 Unspecified urinary incontinence; Z68.36 Body mass index [BMI] 36.0-36.9, adult; Z79.4 Long term (current) use of insulin; Z79.82 Long term (current) use of aspirin; Z79.899 Other long term (current) drug therapy; Z95.5 Presence of coronary angioplasty implant and graft; Z87.891 Personal history of nicotine dependence; Z88.1 Allergy status to other antibiotic agents; Z90.49 Acquired absence of other specified parts of digestive tract; Z80.1 Family history of malignant neoplasm of trachea, bronchus and lung; Z81.1 Family history of alcohol abuse and dependence
CPT/HCPCS: 71046; 80048; 80053; 81001; 82140; 83735; 85025; 85610; 93005; 94640; 99285

== ENCOUNTER 2019-08-15 08:24 | Day surgery (SDC) | payer OTHER ==
[2019-08-15 10:22] VITALS: RESP 18; TEMP 98.1
[2019-08-15 11:28] VITALS: BP 90/50; PULSE 75
--- NOTE | 2019-08-15 11:36 | XR ---
EXAMINATION TYPE: XR chest 1V portable DATE OF EXAM: 08/15/2019 COMPARISON: Prior chest x-ray 08/14/2019 HISTORY: Status post right thoracentesis TECHNIQUE: Single frontal view of the chest is obtained. FINDINGS: There is interval improved visualization of the right hemidiaphragm. No evident pneumothor ax or other significant interval change. IMPRESSION: No evident complication status post right thoracentesis.
--- NOTE | 2019-08-15 14:32 | US ---
EXAMINATION TYPE: US thoracentesis DATE OF EXAM: 08/15/2019 COMPARISON: NONE HISTORY: Pleural effusion. FINDINGS: Maximal barrier technique was utilized. The skin overlying a suitable pocket of fluid was localized and the overlying skin prepped and draped. Lidocaine was used for local anesthesia. Ultras ound was used with sterile technique. A 5 Syriac catheter over guide needle was advanced into the pl eural fluid collection using ultrasound guidance and the catheter advanced, needle removed. Approxim ately 2 liter(s) of serous fluid was removed. Catheter was withdrawn and hemostasis achieved. There is no immediate complication. The patient discharged in stable condition without complication. IMPRESSION: STATUS POST ULTRASOUND GUIDED THORACENTESIS, POST PROCEDURE CHEST X-RAY PENDING. THIS LA OCEDURE WAS PERFORMED BY THE UNDERSIGNED.
== END 2019-08-15 11:50 | disposition home or self-care (01) ==
LOC: RADPROMAIN 08:24
PROVIDERS: ATTEND Internal Medicine
DX: J90 Pleural effusion, not elsewhere classified (principal)
CPT/HCPCS: 32555; 71045

== ENCOUNTER 2019-08-22 16:19 | Inpatient (IN) | payer OTHER ==
--- NOTE | 2019-08-22 16:43 | ED ---
General Adult HPI - General Chief complaint: Recheck/Abnormal Lab/Rx Stated complaint: lab recheck/liver problems Time Seen by Provider: 08/22/19 16:19 Source: EMS Mode of arrival: EMS Limitations: no limitations - History of Present Illness Initial comments: Dictation was produced using [employer] dictation software. please excuse any grammatical, word or spelling errors. This patient was cared for during a federal and state declared state of edvin gency secondary to Covid 19 Chief Complaint: 49-year-old male brought in by EMS for [facility] for hepatic encephalopathy History of Present Illness: Is 49-year-old male who was transferred via EMS from [facility] for hepatic encephalopathy. Patient ended up at [facility] emergency department due to abnormal outpatient labs. Patient has history of liver disease. He follows up at the clinic at [facility]. Patient was initially evaluated [facility] where he was found have significantly elevated ammonia level renal markers. Patient has no complaints at this time. He states that he was sleeping at home when [facility] called patient about his abnormal labs he was then brought to the emergency department. He complains at this time. The ROS documented in this emergency department record has been reviewed and confirmed by me. Those systems with pertinent positive or negative responses have been documented in the HPI. All other systems are other negative and/or noncontributory. PHYSICAL EXAM: General Impression: Alert and oriented x3, not in acute distress HEENT: Normocephalic atraumatic, extra-ocular movements intact, pupils equal and reactive to light bilaterally, mucous membranes moist. Cardiovascular: Heart regular rate and rhythm Chest: Able to complete full sentences, no retractions, no tachypnea Abdomen: abdomen soft, non-tender, non-distended, no organomegaly Musculoskeletal: Pulses present and equal in all extremities, no peripheral edema Motor: no focal deficits noted Neurological: CN II-XII grossly intact, no focal motor or sensory deficits noted Skin: Intact with no visualized rashes, mildly jaundiced Psych: Normal affect and mood ED course: 49-year-old male transferred from [facility] for hepatic encephalopathy and acute kidney injury. Has long history of liver disease and follows up at liver clinic at [facility]. She answered here for higher level of care given the [facility] does not have gastroenterology. Patient is well-appearing at bedside. He is a and O 4 however does previously confused. Laboratory evaluation obtained. Ammonia 73. Patient received lactulose prior to transfer from [facility]. Creatinine is 2.14. Clinical presentation concerning for acute kidney injury and hyperammoemia. Patient's old. Bedside has no specific complaints per patient be admitted to [facility] under Dr. Cason. Consultation made to GI and nephrology. - Related Data Home Medications Medication Instructions Recorded Confirmed Albuterol Sulfate [Proair Hfa] 2 puff INHALATION RT-Q4H PRN 12/07/18 08/22/19 Aspirin EC [Ecotrin Low Dose] 81 mg PO DAILY 12/07/18 08/22/19 Citalopram Hydrobromide [CeleXA] 40 mg PO DAILY 12/07/18 08/22/19 Nitroglycerin Sl Tabs [Nitrostat] 0.4 mg SUBLINGUAL Q5M PRN 12/07/18 08/22/19 Omeprazole [PriLOSEC] 40 mg PO DAILY 12/07/18 08/22/19 Simvastatin [Zocor] 40 mg PO HS 12/07/18 08/22/19 Rifaximin [Xifaxan] 550 mg PO BID 12/20/18 08/22/19 metFORMIN HCL 1,000 mg PO BID 02/06/19 08/22/19 Gabapentin [Neurontin] 400 mg PO BID 05/29/19 08/22/19 Metoprolol Tartrate 25 mg PO BID 08/11/19 08/22/19 Lactulose 20 gm PO TID PRN 08/12/19 08/22/19 Previous Rx's Medication Instructions Recorded Bumetanide [BUMEX] 1 mg PO BID #60 tablet 02/08/19 Spironolactone [Aldactone] 100 mg PO DAILY #30 tab 05/30/19 Insulin Aspart [NovoLOG Flexpen] 10 units SQ AC-TID #0 08/14/19 Insulin Glargine,Hum.rec.anlog 36 unit SQ HS #0 08/14/19 [Lantus Solostar] Sodium Bicarbonate Tab 650 mg PO BID #30 tab 08/14/19 Allergies Allergy/AdvReac Type Severity Reaction Status Date / Time cephalexin [From Keflex] AdvReac Rash/Hives Verified 08/22/19 16:59 Review of Systems ROS Statement: Those systems with pertinent positive or pertinent negative responses have been documented in the HPI. ROS Other: All systems not noted in ROS Statement are negative. Past Medical History Past Medical History: Coronary Artery Disease (CAD), Diabetes Mellitus, GERD/Reflux, Hyperlipidemia, Hypertension, Liver Disease, Myocardial Infarction ([place]) Additional Past Medical History / Comment(s): Recurrant large R pleural effusion secondary to cirrhoisis of the liver, hypoalbuminemia, fluid overload. 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 Coma in past. Last Myocardial Infarction Date:: 2012 History of Any Multi-Drug Resistant Organisms: None Reported Past Surgical History: Cholecystectomy, Heart Catheterization With Stent, Orthopedic Surgery Additional Past Surgical History / Comment(s): PCIs with stents, EGDs, colonoscopy, carpal tunnel release-laterallity unknown. Past Anesthesia/Blood Transfusion Reactions: No Reported Reaction Additional Past Anesthesia/Blood Transfusion Reaction / Comment(s): No blood transfusions. Date of Last Stent Placement:: 2012 Past Psychological History: Anxiety, Depression Smoking Status: Former smoker Past Alcohol Use History: None Reported Past Drug Use History: None Reported - Past Family History Mother History Unknown: Yes Family Medical History: Cancer Additional Family Medical History / Comment(s): Lung cancer. Father Additional Family Medical History / Comment(s): ETOH abuse General Exam Limitations: no limitations Course Vital Signs 08/22/19 16:27 Temperature 97.7 F Pulse Rate 73 Respiratory 16 Rate Blood Pressure 137/77 O2 Sat by Pulse 100 Oximetry Medical Decision Making - Lab Data Result diagrams: 08/22/19 16:32 Lab Results 08/22/19 08/22/19 Range/Units 16:32 Unknown Sodium 135 L (137-145) mmol/L Potassium 4.4 (3.5-5.1) mmol/L Chloride 111 H (98-107) mmol/L Carbon Dioxide 16 L (22-30) mmol/L Anion Gap 8 mmol/L BUN 60 H (9-20) mg/dL Creatinine 2.14 H (0.66-1.25) mg/dL Est GFR (CKD-EPI)AfAm 40 (>60 ml/min/1.73 sqM) Est GFR (CKD-EPI)NonAf 35 (>60 ml/min/1.73 sqM) Glucose 293 H (74-99) mg/dL Calcium 8.4 (8.4-10.2) mg/dL Ammonia 73 H (<30) umol/L Disposition Clinical Impression: KRISTI (acute kidney injury), Hyperammonemia Disposition: ADMITTED IP TO THIS HOSP Condition: Fair Referrals: Star Guzmán MD [Primary Care Provider] - 1-2 days Decision Time: 17:11
[2019-08-22 16:55] LABS: Calcium 8.4 mg/dL (8.4-10.2); Potassium 4.4 mmol/L (3.5-5.1)
[2019-08-22] MEDS ORDERED: ACETAMINOPHEN TAB 325 MG TAB PO PRN (17:04)
[2019-08-22] MEDS ORDERED: NALOXONE 0.4 MG/ML 1 ML VIAL IV PRN (17:04)
[2019-08-22] MEDS ORDERED: SODIUM CHLORIDE 0.9% 1,000 ML IV STA (17:04)
[2019-08-22] MEDS: SODIUM CHLORIDE 0.9% 1,000 ML IV SCH (18:43)
[2019-08-22] MEDS ORDERED: NITROGLYCERIN SL TABS 0.4 MG TAB SUBLINGUAL PRN (21:45)
[2019-08-22] MEDS ORDERED: ALBUTEROL NEBULIZED 2.5 MG/3 ML INHALATION PRN (21:45)
[2019-08-22] MEDS ORDERED: metFORMIN 500 MG TAB PO SCH (22:00)
[2019-08-22] MEDS: GABAPENTIN 400 MG CAP PO SCH (22:26)
[2019-08-22] MEDS: METOPROLOL TARTRATE 25 MG TAB PO SCH (22:26)
[2019-08-22] MEDS: LACTULOSE 20 GM/30 ML CUP PO SCH (22:26)
[2019-08-22 22:31] LABS: Glucose,Whole Blood 359 mg/dL (75-99)
[2019-08-22] MEDS: INSULIN ASPART (NovoLOG) 100 UNIT/ML VIAL SQ SCH (22:49)
--- NOTE | 2019-08-23 01:17 | P.HPIM ---
History of Present Illness H&P Date: 08/22/19 Chief Complaint: Abnomal labs Patient is a 49-year-old male was transferred from [facility] due to hepatic encephalopathy. Patient had outpatient lab work-up done at [facility] which showed elevated ammonia level and kidney injury. Patient was adv ised to go to ER. Patient was initially evaluated at [facility] where he was found significant elevated ammonia level and creatinine level. Patient was eventually transferred to [facility] for evaluation. Patient currently denied any complaints of chest pain or shortness of breath. No abdominal pain. No nausea vomiting or diarrhea. No fever no chills. Patient does have a history of coronary artery disease with a stent placement next, diabetes type 2, hypertension, hyperlipidemia, liver cirrhosis, SMITH, recurrent right pleural effusions, hypoalbuminemia, bilateral peripheral neuropathy, gastritis, and history of anxiety and depression. Ammonia level 73. Creatinine level 2.14. Review of Systems Constitutional: Patient denies any fever or chills . No generalized weakness or weight loss. Abdomen: Patient denied nausea vomiting and diarrhea and abdominal pain. Cardiovascular: Patient denies any chest pain or short of breath no palpitations. Respiratory: patient denied any cough is from production. No shortness of breath Neurologic: Patient denied any numbness or tingling headache. Musculoskeletal: Patient denies any complaints of joint swelling or deformity. Skin: negative Psychiatric: Negative Endocrine: No heat or cold intolerance. No recent weight gain. Genitourinary: No dysuria or hematuria. All other 14 point ROS negative except the above Past Medical History Past Medical History: Coronary Artery Disease (CAD), Diabetes Mellitus, GERD/Reflux, Hyperlipidemia, Hypertension, Liver Disease, Myocardial Infarction ([place]) Additional Past Medical History / Comment(s): Recurrant large R pleural effusion secondary to cirrhoisis of the liver, hypoalbuminemia, fluid overload. 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 Coma in past. Last Myocardial Infarction Date:: 2012 History of Any Multi-Drug Resistant Organisms: None Reported Past Surgical History: Cholecystectomy, Heart Catheterization With Stent, Orthopedic Surgery Additional Past Surgical History / Comment(s): PCIs with stents, EGDs, colonoscopy, carpal tunnel release-laterallity unknown. Past Anesthesia/Blood Transfusion Reactions: No Reported Reaction Additional Past Anesthesia/Blood Transfusion Reaction / Comment(s): No blood transfusions. Date of Last Stent Placement:: 2012 Past Psychological History: Anxiety, Depression Smoking Status: Former smoker Past Alcohol Use History: None Reported Past Drug Use History: None Reported - Past Family History Mother History Unknown: Yes Family Medical History: Cancer Additional Family Medical History / Comment(s): Lung cancer. Father Additional Family Medical History / Comment(s): ETOH abuse Medications and Allergies Home Medications Medication Instructions Recorded Confirmed Type Albuterol Sulfate [Proair Hfa] 2 puff INHALATION RT-Q4H PRN 12/07/18 08/22/19 History Aspirin EC [Ecotrin Low Dose] 81 mg PO DAILY 12/07/18 08/22/19 History Citalopram Hydrobromide [CeleXA] 40 mg PO DAILY 12/07/18 08/22/19 History Nitroglycerin Sl Tabs [Nitrostat] 0.4 mg SUBLINGUAL Q5M PRN 12/07/18 08/22/19 History Omeprazole [PriLOSEC] 40 mg PO DAILY 12/07/18 08/22/19 History Simvastatin [Zocor] 40 mg PO HS 12/07/18 08/22/19 History Rifaximin [Xifaxan] 550 mg PO BID 12/20/18 08/22/19 History metFORMIN HCL 1,000 mg PO BID 02/06/19 08/22/19 History Bumetanide [BUMEX] 1 mg PO BID #60 tablet 02/08/19 08/22/19 Rx Gabapentin [Neurontin] 400 mg PO BID 05/29/19 08/22/19 History Spironolactone [Aldactone] 100 mg PO DAILY #30 tab 05/30/19 08/22/19 Rx Metoprolol Tartrate 25 mg PO BID 08/11/19 08/22/19 History Lactulose 20 gm PO TID PRN 08/12/19 08/22/19 History Insulin Aspart [NovoLOG Flexpen] 10 units SQ AC-TID #0 08/14/19 08/22/19 Rx Insulin Glargine,Hum.rec.anlog 36 unit SQ HS #0 08/14/19 08/22/19 Rx [Lantus Solostar] Sodium Bicarbonate Tab 650 mg PO BID #30 tab 08/14/19 08/22/19 Rx Allergies Allergy/AdvReac Type Severity Reaction Status Date / Time cephalexin [From Keflex] AdvReac Rash/Hives Verified 08/22/19 16:59 Physical Exam Vitals: Vital Signs Temp Pulse Resp BP Pulse Ox 08/22/19 19:59 73 17 125/75 99 08/22/19 16:27 97.7 F 73 16 137/77 100 Intake and Output 08/22/19 08/22/19 08/22/19 06:59 14:59 22:59 Other: Weight 92.533 kg PHYSICAL EXAMINATION: Patient is lying in the bed comfortably, no acute distress, awake alert and oriented.. HEENT: Normocephalic. Neck is supple. Pupils reactive. Nostrils clear. Oral cavity is moist. Ears reveal no drainage. Neck reveals no JVD, carotid bruits, or thyromegaly. CHEST EXAMINATION: Trachea is central. Symmetrical expansion. Lung herbert clear to auscultation and percussion. CARDIAC: Normal S1, S2 with no gallops. No murmurs ABDOMEN: Soft. Mild abdominal distention. Nontender. , Bowel sounds normal. No organomegaly. No abdominal bruits. Extremities: reveal no edema. No clubbing or cyanosis Neurologically awake, alert, oriented x3 with well-coordinated movements. No focal deficits noted Skin: No rash or skin lesions. Psychiatric: Coperative. Nonsuicidal Musculoskeletal: No joint swelling or deformity. Normal range of motion. Results CBC & Chem 7: 08/22/19 16:32 Labs: Abnormal Lab Results - Last 24 Hours (Table) 08/22/19 08/22/19 Range/Units 16:32 Unknown Sodium 135 L (137-145) mmol/L Chloride 111 H (98-107) mmol/L Carbon Dioxide 16 L (22-30) mmol/L BUN 60 H (9-20) mg/dL Creatinine 2.14 H (0.66-1.25) mg/dL Glucose 293 H (74-99) mg/dL Ammonia 73 H (<30) umol/L Assessment and Plan Assessment: Acute kidney injury possible prerenal versus hepatorenal. Hepatic encephalopathy with hyperammonemia SMITH with cirrhosis of liver Hypoalbuminemia Recurrent right pleural effusions with multiple thoracentesis Bilateral peripheral neuropathy diabetic Hypertension Hyperlipidemia Diabetes type 2 insulin-dependent Hyperglycemia with uncontrolled diabetes type 2 GERD History of [place] Coronary artery disease with history of stent placement Anxiety/depression Previous history of smoking DVT prophylaxis Plan: Patient will be continued lactulose 30 mg p.o. 3 times daily and titrate for not more than 2 bowel movements per day. Diuretics are on hold. Continue with other home medications. GI DVT prophylaxis Insulin dosing and follow-up closely. GI and oncology was consulted. Further recommendations based on the clinical course. Time with Patient: Greater than 30
[2019-08-23] MEDS: SODIUM CHLORIDE 0.9% 1,000 ML IV SCH ×2 (05:18→17:33)
[2019-08-23 06:56] VITALS: RESP 16
[2019-08-23 07:05] LABS: Glucose,Whole Blood 312 mg/dL (75-99)
[2019-08-23 07:20] LABS: Basophils % (A) 1 %; Eosinophils # (A) 0.1 k/uL (0-0.7); Eosinophils % (A) 4 %; Hypochromasia Marked; Lymphocytes # (A) 0.6 k/uL (1.0-4.8); Lymphocytes % (A) 21 %; MCH 32.2 pg (25.0-35.0); Macrocytosis Moderate; Mean Platelet Volume 8.7; Monocytes # (A) 0.2 k/uL (0-1.0); Monocytes % (A) 6 %; Neutrophils # (A) 1.9 k/uL (1.3-7.7); Neutrophils % (A) 66 %; RBC 2.79 m/uL (4.30-5.90); RDW 15.9 % (11.5-15.5); WBC 2.8 k/uL (3.8-10.6)
[2019-08-23] MEDS ORDERED: INSULIN ASPART (NovoLOG) 100 UNIT/ML VIAL SQ SCH (07:30)
[2019-08-23 07:41] LABS: Platelet Count 43 k/uL (150-450)
[2019-08-23 07:52] LABS: Potassium 5.1 mmol/L (3.5-5.1)
[2019-08-23] MEDS: INSULIN ASPART (NovoLOG) 100 UNIT/ML VIAL SQ SCH ×3 (08:22→17:38)
[2019-08-23] MEDS: METOPROLOL TARTRATE 25 MG TAB PO SCH (08:23)
[2019-08-23] MEDS: GABAPENTIN 400 MG CAP PO SCH (08:23)
[2019-08-23] MEDS: LACTULOSE 20 GM/30 ML CUP PO SCH ×2 (08:23→17:33)
[2019-08-23] MEDS ORDERED: CITALOPRAM HYDROBROMIDE 20 MG TAB PO SCH (09:00)
[2019-08-23] MEDS ORDERED: RIFAXIMIN 550 MG TABLET PO SCH (09:00)
[2019-08-23] MEDS ORDERED: NON FORMULARY DRUG (Omeprazole 40 MG) PO SCH (09:00)
[2019-08-23] MEDS ORDERED: SODIUM BICARBONATE TAB 650 MG TAB PO SCH (09:00)
[2019-08-23] MEDS ORDERED: PANTOPRAZOLE 40 MG/10 ML VIAL IV SCH (09:00)
[2019-08-23] MEDS ORDERED: ASPIRIN 81 MG PO SCH (09:00)
[2019-08-23 11:55] LABS: Glucose,Whole Blood 348 mg/dL (75-99)
[2019-08-23 12:15] VITALS: BP 112/75; PULSE 71; TEMP 97.3
[2019-08-23] MEDS ORDERED: LACTULOSE 20 GM/30 ML CUP PO ONE (12:16)
--- NOTE | 2019-08-23 16:20 | CONS ---
CONSULTATION REASON FOR CONSULT: Renal failure. HISTORY OF PRESENT ILLNESS: Patient is a 49-year-old male who has a history of coronary artery disease, hypertension, liver cirrhosis from SMITH, history of previous episodes of acute kidney injury. Patient was brought in to [facility] secondary to mental status changes, increased lower extremity edema. He was transferred from [place] to [facility]. Blood pressure has been around 113-112 mmHg systolic. The patient's serum creatinine was noted to be 2.1 mg/dL yesterday. It is down to 1.8 now. Review of labs shows previous creatinine early part of August to be on 1.3-1.5 mg/dL. Patient currently has IV fluids running at 100 mL an hour. PAST MEDICAL HISTORY: History of liver cirrhosis, coronary artery disease, type 2 diabetes, gastroesophageal reflux disease, history of CT, history of pleural effusions. fluid overload, neuropathy, ascites. PAST SURGICAL HISTORY: Cholecystectomy, cardiac catheterization, coronary stent placement, EGDs, colonoscopy, carpal tunnel release. SOCIAL HISTORY: Patient is a former smoker. No history of drug abuse or ongoing alcohol abuse. MEDICATIONS: Prior to admission included albuterol, aspirin, Celexa, omeprazole, Zocor, Xanax, Bumex, Neurontin, Aldactone, metoprolol, lactulose, insulin, sodium bicarb. ALLERGIES: Include KEFLEX. REVIEW OF SYSTEMS: As per HPI. Other systems negative. PHYSICAL EXAMINATION: Patient is comfortable, he is not in any acute distress. Mildly short of breath. Blood pressure is 113/70, heart rate 76 per minute, he is afebrile. Examination of the heart S1, S2. Examination of the lungs, decreased breath sounds at bases. Abdomen is soft, distended, obese with ascites. Examination of the lower extremities shows edema 2+ bilaterally. 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 Patient is moving all 4 extremities. However, he is does not remember the details of his history. ASSESSMENT: 1. Acute kidney injury, possibly prerenal currently improved with IV hydration. However, patient has significant edema. I will discontinue the IV fluids. We will monitor his urine output accurately. Need to rule out hepatorenal syndrome, if he is oliguric. There are no nephrotoxic agents on board. If patient is oliguric, I will add albumin, midodrine and Sandostatin. 2. Metabolic acidosis, non gap associated with renal failure maintained on oral sodium bicarb. 3. Liver cirrhosis secondary to SMITH. 4. Chronic kidney disease with previous creatinine 1.2-1.5 mg/dL, stage 3. 5. History of coronary artery disease with history of coronary stenting and history of CT. PLAN: Discontinue IV fluids, repeat labs in a.m. Avoid nephrotoxic agents. Continue with the sodium bicarb. Avoid hypotension and check urine output accurately. Continue off Glucophage. Thank you for this consultation. Will continue to follow the patient with you during his hospitalization. MMODL / IJN: [id number] /
[2019-08-23 17:21] LABS: Glucose,Whole Blood 183 mg/dL (75-99)
[2019-08-23] MEDS ORDERED: LACTULOSE 20 GM/30 ML CUP PO SCH (18:00)
[2019-08-23] MEDS ORDERED: INSULIN DETEMIR (LEVEMIR) 100 UNIT/ML SYR SQ SCH (21:00)
[2019-08-23] MEDS ORDERED: ATORVASTATIN 20 MG TAB PO SCH (21:00)
== END 2019-08-23 18:52 | disposition short-term general hospital (02) | DRG 442 ==
LOC: EC 16:19 → 5NMEDONC 17:07
PROVIDERS: ADMIT Internal Medicine; ATTEND Internal Medicine
DX: K72.90 Hepatic failure, unspecified without coma (principal); N17.9 Acute kidney failure, unspecified; E87.2 Acidosis; D61.818 Other pancytopenia; Z11.59 Encounter for screening for other viral diseases; E11.42 Type 2 diabetes mellitus with diabetic polyneuropathy; E11.22 Type 2 diabetes mellitus with diabetic chronic kidney disease; N18.3 Chronic kidney disease, stage 3 (moderate); K74.60 Unspecified cirrhosis of liver; E11.65 Type 2 diabetes mellitus with hyperglycemia; Z79.4 Long term (current) use of insulin; K21.9 Gastro-esophageal reflux disease without esophagitis; I25.10 Atherosclerotic heart disease of native coronary artery without angina pectoris; I12.9 Hypertensive chronic kidney disease with stage 1 through stage 4 chronic kidney disease, or unspecified chronic kidney disease; E78.5 Hyperlipidemia, unspecified; F41.9 Anxiety disorder, unspecified; F32.9 Major depressive disorder, single episode, unspecified; K75.81 Nonalcoholic steatohepatitis (NASH); F51.04 Psychophysiologic insomnia; I25.2 Old myocardial infarction; Z79.82 Long term (current) use of aspirin; Z79.899 Other long term (current) drug therapy; Z95.5 Presence of coronary angioplasty implant and graft; Z90.49 Acquired absence of other specified parts of digestive tract; Z98.890 Other specified postprocedural states; Z87.891 Personal history of nicotine dependence; Z87.19 Personal history of other diseases of the digestive system; Z88.1 Allergy status to other antibiotic agents; Z80.1 Family history of malignant neoplasm of trachea, bronchus and lung; Z81.1 Family history of alcohol abuse and dependence
CPT/HCPCS: 36415; 80048; 82140; 85025; 99284

== ENCOUNTER 2019-10-02 15:53 | Inpatient (IN) | payer OTHER ==
[2019-10-02] MEDS ORDERED: VANCOMYCIN IV PER PHARMACY 1 EACH MISC MISCELLANE PRN (16:12)
[2019-10-02] MEDS ORDERED: SODIUM CHLORIDE 0.9% 500 ML IV ONE (16:12)
[2019-10-02] MEDS ORDERED: VANCOMYCIN 1,750 MG in SODIUM CHLORIDE 0.9% 500 ML 500 ML IVPB STA (16:16)
[2019-10-02] MEDS ORDERED: MORPHINE SULFATE 4 MG/ML SYRINGE IV PRN (16:45)
[2019-10-02] MEDS ORDERED: IBUPROFEN 400 MG TAB PO PRN (16:45)
[2019-10-02] MEDS ORDERED: NALOXONE 0.4 MG/ML 1 ML VIAL IV PRN (16:45)
[2019-10-02] MEDS ORDERED: HYDROmorphone 0.5 MG/0.5 ML SYRINGE IVP PRN (16:45)
--- NOTE | 2019-10-02 16:45 | ED ---
General Adult HPI - General Chief complaint: Dizziness Stated complaint: Pneumonia Time Seen by Provider: 10/02/19 15:57 Source: EMS, RN notes reviewed, old records reviewed Mode of arrival: EMS Limitations: no limitations - History of Present Illness Initial comments: Patient is a 49-year-old male with a complex medical history including liver failure, end-stage renal failure on hemodialysis. He presents emergency Department from a transfer from [facility]. He was seen at [facility] for evaluation for low blood pressure during dialysis. He only completed half of dialysis. EMS reported that he had a fever 100. He does have a right chest wall permacath for access for his hemodialysis. And does not make much urine. He states that he's had no significant physical symptoms of feeling worse including worsening shortness of breath or any abdominal pain. He does have a history of elevated bilirubin and pneumonia and was recently treated at the [facility] as well as [facility]. Patient had extensive evaluation at [facility] and chest x-ray showed persistent pleural effusion and likely an adjacent pneumonia. White blood cell count of 5. Hemoglobin is stable 7.2. Baseline hemoglobin of 7.5 area split with her low 29. His ammonia level was not detected. Patient's fever lactic acid was completed and was normal. Chest x-ray with concern for pneumonia and bacteremia for possible infection from permacath Patient was started on Levaquin and vancomycin. - Related Data Home Medications Medication Instructions Recorded Confirmed Albuterol Sulfate [Proair Hfa] 2 puff INHALATION RT-Q4H PRN 12/07/18 08/22/19 Aspirin EC [Ecotrin Low Dose] 81 mg PO DAILY 12/07/18 08/22/19 Citalopram Hydrobromide [CeleXA] 40 mg PO DAILY 12/07/18 08/22/19 Nitroglycerin Sl Tabs [Nitrostat] 0.4 mg SUBLINGUAL Q5M PRN 12/07/18 08/22/19 Omeprazole [PriLOSEC] 40 mg PO DAILY 12/07/18 08/22/19 Simvastatin [Zocor] 40 mg PO HS 12/07/18 08/22/19 Rifaximin [Xifaxan] 550 mg PO BID 12/20/18 08/22/19 metFORMIN HCL 1,000 mg PO BID 02/06/19 08/22/19 Gabapentin [Neurontin] 400 mg PO BID 05/29/19 08/22/19 Metoprolol Tartrate 25 mg PO BID 08/11/19 08/22/19 Lactulose 20 gm PO TID PRN 08/12/19 08/22/19 Previous Rx's Medication Instructions Recorded Bumetanide [BUMEX] 1 mg PO BID #60 tablet 02/08/19 Spironolactone [Aldactone] 100 mg PO DAILY #30 tab 05/30/19 Insulin Aspart [NovoLOG Flexpen] 10 units SQ AC-TID #0 08/14/19 Insulin Glargine,Hum.rec.anlog 36 unit SQ HS #0 08/14/19 [Lantus Solostar] Sodium Bicarbonate Tab 650 mg PO BID #30 tab 08/14/19 Allergies Allergy/AdvReac Type Severity Reaction Status Date / Time cephalexin [From Keflex] AdvReac Rash/Hives Verified 08/22/19 16:59 Review of Systems ROS Statement: Those systems with pertinent positive or pertinent negative responses have been documented in the HPI. ROS Other: All systems not noted in ROS Statement are negative. Past Medical History Past Medical History: Coronary Artery Disease (CAD), Diabetes Mellitus, GERD/Reflux, Hyperlipidemia, Hypertension, Liver Disease, Myocardial Infarction ([place]) Additional Past Medical History / Comment(s): Recurrant large R pleural effusion secondary to cirrhoisis of the liver, hypoalbuminemia, fluid overload. 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 Coma in past. Last Myocardial Infarction Date:: 2012 History of Any Multi-Drug Resistant Organisms: None Reported Past Surgical History: Cholecystectomy, Heart Catheterization With Stent, Orthopedic Surgery Additional Past Surgical History / Comment(s): PCIs with stents, EGDs, colonoscopy, carpal tunnel release-laterallity unknown. Past Anesthesia/Blood Transfusion Reactions: No Reported Reaction Additional Past Anesthesia/Blood Transfusion Reaction / Comment(s): No blood transfusions. Date of Last Stent Placement:: 2012 Past Psychological History: Anxiety, Depression Smoking Status: Former smoker Past Alcohol Use History: None Reported Past Drug Use History: None Reported - Past Family History Mother History Unknown: Yes Family Medical History: Cancer Additional Family Medical History / Comment(s): Lung cancer. Father Additional Family Medical History / Comment(s): ETOH abuse General Exam - General Exam Comments Initial Comments: This is a 49-year-old male. Patient appears jaundiced.Patient is alert and oriented 3. Limitations: no limitations General appearance: alert, in no apparent distress Head exam: Present: atraumatic, normocephalic, normal inspection Eye exam: Present: normal appearance, PERRL, EOMI. Absent: scleral icterus, conjunctival injection, periorbital swelling ENT exam: Present: normal exam, mucous membranes moist Neck exam: Present: normal inspection Respiratory exam: Present: normal lung sounds bilaterally, other (diminished right lower lung). Absent: respiratory distress, wheezes, rales, rhonchi, stridor Cardiovascular Exam: Present: regular rate, normal rhythm, normal heart sounds. Absent: systolic murmur, diastolic murmur, rubs, gallop, clicks GI/Abdominal exam: Present: soft, normal bowel sounds, other (Patient has abdominal distention.). Absent: distended, tenderness, guarding, rebound, rigid Extremities exam: Present: normal inspection, full ROM, normal capillary refill, other (multiple bandages over the right arm from a skin tear multiple bruises noted.). Absent: tenderness, pedal edema, joint swelling, calf tenderness Back exam: Present: normal inspection Neurological exam: Present: alert, oriented X3, CN II-XII intact Psychiatric exam: Present: normal affect, normal mood Course Vital Signs 10/02/19 15:57 Temperature 96.8 F L Pulse Rate 66 Respiratory 16 Rate Blood Pressure 102/36 O2 Sat by Pulse 94 L Oximetry Medical Decision Making - Medical Decision Making 49-year-old male with extensive medical history of hemodialysis and liver failure from [place] presents today for transfer for [facility]. Had a low blood pressure at dialysis today as well as a fever of 100. He denies any significant worsening complaints at this time. His evaluation and a Chem-6 showed concern for pneumonia. Patient was started on Levaquin and vancomycin. His nephrolo gist is Dr. Lugo and plant guard is Dr. Parker and GI doctor is . Patientat this time will be admitted with continued antibiotics. Also mentioned concern for possible infection from permacath with slight erythema around the permacath site. I discussed the case with Dr. Burgess who discussed the case with Dr. osorio whom will admit the Patient this time. - Radiology Data Radiology results: report reviewed patient's chest x-ray report from [facility] shows findings are similar but chronic right pleural effusion associated atelectasis. Correlating to exclude pneumonia. Evidence of coronary artery disease. Was read by Dr. Chacho Lozano. Disposition Clinical Impression: Pleural effusion, Pneumonia, Fever, Chronic kidney disease, Pancytopenia Disposition: ADMITTED IP TO THIS HOSP Condition: Stable Is patient prescribed a controlled substance at d/c from ED?: No Referrals: Star Guzmán MD [Primary Care Provider] - 1-2 days Time of Disposition: 16:45
[2019-10-02] MEDS ORDERED: VANCOMYCIN 750 MG in SODIUM CHLORIDE 0.9% 250 ML IVPB STA (16:59)
[2019-10-02 17:26] LABS: Calcium 7.5 mg/dL (8.4-10.2)
[2019-10-02 20:28] LABS: Glucose,Whole Blood 283 mg/dL (75-99)
[2019-10-02] MEDS ORDERED: LEVOFLOXACIN 750MG-D5W PMX 750 MG in DEXTROSE/WATER 1 150ML.BAG IVPB SCH (21:00)
[2019-10-02] MEDS ORDERED: MELATONIN 3 MG TABLET PO PRN (21:01)
[2019-10-02] MEDS ORDERED: ONDANSETRON 4 MG/2 ML VIAL IVP PRN (21:01)
[2019-10-02] MEDS ORDERED: MAGNESIUM HYDROXIDE 2,400 MG/10 ML CUP PO PRN (21:01)
[2019-10-02] MEDS ORDERED: CALCIUM CARBONATE 500 MG CHEWABLE PO PRN (21:01)
[2019-10-02] MEDS ORDERED: LACTULOSE 20 GM/30 ML CUP PO PRN (21:01)
[2019-10-02] MEDS ORDERED: MAG HYDROX/AL HYDROX/SIMETH 30 ML CUP PO PRN (21:01)
[2019-10-02] MEDS: ATORVASTATIN 40 MG TAB PO SCH (21:58)
[2019-10-02] MEDS: ALPRAZolam 0.5 MG TAB PO SCH (21:58)
[2019-10-02] MEDS: METOPROLOL TARTRATE 12.5 MG TAB PO SCH (21:59)
[2019-10-02] MEDS: INSULIN DETEMIR (LEVEMIR) 100 UNIT/ML SYR SQ SCH (21:59)
[2019-10-02] MEDS: SODIUM CHLORIDE 0.9% 1,000 ML IV SCH (22:05)
[2019-10-02] MEDS: RIFAXIMIN 550 MG TABLET PO SCH (22:25)
[2019-10-03] MEDS: SODIUM CHLORIDE 0.9% 1,000 ML IV SCH ×2 (00:39→08:17)
[2019-10-03 06:03] LABS: Glucose,Whole Blood 282 mg/dL (75-99)
[2019-10-03] MEDS: MIDODRINE 5 MG TAB PO SCH ×3 (06:44→17:17)
[2019-10-03] MEDS: CALCIUM ACETATE 667 MG TAB PO SCH ×3 (06:44→17:17)
[2019-10-03] MEDS: PANTOPRAZOLE 40 MG TABLET PO SCH (06:45)
[2019-10-03] MEDS: ALPRAZolam 0.5 MG TAB PO SCH ×2 (08:17→21:31)
[2019-10-03] MEDS: METOPROLOL TARTRATE 12.5 MG TAB PO SCH ×2 (08:17→21:31)
[2019-10-03] MEDS: ASPIRIN 325 MG TAB PO SCH ×2 (08:17→09:58)
[2019-10-03] MEDS: FOLIC ACID-VIT B COMPLEX-VIT C 1 CAP PO SCH (08:20)
[2019-10-03] MEDS: RIFAXIMIN 550 MG TABLET PO SCH ×2 (08:20→22:17)
[2019-10-03 08:52] LABS: Calcium 7.5 mg/dL (8.4-10.2)
[2019-10-03 08:57] LABS: Anisocytosis Slight; Basophils % (A) 1 %; Eosinophils # (A) 0.2 k/uL (0-0.7); Eosinophils % (A) 5 %; HCT 25.3 % (39.0-53.0); HGB 7.7 gm/dL (13.0-17.5); Hypochromasia Marked; Lymphocytes # (A) 0.6 k/uL (1.0-4.8); Lymphocytes % (A) 15 %; MCH 32.8 pg (25.0-35.0); MCHC 30.6 g/dL (31.0-37.0); MCV 107.5 fL (80.0-100.0); Macrocytosis Marked; Mean Platelet Volume 9.1; Monocytes # (A) 0.3 k/uL (0-1.0); Monocytes % (A) 6 %; Neutrophils # (A) 2.9 k/uL (1.3-7.7); Neutrophils % (A) 70 %; RBC 2.35 m/uL (4.30-5.90); RDW 17.1 % (11.5-15.5); WBC 4.2 k/uL (3.8-10.6)
[2019-10-03] MEDS ORDERED: PANTOPRAZOLE 40 MG/10 ML VIAL IV SCH (09:00)
[2019-10-03 10:26] LABS: INR 1.4 (<1.2); Platelet Count 31 k/uL (150-450); Prothrombin Time 14.3 sec (9.0-12.0)
[2019-10-03] MEDS ORDERED: VANCOMYCIN 1,750 MG in SODIUM CHLORIDE 0.9% 500 ML 500 ML IVPB ONE (12:00)
--- NOTE | 2019-10-03 12:30 | CONS ---
CONSULTATION PULMONARY/CRITICAL CARE CONSULTATION: DATE OF SERVICE: 10/03/2019 REASON FOR CONSULTATION: Right-sided pleural effusion, possible pneumonia. This is a 49-year-old gentleman who apparently was transferred down from [facility]. He was seen in the emergency room at [facility] on October 01. He apparently came in with complaints of dizziness, lightheadedness, low blood pressure following dialysis and possible pneumonia. He is short of breath. He denies any cough. There is no fever or chills. He is not coughing up any phlegm. He was apparently having dialysis and his blood pressure was low during dialysis and they could not complete his dialysis. He also was discovered to have a temperature of a 100 degrees. For that reason, he was sent down. Chest x-ray reveals a large right-sided pleural effusion. Apparently, the patient does have a pleural effusion drained from time to time. He states he that he sees Dr. Lozano about every 3 weeks and he has a right-sided thoracentesis performed. Again, the patient denies any other complaints that would be consistent. he is not coughing up any phlegm. The cough is dry and intermittent. He is short of breath. No chills. He did apparently have a mild temperature elevation. No chest congestion. Not coughing up any blood. Currently, he is not wearing any oxygen therapy. Does not feel short of breath currently. The patient was seen in the emergency room and placed on Levaquin and vancomycin. HOME MEDICATIONS: Reviewed. He is apparently on ProAir inhaler, aspirin, Celexa, sublingual nitroglycerin, Prilosec, Zocor, Xifaxan, metformin, Neurontin, metoprolol, lactulose, Bumex, Aldactone insulin, and sodium bicarbonate tablets. ALLERGIES: CEPHALEXIN. PAST MEDICAL HISTORY: Includes CAD, diabetes mellitus, GERD, hyperlipidemia, hypertension, chronic liver disease of unclear etiology. The patient does state that he was evaluated at [facility], but there was no etiology. He was declined liver transplant. Other medical history with myocardial infarction, recurrent large right-sided pleural effusion that is typically drained by Interventional Radiology every 3 weeks, hypoalbuminemia, neuropathy, hepatic encephalopathy, ascites, hyperammonemia, pancytopenia, lower extremity edema, chronic insomnia, as well as other medical issues. SURGICAL HISTORY: Includes among other things, cholecystectomy, heart catheterization with stent, colonoscopy, carpal tunnel release, and other orthopedic procedures. SOCIAL HISTORY: Positive for previous tobacco use. Does not smoke currently. Never really smoked heavily. Denies any alcohol or illicit drug use. FAMILY HISTORY: Positive for mother with lung cancer. Father with alcohol abuse. REVIEW OF SYSTEMS: CONSTITUTIONAL: Negative. NEUROLOGIC: Dizziness. HEENT: Negative. CARDIOVASCULAR: Negative. PULMONARY: Shortness of breath. GI: Negative. : Negative. RHEUMATOLOGIC: Negative. IMMUNOLOGIC: Negative. ENDOCRINOLOGIC: Negative. DERMATOLOGIC: Negative. Current vital signs are reviewed, temperature is 97.5 heart rate 70, respiratory rate 16, blood pressure 113/53 mean 73. Room-air saturation 92% to 95%. Appears in no acute distress. No audible wheezing. No accessory muscles and no conversational dyspnea. HEENT: Examination is unremarkable. No supplemental oxygen. NECK: Supple, full range of motion. No adenopathy. Neck veins are flat. CARDIOVASCULAR: Examination reveals a regular rhythm and rate. S1, S2 normal. No S3, S4, murmur. Heart sounds distant. LUNGS: Reveal diminished breath sounds on the right side. There is dullness at the right base. Some crackles at the right base. The left lung is clear. ABDOMEN: Distended. No fluid wave. Bowel sounds are heard. EXTREMITIES: Intact. Slight edema noted. 1+. There is pitting. SKIN: Reveals evidence of jaundice. NEUROLOGIC: Examination is brief but nonfocal. LABS: Reviewed. White count 4.2, hemoglobin 7.7, hematocrit 25.3, platelet count is 31,000. PT, INR was 14.3 and 1.4 respectively. Sodium 134, potassium 5, chloride 104, CO2 is 18, anion gap is 12. BUN and creatinine were 44 and 6.15. Glucose 237. Calcium 7.5. Microbiology is pending or negative. Chest x-ray is reviewed. Chest ultrasound is reviewed. Current medication list is reviewed. He is on Tylenol, Xanax, Lipitor, PhosLo, calcium carbonate, folic acid, Dilaudid, insulin, lactulose, Levaquin, Mag-Ox, melatonin, metoprolol, midodrine, morphine, Narcan, Zofran, Protonix, Rifaximin, and vancomycin. ASSESSMENT: 1. Large right-sided pleural effusion, which is being drained by Interventional Radiology about every 3 weeks. 2. Shortness of breath secondary to large right-sided pleural effusion. 3. Chronic liver disease of unclear etiology with hypoalbuminemia, ascites, and pleural effusion. 4. Coronary artery disease. 5. Diabetes mellitus. 6. Gastroesophageal reflux disease. 7. Hyperlipidemia. 8. History of hypertension. 9. Prior history of myocardial infarction. 10.Diabetic neuropathy. 11.Hepatic encephalopathy. 12.History of ascites. 13.Hyperammonemia. 14.Pancytopenia secondary to liver disease. 15.Coagulopathy of liver disease. 16.End-stage renal disease, currently on 3 time a week hemodialysis. PLAN: Interventional Radiology is consulted. They know the patient well. They can decide whether or not to do a thoracentesis at this time. I did order the ultrasound. Additional recommendations and suggestions are forthcoming. I do not believe the patient has an infection at this time. Will continue to follow. No additional recommendations are made. Will continue to follow. MMODL / IJN: [id number] /
[2019-10-03 12:42] LABS: Albumin 2.6 g/dL (3.5-5.0); Total Bilirubin 7.4 mg/dL (0.2-1.3); Total Protein 6.3 g/dL (6.3-8.2)
[2019-10-03 12:50] LABS: Glucose,Whole Blood 265 mg/dL (75-99)
--- NOTE | 2019-10-03 13:00 | XR ---
EXAMINATION TYPE: XR chest 1V DATE OF EXAM: 10/03/2019 HISTORY: post right thoracentesis COMPARISON: 08/15/2019 TECHNIQUE: Single view of the chest is submitted. FINDINGS: Demonstrated are scattered senescent parenchymal change. Large bore right central venous line with its distal tip overlying the SVC. A right-sided pleural eff usion without evidence for pneumothorax. The heart is stable. Hilar and mediastinal structures are within normal limits. Degenerative changes are seen of the dorsal spine. IMPRESSION: 1. No evidence for right-sided pneumothorax. Persistent right-sided pleural effusion and probable un derlying atelectasis.
[2019-10-03] MEDS: INSULIN ASPART (NovoLOG) 100 UNIT/ML VIAL SQ SCH ×3 (13:12→21:31)
--- NOTE | 2019-10-03 13:17 | US ---
EXAMINATION TYPE: US chest DATE OF EXAM: 10/03/2019 COMPARISON: Right-sided ultrasound-guided thoracentesis 08/15/2019 CLINICAL HISTORY: right pleural effusion. TECHNIQUE: Targeted ultrasound of the posterior lower right hemithorax EXAM MEASUREMENTS: Right Pleural Effusion pocket size: 5.0 cm Right skin surface to fluid distance: 2.9 cm Right side marked for possible thoracentesis outside the dept. Pulmonologists are able to review the images in the patient?s EMR. IMPRESSIONS: Large volume right pleural effusion.
--- NOTE | 2019-10-03 13:38 | US ---
EXAMINATION TYPE: US thoracentesis DATE OF EXAM: 10/03/2019 COMPARISON: NONE HISTORY: Pleural effusion. 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 Guadalupe Meza PROCEDURE: The procedure was discussed with the patient. The risks, complications, benefits, and alternatives we re discussed and any questions were answered. Informed consent was obtained. Preprocedure preliminary imaging demonstrated large volume right pleural effusion. Maximal barrier technique was utilized. The skin overlying a suitable pocket of fluid of the right ch est was localized and the overlying skin prepped and draped. Lidocaine was used for local anesthesia. Ultrasound was used with sterile technique. A 5FR 7 cm ons-step centesis catheter was advanced into the pleural fluid collection using ultrasound guidance. Approximately 2.1 liter(s) of serous fluid wa s removed. Catheter was withdrawn and hemostasis achieved. A sterile bandage was applied. There is no immediate complication. The patient was discharged in stable condition without complicati on. IMPRESSION: 1. Status post ultrasound-guided right thoracentesis, with removal of 2.1 L of clear serous fluid. 2. Postprocedure chest x-ray pending.
--- NOTE | 2019-10-03 13:56 | P.NPCON ---
History of Present Illness - Reason for Consult end stage renal disease - History of Present Illness reason for consultation: End-stage renal disease History of present illness: Patient is a 49-year-old male seen in consultation for end-stage renal disease. He is maintained on hemodialysis on Wednesday schedule via right chest permacath. patient presented to the hospital due to dizziness and weakness after completing dialysis yesterday. Patient has history of liver cirrhosis and blood pressure tends to run on the lower side. He is maintained on midodrine outpatient. he underwent thoracentesis this morning at 2.1 L drained from the right lung. Denies active chest pain or shortness of breath. No vomiting or diarrhea. No significant edema. he has been afebrile this admission but did have a temperature prior to coming in. He denies any drainage or redness around his catheter site. no cough. hemoglobin stable at 7.7 this morning. Vital signs are stable. General: The patient appeared well nourished and normally developed. HEENT: Head exam is unremarkable. Neck is without jugular venous distension. LUNGS: Lungs are clear to auscultation and percussion. Breath sounds decreased. HEART: Rate and Rhythm are regular. ABDOMEN: soft, nontender. EXTREMITITES: No edema. Past Medical History Past Medical History: Coronary Artery Disease (CAD), Diabetes Mellitus, GERD/Reflux, Hyperlipidemia, Hypertension, Liver Disease, Myocardial Infarction ([place]), Renal Disease Additional Past Medical History / Comment(s): Recurrant large R pleural effusion secondary to cirrhoisis of the liver, hypoalbuminemia, fluid overload. 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 Coma in past, renal failure with hemodialysis M,W,F Last Myocardial Infarction Date:: 2012 History of Any Multi-Drug Resistant Organisms: None Reported Past Surgical History: Cholecystectomy, Heart Catheterization With Stent, Orthopedic Surgery Additional Past Surgical History / Comment(s): PCIs with stents, EGDs, colonoscopy, carpal tunnel release-laterallity unknown. Past Anesthesia/Blood Transfusion Reactions: No Reported Reaction Additional Past Anesthesia/Blood Transfusion Reaction / Comment(s): No blood transfusions. Date of Last Stent Placement:: 2012 Past Psychological History: Anxiety, Depression Additional Psychological History / Comment(s): Pt resides with his spouse. He has a cane. He has a glucometer. He no longer drive, his spouse can take him to appts or family will. Smoking Status: Former smoker Past Alcohol Use History: None Reported Additional Past Alcohol Use History / Comment(s): Pt started smoking as a teen and quit in 2010.Patient states used to drink very little. Past Drug Use History: None Reported - Past Family History Mother History Unknown: Yes Family Medical History: Cancer Additional Family Medical History / Comment(s): Lung cancer. Father Additional Family Medical History / Comment(s): ETOH abuse Medications and Allergies Home Medications Medication Instructions Recorded Confirmed Type Albuterol Sulfate [Proair Hfa] 2 puff INHALATION RT-Q6H PRN 12/07/18 10/02/19 History Rifaximin [Xifaxan] 550 mg PO BID 12/20/18 10/02/19 History Metoprolol Tartrate 12.5 mg PO BID 08/11/19 10/02/19 History ALPRAZolam [Xanax] 0.5 mg PO BID 10/02/19 10/02/19 History Aspirin EC [Ecotrin] 325 mg PO DAILY 10/02/19 10/02/19 History Atorvastatin Calcium [Lipitor] 40 mg PO HS 10/02/19 10/02/19 History Calcium Acetate [Phoslo] 1,334 mg PO AC-TID 10/02/19 10/02/19 History Insulin Glargine [Lantus] 40 unit SQ HS 10/02/19 10/02/19 History Midodrine HCl [ProAmatine] 10 mg PO AC-TID 10/02/19 10/02/19 History Moxifloxacin HCl [Avelox] 400 mg PO DAILY 10/02/19 10/02/19 History Pantoprazole Sodium [Protonix] 40 mg PO DAILY 10/02/19 10/02/19 History [place] Caps 1 cap PO DAILY 10/02/19 10/02/19 History Allergies Allergy/AdvReac Type Severity Reaction Status Date / Time cephalexin [From Keflex] AdvReac Rash/Hives Verified 10/02/19 17:19 Physical Exam Vitals: Vital Signs Temp Pulse Pulse Resp BP BP BP 10/03/19 13:22 66 16 105/47 10/03/19 13:06 65 16 100/49 10/03/19 12:52 65 16 87/42 10/03/19 12:30 65 16 93/59 10/03/19 12:20 64 14 100/67 10/03/19 12:12 65 16 95/61 10/03/19 12:04 65 14 93/59 10/03/19 11:51 64 16 97/61 10/03/19 11:39 84/51 97/54 10/03/19 11:29 97.8 F 65 14 91/58 10/03/19 08:00 97.5 F L 70 16 113/53 10/03/19 03:44 64 18 10/03/19 03:42 97.3 F L 64 18 97/50 10/03/19 00:00 97.0 F L 61 18 97/53 10/02/19 20:15 97.3 F L 60 18 100/55 10/02/19 20:00 61 18 10/02/19 19:04 59 L 17 136/71 10/02/19 17:21 64 17 128/75 10/02/19 15:57 96.8 F L 66 16 102/36 Pulse Ox 10/03/19 13:22 10/03/19 13:06 99 10/03/19 12:52 99 10/03/19 12:30 96 10/03/19 12:20 96 10/03/19 12:12 96 10/03/19 12:04 97 10/03/19 11:51 97 10/03/19 11:39 10/03/19 11:29 95 10/03/19 08:00 10/03/19 03:44 10/03/19 03:42 92 L 10/03/19 00:00 94 L 10/02/19 20:15 99 10/02/19 20:00 10/02/19 19:04 100 10/02/19 17:21 94 L 10/02/19 15:57 94 L Intake and Output 10/02/19 10/03/19 10/03/19 22:59 06:59 14:59 Intake Total 120 Balance 120 Intake: Oral 120 Other: Voiding Method Urinal Urinal # Voids 2 # Bowel Movements 2 Weight 113.398 kg 101.2 kg Results - Lab Results Most recent lab results Calcium 7.5 mg/dL (8.4-10.2) L 10/03/19 08:13 10/03/19 08:13 10/03/19 08:13 Assessment and Plan Plan: Assessment: 1. End-stage renal disease maintained on hemodialysis on Wednesday schedule via right chest permacath. 2. Liver cirrhosis. 3. Chronic hypotension maintained on midodrine. 4. Dyspnea secondary to right-sided pleural effusion. Patient undergoes scheduled thoracentesis. He underwent thoracentesis this morning at 2.1 L drained. 5. Insulin-dependent diabetes mellitus. 6. Anemia of chronic kidney disease. rule out deficiency. 7. Chronic kidney disease mineral bone disease maintained on PhosLo. plan: Hemodialysis tomorrow. Maintain midodrine. Extra dose mid hemodialysis. Check iron studies. Add Aranesp. Check culture from the permacath. Monitor vancomycin level. Target level 15. Dose to be adjusted for renal function. Thank you for the consultation. I will continue to follow the patient with you during his hospital stay.
[2019-10-03] MEDS ORDERED: DARBEPOETIN ALFA 40 MCG/0.4 ML SYRINGE SQ SCH (14:00)
[2019-10-03 15:24] LABS: Appearance,BF Clear; Nucleated Cells, Body Fluid 20 /uL; RBC, Body Fluid 440 /uL
[2019-10-03 15:26] LABS: Mononuclear WBC,Body Fluid 89 %; Polynuclear WBC,Body Fluid 11 %; Total Cells Counted,Body Fluid 100
[2019-10-03 16:31] LABS: Glucose,Whole Blood 280 mg/dL (75-99)
--- NOTE | 2019-10-03 19:59 | P.HPIM ---
History of Present Illness H&P Date: 10/03/19 Chief Complaint: Weak and tired History of presenting complaint: This is a 49-year-old patient of Dr. Guzmán. Patient has a known history of cirrhosis that has progressed from fatty liver. Diagnosed over 2 years ago. Follows with batch and furnace operator Dr. Angulo. stable medical conditions include obesity, pancytopenia, coronary artery disease with stent, diabetes mellitus ty pe 2, GERD, hyperlipidemia, hypotension on midodrine, chronic insomnia. Patient gets therapeutic paracentesis every 2 weeks. Patient is also had thoracentesis before. Patient's had repeated admissions for encephalopathy. On August 22 patient was transferred and hospital because encephalopathy was not improving. She was not felt to be a liver transplant candidate. He may be going down to [facility] for assessment for the same. Patient begun hemodialysis the last 2 weeks. Patient has a right infraclavicular hemodialysis access. Patient's front of cellulitis around the same. Was put on antibiotics with hemodialysis. Has not really improved. Patient gets hemodialyzed Wednesday and Wednesday. Recently 2.1 L photosynthesis done. Appetite poor. Patient always feels cold. No fever. at the bedside. Review of systems: GEN.: Tired, slightly lethargic EYES: None HEENT: None NECK: None RESPIRATORY: None CARDIOVASCULAR: Edema GASTROINTESTINAL: Having BMs GENITOURINARY: None MUSCULOSKELETAL: None LYMPHATICS: None HEMATOLOGICAL: None PSYCHIATRY: Answering questions NEUROLOGICAL: None Past medical history to include: cirrhosis that has progressed from fatty liver. Diagnosed over 2 years ago. Follows with batch and furnace operator Dr. Cuellar. obesity, pancytopenia, coronary artery disease with stent, diabetes mellitus type 2, GERD, hyperlipidemia, chronic hypotension on midodrine chronic insomnia. Repeated thoracentesis and paracentesis Social history: Ex-smoker. . 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 Physical examination: VITAL SIGNS: 96.8, 66, 16, 102/36, 94% on room air GENERAL: BMI 32.9, laying in bed, awake he would answer questions EYES: Pupils equal. Conjunctiva-mild icterus HEENT: External appearance of nose and ears normal, oral cavity grossly normal. NECK: JVD unable to assess; masses not palpable. HEART: First and second heart sounds are normal; edema present LUNGS: Respiratory rate increased, decreased breath sounds ABDOMEN: Soft, some distention, nontender, liver spleen not palpable, no masses palpable. PSYCH: Able to answer questions. NEUROLOGICAL: Cranial nerves grossly intact; no facial asymmetry, power and sensation grossly intact. LYMPHATICS: No lymph nodes palpable in the axilla and neck DERMATOLOGICAL: Right upper chest PermCath with surrounding redness of the skin, slight tenderness INVESTIGATIONS, reviewed in the clinical context: Sodium 1:30 potassium 5 bun 39 creatinine 5.2 to glucose 313 vancomycin 19.8 white count 4.2 hemoglobin 7.7 platelets 31 ammonia 12 bicarb 18 Previous testing: Labs on August 22 showed bundle 53 creatinine of 1.86 Assessment: -Medical asthenia multifactorial -Acute cellulitis around the access site of PermCath -Chronic hepatic encephalopathy from underlying cirrhosis. -Hypotension-multifactorial -Chronic metabolic acidosis -Hepatic cirrhosis that is progressed from fatty liver, recently evaluated at an different hospital not found to be candidate for liver transplant. 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 Levels will be followed. Consultation to nephrology, GI, infectious disease. Care was discussed at length with the patient and the . Overall prognosis guarded. Cultures from both To be followed. Past Medical History Past Medical History: Coronary Artery Disease (CAD), Diabetes Mellitus, GERD/Reflux, Hyperlipidemia, Hypertension, Liver Disease, Myocardial Infarction ([place]), Renal Disease Additional Past Medical History / Comment(s): Recurrant large R pleural effusion secondary to cirrhoisis of the liver, hypoalbuminemia, fluid overload. 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 Coma in past, renal failure with hemodialysis M,W,F Last Myocardial Infarction Date:: 2012 History of Any Multi-Drug Resistant Organisms: None Reported Past Surgical History: Cholecystectomy, Heart Catheterization With Stent, Orthopedic Surgery Additional Past Surgical History / Comment(s): PCIs with stents, EGDs, colonoscopy, carpal tunnel release-laterallity unknown. Past Anesthesia/Blood Transfusion Reactions: No Reported Reaction Additional Past Anesthesia/Blood Transfusion Reaction / Comment(s): No blood transfusions. Date of Last Stent Placement:: 2012 Past Psychological History: Anxiety, Depression Additional Psychological History / Comment(s): Pt resides with his spouse. He has a cane. He has a glucometer. He no longer drive, his spouse can take him to appts or family will. Smoking Status: Former smoker Past Alcohol Use History: None Reported Additional Past Alcohol Use History / Comment(s): Pt started smoking as a teen and quit in 2010.Patient states used to drink very little. Past Drug Use History: None Reported - Past Family History Mother History Unknown: Yes Family Medical History: Cancer Additional Family Medical History / Comment(s): Lung cancer. Father Additional Family Medical History / Comment(s): ETOH abuse Medications and Allergies Home Medications Medication Instructions Recorded Confirmed Type Albuterol Sulfate [Proair Hfa] 2 puff INHALATION RT-Q6H PRN 12/07/18 10/02/19 History Rifaximin [Xifaxan] 550 mg PO BID 12/20/18 10/02/19 History Metoprolol Tartrate 12.5 mg PO BID 08/11/19 10/02/19 History ALPRAZolam [Xanax] 0.5 mg PO BID 10/02/19 10/02/19 History Aspirin EC [Ecotrin] 325 mg PO DAILY 10/02/19 10/02/19 History Atorvastatin Calcium [Lipitor] 40 mg PO HS 10/02/19 10/02/19 History Calcium Acetate [Phoslo] 1,334 mg PO AC-TID 10/02/19 10/02/19 History Insulin Glargine [Lantus] 40 unit SQ HS 10/02/19 10/02/19 History Midodrine HCl [ProAmatine] 10 mg PO AC-TID 10/02/19 10/02/19 History Moxifloxacin HCl [Avelox] 400 mg PO DAILY 10/02/19 10/02/19 History Pantoprazole Sodium [Protonix] 40 mg PO DAILY 10/02/19 10/02/19 History Antwon Caps 1 cap PO DAILY 10/02/19 10/02/19 History Allergies Allergy/AdvReac Type Severity Reaction Status Date / Time cephalexin [From Keflex] AdvReac Rash/Hives Verified 10/02/19 17:19 Physical Exam Vitals: Vital Signs Temp Pulse Pulse Resp BP BP Pulse Ox 10/03/19 08:00 97.5 F L 70 16 113/53 10/03/19 03:44 64 18 10/03/19 03:42 97.3 F L 64 18 97/50 92 L 10/03/19 00:00 97.0 F L 61 18 97/53 94 L 10/02/19 20:15 97.3 F L 60 18 100/55 99 10/02/19 20:00 61 18 10/02/19 19:04 59 L 17 136/71 100 10/02/19 17:21 64 17 128/75 94 L 10/02/19 15:57 96.8 F L 66 16 102/36 94 L Intake and Output 10/02/19 10/03/19 10/03/19 22:59 06:59 14:59 Other: Voiding Method Urinal Urinal # Voids 2 # Bowel Movements 2 Weight 113.398 kg 101.2 kg Results CBC & Chem 7: 10/03/19 08:13 10/03/19 08:13 Labs: Abnormal Lab Results - Last 24 Hours (Table) 10/02/19 10/02/19 10/03/19 Range/Units 16:47 20:27 06:02 RBC (4.30-5.90) m/uL Hgb (13.0-17.5) gm/dL Hct (39.0-53.0) % MCV (80.0-100.0) fL MCHC (31.0-37.0) g/dL RDW (11.5-15.5) % Macrocytosis Sodium 130 L (137-145) mmol/L Carbon Dioxide 18 L (22-30) mmol/L BUN 39 H (9-20) mg/dL Creatinine 5.22 H (0.66-1.25) mg/dL Glucose 313 H (74-99) mg/dL POC Glucose (mg/dL) 283 H 282 H (75-99) mg/dL Calcium 7.5 L (8.4-10.2) mg/dL 10/03/19 10/03/19 Range/Units 08:13 08:13 RBC 2.35 L (4.30-5.90) m/uL Hgb 7.7 L (13.0-17.5) gm/dL Hct 25.3 L (39.0-53.0) % MCV 107.5 H (80.0-100.0) fL MCHC 30.6 L (31.0-37.0) g/dL RDW 17.1 H (11.5-15.5) % Macrocytosis Marked A Sodium 134 L (137-145) mmol/L Carbon Dioxide 18 L (22-30) mmol/L BUN 44 H (9-20) mg/dL Creatinine 6.15 H (0.66-1.25) mg/dL Glucose 237 H (74-99) mg/dL POC Glucose (mg/dL) (75-99) mg/dL Calcium 7.5 L (8.4-10.2) mg/dL Thrombosis Risk Factor Assmnt - Choose All That Apply Any of the Below Risk Factors Present?: Yes Each Factor Represents 1 point: Age 41-60 years Other Risk Factors: No Other congenital or acquired thrombophilia - If yes, enter type in comment: No Thrombosis Risk Factor Assessment Total Risk Factor Score: 1 Thrombosis Risk Factor Assessment Level: Low Risk
[2019-10-03 20:56] LABS: Glucose, BF Source Pleural Fluid; Glucose, Body Fluid 282 mg/dL; LDH, Body Fluid Source Pleural Fluid; Total Protein, Body Fluid 1809 mg/dL
[2019-10-03 21:22] LABS: % Iron Saturation 58.86 (15.00-50.00); Ferritin 321.6 ng/mL (22.0-322.0)
[2019-10-03] MEDS: ATORVASTATIN 40 MG TAB PO SCH (21:31)
[2019-10-03] MEDS: INSULIN DETEMIR (LEVEMIR) 100 UNIT/ML SYR SQ SCH (21:31)
[2019-10-03 21:38] LABS: Glucose,Whole Blood 287 mg/dL (75-99)
--- NOTE | 2019-10-03 22:49 | P.CONS ---
History of Present Illness - Reason for Consult Consult date: 10/03/19 [facility] infection Requesting physician: Jamel Contreras - Chief Complaint Low blood pressure and fever x one day - History of Present Illness Patient is a 49-year-old male with a past medical history significant for cirrhosis of the liver and recent end-stage renal disease on hemodialysis through the right subclavian perm catheter that the patient was placed and had before Hospital a few weeks ago patient was undergoing hemodialysis yesterday where the patient was noticed to be have hypotension and the dialysis could not be completed, patient subsequently was sent to [facility] for evaluation of his low blood pressure or there apparently the patient did have low-grade fever 100F patient has been complaining of feeling weak and tired and no energy patient denies having any headache or URI symptoms denies having any chest pain he did have some shortness of breath no significant cough or sputum production no abdominal pain and no urinary symptoms patient apparently did have some erythema around the dialysis access site. No purulent drainage patient has been started on vancomycin and infectious disease was consulted for further management of antibiotic therapy patient also have a chest x-ray with evidence of bilateral effusion and is status post there was a noticeable pulmonary patient tolerated the procedure, patient has been afebrile so far during this hospital stay and his white count has been normal no blood culture done Review of Systems Positive point has been mentioned in the HPI rest of the systems are negative Past Medical History Past Medical History: Coronary Artery Disease (CAD), Diabetes Mellitus, GERD/Reflux, Hyperlipidemia, Hypertension, Liver Disease, Myocardial Infarction ([place]), Renal Disease Additional Past Medical History / Comment(s): Recurrant large R pleural effusion secondary to cirrhoisis of the liver, hypoalbuminemia, fluid overload. 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 Coma in past, renal failure with hemodialysis M,W,F Last Myocardial Infarction Date:: 2012 History of Any Multi-Drug Resistant Organisms: None Reported Past Surgical History: Cholecystectomy, Heart Catheterization With Stent, Orthopedic Surgery Additional Past Surgical History / Comment(s): PCIs with stents, EGDs, colonoscopy, carpal tunnel release-laterallity unknown. Past Anesthesia/Blood Transfusion Reactions: No Reported Reaction Additional Past Anesthesia/Blood Transfusion Reaction / Comm: No blood transfusions. Date of Last Stent Placement:: 2012 Past Psychological History: Anxiety, Depression Additional Psychological History / Comment(s): Pt resides with his spouse. He has a cane. He has a glucometer. He no longer drive, his spouse can take him to appts or family will. Smoking Status: Former smoker Past Alcohol Use History: None Reported Additional Past Alcohol Use History / Comment(s): Pt started smoking as a teen and quit in 2010.Patient states used to drink very little. Past Drug Use History: None Reported - Past Family History Mother History Unknown: Yes Family Medical History: Cancer Additional Family Medical History / Comment(s): Lung cancer. Father Additional Family Medical History / Comment(s): ETOH abuse Medications and Allergies Home Medications Medication Instructions Recorded Confirmed Type Albuterol Sulfate [Proair Hfa] 2 puff INHALATION RT-Q6H PRN 12/07/18 10/02/19 History Rifaximin [Xifaxan] 550 mg PO BID 12/20/18 10/02/19 History Metoprolol Tartrate 12.5 mg PO BID 08/11/19 10/02/19 History ALPRAZolam [Xanax] 0.5 mg PO BID 10/02/19 10/02/19 History Aspirin EC [Ecotrin] 325 mg PO DAILY 10/02/19 10/02/19 History Atorvastatin Calcium [Lipitor] 40 mg PO HS 10/02/19 10/02/19 History Calcium Acetate [Phoslo] 1,334 mg PO AC-TID 10/02/19 10/02/19 History Insulin Glargine [Lantus] 40 unit SQ HS 10/02/19 10/02/19 History Midodrine HCl [ProAmatine] 10 mg PO AC-TID 10/02/19 10/02/19 History Moxifloxacin HCl [Avelox] 400 mg PO DAILY 10/02/19 10/02/19 History Pantoprazole Sodium [Protonix] 40 mg PO DAILY 10/02/19 10/02/19 History Irion Caps 1 cap PO DAILY 10/02/19 10/02/19 History Allergies Allergy/AdvReac Type Severity Reaction Status Date / Time cephalexin [From Keflex] AdvReac Rash/Hives Verified 10/02/19 17:19 Physical Exam Vitals: Vital Signs Temp Pulse Pulse Resp BP BP BP 10/03/19 13:22 66 16 105/47 10/03/19 13:06 65 16 100/49 10/03/19 12:52 65 16 87/42 10/03/19 12:30 65 16 93/59 10/03/19 12:20 64 14 100/67 10/03/19 12:12 65 16 95/61 10/03/19 12:04 65 14 93/59 10/03/19 11:51 64 16 97/61 10/03/19 11:39 84/51 97/54 10/03/19 11:29 97.8 F 65 14 91/58 10/03/19 08:00 97.5 F L 70 16 113/53 10/03/19 03:44 64 18 10/03/19 03:42 97.3 F L 64 18 97/50 10/03/19 00:00 97.0 F L 61 18 97/53 10/02/19 20:15 97.3 F L 60 18 100/55 10/02/19 20:00 61 18 10/02/19 19:04 59 L 17 136/71 10/02/19 17:21 64 17 128/75 10/02/19 15:57 96.8 F L 66 16 102/36 Pulse Ox 10/03/19 13:22 10/03/19 13:06 99 10/03/19 12:52 99 10/03/19 12:30 96 10/03/19 12:20 96 10/03/19 12:12 96 10/03/19 12:04 97 10/03/19 11:51 97 10/03/19 11:39 10/03/19 11:29 95 10/03/19 08:00 10/03/19 03:44 10/03/19 03:42 92 L 10/03/19 00:00 94 L 10/02/19 20:15 99 10/02/19 20:00 10/02/19 19:04 100 10/02/19 17:21 94 L 10/02/19 15:57 94 L Intake and Output 10/02/19 10/03/19 10/03/19 22:59 06:59 14:59 Intake Total 120 Balance 120 Intake: Oral 120 Other: Voiding Method Urinal Urinal # Voids 2 # Bowel Movements 2 Weight 113.398 kg 101.2 kg GENERAL DESCRIPTION: Middle-aged male lying in bed, no distress. No tachypnea or accessory muscle of respiration use. HEENT: Shows Pallor , no scleral icterus. Oral mucous membrane is dry. No pharyngeal erythema or thrush NECK: Trachea central, no thyromegaly. LUNGS: Unlabored breathing. Decreased present at the base. No wheeze or crackle. HEART: S1, S2, regular rate and rhythm. No loud murmur, right subclavian permacath site with minimal erythema no drainage ABDOMEN: Soft, no tenderness , guarding or rigidity, no organomegaly EXTREMITIES: No edema of feet. SKIN: No rash, no masses palpable. NEUROLOGICAL: The patient is awake, alert, oriented x3, mood and affect normal. Results CBC & Chem 7: 10/03/19 08:13 10/03/19 08:13 Labs: Abnormal Lab Results - Last 24 Hours (Table) 10/02/19 10/02/19 10/03/19 Range/Units 16:47 20:27 06:02 RBC (4.30-5.90) m/uL Hgb (13.0-17.5) gm/dL Hct (39.0-53.0) % MCV (80.0-100.0) fL MCHC (31.0-37.0) g/dL RDW (11.5-15.5) % Plt Count (150-450) k/uL Lymphocytes # (1.0-4.8) k/uL Macrocytosis PT (9.0-12.0) sec INR (<1.2) Sodium 130 L (137-145) mmol/L Carbon Dioxide 18 L (22-30) mmol/L BUN 39 H (9-20) mg/dL Creatinine 5.22 H (0.66-1.25) mg/dL Glucose 313 H (74-99) mg/dL POC Glucose (mg/dL) 283 H 282 H (75-99) mg/dL Calcium 7.5 L (8.4-10.2) mg/dL Total Bilirubin (0.2-1.3) mg/dL AST (17-59) U/L Alkaline Phosphatase (38-126) U/L Albumin (3.5-5.0) g/dL 10/03/19 10/03/19 10/03/19 Range/Units 08:13 08:13 08:13 RBC 2.35 L (4.30-5.90) m/uL Hgb 7.7 L (13.0-17.5) gm/dL Hct 25.3 L (39.0-53.0) % MCV 107.5 H (80.0-100.0) fL MCHC 30.6 L (31.0-37.0) g/dL RDW 17.1 H (11.5-15.5) % Plt Count 31 L (150-450) k/uL Lymphocytes # 0.6 L (1.0-4.8) k/uL Macrocytosis Marked A PT 14.3 H (9.0-12.0) sec INR 1.4 H (<1.2) Sodium 134 L (137-145) mmol/L Carbon Dioxide 18 L (22-30) mmol/L BUN 44 H (9-20) mg/dL Creatinine 6.15 H (0.66-1.25) mg/dL Glucose 237 H (74-99) mg/dL POC Glucose (mg/dL) (75-99) mg/dL Calcium 7.5 L (8.4-10.2) mg/dL Total Bilirubin 7.4 H (0.2-1.3) mg/dL AST 73 H (17-59) U/L Alkaline Phosphatase 397 H (38-126) U/L Albumin 2.6 L (3.5-5.0) g/dL 10/03/19 Range/Units 12:48 RBC (4.30-5.90) m/uL Hgb (13.0-17.5) gm/dL Hct (39.0-53.0) % MCV (80.0-100.0) fL MCHC (31.0-37.0) g/dL RDW (11.5-15.5) % Plt Count (150-450) k/uL Lymphocytes # (1.0-4.8) k/uL Macrocytosis PT (9.0-12.0) sec INR (<1.2) Sodium (137-145) mmol/L Carbon Dioxide (22-30) mmol/L BUN (9-20) mg/dL Creatinine (0.66-1.25) mg/dL Glucose (74-99) mg/dL POC Glucose (mg/dL) 265 H (75-99) mg/dL Calcium (8.4-10.2) mg/dL Total Bilirubin (0.2-1.3) mg/dL AST (17-59) U/L Alkaline Phosphatase (38-126) U/L Albumin (3.5-5.0) g/dL Assessment and Plan Assessment: 1- patient have with hypotension and low-grade fever and erythema around his permacath site with concern for possible permacatheter infection and the patient currently denies having any other obvious focus of infection patient did have evidence of pleural effusion critical nature of his underlying cirrhosis and no significant purulence was noticed that time thoracocentesis abdominal soft with clinical examination and patient with multiple symptoms or any cellulitis 2- cephalosporin ALLERGY to limit the number of antibiotic safe to use (1) Fever Current Visit: Yes Status: Acute Code(s): R50.9 - FEVER, UNSPECIFIED SNOMED Code(s): 797053437 Plan: 1- we will obtain blood culture peripherally as well as from the palmar catheter at the time of dialysis 2-obtain inflammatory markers 3-Vancomycin pharmacy to dose target trough of 15 while watching his kidney function and Vanco trough closely We will follow on clinical condition and cultures to further adjust medication if needed Thank you for this consultation will follow this patient with you Time with Patient: Greater than 30
[2019-10-04] MEDS: ACETAMINOPHEN TAB 325 MG TAB PO PRN (03:04)
[2019-10-04 06:47] LABS: Glucose,Whole Blood 184 mg/dL (75-99)
[2019-10-04] MEDS: PANTOPRAZOLE 40 MG TABLET PO SCH (06:51)
[2019-10-04] MEDS: CALCIUM ACETATE 667 MG TAB PO SCH ×3 (06:51→17:46)
[2019-10-04] MEDS: MIDODRINE 5 MG TAB PO SCH ×4 (06:51→17:46)
[2019-10-04] MEDS: INSULIN ASPART (NovoLOG) 100 UNIT/ML VIAL SQ SCH ×4 (06:53→20:57)
[2019-10-04 07:02] LABS: Albumin 2.5 g/dL (3.5-5.0); Calcium 7.2 mg/dL (8.4-10.2); Potassium 5.3 mmol/L (3.5-5.1); Total Bilirubin 7.5 mg/dL (0.2-1.3); Total Protein 6.2 g/dL (6.3-8.2)
--- NOTE | 2019-10-04 09:12 | P.PN ---
Subjective Patient is seen in follow-up for end-stage renal disease. He is maintained on hemodialysis on Wednesday schedule. Feels weak. Denies chest pain or shortness of breath. Vital signs are stable. General: The patient appeared well nourished and normally developed. HEENT: Head exam is unremarkable. Neck is without jugular venous distension. LUNGS: Breath sounds decreased. HEART: Rate and Rhythm are regular. ABDOMEN: Soft, nontender. Distention noted. EXTREMITITES: 1+ edema. Objective - Vital Signs Vital signs: Vital Signs Temp 98.0 F 10/04/19 04:00 Pulse 76 10/04/19 04:00 Resp 18 10/04/19 04:00 BP 95/48 10/04/19 04:00 Pulse Ox 91 L 10/04/19 04:00 Intake & Output 10/03/19 10/04/19 10/04/19 18:59 06:59 18:59 Intake Total 340 10 Balance 340 10 Weight 100.3 kg Intake: IV 10 0.9 10 Oral 340 Other: Voiding Method Urinal # Voids 0 - Labs CBC & Chem 7: 10/03/19 08:13 10/04/19 06:11 Labs: Abnormal Lab Results - Last 24 Hours (Table) 10/03/19 10/03/19 10/03/19 Range/Units 08:13 08:13 08:13 RBC 2.35 L (4.30-5.90) m/uL Hgb 7.7 L (13.0-17.5) gm/dL Hct 25.3 L (39.0-53.0) % MCV 107.5 H (80.0-100.0) fL MCHC 30.6 L (31.0-37.0) g/dL RDW 17.1 H (11.5-15.5) % Plt Count 31 L (150-450) k/uL Lymphocytes # 0.6 L (1.0-4.8) k/uL Macrocytosis Marked A PT 14.3 H (9.0-12.0) sec INR 1.4 H (<1.2) Sodium 134 L (137-145) mmol/L Potassium (3.5-5.1) mmol/L Carbon Dioxide 18 L (22-30) mmol/L BUN 44 H (9-20) mg/dL Creatinine 6.15 H (0.66-1.25) mg/dL Glucose 237 H (74-99) mg/dL POC Glucose (mg/dL) (75-99) mg/dL Calcium 7.5 L (8.4-10.2) mg/dL TIBC (228-460) ug/dL % Saturation (15.00-50.00) Total Bilirubin 7.4 H (0.2-1.3) mg/dL AST 73 H (17-59) U/L Alkaline Phosphatase 397 H (38-126) U/L Total Protein (6.3-8.2) g/dL Albumin 2.6 L (3.5-5.0) g/dL 10/03/19 10/03/19 10/03/19 Range/Units 12:48 14:26 16:29 RBC (4.30-5.90) m/uL Hgb (13.0-17.5) gm/dL Hct (39.0-53.0) % MCV (80.0-100.0) fL MCHC (31.0-37.0) g/dL RDW (11.5-15.5) % Plt Count (150-450) k/uL Lymphocytes # (1.0-4.8) k/uL Macrocytosis PT (9.0-12.0) sec INR (<1.2) Sodium (137-145) mmol/L Potassium (3.5-5.1) mmol/L Carbon Dioxide (22-30) mmol/L BUN (9-20) mg/dL Creatinine (0.66-1.25) mg/dL Glucose (74-99) mg/dL POC Glucose (mg/dL) 265 H 280 H (75-99) mg/dL Calcium (8.4-10.2) mg/dL TIBC 175 L (228-460) ug/dL % Saturation 58.86 H (15.00-50.00) Total Bilirubin (0.2-1.3) mg/dL AST (17-59) U/L Alkaline Phosphatase (38-126) U/L Total Protein (6.3-8.2) g/dL Albumin (3.5-5.0) g/dL 10/03/19 10/04/19 10/04/19 Range/Units 21:27 06:11 06:27 RBC (4.30-5.90) m/uL Hgb (13.0-17.5) gm/dL Hct (39.0-53.0) % MCV (80.0-100.0) fL MCHC (31.0-37.0) g/dL RDW (11.5-15.5) % Plt Count (150-450) k/uL Lymphocytes # (1.0-4.8) k/uL Macrocytosis PT (9.0-12.0) sec INR (<1.2) Sodium 135 L (137-145) mmol/L Potassium 5.3 H (3.5-5.1) mmol/L Carbon Dioxide 16 L (22-30) mmol/L BUN 53 H (9-20) mg/dL Creatinine 7.20 H* (0.66-1.25) mg/dL Glucose 171 H (74-99) mg/dL POC Glucose (mg/dL) 287 H 184 H (75-99) mg/dL Calcium 7.2 L (8.4-10.2) mg/dL TIBC (228-460) ug/dL % Saturation (15.00-50.00) Total Bilirubin 7.5 H (0.2-1.3) mg/dL AST 86 H (17-59) U/L Alkaline Phosphatase 380 H (38-126) U/L Total Protein 6.2 L (6.3-8.2) g/dL Albumin 2.5 L (3.5-5.0) g/dL Microbiology - Last 24 Hours (Table) 10/03/19 11:51 Gram Stain - Preliminary Pleural Fluid Body Fluid Culture - Preliminary 10/03/19 11:51 Acid Fast Bacilli Smear - Final Pleural Fluid Acid Fast Bacilli Culture - Preliminary 10/03/19 11:51 Anaerobic Culture - Preliminary Pleural Fluid 10/03/19 11:51 Fungal Culture - Preliminary Pleural Fluid Assessment and Plan Plan: Assessment: 1. End-stage renal disease maintained on hemodialysis on Wednesday schedule via right chest permacath. 2. Liver cirrhosis. 3. Chronic hypotension maintained on midodrine. 4. Dyspnea secondary to right-sided pleural effusion. Patient undergoes scheduled thoracentesis. He underwent thoracentesis on October 02 2.1 L drained. 5. Insulin-dependent diabetes mellitus. 6. Anemia of chronic kidney disease. Iron replete. Maintained on Aranesp. 7. Chronic kidney disease mineral bone disease maintained on PhosLo. plan: Hemodialysis today. Maintain midodrine. Extra dose mid hemodialysis. Follow-up cultures. Culture was also drawn from [facility] on October 02. Monitor vancomycin level. Target level 15. Dose to be adjusted for renal function.
[2019-10-04 09:20] LABS: Vancomycin,Random 34.1 ug/mL
--- NOTE | 2019-10-04 12:02 | ECHOF ---
Referral Reason:lv fxn MEASUREMENTS -------- HEIGHT: 175.3 cm WEIGHT: 100.2 kg BP: RVIDd: 3.1 cm (< 3.3) IVSd: 1.4 cm (0.6 - 1.1) LVIDd: 4.0 cm (3.9 - 5.3) LVPWd: 1.2 cm (0.6 - 1.1) IVSs: 1.6 cm LVIDs: 2.2 cm LVPWs: 2.2 cm LAESV Index (A-L): 26.28 ml/m Ao Diam: 3.1 cm (2.0 - 3.7) AV Cusp: 1.8 cm (1.5 - 2.6) LA Diam: 3.9 cm (2.7 - 3.8) MV EXCURSION: 20.477 mm (> 18.000) MV EF SLOPE: 98 mm/s (70 - 150) EPSS: 0.4 cm MV E Michael: 1.45 m/s MV DecT: 228 ms MV A Michael: 0.81 m/s MV E/A Ratio: 1.79 RAP: 5.00 mmHg RVSP: 28.46 mmHg FINDINGS -------- Sinus rhythm. This was a technically adequate study. The left ventricular size is normal. There is mild concentric left ventricular hypertrophy. Overa ll left ventricular systolic function is normal with, an EF between 55 - 60 %. Normal LAP Grade 1 D iastolic Dysfunction. The right ventricle is normal in size. The left atrial size is normal. Normal LA size by volume 22+/-6 ml/m2. The right atrial size is normal. Interatrial and interventricular septum intact. The aortic valve is trileaflet and appears structurally normal. The mitral valve is normal. The mitral valve leaflets are mildly thickened. There is trace mitral regurgitation. The tricuspid valve appears structurally normal. Trace tricuspid regurgitation present. Right dimitrios tricular systolic pressure is normal at < 35 mmHg. There is no pulmonic regurgitation present. The aortic root size is normal. IVC Not well visulized. There is no pericardial effusion. CONCLUSIONS -------- 1. There is mild concentric left ventricular hypertrophy. 2. Overall left ventricular systolic function is normal with, an EF between 55 - 60 %. 3. Normal LAP Grade 1 Diastolic Dysfunction. 4. The mitral valve leaflets are mildly thickened. 5. There is trace mitral regurgitation. 6. Trace tricuspid regurgitation present. GLUE SPECIALTY SUPERVISOR: Rossy Granado RDCS
[2019-10-04 12:03] LABS: Glucose,Whole Blood 152 mg/dL (75-99)
[2019-10-04] MEDS: ALPRAZolam 0.5 MG TAB PO SCH ×2 (12:37→20:55)
[2019-10-04] MEDS: METOPROLOL TARTRATE 12.5 MG TAB PO SCH ×2 (12:43→20:55)
[2019-10-04] MEDS ORDERED: MIDODRINE 5 MG TAB PO PRN (13:27)
[2019-10-04 13:49] LABS: Glucose,Whole Blood 132 mg/dL (75-99)
--- NOTE | 2019-10-04 15:29 | CONS ---
CONSULTATION CHIEF COMPLAINT: Hypotension. Octavio is a 49-year-old gentleman with a complex medical history, including end-stage renal disease, on hemodialysis, end-stage liver disease, thought not to be a candidate for liver transplant, coronary artery disease, status post prior angioplasty, who presented to hospital secondary to hypotension following his hemodialysis. The patient had an echocardiogram in February that showed normal LV systolic function with an ejection fraction of 60%. On this presentation he was found to have pleural effusion and underwent thoracentesis for the same. They removed 2 liters from the right lung. At the time of my evaluation, he appears somewhat comfortable at rest. Hypotension has improved. He denies any chest pain, palpitations or dizziness. His coronavirus test was negative. BUN and creatinine are elevated. PAST MEDICAL HISTORY: His past medical history is significant for end-stage renal disease, on hemodialysis, insulin-requiring diabetes, dyslipidemia, coronary artery disease, status post prior angioplasty and hypotension. MEDICATIONS: Medications include Protonix, Avelox, midodrine, Lantus, Lipitor, aspirin, Xanax, ProAir, metoprolol. ALLERGIES: KEFLEX. FAMILY HISTORY: Negative for premature coronary artery disease. SOCIAL HISTORY: Negative for smoking, EtOH abuse or drug abuse. REVIEW OF SYSTEMS: HEENT is unremarkable. CARDIAC: As described above. RESPIRATORY: Negative. GI: Negative. GENITOURINARY: Negative. ALLERGY: Negative. IMMUNOLOGY: Negative. SKIN: Negative. MUSCULOSKELETAL: Significant for arthritis. PSYCHOSOCIAL: Negative. ENDOCRINE: Negative. DERMATOLOGY: Negative. CONSTITUTIONAL: Negative. ONCOLOGICAL: Negative. FINANCIAL SYSTEMS MANAGER: Significant for dizziness. Rest of the system review is not relevant. PHYSICAL EXAMINATION: Patient is afebrile. Heart rate is 76 beats per minute, blood pressure is 95/48, respiratory rate 18. There is no jugular venous distention. Carotid upstroke is normal. There is no bruit. Chest exam reveals diminished air entry at the right base. Heart exam reveals first and second heart sounds. No gallop. No murmur. Abdomen appears distended. Examination of extremities reveals mild edema bilaterally. LABS: Labs show that the potassium is 5.3, BUN is 53, creatinine 7.2. AST and ALT are elevated. Hemoglobin is 7.7. Platelet count is low at 31. ASSESSMENT: 1. Hypotension. 2. Pleural effusion. 3. Coronary artery disease, status post prior angioplasty. 4. End-stage renal disease, on hemodialysis. 5. End-stage liver disease. Not a candidate for transplant. PLAN: Patient will continue current medical therapy. MMODL / IJN: [id number] /
--- NOTE | 2019-10-04 15:34 | P.PN ---
Subjective Progress Note Date: 10/04/19 Principal diagnosis: Right-sided pleural effusion On 10/04/2019 patient seen in follow-up on selective care unit, he status post right-sided pleural effusion which was drained by interventional radiology, with removal of 2.1 L of clear serous fluid. Fluid was sent for analysis, cultures and cytology. Cytology was negative, pleural fluid Gram stain showed no organisms at the 24-hour maycol. Pleural fluid analysis showed transudative fluid. Today patient is seen awake and alert, oriented 3, he denies any acute distress, he is breathing much easier. Room air pulse ox is 92-93%, hemodynamically stable, lung sounds are clear diminished at the bases, patient is afebrile. Echocardiogram was completed showing normal systolic function with an EF of 55-60%, trace mitral regurg, trace tricuspid regurg, no pericardial effusion. is in sinus mechanism. Today's labs have been reviewed, there is worsening of patient's renal profile, nephrology is following. Patient is supposed to have hemodialysis treatment today. No complaints of shortness of breath or chest pain. Objective - Vital Signs Vital signs: Vital Signs Temp 97.8 F 10/04/19 11:30 Pulse 67 10/04/19 11:30 Resp 18 10/04/19 11:30 BP 103/56 10/04/19 11:30 Pulse Ox 92 L 10/04/19 11:30 Intake & Output 10/03/19 10/04/19 10/04/19 18:59 06:59 18:59 Intake Total 340 10 620 Balance 340 10 620 Weight 100.3 kg Intake: IV 10 20 0.9 10 Invasive Line 1 20 Oral 340 600 Other: Voiding Method Urinal Urinal # Voids 0 - Exam GENERAL EXAM: Alert, very pleasant, 49-year-old white male, on room air, with a pulse ox of 92-93%, comfortable in no apparent distress. HEAD: Normocephalic/atraumatic. EYES: Normal reaction of pupils, equal size. Conjunctiva pink, sclera white. NOSE: Clear with pink turbinates. THROAT: No erythema or exudates. NECK: No masses, no JVD, no thyroid enlargement, no adenopathy. CHEST: No chest wall deformity. Symmetrical expansion. LUNGS: Equal air entry with no crackles, wheeze, rhonchi or dullness. CVS: Regular rate and rhythm, normal S1 and S2, no gallops, no murmurs, no rubs ABDOMEN: Soft, nontender. No hepatosplenomegaly, normal bowel sounds, no guarding or rigidity. EXTREMITIES: No clubbing, no edema, no cyanosis, 2+ pulses and upper and lower extremities. MUSCULOSKELETAL: Muscle strength and tone normal. SPINE: No scoliosis or deformity SKIN: No rashes CENTRAL NERVOUS SYSTEM: Alert and oriented -3. No focal deficits, tone is normal in all 4 extremities. PSYCHIATRIC: Alert and oriented -3. Appropriate affect. Intact judgment and insight. - Labs CBC & Chem 7: 10/03/19 08:13 10/04/19 06:11 Labs: Abnormal Lab Results - Last 24 Hours (Table) 10/03/19 10/03/19 10/03/19 Range/Units 14:26 16:29 21:27 Sodium (137-145) mmol/L Potassium (3.5-5.1) mmol/L Carbon Dioxide (22-30) mmol/L BUN (9-20) mg/dL Creatinine (0.66-1.25) mg/dL Glucose (74-99) mg/dL POC Glucose (mg/dL) 280 H 287 H (75-99) mg/dL Calcium (8.4-10.2) mg/dL TIBC 175 L (228-460) ug/dL % Saturation 58.86 H (15.00-50.00) Total Bilirubin (0.2-1.3) mg/dL AST (17-59) U/L Alkaline Phosphatase (38-126) U/L Total Protein (6.3-8.2) g/dL Albumin (3.5-5.0) g/dL 10/04/19 10/04/19 10/04/19 Range/Units 06:11 06:27 12:02 Sodium 135 L (137-145) mmol/L Potassium 5.3 H (3.5-5.1) mmol/L Carbon Dioxide 16 L (22-30) mmol/L BUN 53 H (9-20) mg/dL Creatinine 7.20 H* (0.66-1.25) mg/dL Glucose 171 H (74-99) mg/dL POC Glucose (mg/dL) 184 H 152 H (75-99) mg/dL Calcium 7.2 L (8.4-10.2) mg/dL TIBC (228-460) ug/dL % Saturation (15.00-50.00) Total Bilirubin 7.5 H (0.2-1.3) mg/dL AST 86 H (17-59) U/L Alkaline Phosphatase 380 H (38-126) U/L Total Protein 6.2 L (6.3-8.2) g/dL Albumin 2.5 L (3.5-5.0) g/dL 10/04/19 Range/Units 13:47 Sodium (137-145) mmol/L Potassium (3.5-5.1) mmol/L Carbon Dioxide (22-30) mmol/L BUN (9-20) mg/dL Creatinine (0.66-1.25) mg/dL Glucose (74-99) mg/dL POC Glucose (mg/dL) 132 H (75-99) mg/dL Calcium (8.4-10.2) mg/dL TIBC (228-460) ug/dL % Saturation (15.00-50.00) Total Bilirubin (0.2-1.3) mg/dL AST (17-59) U/L Alkaline Phosphatase (38-126) U/L Total Protein (6.3-8.2) g/dL Albumin (3.5-5.0) g/dL Microbiology - Last 24 Hours (Table) 10/03/19 11:51 Gram Stain - Preliminary Pleural Fluid Body Fluid Culture - Preliminary 10/03/19 11:51 Acid Fast Bacilli Smear - Final Pleural Fluid Acid Fast Bacilli Culture - Preliminary 10/03/19 11:51 Anaerobic Culture - Preliminary Pleural Fluid 10/03/19 11:51 Fungal Culture - Preliminary Pleural Fluid Assessment and Plan Plan: Assessment: #1. Large right-sided pleural effusion, status post right thoracentesis by interventional radiology would removal of 2.1 L of clear serous fluid, which was transudative in nature, negative cytology and cultures #2. Shortness of breath secondary to the above, improved #3. Chronic liver disease of unclear etiology with hypoalbuminemia, ascites and pleural effusion #4. Recurrent right-sided pleural effusion status post multiple thoracentesis by interventional radiology every few weeks #5. Coronary artery disease #6. GERD/reflux #7. Hyperlipidemia #8. History of hypertension #9. Prior history of myocardial infarction #10. End-stage renal disease on hemodialysis on Wednesday schedule Plan: Patient is doing well, breathing much easier, pleural fluid was transudative in nature consistent with patient's history of chronic liver disease, and chronic kidney disease and fluid overload. He is supposed to have hemodialysis treatment today, he is currently on room air, no compensatory shortness of shashi ath or chest pain. I performed a history & physical examination of the patient and discussed their management with my nurse practitioner, Jayda Mcbride. I reviewed the nurse practitioner's note and agree with the documented findings and plan of care. Lung sounds are positive for diminished breath sounds. The findings and the impression was discussed with the patient. I attest to the documentation by the nurse practitioner. Time with Patient: Less than 30
[2019-10-04 16:57] LABS: Glucose,Whole Blood 116 mg/dL (75-99)
[2019-10-04] MEDS: RIFAXIMIN 550 MG TABLET PO SCH ×2 (17:47→20:56)
[2019-10-04] MEDS: FOLIC ACID-VIT B COMPLEX-VIT C 1 CAP PO SCH (17:47)
[2019-10-04 20:22] LABS: Glucose,Whole Blood 215 mg/dL (75-99)
[2019-10-04] MEDS: INSULIN DETEMIR (LEVEMIR) 100 UNIT/ML SYR SQ SCH (20:56)
[2019-10-04] MEDS: ATORVASTATIN 40 MG TAB PO SCH (20:56)
--- NOTE | 2019-10-04 21:23 | P.PN ---
Progress Note - Text Progress Note Date: 10/04/19 Chief Complaint: Weak and tired History of presenting complaint: This is a 49-year-old patient of Dr. Guzmán. Patient has a known history of cirrhosis that has progressed from fatty liver. Diagnosed over 2 years ago. Follows with sole skiver Dr. nAgulo. stable medical conditions include obesity, pancytopenia, coronary artery disease with stent, diabetes mellitus type 2, GERD, hyperlipidemia, hypotension on midodrine, chronic insomnia. Patient gets therapeutic paracentesis every 2 weeks. Patient is also had thoracentesis before. Patient's had repeated admissions for encephalopathy. On August 22 patient was transferred and hospital because encephalopathy was not improving. She was not felt to be a liver transplant candidate. He may be going down to [facility] for assessment for the same. Patient begun hemodialysis the last 2 weeks. Patient has a right infraclavicular hemodialysis access. Patient's front of cellulitis around the same. Was put on antibiotics with hemodialysis. Has not really improved. Patient gets hemodialyzed Wednesday and Wednesday. Recently 2.1 L thoracentesis done. Appetite poor. Patient always feels cold. No fever. at the bedside. Today-getting hemodialysis. Blood pressure running low. Extra dose of midodrine given. This after her dose of hypotension hypoxia responded to oxygen. Tired. No able to answer questions. Review of systems: Was done for constitutional, cardiovascular, GI, pulmonary. relevant finding as above Active Medications Acetaminophen (Tylenol Tab) 650 mg PO Q6HR PRN PRN Reason: Mild Pain or Fever > 100.5 Last Admin: 10/04/19 03:04 Dose: 650 mg Documented by: Al Hydroxide/Mg Hydroxide (Maalox) 15 ml PO Q6HR PRN PRN Reason: Indigestion Alprazolam (Xanax) 0.5 mg PO BID [facility] Last Admin: 10/04/19 20:55 Dose: 0.5 mg Documented by: Atorvastatin Calcium (Lipitor) 40 mg PO HS [facility] Last Admin: 10/04/19 20:56 Dose: 40 mg Documented by: Calcium Acetate (Phoslo) 1,334 mg PO AC-TID [facility] Last Admin: 10/04/19 17:46 Dose: 1,334 mg Documented by: Calcium Carbonate/Glycine (Tums) 500 mg PO Q4HR PRN PRN Reason: Dyspepsia Darbepoetin Obi (Aranesp) 40 mcg SQ Q7D [facility] Last Admin: 10/03/19 18:47 Dose: 40 mcg Documented by: Levofloxacin 500 mg/ IV (Solution) 100 mls @ 100 mls/hr IVPB Q48H [facility] Last Admin: 10/04/19 20:57 Dose: 100 mls/hr Documented by: Insulin Aspart (Novolog) 0 unit SQ ACHS [facility]; Protocol Last Admin: 10/04/19 20:57 Dose: 3 unit Documented by: Insulin Detemir (Levemir) 40 unit SQ HS [facility] Last Admin: 10/04/19 20:56 Dose: 40 unit Documented by: Lactulose (Cephulac) 20 gm PO DAILY PRN PRN Reason: Constipation Magnesium Hydroxide (Milk Of Magnesia) 2,400 mg PO DAILY PRN PRN Reason: Constipation Melatonin (Melatonin) 3 mg PO HS PRN PRN Reason: Insomnia Metoprolol Tartrate (Lopressor) 12.5 mg PO BID [facility] Last Admin: 10/04/19 20:55 Dose: 12.5 mg Documented by: Midodrine (Proamatine) 10 mg PO AC-TID [facility] Last Admin: 10/04/19 17:46 Dose: 10 mg Documented by: Midodrine (Proamatine) 10 mg PO TID PRN PRN Reason: LOW BLOOD PRESSURE Miscellaneous Information (Pharmacy To Dose Iv Vancomycin) 1 each MISCELLANE DIRECTED PRN; Protocol PRN Reason: Per Protocol Morphine Sulfate (Morphine Sulfate (Inj)) 4 mg IV Q4HR PRN PRN Reason: Severe Pain Multivit/Ca Carb/B Cmplx/FA/Prenat (Nephrocaps) 1 each PO DAILY [facility] Last Admin: 10/04/19 17:47 Dose: 1 each Documented by: Naloxone HCl (Narcan) 0.2 mg IV Q2M PRN PRN Reason: Opioid Reversal Ondansetron HCl (Zofran) 4 mg IVP Q8HR PRN PRN Reason: Nausea And Vomiting Last Admin: 10/04/19 13:29 Dose: 4 mg Documented by: Pantoprazole Sodium (Protonix) 40 mg PO AC-BRKFST [facility] Last Admin: 10/04/19 06:51 Dose: 40 mg Documented by: Rifaximin (Xifaxan) 550 mg PO BID [facility] Stop: 11/01/19 21:16 Last Admin: 10/04/19 20:56 Dose: 550 mg Documented by: Physical examination: VITAL SIGNS: 97.6, 72, 18, 121/61, 98% on 4 L GENERAL: BMI 32.9, laying in bed, tired but answer questions EYES: Pupils equal. Conjunctiva-mild icterus HEENT: External appearance of nose and ears normal, oral cavity grossly normal. NECK: JVD unable to assess; masses not palpable. HEART: First and second heart sounds are normal; edema present LUNGS: Respiratory rate increased, decreased breath sounds ABDOMEN: Soft, some distention, nontender, liver spleen not palpable, no masses palpable. PSYCH: Able to answer questions. DERMATOLOGICAL: Right upper chest PermCath with surrounding redness of the skin, slight tenderness INVESTIGATIONS, reviewed in the clinical context: Potassium 5.3 creatinine 7.2 ammonia 12 Previous testing: Sodium 130 potassium 5 bun 39 creatinine 5.2 to glucose 313 vancomycin 19.8 white count 4.2 hemoglobin 7.7 platelets 31 ammonia 12 bicarb 18 Labs on August 22 showed bundle 53 creatinine of 1.86 Assessment: -Medical asthenia multifactorial-worsening -Acute cellulitis around the access site of PermCath-cultures pending -Chronic hepatic encephalopathy from underlying cirrhosis. -[id number] to respond -Chronic metabolic acidosis -Hepatic cirrhosis that is progressed from fatty liver, recently evaluated at an different hospital not found to be candidate for liver transplant. For possible further evaluation at [facility] -Obesity BMI 32.9 -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 -Coronary artery disease with stent -Diabetes mellitus type 2, uncontrolled with hyperglycaemia, -GERD -Hyperlipidemia -Chronic insomnia -Hypoalbuminemia due to cirrhosis -Fluid overload due to cirrhosis and renal failure-slow to respond -End-stage kidney disease on hemodialysis for last 2 weeks -Anemia of chronic kidney disease -Anorexia due to medical problems Plan: Continue current medication treatment plan. Prognosis guarded. Getting hemodialyzed today. Did have an episode of hypoxia and hypertension. Does respond to oxygen. Did receive extra midodrine. Advance care planning: This was done of the patient's bedside at length. Patient does understand his guarded prognosis. He is not sure about the intubation and ventilation at this point. He understands the gravity of the situation. Finding it difficult to accept the same. At this point is decided to remain full code but will think about it further. Current treatment plan to continue. 20 minutes was spent in this ACP
[2019-10-04] MEDS ORDERED: LEVOFLOXACIN 500MG-D5W PMX 500 MG in DEXTROSE/WATER 1 100ML.BAG IVPB SCH (22:00)
--- NOTE | 2019-10-04 22:11 | PN ---
PROGRESS NOTE REASON FOR FOLLOW UP: PermCath site cellulitis and infection. INTERVAL HISTORY: The patient is currently afebrile. The patient is breathing comfortably. He was undergoing dialysis, tolerating the procedure. No chest pain, shortness of breath or cough. No abdominal pain or diarrhea. PHYSICAL EXAMINATION: Blood pressure 113/56 with a pulse of 68, temperature 97. He is 98% on 4 L nasal cannula. General description is a middle-aged male lying in bed in no distress. RESPIRATORY SYSTEM: Unlabored breathing. Clear to auscultation anteriorly. HEART: S1, S2. Regular rate and rhythm. ABDOMEN: Soft. Mildly distended. No guarding or rigidity. LABS: BUN of 53, creatinine 7.20. Blood culture has been negative so far. Pleural fluid culture is negative as well. DIAGNOSTIC IMPRESSION AND PLAN: Patient with cellulitis at the right subclavian PermCath site. The patient is covered with vancomycin while waiting for the culture to finalize. Will monitor his clinical course closely. MMODL / IJN: [id number] /
[2019-10-05] MEDS: ACETAMINOPHEN TAB 325 MG TAB PO PRN ×2 (02:09→20:08)
--- NOTE | 2019-10-05 06:01 | P.CONS ---
History of Present Illness - Reason for Consult Consult date: 10/03/19 Cirrhosis Requesting physician: Jamel Contreras - Chief Complaint Low blood pressure - History of Present Illness 49-year-old male with multiple medical comorbidities including decompensated cirrhosis of the liver secondary to nonalcoholic steatohepatitis, diabetes mellitus, GERD, hyperlipidemia, hypertension, coronary artery disease, obesity, pancytopenia and end-stage renal disease on hemodialysis who presented to the hospital due to hypotension during dialysis. The patient was receiving hemodialysis with his noted to have low blood pressure and a low-grade fever of 100F. The patient had been complaining of feeling weak and lethargic. He was sent into the hospital for further evaluation. Concern is for infection around his dialysis access site and the patient has been started on broad-spectrum antibiotic therapy. The patient has a known history of decompensated cirrhosis with associated hepatic encephalopathy requiring prior admissions and fluid overload. Patient was started on hemodialysis a few weeks ago for worsening kidney function. Patient has been following up with [facility] in the liver transplant service, however on questioning the patient has say that the patient was taken off of the liver transplant list secondary to coronary artery disease and concerns that the patient would be unable to tolerate major surgery and liver transplant. Currently he reports compliance with his home medications and denies any confusion. On presentation and laboratory evaluation was significant for WBC 4.2, hemoglobin 7.7, platelet count 31,000, INR 1.4, total bilirubin 7.4, alkaline phosphatase 397, AST 73 and ALT 45. Patient had a meld sodium score of 32 on presentation. Review of Systems REVIEW OF SYSTEMS: CONSTITUTIONAL: Denies any weight change but the patient did report fatigue and low-grade fevers. CARDIOVASCULAR: Denies any chest pain, palpitations high or low blood pressures RESPIRATORY: Denies any hemoptysis or cough but the patient did report some shortness of breath. GENITOURINARY: No dysuria or hematuria, patient recently started on hemodialysis. MUSCULOSKELETAL: No weakness reported. SKIN: Denies any new rashes or lesions, but the patient does report jaundice. PSYCHIATRIC: Denies any depression or anxiety. NEUROLOGY: Denies headache, denies any new focal deficits. EARS/NOSE/THROAT: No recent hearing change, congestion, nasal discharge or sore throat. EYES: No pain in eyes, discharge or change in vision. GASTROINTESTINAL: As per HPI. Past Medical History Past Medical History: Coronary Artery Disease (CAD), Diabetes Mellitus, GERD/Reflux, Hyperlipidemia, Hypertension, Liver Disease, Myocardial Infarction (ME), Renal Disease Additional Past Medical History / Comment(s): Recurrant large R pleural effusion secondary to cirrhoisis of the liver, hypoalbuminemia, fluid overload. 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 Coma in past, renal failure with hemodialysis M,W,F Last Myocardial Infarction Date:: 2012 History of Any Multi-Drug Resistant Organisms: None Reported Past Surgical History: Cholecystectomy, Heart Catheterization With Stent, Ort hopedic Surgery Additional Past Surgical History / Comment(s): PCIs with stents, EGDs, colonoscopy, carpal tunnel release-laterallity unknown. Past Anesthesia/Blood Transfusion Reactions: No Reported Reaction Additional Past Anesthesia/Blood Transfusion Reaction / Comm: No blood transfusions. Date of Last Stent Placement:: 2012 Past Psychological History: Anxiety, Depression Additional Psychological History / Comment(s): Pt resides with his spouse. He has a cane. He has a glucometer. He no longer drive, his spouse can take him to appts or family will. Smoking Status: Former smoker Past Alcohol Use History: None Reported Additional Past Alcohol Use History / Comment(s): Pt started smoking as a teen and quit in 2010.Patient states used to drink very little. Past Drug Use History: None Reported - Past Family History Mother History Unknown: Yes Family Medical History: Cancer Additional Family Medical History / Comment(s): Lung cancer. Father Additional Family Medical History / Comment(s): ETOH abuse Medications and Allergies Home Medications Medication Instructions Recorded Confirmed Type Albuterol Sulfate [Proair Hfa] 2 puff INHALATION RT-Q6H PRN 12/07/18 10/02/19 History Rifaximin [Xifaxan] 550 mg PO BID 12/20/18 10/02/19 History Metoprolol Tartrate 12.5 mg PO BID 08/11/19 10/02/19 History ALPRAZolam [Xanax] 0.5 mg PO BID 10/02/19 10/02/19 History Aspirin EC [Ecotrin] 325 mg PO DAILY 10/02/19 10/02/19 History Atorvastatin Calcium [Lipitor] 40 mg PO HS 10/02/19 10/02/19 History Calcium Acetate [Phoslo] 1,334 mg PO AC-TID 10/02/19 10/02/19 History Insulin Glargine [Lantus] 40 unit SQ HS 10/02/19 10/02/19 History Midodrine HCl [ProAmatine] 10 mg PO AC-TID 10/02/19 10/02/19 History Moxifloxacin HCl [Avelox] 400 mg PO DAILY 10/02/19 10/02/19 History Pantoprazole Sodium [Protonix] 40 mg PO DAILY 10/02/19 10/02/19 History Antwon Caps 1 cap PO DAILY 10/02/19 10/02/19 History Allergies Allergy/AdvReac Type Severity Reaction Status Date / Time cephalexin [From Keflex] AdvReac Rash/Hives Verified 10/02/19 17:19 Physical Exam Vitals: Vital Signs Temp Pulse Pulse Resp BP BP BP 10/03/19 13:06 65 16 100/49 10/03/19 12:52 65 16 87/42 10/03/19 12:30 65 16 93/59 10/03/19 12:20 64 14 100/67 10/03/19 12:12 65 16 95/61 10/03/19 12:04 65 14 93/59 10/03/19 11:51 64 16 97/61 10/03/19 11:39 84/51 97/54 10/03/19 11:29 97.8 F 65 14 91/58 10/03/19 08:00 97.5 F L 70 16 113/53 10/03/19 03:44 64 18 10/03/19 03:42 97.3 F L 64 18 97/50 10/03/19 00:00 97.0 F L 61 18 97/53 10/02/19 20:15 97.3 F L 60 18 100/55 10/02/19 20:00 61 18 10/02/19 19:04 59 L 17 136/71 10/02/19 17:21 64 17 128/75 10/02/19 15:57 96.8 F L 66 16 102/36 Pulse Ox 10/03/19 13:06 99 10/03/19 12:52 99 10/03/19 12:30 96 10/03/19 12:20 96 10/03/19 12:12 96 10/03/19 12:04 97 10/03/19 11:51 97 10/03/19 11:39 10/03/19 11:29 95 10/03/19 08:00 10/03/19 03:44 10/03/19 03:42 92 L 10/03/19 00:00 94 L 10/02/19 20:15 99 10/02/19 20:00 10/02/19 19:04 100 10/02/19 17:21 94 L 10/02/19 15:57 94 L Intake and Output 10/02/19 10/03/19 10/03/19 22:59 06:59 14:59 Intake Total 120 Balance 120 Intake: Oral 120 Other: Voiding Method Urinal Urinal # Voids 2 # Bowel Movements 2 Weight 113.398 kg 101.2 kg On physical examination, patient appears comfortable in no apparent distress. HEAD: Normocephalic, atraumatic. EYES: Scleral icterus. No conjunctival injection. MOUTH: No lesions, tongue midline. NECK: Trachea midline, no gross abnormalities. CHEST: Clear to auscultation with no wheezing or rhonchi appreciated. HEART: Regular rate and rhythm. ABDOMEN: Soft, obese and nontender to palpation. Bowel sounds are positive. No organomegaly. No guarding or rigidity. EXTREMITIES: No pedal edema. SKIN: No rashes, jaundice, with some erythema and tenderness around catheter site. NEUROLOGIC: Alert and oriented x3, no asterixis noted at this time. No focal deficits. Results CBC & Chem 7: 10/03/19 08:13 10/04/19 06:11 Labs: Abnormal Lab Results - Last 24 Hours (Table) 10/02/19 10/02/19 10/03/19 Range/Units 16:47 20:27 06:02 RBC (4.30-5.90) m/uL Hgb (13.0-17.5) gm/dL Hct (39.0-53.0) % MCV (80.0-100.0) fL MCHC (31.0-37.0) g/dL RDW (11.5-15.5) % Plt Count (150-450) k/uL Lymphocytes # (1.0-4.8) k/uL Macrocytosis PT (9.0-12.0) sec INR (<1.2) Sodium 130 L (137-145) mmol/L Carbon Dioxide 18 L (22-30) mmol/L BUN 39 H (9-20) mg/dL Creatinine 5.22 H (0.66-1.25) mg/dL Glucose 313 H (74-99) mg/dL POC Glucose (mg/dL) 283 H 282 H (75-99) mg/dL Calcium 7.5 L (8.4-10.2) mg/dL Total Bilirubin (0.2-1.3) mg/dL AST (17-59) U/L Alkaline Phosphatase (38-126) U/L Albumin (3.5-5.0) g/dL 10/03/19 10/03/19 10/03/19 Range/Units 08:13 08:13 08:13 RBC 2.35 L (4.30-5.90) m/uL Hgb 7.7 L (13.0-17.5) gm/dL Hct 25.3 L (39.0-53.0) % MCV 107.5 H (80.0-100.0) fL MCHC 30.6 L (31.0-37.0) g/dL RDW 17.1 H (11.5-15.5) % Plt Count 31 L (150-450) k/uL Lymphocytes # 0.6 L (1.0-4.8) k/uL Macrocytosis Marked A PT 14.3 H (9.0-12.0) sec INR 1.4 H (<1.2) Sodium 134 L (137-145) mmol/L Carbon Dioxide 18 L (22-30) mmol/L BUN 44 H (9-20) mg/dL Creatinine 6.15 H (0.66-1.25) mg/dL Glucose 237 H (74-99) mg/dL POC Glucose (mg/dL) (75-99) mg/dL Calcium 7.5 L (8.4-10.2) mg/dL Total Bilirubin 7.4 H (0.2-1.3) mg/dL AST 73 H (17-59) U/L Alkaline Phosphatase 397 H (38-126) U/L Albumin 2.6 L (3.5-5.0) g/dL 10/03/19 Range/Units 12:48 RBC (4.30-5.90) m/uL Hgb (13.0-17.5) gm/dL Hct (39.0-53.0) % MCV (80.0-100.0) fL MCHC (31.0-37.0) g/dL RDW (11.5-15.5) % Plt Count (150-450) k/uL Lymphocytes # (1.0-4.8) k/uL Macrocytosis PT (9.0-12.0) sec INR (<1.2) Sodium (137-145) mmol/L Carbon Dioxide (22-30) mmol/L BUN (9-20) mg/dL Creatinine (0.66-1.25) mg/dL Glucose (74-99) mg/dL POC Glucose (mg/dL) 265 H (75-99) mg/dL Calcium (8.4-10.2) mg/dL Total Bilirubin (0.2-1.3) mg/dL AST (17-59) U/L Alkaline Phosphatase (38-126) U/L Albumin (3.5-5.0) g/dL Chest x-ray: report reviewed (Persistent right-sided pleural effusion on chest x-ray) Assessment and Plan (1) Cirrhosis Narrative/Plan: 49-year-old male with a medical history significant for decompensated cirrhosis of the liver with encephalopathy and ascites secondary to nonalcoholic steatohepatitis who presented to the hospital from his hemodialysis center due to concerns over low blood pressure and fevers. Patient is currently receiving treatment for suspected infection of his catheter site. Patient hasn't followed up locally with gastroenterology for decompensated cirrhosis and was referred to [facility] where he was evaluated for liver transplant. The patient and his report that secondary to underlying coronary artery disease and atherosclerosis the patient has been deemed not to be a candidate for liver transplant. Patient currently on hemodialysis with laboratory evaluation on presentation significant for INR of 1.4, platelet count 31,000, hemoglobin 7.7, total bilirubin 7.4, alkaline phosphatase 397, AST 73 and ALT 45 with a meld sodium score of 32 with a calculated 90 day mortality of approximately 0.7. Current Visit: No Status: Acute Code(s): K74.60 - UNSPECIFIED CIRRHOSIS OF LIVER SNOMED Code(s): 11069109 (2) Ascites Current Visit: No Status: Acute Code(s): R18.8 - OTHER ASCITES SNOMED Code(s): 697626223 (3) Hepatic encephalopathy Current Visit: No Status: Acute Code(s): K72.90 - HEPATIC FAILURE, UNSPECIFIED WITHOUT COMA SNOMED Code(s): 50345484 (4) Hyperammonemia Current Visit: No Status: Acute Code(s): E72.20 - DISORDER OF UREA CYCLE METABOLISM, UNSPECIFIED SNOMED Code(s): 5858072 Plan: Supportive care Okay for diet as tolerated Continue management of fluid status and renal disease by nephrology service Infectious disease following the patient and he is been initiated on antibiotic therapy Continue rifaximin and lactulose therapy Continue to monitor CBC, BMP, LFTs Extensive discussion with the patient and his was at bedside about overall prognosis and meld sodium score of 32 which estimates a 90 day mortality of approximately 70%, they have been in contact with [facility] and are considering follow-up with that institution in the future as it is not felt that the patient is a candidate for liver transplant by the hepatology team at [facility] by the report Continue other medical management per primary team Thank you for allowing us to participate in the care of the patient
--- NOTE | 2019-10-05 06:04 | P.PN ---
Subjective Progress Note Date: 10/04/19 Principal diagnosis: Decompensated cirrhosis of the liver, ascites, hepatic encephalopathy The patient was seen lying comfortably in bed receiving hemodialysis. No acute events overnight. Tolerating his diet. At this time the patient will like to continue receiving local medical management and will consider following up with [facility] in the outpatient setting. Objective - Vital Signs Vital signs: Vital Signs Temp 98.6 F 10/04/19 08:45 Pulse 77 10/04/19 08:45 Resp 18 10/04/19 08:45 BP 89/51 10/04/19 08:45 Pulse Ox 93 L 10/04/19 08:45 Intake & Output 10/03/19 10/04/19 10/04/19 18:59 06:59 18:59 Intake Total 340 10 610 Balance 340 10 610 Weight 100.3 kg Intake: IV 10 10 0.9 10 Invasive Line 1 10 Oral 340 600 Other: Voiding Method Urinal Urinal # Voids 0 - Exam On physical examination, patient appears comfortable in no apparent distress. HEAD: Normocephalic, atraumatic. EYES: Scleral icterus. No conjunctival injection. MOUTH: No lesions, tongue midline. NECK: Trachea midline, no gross abnormalities. ABDOMEN: Soft, obese, nontender to palpation. Bowel sounds are positive. No organomegaly. No guarding or rigidity. EXTREMITIES: +1 bilateral pedal edema. SKIN: No rashes, jaundice. NEUROLOGIC: Alert and oriented x3, no asterixis noted. - Labs CBC & Chem 7: 10/03/19 08:13 10/04/19 06:11 Labs: Abnormal Lab Results - Last 24 Hours (Table) 10/03/19 10/03/19 10/03/19 Range/Units 14:26 16:29 21:27 Sodium (137-145) mmol/L Potassium (3.5-5.1) mmol/L Carbon Dioxide (22-30) mmol/L BUN (9-20) mg/dL Creatinine (0.66-1.25) mg/dL Glucose (74-99) mg/dL POC Glucose (mg/dL) 280 H 287 H (75-99) mg/dL Calcium (8.4-10.2) mg/dL TIBC 175 L (228-460) ug/dL % Saturation 58.86 H (15.00-50.00) Total Bilirubin (0.2-1.3) mg/dL AST (17-59) U/L Alkaline Phosphatase (38-126) U/L Total Protein (6.3-8.2) g/dL Albumin (3.5-5.0) g/dL 10/04/19 10/04/19 10/04/19 Range/Units 06:11 06:27 12:02 Sodium 135 L (137-145) mmol/L Potassium 5.3 H (3.5-5.1) mmol/L Carbon Dioxide 16 L (22-30) mmol/L BUN 53 H (9-20) mg/dL Creatinine 7.20 H* (0.66-1.25) mg/dL Glucose 171 H (74-99) mg/dL POC Glucose (mg/dL) 184 H 152 H (75-99) mg/dL Calcium 7.2 L (8.4-10.2) mg/dL TIBC (228-460) ug/dL % Saturation (15.00-50.00) Total Bilirubin 7.5 H (0.2-1.3) mg/dL AST 86 H (17-59) U/L Alkaline Phosphatase 380 H (38-126) U/L Total Protein 6.2 L (6.3-8.2) g/dL Albumin 2.5 L (3.5-5.0) g/dL 10/04/19 Range/Units 13:47 Sodium (137-145) mmol/L Potassium (3.5-5.1) mmol/L Carbon Dioxide (22-30) mmol/L BUN (9-20) mg/dL Creatinine (0.66-1.25) mg/dL Glucose (74-99) mg/dL POC Glucose (mg/dL) 132 H (75-99) mg/dL Calcium (8.4-10.2) mg/dL TIBC (228-460) ug/dL % Saturation (15.00-50.00) Total Bilirubin (0.2-1.3) mg/dL AST (17-59) U/L Alkaline Phosphatase (38-126) U/L Total Protein (6.3-8.2) g/dL Albumin (3.5-5.0) g/dL Microbiology - Last 24 Hours (Table) 10/03/19 11:51 Gram Stain - Preliminary Pleural Fluid Body Fluid Culture - Preliminary 10/03/19 11:51 Acid Fast Bacilli Smear - Final Pleural Fluid Acid Fast Bacilli Culture - Preliminary 10/03/19 11:51 Anaerobic Culture - Preliminary Pleural Fluid 10/03/19 11:51 Fungal Culture - Preliminary Pleural Fluid Assessment and Plan (1) Cirrhosis Narrative/Plan: 49-year-old male with a medical history significant for decompensated cirrhosis of the liver with encephalopathy and ascites secondary to nonalcoholic steatohepatitis who presented to the hospital from his hemodialysis center due to concerns over low blood pressure and fevers. Patient is currently receiving treatment for suspected infection of his catheter site. Patient hasn't followed up locally with gastroenterology for decompensated cirrhosis and was referred to [facility] where he was evaluated for liver transplant. The patient and his report that secondary to underlying coronary artery disease and atherosclerosis the patient has been deemed not to be a candidate for liver tr ansplant. Patient currently on hemodialysis with laboratory evaluation on presentation significant for INR of 1.4, platelet count 31,000, hemoglobin 7.7, total bilirubin 7.4, alkaline phosphatase 397, AST 73 and ALT 45 with a meld sodium score of 32 with a calculated 90 day mortality of approximately 0.7. Extensive discussion with the patient and his on presentation and again with the patient today at this time he would like continued medical management and will consider following up with [facility] after discharge. Current Visit: No Status: Acute Code(s): K74.60 - UNSPECIFIED CIRRHOSIS OF LIVER SNOMED Code(s): 40032887 (2) Ascites Current Visit: No Status: Acute Code(s): R18.8 - OTHER ASCITES SNOMED Code(s): 098907863 (3) Hepatic encephalopathy Current Visit: No Status: Acute Code(s): K72.90 - HEPATIC FAILURE, UNSPECIFIED WITHOUT COMA SNOMED Code(s): 90133847 (4) Hyperammonemia Current Visit: No Status: Acute Code(s): E72.20 - DISORDER OF UREA CYCLE METABOLISM, UNSPECIFIED SNOMED Code(s): 7362277 Plan: Supportive care Okay for diet as tolerated Continue management of fluid status and renal disease by nephrology service Infectious disease following the patient and he is been initiated on antibiotic therapy Continue rifaximin and lactulose therapy Continue to monitor CBC, BMP, LFTs Extensive discussion with the patient and his was at bedside about overall prognosis and meld sodium score of 32 which estimates a 90 day mortality of approximately 70%, they have been in contact with [facility] and are considering follow-up with that institution in the future as it is not felt that the patient is a candidate for liver transplant by the hepatology team at [facility] by the report Continue other medical management per primary team, patient will consider follow-up with [facility] when medically stable after discharge Thank you for allowing us to participate in the care of the patient
[2019-10-05 06:33] LABS: Anisocytosis Slight; HCT 23.5 % (39.0-53.0); HGB 7.3 gm/dL (13.0-17.5); Hypochromasia Marked; MCHC 31.1 g/dL (31.0-37.0); Macrocytosis Marked; Mean Platelet Volume 9.8; RBC 2.22 m/uL (4.30-5.90); RDW 17.4 % (11.5-15.5); WBC 4.8 k/uL (3.8-10.6)
[2019-10-05 06:34] LABS: Glucose,Whole Blood 182 mg/dL (75-99)
[2019-10-05 06:36] LABS: Platelet Count 27 k/uL (150-450)
[2019-10-05] MEDS: INSULIN ASPART (NovoLOG) 100 UNIT/ML VIAL SQ SCH ×4 (06:36→20:07)
[2019-10-05] MEDS: PANTOPRAZOLE 40 MG TABLET PO SCH (06:36)
[2019-10-05] MEDS: CALCIUM ACETATE 667 MG TAB PO SCH ×3 (06:36→16:05)
[2019-10-05] MEDS: MIDODRINE 5 MG TAB PO SCH ×3 (06:36→16:05)
[2019-10-05 06:49] LABS: Albumin 2.4 g/dL (3.5-5.0); Calcium 6.8 mg/dL (8.4-10.2); Potassium 4.5 mmol/L (3.5-5.1); Total Bilirubin 7.6 mg/dL (0.2-1.3); Total Protein 6.2 g/dL (6.3-8.2)
[2019-10-05] MEDS: RIFAXIMIN 550 MG TABLET PO SCH ×2 (08:11→20:08)
[2019-10-05] MEDS: FOLIC ACID-VIT B COMPLEX-VIT C 1 CAP PO SCH (08:11)
[2019-10-05] MEDS: ALPRAZolam 0.5 MG TAB PO SCH ×2 (08:15→20:08)
[2019-10-05] MEDS: METOPROLOL TARTRATE 12.5 MG TAB PO SCH ×2 (08:16→20:08)
--- NOTE | 2019-10-05 09:12 | P.PN ---
Subjective Patient is seen in follow-up for end-stage renal disease. He is maintained on hemodialysis on Wednesday schedule. Feels weak. Denies chest pain or shortness of breath. He became briefly unconscious during dialysis yesterday but improved spontaneously. Currently awake and alert. Vital signs are stable. General: The patient appeared well nourished and normally developed. HEENT: Head exam is unremarkable. Neck is without jugular venous distension. LUNGS: Breath sounds decreased. HEART: Rate and Rhythm are regular. ABDOMEN: Soft, nontender. Distention noted. EXTREMITITES: 1+ edema. Objective - Vital Signs Vital signs: Vital Signs Temp 97.8 F 10/05/19 03:47 Pulse 74 10/05/19 03:48 Resp 18 10/05/19 03:48 BP 91/53 10/05/19 03:47 Pulse Ox 98 10/05/19 03:47 Intake & Output 10/04/19 10/05/19 10/05/19 18:59 06:59 18:59 Intake Total 750 100 Output Total 1200 Balance -450 100 Weight 100.5 kg Intake: IV 30 Invasive Line 1 30 Intake, IV Titration 100 Amount Levofloxacin 500Mg-D5w 100 Pmx 500 mg In Dextrose/ Water 1 100ml.bag @ 100 mls/hr IVPB Q48H [facility] Rx#: [id number] Oral 720 Output: Hemodialysis 1200 Other: Voiding Method Urinal Urinal # Voids 1 0 # Bowel Movements 1 1 - Labs CBC & Chem 7: 10/05/19 06:02 10/05/19 06:02 Labs: Abnormal Lab Results - Last 24 Hours (Table) 10/04/19 10/04/19 10/04/19 Range/Units 12:02 13:47 16:49 RBC (4.30-5.90) m/uL Hgb (13.0-17.5) gm/dL Hct (39.0-53.0) % MCV (80.0-100.0) fL RDW (11.5-15.5) % Plt Count (150-450) k/uL Macrocytosis Sodium (137-145) mmol/L Carbon Dioxide (22-30) mmol/L BUN (9-20) mg/dL Creatinine (0.66-1.25) mg/dL Glucose (74-99) mg/dL POC Glucose (mg/dL) 152 H 132 H 116 H (75-99) mg/dL Calcium (8.4-10.2) mg/dL Total Bilirubin (0.2-1.3) mg/dL AST (17-59) U/L ALT (4-49) U/L Alkaline Phosphatase (38-126) U/L Total Protein (6.3-8.2) g/dL Albumin (3.5-5.0) g/dL 10/04/19 10/05/19 10/05/19 Range/Units 20:20 06:02 06:02 RBC 2.22 L (4.30-5.90) m/uL Hgb 7.3 L (13.0-17.5) gm/dL Hct 23.5 L (39.0-53.0) % MCV 106.0 H (80.0-100.0) fL RDW 17.4 H (11.5-15.5) % Plt Count 27 L (150-450) k/uL Macrocytosis Marked A Sodium 133 L (137-145) mmol/L Carbon Dioxide 20 L (22-30) mmol/L BUN 40 H (9-20) mg/dL Creatinine 5.74 H (0.66-1.25) mg/dL Glucose 169 H (74-99) mg/dL POC Glucose (mg/dL) 215 H (75-99) mg/dL Calcium 6.8 L (8.4-10.2) mg/dL Total Bilirubin 7.6 H (0.2-1.3) mg/dL AST 116 H (17-59) U/L ALT 57 H (4-49) U/L Alkaline Phosphatase 380 H (38-126) U/L Total Protein 6.2 L (6.3-8.2) g/dL Albumin 2.4 L (3.5-5.0) g/dL 10/05/19 Range/Units 06:32 RBC (4.30-5.90) m/uL Hgb (13.0-17.5) gm/dL Hct (39.0-53.0) % MCV (80.0-100.0) fL RDW (11.5-15.5) % Plt Count (150-450) k/uL Macrocytosis Sodium (137-145) mmol/L Carbon Dioxide (22-30) mmol/L BUN (9-20) mg/dL Creatinine (0.66-1.25) mg/dL Glucose (74-99) mg/dL POC Glucose (mg/dL) 182 H (75-99) mg/dL Calcium (8.4-10.2) mg/dL Total Bilirubin (0.2-1.3) mg/dL AST (17-59) U/L ALT (4-49) U/L Alkaline Phosphatase (38-126) U/L Total Protein (6.3-8.2) g/dL Albumin (3.5-5.0) g/dL Microbiology - Last 24 Hours (Table) 10/03/19 17:00 Blood Culture - Preliminary Blood No Growth after 24 hours 10/03/19 11:51 Gram Stain - Preliminary Pleural Fluid Body Fluid Culture - Preliminary Assessment and Plan Plan: Assessment: 1. End-stage renal disease maintained on hemodialysis on Wednesday schedule via right chest permacath. 2. Liver cirrhosis. 3. Chronic hypotension maintained on midodrine. 4. Dyspnea secondary to right-sided pleural effusion. Patient undergoes scheduled thoracentesis. He underwent thoracentesis on October 02 2.1 L drained. 5. Insulin-dependent diabetes mellitus. 6. Anemia of chronic kidney disease. Iron replete. Maintained on Aranesp. 7. Chronic kidney disease mineral bone disease maintained on PhosLo. plan: Hemodialysis today. Maintain midodrine. Extra dose mid hemodialysis. Follow-up cultures. Culture was also drawn from permacath on October 02. Monitor vancomycin level. Target level 15. Dose to be adjusted for renal function. Ejection fraction preserved.
[2019-10-05 12:34] LABS: Glucose,Whole Blood 142 mg/dL (75-99)
--- NOTE | 2019-10-05 14:24 | PN ---
PROGRESS NOTE PULMONARY/CRITICAL CARE PROGRESS NOTE: DATE OF SERVICE: 10/05/2019 This is a 49-year-old gentleman who was again seen in the room on October 04. He was actually with one of the rn field case manager. Apparently, he was discussing with her palliative care versus comfort care. The patient may want to go hospice. The patient did have a right-sided thoracentesis. It was done by Interventional Radiology; 2.1 L of fluid was removed. He is there with his significant other and the bottle caser as mentioned. Other than that, he is doing reasonably well. He states he is having hard time standing up. His fluid was transudative in nature. He is on a couple of liters. He is not having any shortness of breath. Denies any chest pain or pressure. Current vital signs are reviewed. Temperature 98.7, heart rate 74, respiratory rate 18, blood pressure 98/54 mean 68 and 4 L saturations 99%. Appears in no acute distress. HEENT: Examination is grossly unremarkable. NECK: Supple, full range of motion. No adenopathy. Neck veins are flat. CARDIOVASCULAR: Examination reveals regular rhythm and rate. Heart rate 74 beats per minute. S1, S2 normal. LUNGS: Reveal mostly clear breath sounds. There is some dullness at the right base. A few scattered rhonchi noted throughout. ABDOMEN: Soft. Bowel sounds are heard. EXTREMITIES: Intact. Minimal edema. SKIN: Without rash. NEUROLOGIC: Examination is brief but nonfocal. LAB DATA: Includes a white count 4.8, hemoglobin 7.3, hematocrit 23.5, platelet count is 27,000, sodium 133, potassium 4.5, chloride 104, CO2 is 20, anion gap is 9. BUN and creatinine were 40 and 5.74. Calcium 6.8, bilirubin 7.6, AST 116, ALT 57, alkaline phosphatase 380, albumin 2.4. Currently, microbiology is all negative including blood cultures and pleural fluid analysis. No recent chest x-ray to report. Medications are reviewed. ASSESSMENT: 1. Large right-sided pleural effusion, status post right thoracentesis by Interventional Radiology with 2.1 L of clear fluid removed, which was transudative in nature. 2. Shortness of breath, secondary to large right-sided pleural effusion. 3. Chronic liver disease, of unclear etiology, with hypoalbuminemia, ascites, and pleural effusion. 4. Recurrent right-sided pleural effusion, status post multiple thoracentesis by Interventional Radiology. 5. End-stage renal disease, currently on Wednesday, Wednesday, Wednesday hemodialysis. 6. History of coronary artery disease. 7. Gastroesophageal reflux disease. 8. Hyperlipidemia. 9. History of hypertension. 10.Prior history of myocardial infarction. PLAN: Currently, the patient is talking to a machine set up technician and bottle caser about possible hospice versus palliative care. The patient is not sure whether or not he wants any additional procedures done at this time. Certainly, thoracentesis done every 2 or 3 weeks will help him with his breathing. Additional recommendations and suggestions are forthcoming. Will follow as needed. No additional recommendations are made. MMODL / IJN: [id number] /
--- NOTE | 2019-10-05 15:23 | PN ---
PROGRESS NOTE DATE OF SERVICE: 10/05/2019 REASON FOR FOLLOWUP: Dialysis catheter site cellulitis. INTERVAL HISTORY: Patient is currently afebrile, has been breathing comfortably, the patient denies having any chest pain or shortness of breath. Occasional cough. No abdominal pain or any diarrhea. PHYSICAL EXAMINATION: Blood pressure 91/53 with a pulse of 74, temperature 97.8, he is 98% on 4 L nasal cannula. General description is a middle-aged male, lying in bed in no distress. The right upper chest wall site of the normal catheter with minimal redness. LUNGS: Unlabored breathing. Decreased breath sounds. No wheeze. HEART: S1, S2. Regular rate and rhythm. ABDOMEN: Soft, no tenderness. LABS: Hemoglobin 7.1, white count 4.2, BUN of 40, creatinine 5.74. Blood culture negative so far. The pleural fluid culture has been negative as well. DIAGNOSTIC IMPRESSION AND PLAN: Patient admitted to the hospital with a fever with concern for possible dialysis catheter infection with some cellulitis locally. However, blood culture has been negative so far. Keep the patient on the vancomycin, pharmacy to dose for another week or so and monitor clinical course closely. Family at the bedside, their questions were answered. MMODL / IJN: [id number] /
--- NOTE | 2019-10-05 15:44 | PN ---
PROGRESS NOTE FOLLOW-UP NOTE: Octavio is a 49-year-old gentleman with end-stage renal disease, end-stage liver disease, renal failure, on hemodialysis, who presented to hospital with hypotension following dialysis, and yesterday during dialysis he had a transient loss of consciousness. He was evaluated for liver transplant at [facility] and was thought not to be a candidate because of coronary artery disease. His echocardiogram showed normal LV function and a cardiac catheterization on him revealed severe 2-vessel coronary artery disease. The patient was thought not to be a candidate for revascularization because of thrombocytopenia. He is currently considering about going into comfort care but has not made any decision. He does not want to go to a assisted and wishes to go home. On exam, he is afebrile. Heart rate is 74 beats per minute, blood pressure 91/50, respiratory rate is 18. Oxygen saturation is 98% on 4 L. There is no jugular venous distention. Chest exam reveals good air entry bilaterally. Heart exam reveals first and second heart sounds. No gallop. No murmur. Abdomen is distended. Examination of extremities reveals 1+ edema. ASSESSMENT: 1. End-stage liver disease. 2. End-stage renal failure. 3. Severe coronary artery disease. PLAN: Patient's prognosis is guarded. Will continue the current supportive care. MMODL / IJN: [id number] /
[2019-10-05 17:04] LABS: Glucose,Whole Blood 199 mg/dL (75-99)
--- NOTE | 2019-10-05 18:29 | P.PN ---
Progress Note - Text Progress Note Date: 10/05/19 Chief Complaint: Weak and tired History of presenting complaint: This is a 49-year-old patient of Dr. Guzmán. Patient has a known history of cirrhosis that has progressed from fatty liver. Diagnosed over 2 years ago. Follows with java lead engineer Dr. Angulo. stable medical conditions include obesity, pancytopenia, coronary artery disease with stent, diabetes mellitus type 2, GERD, hyperlipidemia, hypotension on midodrine, chronic insomnia. Patient gets therapeutic paracentesis every 2 weeks. Patient is also had thoracentesis before. Patient's had repeated admissions for encephalopathy. On August 22 patient was transferred and hospital because encephalopathy was not improving. She was not felt to be a liver transplant candidate. He may be going down to [facility] for assessment for the same. Patient begun hemodialysis the last 2 weeks. Patient has a right infraclavicular hemodialysis access. Patient's front of cellulitis around the same. Was put on antibiotics with hemodialysis. Has not really improved. Patient gets hemodialyzed Wednesday and Wednesday. Recently 2.1 L thoracentesis done. Appetite poor. Patient always feels cold. No fever. at the bedside. Today-. Laying in bed. Tired. Patient's 2 boys are visiting. was here earlier. Patient requesting to go home. Not sure about hemodialysis. Did inform him that his has expressed not able to take care of him at home and specialty taken to dialysis. Patient not keen to go to rehab. He does not want to go to [facility]. Review of systems: Was done for constitutional, cardiovascular, GI, pulmonary. relevant finding as above Active Medications Acetaminophen (Tylenol Tab) 650 mg PO Q6HR PRN PRN Reason: Mild Pain or Fever > 100.5 Last Admin: 10/05/19 02:09 Dose: 650 mg Documented by: Al Hydroxide/Mg Hydroxide (Maalox) 15 ml PO Q6HR PRN PRN Reason: Indigestion Alprazolam (Xanax) 0.5 mg PO BID [facility] Last Admin: 10/05/19 08:15 Dose: Not Given Documented by: Atorvastatin Calcium (Lipitor) 40 mg PO HS [facility] Last Admin: 10/04/19 20:56 Dose: 40 mg Documented by: Calcium Acetate (Phoslo) 1,334 mg PO AC-TID [facility] Last Admin: 10/05/19 16:05 Dose: 1,334 mg Documented by: Calcium Carbonate/Glycine (Tums) 500 mg PO Q4HR PRN PRN Reason: Dyspepsia Darbepoetin Obi (Aranesp) 40 mcg SQ Q7D [facility] Last Admin: 10/03/19 18:47 Dose: 40 mcg Documented by: Levofloxacin 500 mg/ IV (Solution) 100 mls @ 100 mls/hr IVPB Q48H [facility] Last Admin: 10/04/19 20:57 Dose: 100 mls/hr Documented by: Insulin Aspart (Novolog) 0 unit SQ ACHS [facility]; Protocol Last Admin: 10/05/19 18:01 Dose: 2 unit Documented by: Insulin Detemir (Levemir) 40 unit SQ HS [facility] Last Admin: 10/04/19 20:56 Dose: 40 unit Documented by: Lactulose (Cephulac) 20 gm PO DAILY PRN PRN Reason: Constipation Magnesium Hydroxide (Milk Of Magnesia) 2,400 mg PO DAILY PRN PRN Reason: Constipation Melatonin (Melatonin) 3 mg PO HS PRN PRN Reason: Insomnia Metoprolol Tartrate (Lopressor) 12.5 mg PO BID [facility] Last Admin: 10/05/19 08:16 Dose: Not Given Documented by: Midodrine (Proamatine) 10 mg PO AC-TID [facility] Last Admin: 10/05/19 16:05 Dose: 10 mg Documented by: Midodrine (Proamatine) 10 mg PO TID PRN PRN Reason: LOW BLOOD PRESSURE Miscellaneous Information (Pharmacy To Dose Iv Vancomycin) 1 each MISCELLANE DIRECTED PRN; Protocol PRN Reason: Per Protocol Morphine Sulfate (Morphine Sulfate (Inj)) 4 mg IV Q4HR PRN PRN Reason: Severe Pain Multivit/Ca Carb/B Cmplx/FA/Prenat (Nephrocaps) 1 each PO DAILY [facility] Last Admin: 10/05/19 08:11 Dose: 1 each Documented by: Naloxone HCl (Narcan) 0.2 mg IV Q2M PRN PRN Reason: Opioid Reversal Ondansetron HCl (Zofran) 4 mg IVP Q8HR PRN PRN Reason: Nausea And Vomiting Last Admin: 10/04/19 13:29 Dose: 4 mg Documented by: Pantoprazole Sodium (Protonix) 40 mg PO AC-BRKFST [facility] Last Admin: 10/05/19 06:36 Dose: 40 mg Documented by: Rifaximin (Xifaxan) 550 mg PO BID [facility] Stop: 11/01/19 21:16 Last Admin: 10/05/19 08:11 Dose: 550 mg Documented by: Physical examination: VITAL SIGNS: 97.6, 73, 18, 112/56, 100% on 2 L GENERAL: Laying in bed, tired, answer questions EYES: Pupils equal. Conjunctiva-mild icterus HEENT: External appearance of nose and ears normal, oral cavity grossly normal. NECK: JVD unable to assess; masses not palpable. HEART: First and second heart sounds are normal; edema present LUNGS: Respiratory rate increased, decreased breath sounds ABDOMEN: Soft, some distention, nontender, liver spleen not palpable, no masses palpable. PSYCH: Able to answer questions. DERMATOLOGICAL: Right upper chest PermCath with surrounding redness of the skin, slight tenderness INVESTIGATIONS, reviewed in the clinical context: White count 4.8 hemoglobin 7.3 potassium 4.5 Previous testing: Sodium 130 potassium 5 bun 39 creatinine 5.2 to glucose 313 vancomycin 19.8 white count 4.2 hemoglobin 7.7 platelets 31 ammonia 12 bicarb 18 Labs on August 22 showed bundle 53 creatinine of 1.86 Assessment: -Medical asthenia slow to respond -Acute cellulitis around the access site of PermCath-cultures pending -Chronic hepatic encephalopathy from underlying cirrhosis. -Gpwflsakxni-[id number]-[id number] to respond -Chronic metabolic acidosis -Hepatic cirrhosis that is progressed from fatty liver, recently evaluated at an different hospital not found to be candidate for liver transplant. 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 He will see how hemodialysis goes. Doesn't meeting with the hospice people at 4:00 today. It was finally decided that patient will have hemodialysis tomorrow morning and hopefully go home with hospice done. I'll yet I spoke at length to the caser shoe parts. Also spoke with Dr. Gomez from nephrology. Prognosis guarded. Total time spent today was about 45 minutes with over 20 minutes of discussion.
[2019-10-05 20:06] LABS: Glucose,Whole Blood 196 mg/dL (75-99)
[2019-10-05] MEDS: INSULIN DETEMIR (LEVEMIR) 100 UNIT/ML SYR SQ SCH (20:07)
[2019-10-05] MEDS: ATORVASTATIN 40 MG TAB PO SCH (20:08)
[2019-10-06] MEDS: CALCIUM ACETATE 667 MG TAB PO SCH ×2 (06:43→13:29)
[2019-10-06] MEDS: MIDODRINE 5 MG TAB PO SCH ×2 (06:44→13:29)
[2019-10-06] MEDS: PANTOPRAZOLE 40 MG TABLET PO SCH (06:44)
[2019-10-06] MEDS: INSULIN ASPART (NovoLOG) 100 UNIT/ML VIAL SQ SCH ×2 (06:44→13:30)
[2019-10-06 06:45] LABS: Glucose,Whole Blood 99 mg/dL (75-99)
[2019-10-06] MEDS: ALPRAZolam 0.5 MG TAB PO SCH (08:54)
--- NOTE | 2019-10-06 10:18 | P.PN ---
Subjective Patient is seen in follow-up for end-stage renal disease. He is maintained on hemodialysis on Wednesday schedule. Denies chest pain or shortness of breath. Feels tired. Wants to continue with hemodialysis for now but is also considering hospice. Vital signs are stable. General: The patient appeared well nourished and normally developed. HEENT: Head exam is unremarkable. Neck is without jugular venous distension. LUNGS: Breath sounds decreased. HEART: Rate and Rhythm are regular. ABDOMEN: Soft, nontender. Distention noted. EXTREMITITES: 1+ edema. Objective - Vital Signs Vital signs: Vital Signs Temp 98 F 10/06/19 03:20 Pulse 72 10/06/19 03:20 Resp 18 10/06/19 03:20 BP 129/66 10/06/19 03:20 Pulse Ox 96 10/06/19 03:20 Intake & Output 10/05/19 10/06/19 10/06/19 18:59 06:59 18:59 Intake Total 0 0 Balance 0 0 Weight 102.5 kg Intake: Oral 0 0 Other: Voiding Method Urinal Urinal # Voids 2 # Bowel Movements 2 - Labs CBC & Chem 7: 10/05/19 06:02 10/05/19 06:02 Labs: Abnormal Lab Results - Last 24 Hours (Table) 10/05/19 10/05/19 10/05/19 Range/Units 12:07 16:50 20:05 POC Glucose (mg/dL) 142 H 199 H 196 H (75-99) mg/dL Microbiology - Last 24 Hours (Table) 10/03/19 17:00 Blood Culture - Preliminary Blood No Growth after 48 hours 10/03/19 11:51 Anaerobic Culture - Preliminary Pleural Fluid 10/03/19 11:51 Gram Stain - Preliminary Pleural Fluid Body Fluid Culture - Preliminary Assessment and Plan Plan: Assessment: 1. End-stage renal disease maintained on hemodialysis on Wednesday schedule via right chest permacath. 2. Liver cirrhosis. 3. Chronic hypotension maintained on midodrine. 4. Dyspnea secondary to right-sided pleural effusion. Patient undergoes scheduled thoracentesis. He underwent thoracentesis on October 02 2.1 L drained. 5. Insulin-dependent diabetes mellitus. 6. Anemia of chronic kidney disease. Iron replete. Maintained on Aranesp. 7. Chronic kidney disease mineral bone disease maintained on PhosLo. plan: Currently seen while undergoing hemodialysis. Maintain midodrine. Extra dose mid hemodialysis. Follow-up cultures. Culture was also drawn from [facility] on October 02 So far negative.- Monitor vancomycin level. Target level 15. Dose to be adjusted for renal function. Ejection fraction preserved. Overall prognosis guarded.
--- NOTE | 2019-10-06 11:12 | PN ---
PROGRESS NOTE A 49-year-old gentleman with history of end-stage liver disease, thought not to be a candidate for transplant, end-stage renal failure on hemodialysis, and coronary artery disease with multivessel CAD who is admitted to hospital with hypotension following dialysis. Patient has opted to be a FULL CODE at this time as his son is graduated from high school and there is a celebratory event around it. This morning he does not have any chest pain but continues to have bilateral leg edema and mild shortness of breath. On exam, heart rate is 70 beats per minute, blood pressure is 130/60, respiratory rate is 18, O2 saturation is 96% on 4 L. There is no jugular venous distention. Chest exam reveals good air entry bilaterally. Heart exam reveals first and second heart sounds. No gallop. No murmur. Abdomen is soft, nontender. Exam of extremities did not reveal any edema. Peripheral pulses are felt. ARMAMENT REPAIRER exam did not reveal focal neurological deficits. LABS: Show that the BUN and creatinine are elevated. Potassium is 4.5, hemoglobin is 7.3l. ASSESSMENT: 1. Multivessel coronary artery disease, end-stage liver disease. 2. End-stage renal failure. PLAN: The patient's long-term prognosis is guarded. MMODL / IJN: [id number] /
[2019-10-06 11:33] VITALS: RESP 16; TEMP 97.6
[2019-10-06 11:47] LABS: Glucose,Whole Blood 74 mg/dL (75-99)
[2019-10-06] MEDS: RIFAXIMIN 550 MG TABLET PO SCH (13:30)
[2019-10-06] MEDS: FOLIC ACID-VIT B COMPLEX-VIT C 1 CAP PO SCH (13:30)
[2019-10-06] MEDS: METOPROLOL TARTRATE 12.5 MG TAB PO SCH (13:30)
[2019-10-06 13:59] VITALS: BP 114/55; PULSE 77
--- NOTE | 2019-10-06 14:06 | PN ---
PROGRESS NOTE DATE OF SERVICE: 10/06/2019 REASON FOR FOLLOW UP: Probable catheter site cellulitis. INTERVAL HISTORY: The patient is currently afebrile. The patient is breathing comfortably. Patient denies having any chest pain. No shortness of breath or cough. No nausea, no vomiting. PHYSICAL EXAMINATION: Blood pressure 101/50 with a pulse of 75, temperature is 97.6, he is 96% on 4 L nasal cannula. General description is a middle-aged male, lying in bed in no distress. RESPIRATORY SYSTEM: Unlabored breathing, clear to auscultation anteriorly. HEART: S1, S2. Regular rate and rhythm. ABDOMEN: Soft, no tenderness. Right upper chest wall PermCath site redness has decreased. DIAGNOSTIC IMPRESSION AND PLAN: Patient with right chest wall former cath site cellulitis. The patient seemed to have clinically responded to vancomycin and to continue vancomycin for about a week and monitor clinical course closely. No need to remove the PermCath as blood culture has been negative. MMODL / IJN: [id number] /
--- NOTE | 2019-10-06 14:23 | P.PN ---
Subjective Progress Note Date: 10/06/19 Principal diagnosis: Right-sided pleural effusion On 10/04/2019 patient seen in follow-up on selective care unit, he status post right-sided pleural effusion which was drained by interventional radiology, with removal of 2.1 L of clear serous fluid. Fluid was sent for analysis, cultures and cytology. Cytology was negative, pleural fluid Gram stain showed no organisms at the 24-hour maycol. Pleural fluid analysis showed transudative fluid. Today patient is seen awake and alert, oriented 3, he denies any acute distress, he is breathing much easier. Room air pulse ox is 92-93%, hemodynamically stable, lung sounds are clear diminished at the bases, patient is afebrile. Echocardiogram was completed showing normal systolic function with an EF of 55-60%, trace mitral regurg, trace tricuspid regurg, no pericardial effusion. is in sinus mechanism. Today's labs have been reviewed, there is worsening of patient's renal profile, nephrology is following. Patient is supposed to have hemodialysis treatment today. No complaints of shortness of breath or chest pain. On 09/26/2019 patient seen in follow-up on selective care unit, he is calm and comfortable, he is resting in bed, is currently on 4 L of oxygen, with pulse ox of 96%, he is afebrile, hemodynamically stable. He had hemodialysis yesterday would removal of 1.2 L of fluid, patient is status post right-sided thoracentesis by interventional radiology and removal of 2.1 L of clear serous fluid, denies any worsening dyspnea. His vital signs have been stable. Yesterday patient and his made the decision to go home with hospice however they want to continue with hemodialysis treatments and outpatient therapeutic thoracentesis. His pleural fluid cultures showed no growth, cytology was negat avila, fluid was exudative consistent with fluid of congestive heart failure and renal failure. No convincing chest pain, no worsening dyspnea, discharge planning is in progress to transition patient home to palliative care Objective - Vital Signs Vital signs: Vital Signs Temp 97.6 F 10/06/19 11:31 Pulse 77 10/06/19 12:00 Resp 16 10/06/19 11:31 BP 114/55 10/06/19 12:00 Pulse Ox 96 10/06/19 08:00 Intake & Output 10/05/19 10/06/19 10/06/19 18:59 06:59 18:59 Intake Total 0 0 Output Total 1000 Balance 0 -1000 Weight 102.5 kg Intake: Oral 0 0 Output: Hemodialysis 1000 Other: Voiding Method Urinal Urinal # Voids 2 # Bowel Movements 2 - Exam GENERAL EXAM: Alert, very pleasant, 49-year-old white male, on room air, with a pulse ox of 96%, comfortable in no apparent distress. HEAD: Normocephalic/atraumatic. EYES: Normal reaction of pupils, equal size. Conjunctiva pink, sclera white. NOSE: Clear with pink turbinates. THROAT: No erythema or exudates. NECK: No masses, no JVD, no thyroid enlargement, no adenopathy. CHEST: No chest wall deformity. Symmetrical expansion. LUNGS: Equal air entry with no crackles, wheeze, rhonchi or dullness. CVS: Regular rate and rhythm, normal S1 and S2, no gallops, no murmurs, no rubs ABDOMEN: Soft, nontender. No hepatosplenomegaly, normal bowel sounds, no guarding or rigidity. EXTREMITIES: No clubbing, no edema, no cyanosis, 2+ pulses and upper and lower extremities. MUSCULOSKELETAL: Muscle strength and tone normal. SPINE: No scoliosis or deformity SKIN: No rashes CENTRAL NERVOUS SYSTEM: Alert and oriented -3. No focal deficits, tone is normal in all 4 extremities. PSYCHIATRIC: Alert and oriented -3. Appropriate affect. Intact judgment and insight. - Labs CBC & Chem 7: 10/05/19 06:02 10/05/19 06:02 Labs: Abnormal Lab Results - Last 24 Hours (Table) 10/05/19 10/05/19 10/06/19 Range/Units 16:50 20:05 11:45 POC Glucose (mg/dL) 199 H 196 H 74 L (75-99) mg/dL Microbiology - Last 24 Hours (Table) 10/03/19 17:00 Blood Culture - Preliminary Blood No Growth after 48 hours 10/03/19 11:51 Anaerobic Culture - Preliminary Pleural Fluid 10/03/19 11:51 Gram Stain - Preliminary Pleural Fluid Body Fluid Culture - Preliminary Assessment and Plan Plan: Assessment: #1. Large right-sided pleural effusion, status post right thoracentesis by interventional radiology would removal of 2.1 L of clear serous fluid, which was transudative in nature, negative cytology and cultures #2. Shortness of breath secondary to the above, improved #3. Chronic liver disease of unclear etiology with hypoalbuminemia, ascites and pleural effusion #4. Recurrent right-sided pleural effusion status post multiple thoracentesis by interventional radiology every few weeks #5. Coronary artery disease #6. GERD/reflux #7. Hyperlipidemia #8. History of hypertension #9. Prior history of myocardial infarction #10. End-stage renal disease on hemodialysis on Wednesday julia barone Plan: Patient denies any worsening dyspnea, he had his hemodialysis treatment yesterday, with removal of 1.2 L of fluid. His pleural fluid was transudative in nature, with negative cytology and cultures. Vital signs are stable, patient and his decided for the patient to go home with hospice however they want to continue with hemodialysis treatments and therapeutic thoracentesis on o utpatient basis. Patient is still undecided about returning to the hospital if he needs acute care. But from pulmonary perspective patient will likely need outpatient therapeutic thoracentesis every 2 weeks. Otherwise stable for discharge home with palliative care I performed a history & physical examination of the patient and discussed their management with my nurse practitioner, Jayda Mcbride. I reviewed the nurse practitioner's note and agree with the documented findings and plan of care. Lung sounds are positive for diminished breath sounds. The findings and the impression was discussed with the patient. I attest to the documentation by the nurse practitioner. Time with Patient: Less than 30
--- NOTE | 2019-10-06 18:39 | P.PN ---
Subjective Progress Note Date: 10/05/19 Principal diagnosis: Decompensated cirrhosis of the liver, ascites, hepatic encephalopathy The patient was seen lying comfortably in bed, with his family bedside. Patient reporting that he is considering hospice with hemodialysis. No other complaints at this time. Objective - Vital Signs Vital signs: Vital Signs Temp 98.3 F 10/05/19 19:30 Pulse 77 10/05/19 19:30 Resp 18 10/05/19 19:30 BP 117/68 10/05/19 19:30 Pulse Ox 99 10/05/19 19:30 Intake & Output 10/05/19 10/05/19 10/06/19 06:59 18:59 06:59 Intake Total 100 0 Balance 100 0 Weight 100.5 kg Intake: Intake, IV Titration 100 Amount Levofloxacin 500Mg-D5w 100 Pmx 500 mg In Dextrose/ Water 1 100ml.bag @ 100 mls/hr IVPB Q48H [facility] Rx#: [id number] Oral 0 Other: Voiding Method Urinal Urinal # Voids 0 2 # Bowel Movements 1 2 - Exam On physical examination, patient appears comfortable in no apparent distress. HEAD: Normocephalic, atraumatic. EYES: Scleral icterus. No conjunctival injection. MOUTH: No lesions, tongue midline. NECK: Trachea midline, no gross abnormalities. ABDOMEN: Soft, obese, nontender to palpation. Bowel sounds are positive. No organomegaly. No guarding or rigidity. EXTREMITIES: +1 bilateral pedal edema. SKIN: No rashes, jaundice. NEUROLOGIC: Alert and oriented x3, no asterixis noted. - Labs CBC & Chem 7: 10/05/19 06:02 10/05/19 06:02 Labs: Abnormal Lab Results - Last 24 Hours (Table) 10/04/19 10/05/19 10/05/19 Range/Units 20:20 06:02 06:02 RBC 2.22 L (4.30-5.90) m/uL Hgb 7.3 L (13.0-17.5) gm/dL Hct 23.5 L (39.0-53.0) % MCV 106.0 H (80.0-100.0) fL RDW 17.4 H (11.5-15.5) % Plt Count 27 L (150-450) k/uL Macrocytosis Marked A Sodium 133 L (137-145) mmol/L Carbon Dioxide 20 L (22-30) mmol/L BUN 40 H (9-20) mg/dL Creatinine 5.74 H (0.66-1.25) mg/dL Glucose 169 H (74-99) mg/dL POC Glucose (mg/dL) 215 H (75-99) mg/dL Calcium 6.8 L (8.4-10.2) mg/dL Total Bilirubin 7.6 H (0.2-1.3) mg/dL AST 116 H (17-59) U/L ALT 57 H (4-49) U/L Alkaline Phosphatase 380 H (38-126) U/L Total Protein 6.2 L (6.3-8.2) g/dL Albumin 2.4 L (3.5-5.0) g/dL 10/05/19 10/05/19 10/05/19 Range/Units 06:32 12:07 16:50 RBC (4.30-5.90) m/uL Hgb (13.0-17.5) gm/dL Hct (39.0-53.0) % MCV (80.0-100.0) fL RDW (11.5-15.5) % Plt Count (150-450) k/uL Macrocytosis Sodium (137-145) mmol/L Carbon Dioxide (22-30) mmol/L BUN (9-20) mg/dL Creatinine (0.66-1.25) mg/dL Glucose (74-99) mg/dL POC Glucose (mg/dL) 182 H 142 H 199 H (75-99) mg/dL Calcium (8.4-10.2) mg/dL Total Bilirubin (0.2-1.3) mg/dL AST (17-59) U/L ALT (4-49) U/L Alkaline Phosphatase (38-126) U/L Total Protein (6.3-8.2) g/dL Albumin (3.5-5.0) g/dL 10/05/19 Range/Units 20:05 RBC (4.30-5.90) m/uL Hgb (13.0-17.5) gm/dL Hct (39.0-53.0) % MCV (80.0-100.0) fL RDW (11.5-15.5) % Plt Count (150-450) k/uL Macrocytosis Sodium (137-145) mmol/L Carbon Dioxide (22-30) mmol/L BUN (9-20) mg/dL Creatinine (0.66-1.25) mg/dL Glucose (74-99) mg/dL POC Glucose (mg/dL) 196 H (75-99) mg/dL Calcium (8.4-10.2) mg/dL Total Bilirubin (0.2-1.3) mg/dL AST (17-59) U/L ALT (4-49) U/L Alkaline Phosphatase (38-126) U/L Total Protein (6.3-8.2) g/dL Albumin (3.5-5.0) g/dL Microbiology - Last 24 Hours (Table) 10/03/19 17:00 Blood Culture - Preliminary Blood No Growth after 48 hours 10/03/19 11:51 Anaerobic Culture - Preliminary Pleural Fluid 10/03/19 11:51 Gram Stain - Preliminary Pleural Fluid Body Fluid Culture - Preliminary Assessment and Plan (1) Cirrhosis Narrative/Plan: 49-year-old male with a medical history significant for decompensated cirrhosis of the liver with encephalopathy and ascites secondary to nonalcoholic steatohepatitis who presented to the hospital from his hemodialysis center due to concerns over low blood pressure and fevers. Patient is currently receiving treatment for suspected infection of his catheter site. Patient hasn't followed up locally with gastroenterology for decompensated cirrhosis and was referred to [facility] where he was evaluated for liver transplant. The patient and his report that secondary to underlying coronary artery disease and atherosclerosis the patient has been deemed not to be a candidate for liver transplant. Patient currently on hemodialysis with laboratory evaluation on presentation significant for INR of 1.4, platelet count 31,000, hemoglobin 7.7, total bilirubin 7.4, alkaline phosphatase 397, AST 73 and ALT 45 with a meld sodium score of 32 with a calculated 90 day mortality of approximately 0.7. Extensive discussion with the patient at this time and given overall prognosis patient is considering hospice with hemodialysis. Status: Acute Code(s): K74.60 - UNSPECIFIED CIRRHOSIS OF LIVER SNOMED Code(s): 44553314 (2) Ascites Status: Acute Code(s): R18.8 - OTHER ASCITES SNOMED Code(s): 720571363 (3) Hepatic encephalopathy Status: Acute Code(s): K72.90 - HEPATIC FAILURE, UNSPECIFIED WITHOUT COMA SNOMED Code(s): 69254703 (4) Hyperammonemia Status: Acute Code(s): E72.20 - DISORDER OF UREA CYCLE METABOLISM, UNSPECIFIED SNOMED Code(s): 5392971 Plan: Supportive care Okay for diet as tolerated Continue management of fluid status and renal disease by nephrology service Infectious disease following the patient and he is been initiated on antibiotic therapy Continue rifaximin and lactulose therapy Continue to monitor CBC, BMP, LFTs Extensive discussion with the patient and his was at bedside about overall prognosis and meld sodium score of 32 which estimates a 90 day mortality of approximately 70%, and at this time patient is considering hospice with hemodialysis Thank you for allowing us to participate in the care of the patient
--- NOTE | 2019-10-07 19:26 | P.DS ---
Providers Date of admission: 10/02/19 16:22 Expected date of discharge: 10/06/19 Attending physician: Jamel Contreras Consults: 10/02/19 16:45 Consult Physician Stat Consulting Provider: Tiffanie Angulo Consult Reason/Comments: liver failure Do you want consulting provider notified?: Yes Consult Physician Stat Consulting Provider: Claudia Lugo Consult Reason/Comments: Dialysis Do you want consulting provider notified?: Yes 10/02/19 16:47 Consult Physician Stat Consulting Provider: David Jackson Consult Reason/Comments: Pleural effusion, pneumonia Do you want consulting provider notified?: Yes 10/03/19 13:11 Consult Physician Routine Consulting Provider: Beny Angulo Consult Reason/Comments: cad Do you want consulting provider notified?: Yes 10/03/19 13:12 Consult Physician Routine Consulting Provider: Zahra Brooks Consult Reason/Comments: HD cath infectiom Do you want consulting provider notified?: Yes Primary care physician: [facility] Course: Chief Complaint: Weak and tired History of presenting complaint: This is a 49-year-old patient of Dr. Guzmán. Patient has a known history of cirrhosis that has progressed from fatty liver. Diagnosed over 2 years ago. Follows with animal attendants and trainers Dr. Angulo. stable medical conditions include obesity, pancytopenia, coronary artery disease with stent, diabetes mellitus type 2, GERD, hyperlipidemia, hypotension on midodrine, chronic insomnia. Patient gets therapeutic paracentesis every 2 weeks. Patient is also had thoracentesis before. Patient's had repeated admissions for encephalopathy. On August 22 patient was transferred and hospital because encephalopathy was not improving. She was not felt to be a liver transplant candidate. He may be going down to [facility] for assessment for the same. Patient begun hemodialysis the last 2 weeks. Patient has a right infraclavicular hemodialysis access. Patient's front of cellulitis around the same. Was put on antibiotics with hemodialysis. Has not really improved. Patient gets hemodialyzed Wednesday and Wednesday. 2.1 L thoracentesis done. Appetite poor. Patient always feels cold. No fever. Patient decided not to pursue any further treatment [place]. He received hemodialysis. Blood pressure continued to run low. Patient had a meeting with [facility]. He'll be going home with hospice. Symptomatic dialysis treatment is being arranged. Care was discussed with the patient. 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 Questions answered. Discussion and discharge planning more than 35 minutes Consultation: Nephrology Dr. Santo from ID Dr. Vu from [facility] Physical examination: VITAL SIGNS: 97.6, 75, 16, 101/50, 96% on 4 L GENERAL: Laying in bed, tired, answer questions EYES: Pupils equal. Conjunctiva-mild icterus HEENT: External appearance of nose and ears normal, oral cavity grossly normal. NECK: JVD unable to assess; masses not palpable. HEART: First and second heart sounds are normal; edema present LUNGS: Respiratory rate increased, decreased breath sounds ABDOMEN: Soft, some distention, nontender, liver spleen not palpable, no masses palpable. PSYCH: Able to answer questions. DERMATOLOGICAL: Right upper chest PermCath with surrounding redness of the skin, slight tenderness INVESTIGATIONS, reviewed in the clinical context: White count 4.8 hemoglobin 7.3 potassium 4.5 Previous testing: Sodium 130 potassium 5 bun 39 creatinine 5.2 to glucose 313 vancomycin 19.8 white count 4.2 hemoglobin 7.7 platelets 31 ammonia 12 bicarb 18 Labs on August 22 showed bundle 53 creatinine of 1.86 Assessment: -Medical asthenia slow to respond -Acute cellulitis around the access site of PermCath-cultures pending -Chronic hepatic encephalopathy from underlying cirrhosis. -[id number] to respond -Chronic metabolic acidosis -Hepatic cirrhosis that is progressed from fatty liver, worsening -Obesity BMI 32.9 -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 -Coronary artery disease with stent -Diabetes mellitus type 2, uncontrolled with hyperglycaemia, -GERD -Hyperlipidemia -Chronic insomnia -Hypoalbuminemia due to cirrhosis -Fluid overload due to cirrhosis and renal failure-slow to respond -End-stage kidney disease on hemodialysis for last 2 weeks -Anemia of chronic kidney disease -Anorexia due to medical problems Disposition: Home with hospice Patient Condition at Discharge: Poor Plan - Discharge Summary Discharge Rx Participant: No New Discharge Prescriptions: New Midodrine [ProAmatine] 10 mg PO TID PRN tab PRN Reason: LOW BLOOD PRESSURE Continue Albuterol Sulfate [Proair Hfa] 2 puff INHALATION RT-Q6H PRN PRN Reason: Shortness Of Breath Rifaximin [Xifaxan] 550 mg PO BID Calcium Acetate [PhosLo] 1,334 mg PO AC-TID [place] Caps 1 cap PO DAILY Pantoprazole Sodium [Protonix] 40 mg PO DAILY Moxifloxacin HCl [Avelox] 400 mg PO DAILY Midodrine HCl [ProAmatine] 10 mg PO AC-TID Insulin Glargine [Lantus] 40 unit SQ HS Atorvastatin Calcium [Lipitor] 40 mg PO HS Aspirin EC [Ecotrin] 325 mg PO DAILY ALPRAZolam [Xanax] 0.5 mg PO BID Discontinued Metoprolol Tartrate 12.5 mg PO BID Discharge Medication List Albuterol Sulfate [Proair Hfa] 2 puff INHALATION RT-Q6H PRN 12/07/18 [History] Rifaximin [Xifaxan] 550 mg PO BID 12/20/18 [History] ALPRAZolam [Xanax] 0.5 mg PO BID 10/02/19 [History] Aspirin EC [Ecotrin] 325 mg PO DAILY 10/02/19 [History] Atorvastatin Calcium [Lipitor] 40 mg PO HS 10/02/19 [History] Calcium Acetate [PhosLo] 1,334 mg PO AC-TID 10/02/19 [History] Insulin Glargine [Lantus] 40 unit SQ HS 10/02/19 [History] Midodrine HCl [ProAmatine] 10 mg PO AC-TID 10/02/19 [History] Moxifloxacin HCl [Avelox] 400 mg PO DAILY 10/02/19 [History] Pantoprazole Sodium [Protonix] 40 mg PO DAILY 10/02/19 [History] [place] Caps 1 cap PO DAILY 10/02/19 [History] Midodrine [ProAmatine] 10 mg PO TID PRN tab 10/06/19 [Rx] Follow up Appointment(s)/Referral(s): Star Guzmán MD [Primary Care Provider] - 1-2 days [facility] [NON-STAFF] - Discharge Disposition: HOME WITH HOSPICE
== END 2019-10-06 13:59 | disposition hospice, home (50) | DRG 862 ==
LOC: EC 15:53 → 3SCARD 16:22
PROVIDERS: ADMIT Hospitalist; ATTEND Hospitalist
PROC: 5A1D70Z Performance of Urinary Filtration, Intermittent, Less than 6 Hours Per Day (ICD-10-PCS; principal; 2019-10-02)
PROC: 3E033XZ Introduction of Vasopressor into Peripheral Vein, Percutaneous Approach (ICD-10-PCS; 2019-10-02)
PROC: 0W993ZZ Drainage of Right Pleural Cavity, Percutaneous Approach (ICD-10-PCS; 2019-10-03)
DX: T81.40XA Infection following a procedure, unspecified, initial encounter (principal); N18.6 End stage renal disease; J90 Pleural effusion, not elsewhere classified; D61.818 Other pancytopenia; D68.4 Acquired coagulation factor deficiency; R18.8 Other ascites; E87.2 Acidosis; E72.20 Disorder of urea cycle metabolism, unspecified; L03.313 Cellulitis of chest wall; I12.0 Hypertensive chronic kidney disease with stage 5 chronic kidney disease or end stage renal disease; Z51.5 Encounter for palliative care; E11.65 Type 2 diabetes mellitus with hyperglycemia; E11.40 Type 2 diabetes mellitus with diabetic neuropathy, unspecified; K74.60 Unspecified cirrhosis of liver; K75.81 Nonalcoholic steatohepatitis (NASH); E11.22 Type 2 diabetes mellitus with diabetic chronic kidney disease; Z11.59 Encounter for screening for other viral diseases; I95.3 Hypotension of hemodialysis; K72.10 Chronic hepatic failure without coma; F51.04 Psychophysiologic insomnia; F41.9 Anxiety disorder, unspecified; F32.9 Major depressive disorder, single episode, unspecified; K21.9 Gastro-esophageal reflux disease without esophagitis; E78.5 Hyperlipidemia, unspecified; E66.9 Obesity, unspecified; F50.89 Other specified eating disorder; Y83.8 Other surgical procedures as the cause of abnormal reaction of the patient, or of later complication, without mention of misadventure at the time of the procedure; I25.10 Atherosclerotic heart disease of native coronary artery without angina pectoris; E83.9 Disorder of mineral metabolism, unspecified; D63.1 Anemia in chronic kidney disease; Z99.2 Dependence on renal dialysis; Z87.891 Personal history of nicotine dependence; Z79.4 Long term (current) use of insulin; Z79.82 Long term (current) use of aspirin; Z79.899 Other long term (current) drug therapy; Z79.02 Long term (current) use of antithrombotics/antiplatelets; Z88.1 Allergy status to other antibiotic agents; I25.2 Old myocardial infarction; Z90.49 Acquired absence of other specified parts of digestive tract; Z95.5 Presence of coronary angioplasty implant and graft; Z98.890 Other specified postprocedural states; Z80.1 Family history of malignant neoplasm of trachea, bronchus and lung; Z81.1 Family history of alcohol abuse and dependence; Z68.32 Body mass index [BMI] 32.0-32.9, adult
CPT/HCPCS: 32555; 36415; 71045; 76604; 80048; 80053; 80202; 82140; 82728; 82945; 83540; 83550; 83615; 84157; 85025; 85027; 85610; 87040; 87070; 87075; 87102; 87116; 87205; 87206; 88108; 88305; 89050; 90935; 93306; 96365; 96366; 99285